=== PATIENT | female | born 1930 | race Caucasian/White ===

== ENCOUNTER → 2016-08-27 | Outpatient (REF) | payer MEDICARE ==
[~2016-08-27] MED LIST: /WARF25TA OR; AMLO10TAB OR; ATEN25TA OR; BENA20TA2 OR; BISA10SU2 AD; BISA5TA OR; COLA100C2 OR; FIBERCON PO; LEVO75TA2 OR; MELOPOW XX; MILKSUS OR; MULTIVIT PO; PAIN325T OR; TRAM50TA2 OR; VITAMIN D50000 UNT OR
[2016-08-27 18:37] LABS: ANION GAP 6 MEQ/L (8-16); BLOOD UREA NITROGEN 19 MG/DL (7-18); CALCIUM LEVEL 9.4 MG/DL (8.8-10.2); CARBON DIOXIDE LEVEL 30 MEQ/L (21-32); CHLORIDE LEVEL 104 MEQ/L (98-107); CREATININE FOR GFR 0.62 MG/DL (0.55-1.02); GLOMERULAR FILTRATION RATE > 60.0 (>32); GLUCOSE, FASTING 68 MG/DL (83-110); POTASSIUM SERUM 4.1 MEQ/L (3.5-5.1); SODIUM LEVEL 140 MEQ/L (136-145)
== END ==
LOC: M SFHCPLAZ 16:01
PROVIDERS: ATTEND Family Medicine
DX: I10 Essential (primary) hypertension (principal); E55.9 Vitamin D deficiency, unspecified
CPT/HCPCS: 36415; 80048; 82306; G0463

== ENCOUNTER → 2017-03-24 | Outpatient (REF) | payer MEDICARE ==
[2017-03-24 13:55] LABS: FREE T4 1.16 NG/DL (0.76-1.46)
== END ==
LOC: M SFHCPLAZ 11:17
PROVIDERS: ATTEND Family Medicine
DX: E03.9 Hypothyroidism, unspecified (principal)

== ENCOUNTER → 2018-01-17 | Outpatient (REF) | payer MEDICARE ==
[2018-01-17 12:50] LABS: BASO # 0.1 10^3/uL (0.0-0.2); BASO % 0.8 % (0.0-1.0); EOS # 0.2 10^3/uL (0.0-0.50); EOS % 2.1 % (0.0-3.0); HEMOGLOBIN 15.1 g/dl (12.0-15.5); IMMATURE GRANULOCYTE % 0.1 % (0-3.0); LYMPH # 1.4 10^3/uL (1.5-4.5); LYMPH % 18.7 % (24.0-44.0); MEAN CORPUSCULAR HGB CONC 32.1 g/dl (32.0-36.5); MEAN CORPUSCULAR VOLUME 93.3 fl (80.0-96.0); MONO # 0.4 10^3/uL (0.0-0.8); NEUTROPHILS # 5.2 10^3/uL (1.8-7.7); NEUTROPHILS % 72.3 % (36.0-66.0); PLATELET COUNT, AUTOMATED 246 10^3/uL (150-450); RED BLOOD COUNT 5.04 10^6/uL (4.00-5.40); RED CELL DISTRIBUTION WIDTH 13.3 % (11.5-14.5); WHITE BLOOD COUNT 7.2 10^3/uL (4.0-10.0)
[2018-01-17 13:24] LABS: ALBUMIN 3.4 GM/DL (3.2-5.2); ALBUMIN/GLOBULIN RATIO 0.89 (1.00-1.93); ALKALINE PHOSPHATASE 71 U/L (45-117); ALT/SGPT 22 U/L (12-78); ANION GAP 6 MEQ/L (8-16); AST/SGOT 20 U/L (7-37); BILIRUBIN,TOTAL 0.7 MG/DL (0.2-1.0); BLOOD UREA NITROGEN 22 MG/DL (7-18); CALCIUM LEVEL 8.7 MG/DL (8.8-10.2); CARBON DIOXIDE LEVEL 29 MEQ/L (21-32); CHLORIDE LEVEL 107 MEQ/L (98-107); CHOLESTEROL LEVEL 198 MG/DL (<200); CHOLESTEROL RISK RATIO 3.413 (<5); CREATININE FOR GFR 0.61 MG/DL (0.55-1.30); FREE T4 0.98 NG/DL (0.76-1.46); GLOMERULAR FILTRATION RATE > 60.0 (>32); GLUCOSE, FASTING 82 MG/DL (70-100); HDL CHOLESTEROL 58 MG/DL (>40); LDL CHOLESTEROL 122 MG/DL (<100); MAGNESIUM LEVEL 2.1 MG/DL (1.8-2.4); NON-HDL-C 140 MG/DL; POTASSIUM SERUM 4.1 MEQ/L (3.5-5.1); SODIUM LEVEL 142 MEQ/L (136-145); TOTAL PROTEIN 7.2 GM/DL (6.4-8.2); TRIGLYCERIDES LEVEL 91 MG/DL (<150)
[2018-01-17 13:56] LABS: PTH INTACT 61.9 PG/ML (18.5-88.0); TOTAL 25(OH) VITAMIN D 25.4 NG/ML (30.0-100.0)
== END ==
LOC: M SFHCPLAZ 11:01
DX: I10 Essential (primary) hypertension (principal); E03.9 Hypothyroidism, unspecified; Z13.228 Encounter for screening for other metabolic disorders; E55.9 Vitamin D deficiency, unspecified
CPT/HCPCS: 83735

== ENCOUNTER → 2018-01-31 | Outpatient (REF) | payer MEDICARE | LOC: M SFHCPLAZ 17:29 | DX: R35.0 Frequency of micturition (principal) | CPT/HCPCS: 87088; 87186 ==

== ENCOUNTER → 2018-05-01 | Outpatient (REF) | payer MEDICARE | LOC: M SFHCPLAZ 15:08 | PROVIDERS: ATTEND Family Medicine | DX: R30.0 Dysuria (principal) | CPT/HCPCS: 81002; 87086; G0463 ==

== ENCOUNTER → 2018-07-24 | Outpatient (REF) | payer MEDICARE ==
[~2018-07-24] MED LIST changes: -/WARF25TA OR; +COUM1TAB18 OR
[2018-07-24 17:17] LABS: BLOOD UREA NITROGEN 22 MG/DL (7-18); CALCIUM LEVEL 9.3 MG/DL (8.8-10.2); CARBON DIOXIDE LEVEL 30 MEQ/L (21-32); CHLORIDE LEVEL 105 MEQ/L (98-107); CREATININE FOR GFR 0.54 MG/DL (0.55-1.30); GLOMERULAR FILTRATION RATE > 60.0 (>32); GLUCOSE, FASTING 73 MG/DL (70-100); POTASSIUM SERUM 3.9 MEQ/L (3.5-5.1); SODIUM LEVEL 140 MEQ/L (136-145)
[2018-07-25 10:41] LABS: MALB URINE SIEMENS 24.5 MG/L
== END ==
LOC: M SFHCPLAZ 14:46
PROVIDERS: ATTEND Family Medicine
DX: I10 Essential (primary) hypertension (principal)

== ENCOUNTER 2018-12-09 08:05 | Inpatient (IN) | payer MEDICARE ==
[2018-12-09] VITALS (8 sets, daily range): BP systolic 129–146; BP diastolic 60–67
[~2018-12-09] VITALS: Ht 160 cm; Wt 51.2 kg
[2018-12-09] MEDS ORDERED: MORPHINE 4 MG/ML 1ML VIAL/SYRINGE (J2270) IV ONE ×3 (08:45→11:30)
[2018-12-09 09:14] LABS: BASO # 0.1 10^3/uL (0.0-0.2); BASO % 0.5 % (0.0-1.0); EOS # 0.1 10^3/uL (0.0-0.50); EOS % 1.1 % (0.0-3.0); LYMPH # 1.8 10^3/uL (1.5-4.5); MEAN CORPUSCULAR HEMOGLOBIN 31.3 pg (27.0-33.0); MEAN CORPUSCULAR HGB CONC 32.6 g/dl (32.0-36.5); MONO # 0.4 10^3/uL (0.0-0.8); MONO % 4.3 % (0.0-5.0); NEUTROPHILS # 7.9 10^3/uL (1.8-7.7); NEUTROPHILS % 76.7 % (36.0-66.0); PLATELET COUNT, AUTOMATED 241 10^3/uL (150-450); RED BLOOD COUNT 4.79 10^6/uL (4.00-5.40); WHITE BLOOD COUNT 10.3 10^3/uL (4.0-10.0)
[2018-12-09] MEDS ORDERED: GI COCKTAIL 50ML BTL(HYOSCYAMINE/MAALOX/LIDOCAINE VISCOUS)(1:3:1) As Ordered ONE (09:35)
[2018-12-09 09:45] LABS: ALBUMIN 3.2 GM/DL (3.2-5.2); ALT/SGPT 19 U/L (12-78); BILIRUBIN,DIRECT 0.1 MG/DL (0.0-0.2); BILIRUBIN,TOTAL 0.5 MG/DL (0.2-1.0); BLOOD UREA NITROGEN 21 MG/DL (7-18); CALCIUM LEVEL 9.2 MG/DL (8.8-10.2); CARBON DIOXIDE LEVEL 27 MEQ/L (21-32); CHLORIDE LEVEL 107 MEQ/L (98-107); CK-MB VALUE MASS < 1.0 NG/ML (<3.6); CPK CREATINE PHOSPHOKINASE 51 U/L (26-192); CREATININE FOR GFR 0.55 MG/DL (0.55-1.30); GLOMERULAR FILTRATION RATE > 60.0 (>32); GLUCOSE, FASTING 146 MG/DL (70-100); LIPASE 514 U/L (73-393); MB/CK RELATIVE INDEX 1.96 (< OR =4); POTASSIUM SERUM 3.5 MEQ/L (3.5-5.1); SODIUM LEVEL 145 MEQ/L (136-145); TOTAL PROTEIN 6.8 GM/DL (6.4-8.2); TROPONIN I < 0.02 NG/ML (< 0.10)
[2018-12-09] MEDS ORDERED: ONDANSETRON 4MG/2ML VIAL (J2405) As Ordered ONE ×2 (09:45→15:30)
[2018-12-09] MEDS ORDERED: GI COCKTAIL 50ML BTL(HYOSCYAMINE/MAALOX/LIDOCAINE VISCOUS)(1:3:1) PO ONE (09:45)
[2018-12-09] MEDS ORDERED: ONDANSETRON 4MG/2ML VIAL (J2405) IV ONE (09:45)
[2018-12-09 09:52] LABS: INR 1.04; PROTHROMBIN TIME 13.3 SECONDS (11.8-14.0)
[2018-12-09 09:53] LABS: PARTIAL THROMBOPLASTIN TIME 27.3 SECONDS (25.0-38.4)
[2018-12-09] MEDS: GASTROGRAFIN SOLUTION 30ML PO SCH ×2 (10:20→11:00)
[2018-12-09] MEDS ORDERED: OMEP10CASR PO (10:34)
[2018-12-09] MEDS ORDERED: ASPI81TA85 PO (10:34)
[2018-12-09] MEDS ORDERED: D 101000 PO (10:34)
[2018-12-09] MEDS ORDERED: GNPCAP19 PO (10:34)
[2018-12-09] MEDS ORDERED: ISOVUE-370 76% 100ML VIAL (Q9967) As Ordered ONE (10:38)
--- NOTE | 2018-12-09 11:12 | REP ---
Clinical: Generalized abdominal pain. Technique: Axial contrast enhanced images from the lung bases to the pubic symphysis with coronal and sagittal re-formations using 100 ml Isovue 370 intravenous contrast material. Findings: Small to moderate amount of free air is identified within the abdomen along with free fluid primarily noted in the right upper quadrant and surrounding the gallbladder and inferior portion of the liver into the right paracolic gutter. The small and large bowel is without obstruction although scattered colonic and sigmoid diverticulosis is appreciated without obvious focal diverticulitis or inflammatory process identified. Liver, spleen, pancreas, bilateral adrenal glands and kidneys appear relatively normal. Evaluation of the pelvis demonstrates Atkins catheter in collapsed bladder and age-appropriate uterus/adnexa. Musculoskeletal structures demonstrate osteopenia and degenerative changes. Impression: 1. Pneumoperitoneum and ascites as described above. Findings suggest element of bowel perforation which may be secondary to perforated gastric/duodenal ulcer based on the distribution of fluid and gas. 2. Acute cholecystitis cannot be excluded and may warrant followup. 3. Colonic diverticulosis without focal inflammatory findings to suggest acute diverticulitis. Electronically Signed by Cayden Palomo MD 12/09/2018 11:04 A
[2018-12-09] MEDS ORDERED: NS 1,000 ML IV SCH (11:27)
[2018-12-09] MEDS ORDERED: ACET1TAB55 PO (11:39)
[2018-12-09] MEDS ORDERED: AMLO5TAB6 PO (11:39)
[2018-12-09] MEDS ORDERED: ATEN25TA PO (11:39)
[2018-12-09] MEDS ORDERED: MELO15TA28 PO (11:39)
[2018-12-09] MEDS ORDERED: SYNT75TA PO (11:39)
[2018-12-09] MEDS ORDERED: ERTAPENEM SODIUM 1 GM in NS MINI-BAG PLUS 50 ML IV ONE (11:45)
[2018-12-09] MEDS ORDERED: OMEP-218 PO (12:09)
[2018-12-09] MEDS ORDERED: ACET-683 PO (12:12)
[2018-12-09] MEDS ORDERED: LR 1,000 ML IV SCH ×2 (12:30→17:45)
[2018-12-09] MEDS ORDERED: LIDOCAINE 1% SDV INJ 30 ML VIAL As Ordered ONE (14:30)
[2018-12-09] MEDS ORDERED: BUPIVACAINE HCL 0.25% 30 ML VIAL As Ordered ONE (14:30)
[2018-12-09] MEDS ORDERED: MIDAZOLAM INJ 2 MG/2 ML VIAL (J2250) As Ordered ONE (15:23)
[2018-12-09] MEDS ORDERED: ROCURONIUM BROMIDE 50 MG/5 ML VIAL As Ordered ONE (15:23)
[2018-12-09] MEDS ORDERED: PROPOFOL 200 MG/20 ML VIAL As Ordered ONE (15:23)
[2018-12-09] MEDS ORDERED: LIDOCAINE 2% INJ 100 MG/5 ML SDV (FOR ANES.) As Ordered ONE (15:23)
[2018-12-09] MEDS ORDERED: fentaNYL 100 MCG/2 ML INJECTION (J3010) As Ordered ONE (15:23)
[2018-12-09] MEDS ORDERED: dexameTHASONE 4 MG/ML 1ML VIAL (J1100) As Ordered ONE (15:23)
[2018-12-09] MEDS ORDERED: SUCCINYLCHOLINE 100 MG/5 ML SYRINGE (J0330) As Ordered ONE (15:24)
[2018-12-09] MEDS ORDERED: PHENYLephrine HCL 500 MCG/5 ML (100MCG/ML) SYRINGE (J2370) As Ordered ONE (15:27)
[2018-12-09] MEDS ORDERED: ePHEDrine SULFATE 25 MG/5 ML(5MG/ML) SYRINGE As Ordered ONE (15:27)
[2018-12-09] MEDS ORDERED: SUGAMMADEX SODIUM 500 MG/5 ML VIAL (BRIDION) As Ordered ONE (15:33)
[2018-12-09] MEDS ORDERED: METOCLOPRAMIDE INJ 10MG/2ML VIAL (J2765) IV PRN (17:45)
[2018-12-09] MEDS ORDERED: fentaNYL 100 MCG/2 ML INJECTION (J3010) IV PRN (17:45)
[2018-12-09] MEDS ORDERED: ONDANSETRON 4MG/2ML VIAL (J2405) IV PRN (17:45)
[2018-12-09] MEDS: LR 1,000 ML IV SCH (18:09)
[2018-12-09] MEDS: ACETAMINOPHEN TAB 650MG DOSE (2X325MG) PO PRN (18:39)
[2018-12-09] MEDS: ATENOLOL 25 MG TAB PO SCH (18:40)
[2018-12-09] MEDS: PANTOPRAZOLE 40MG INJ (PROTONIX) (C9113) IV SCH (20:38)
[2018-12-09] MEDS: MORPHINE 4 MG/ML 1ML VIAL/SYRINGE (J2270) IV PRN ×2 (20:54→23:36)
[2018-12-09] MEDS: ONDANSETRON 4MG/2ML VIAL (J2405) IV PRN (20:55)
[2018-12-09] MEDS: SUCRALFATE SUSP 1GM/10ML UD PO SCH (20:55)
[2018-12-09] MEDS: SENOKOT S TAB PO SCH (20:55)
[2018-12-10 04:00] VITALS: BP 141/67
[2018-12-10] MEDS: ACETAMINOPHEN TAB 650MG DOSE (2X325MG) PO PRN ×3 (04:00→18:24)
[2018-12-10] MEDS: LEVOTHYROXINE 75MCG TABLET (0.075MG) PO SCH (05:34)
[2018-12-10] MEDS: SUCRALFATE SUSP 1GM/10ML UD PO SCH ×3 (05:34→20:19)
[2018-12-10] MEDS: LR 1,000 ML IV SCH ×2 (05:45→18:02)
[2018-12-10 05:49] LABS: BASO % 0.1 % (0.0-1.0); HEMOGLOBIN 14.6 g/dl (12.0-15.5); LYMPH # 0.4 10^3/uL (1.5-4.5); LYMPH % 4.2 % (24.0-44.0); MEAN CORPUSCULAR HEMOGLOBIN 31.4 pg (27.0-33.0); MEAN CORPUSCULAR HGB CONC 32.4 g/dl (32.0-36.5); MEAN CORPUSCULAR VOLUME 96.8 fl (80.0-96.0); MONO # 0.4 10^3/uL (0.0-0.8); MONO % 3.8 % (0.0-5.0); NEUTROPHILS # 9.5 10^3/uL (1.8-7.7); NEUTROPHILS % 91.4 % (36.0-66.0); PLATELET COUNT, AUTOMATED 216 10^3/uL (150-450); RED BLOOD COUNT 4.65 10^6/uL (4.00-5.40); WHITE BLOOD COUNT 10.4 10^3/uL (4.0-10.0)
[2018-12-10 06:26] LABS: ALBUMIN 2.5 GM/DL (3.2-5.2); ALT/SGPT 17 U/L (12-78); BILIRUBIN,TOTAL 0.5 MG/DL (0.2-1.0); BLOOD UREA NITROGEN 26 MG/DL (7-18); CALCIUM LEVEL 8.2 MG/DL (8.8-10.2); CARBON DIOXIDE LEVEL 26 MEQ/L (21-32); CHLORIDE LEVEL 109 MEQ/L (98-107); GLOMERULAR FILTRATION RATE > 60.0 (>32); GLUCOSE, FASTING 138 MG/DL (70-100); POTASSIUM SERUM 4.1 MEQ/L (3.5-5.1); SODIUM LEVEL 141 MEQ/L (136-145); TOTAL PROTEIN 6.3 GM/DL (6.4-8.2)
--- NOTE | 2018-12-10 07:11 | ECGEPIP ---
[facility] - ED Test Date: 2018-12-09 Pat Name: YONI YANES Department: Room: - Gender: Female [employer] Tender: : 1930 Requested By: LARON Moore Order Number: [id number] Reading MD: Irma Kiser Measurements Intervals [place] Rate: 57 P: 56 MT: 175 QRS: -22 QRSD: 138 T: 16 QT: 495 QTc: 484 Interpretive Statements SINUS BRADYCARDIA WITH OCCASIONAL VENTRICULAR PREMATURE COMPLEXES POSSIBLE LEFT ATRIAL ENLARGEMENT INTRAVENTRICULAR CONDUCTION DELAY POSSIBLE LEFT VENTRICULAR HYPERTROPHY NO PRIOR Electronically Signed on 12-10-2018 7:11:16 EDT by Irma Kiser
[2018-12-10 08:00] VITALS: BP 147/66
[2018-12-10] MEDS: PANTOPRAZOLE 40MG INJ (PROTONIX) (C9113) IV SCH ×2 (08:37→20:19)
[2018-12-10] MEDS: SENOKOT S TAB PO SCH ×2 (08:37→20:19)
[2018-12-10] MEDS: amLODIPine 5 MG TAB PO SCH (08:37)
[2018-12-10] MEDS: ENOXAPARIN 30 MG/0.3 ML SYR (J1650) SC SCH (08:38)
[2018-12-10] MEDS: MORPHINE 4 MG/ML 1ML VIAL/SYRINGE (J2270) IV PRN ×2 (08:40→20:19)
[2018-12-10 11:50] VITALS: BP 149/65
[2018-12-10] MEDS: ERTAPENEM SODIUM 1 GM in NS MINI-BAG PLUS 50 ML IV SCH (13:06)
[2018-12-10] MEDS ORDERED: CHLORASEPTIC SPRAY MT PRN (14:15)
[2018-12-10 16:00] VITALS: BP 136/64
[2018-12-10] MEDS: ATENOLOL 25 MG TAB PO SCH (17:08)
[2018-12-10 20:00] VITALS: BP 131/77
[2018-12-10 20:10] LABS: BASO % 0.2 % (0.0-1.0); HEMATOCRIT 41.9 % (36.0-47.0); HEMOGLOBIN 13.6 g/dl (12.0-15.5); LYMPH # 0.8 10^3/uL (1.5-5.0); LYMPH % 8.5 % (24.0-44.0); MEAN CORPUSCULAR HEMOGLOBIN 31.3 pg (27.0-33.0); MEAN CORPUSCULAR HGB CONC 32.5 g/dl (32.0-36.5); MEAN CORPUSCULAR VOLUME 96.3 fl (80.0-96.0); MONO # 0.4 10^3/uL (0.0-0.8); MONO % 3.8 % (0.0-5.0); NEUTROPHILS # 8.3 10^3/uL (1.5-8.5); NEUTROPHILS % 87.2 % (36.0-66.0); PLATELET COUNT, AUTOMATED 196 10^3/uL (150-450); RED BLOOD COUNT 4.35 10^6/uL (4.00-5.40); WHITE BLOOD COUNT 9.5 10^3/uL (4.0-10.0)
[2018-12-10 20:53] LABS: BLOOD UREA NITROGEN 23 MG/DL (7-18); CALCIUM LEVEL 8.8 MG/DL (8.8-10.2); CARBON DIOXIDE LEVEL 27 MEQ/L (21-32); CHLORIDE LEVEL 107 MEQ/L (98-107); CREATININE FOR GFR 0.45 MG/DL (0.55-1.30); GLOMERULAR FILTRATION RATE > 60.0 (>32); GLUCOSE, FASTING 93 MG/DL (70-100); MAGNESIUM LEVEL 2.1 MG/DL (1.8-2.4); POTASSIUM SERUM 3.9 MEQ/L (3.5-5.1); SODIUM LEVEL 140 MEQ/L (136-145); TROPONIN I < 0.02 NG/ML (< 0.10)
[2018-12-10 23:59] VITALS: BP 126/68
[2018-12-11 01:31] LABS: ALBUMIN 2.3 GM/DL (3.2-5.2); CK-MB VALUE MASS 1.4 NG/ML (<3.6); CPK CREATINE PHOSPHOKINASE 101 U/L (26-192); MB/CK RELATIVE INDEX 1.39 (< OR =4); TOTAL PROTEIN 5.4 GM/DL (6.4-8.2); TROPONIN I < 0.02 NG/ML (< 0.10)
[2018-12-11] MEDS: ACETAMINOPHEN TAB 650MG DOSE (2X325MG) PO PRN ×3 (02:52→20:22)
[2018-12-11] MEDS: ONDANSETRON 4MG/2ML VIAL (J2405) IV PRN (03:30)
[2018-12-11 04:00] VITALS: BP 141/67
[2018-12-11] MEDS: LEVOTHYROXINE 75MCG TABLET (0.075MG) PO SCH (05:34)
[2018-12-11] MEDS: SUCRALFATE SUSP 1GM/10ML UD PO SCH ×3 (05:34→20:20)
[2018-12-11] MEDS: LR 1,000 ML IV SCH (05:35)
[2018-12-11 06:13] LABS: BASO % 0.1 % (0.0-1.0); EOS % 0.1 % (0.0-3.0); HEMATOCRIT 43.8 % (36.0-47.0); HEMOGLOBIN 14.1 g/dl (12.0-15.5); LYMPH # 0.7 10^3/uL (1.5-5.0); LYMPH % 6.9 % (24.0-44.0); MEAN CORPUSCULAR HGB CONC 32.2 g/dl (32.0-36.5); MEAN CORPUSCULAR VOLUME 96.3 fl (80.0-96.0); MONO # 0.4 10^3/uL (0.0-0.8); MONO % 3.7 % (0.0-5.0); NEUTROPHILS # 8.4 10^3/uL (1.5-8.5); NEUTROPHILS % 88.9 % (36.0-66.0); PLATELET COUNT, AUTOMATED 192 10^3/uL (150-450); RED BLOOD COUNT 4.55 10^6/uL (4.00-5.40); WHITE BLOOD COUNT 9.5 10^3/uL (4.0-10.0)
[2018-12-11] MEDS ORDERED: SODIUM PHOSPHATE INJ 20 MMOL in D5W 250 ML IV ONE (06:30)
[2018-12-11 06:49] LABS: BLOOD UREA NITROGEN 21 MG/DL (7-18); CALCIUM LEVEL 8.3 MG/DL (8.8-10.2); CARBON DIOXIDE LEVEL 26 MEQ/L (21-32); CHLORIDE LEVEL 107 MEQ/L (98-107); CREATININE FOR GFR 0.48 MG/DL (0.55-1.30); GLOMERULAR FILTRATION RATE > 60.0 (>32); GLUCOSE, FASTING 89 MG/DL (70-100); POTASSIUM SERUM 3.8 MEQ/L (3.5-5.1); SODIUM LEVEL 138 MEQ/L (136-145); TROPONIN I < 0.02 NG/ML (< 0.10)
--- NOTE | 2018-12-11 06:50 | MHCRPDOC ---
[facility] Consultation Consultation DATE OF CONSULTATION: 12/10/18 CONSULTATION REQUESTED BY: REASON FOR CONSULTATION: [Atrial fibrillation]. RELEVANT HISTORY: . PAST PSYCHIATRIC HISTORY: PAST MEDICAL HISTORY: FAMILY HISTORY: Mother: Father: Siblings: Children: PERSONAL AND SOCIAL HISTORY: The patient was born and raised in [place]. 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 MENTAL STATUS EXAMINATION: Patient is a 88-year old elderly female, who recently had a bowel resection surgery for duodenal ulcer rupture. Speech is soft and clear. Language skills are age-appropriate . Thought processes including: . Thought content: Concise. Abstract reasoning, and computation: . Description of associations: . Description of abnormal or psychotic thoughts: . Judgment: . Insight: . Orientation to person, place, time. Recent and remote memory: Intact. Attention span and concentration: Appropriate Language: Mozambican. Fund of knowledge: Mood: Affect: blunted DIAGNOSIS: 1. Atrial fibrillation. PLAN: 1. Continue monitoring patient on telemetry remotely 2. Continue atenolol 25 mg by mouth daily if does not control rate slowly increase into rate is controlled and below the 100. Will consider adding calcium channel serafin such as verapamil or Diltazem in the future. if rate is not controlled or patient becomes symptomatic 3. Labs: Magnesium, trending troponin less than 0.023, phosphorus, repeat CMP, CK, MB, lactic acid, UA reflex to culture Vital Signs Vital Signs Date Time Temp Pulse Resp B/P (MAP) Pulse Ox O2 Delivery O2 Flow Rate FiO2 12/10/18 17:08 130 120/70 12/10/18 16:00 2.0 12/10/18 16:00 98.1 18 93 12/09/18 11:05 Room Air Laboratory Data 24H Labs Laboratory Tests 2 12/10/18 13:48: Bedside Glucose (Misc Panel) 113H 12/10/18 19:26: Immature Granulocyte % (Auto) 0.3, White Blood Count 9.5, Red Blood Count 4.35, Hemoglobin 13.6, Hematocrit 41.9, Mean Corpuscular Volume 96.3H, Mean Corpuscular Hemoglobin 31.3, Mean Corpuscular Hemoglobin Concent 32.5, Red Cell Distribution Width 12.9, Platelet Count 196, Neutrophils (%) (Auto) 87.2H, Lymph ocytes (%) (Auto) 8.5L, Monocytes (%) (Auto) 3.8, Eosinophils (%) (Auto) 0.0, Basophils (%) (Auto) 0.2, Neutrophils # (Auto) 8.3, Lymphocytes # (Auto) 0.8L, Monocytes # (Auto) 0.4, Eosinophils # (Auto) 0.0, Basophils # (Auto) 0.0, Nucleated Red Blood Cells % (auto) 0.0, Anion Gap 6L, Glomerular Filtration Rate > 60.0, Lactic Acid Level 1.1, Blood Urea Nitrogen 23H, Creatinine 0.45L, Sodium Level 140, Potassium Level 3.9, Chloride Level 107, Carbon Dioxide Level 27, Calcium Level 8.8, Magnesium Level 2.1, Troponin I < 0.02 12/11/18 00:44: Troponin I < 0.02, Phosphorus Level 2.0L, Total Creatine Kinase 101#, Creatine Kinase MB 1.4, Creatine Kinase MB Relative Index 1.39, Total Protein 5.4L, Albumin 2.3L 12/11/18 05:57: Immature Granulocyte % (Auto) 0.3, White Blood Count 9.5, Red Blood Count 4.55, Hemoglobin 14.1, Hematocrit 43.8, Mean Corpuscular Volume 96.3H, Mean Corpuscular Hemoglobin 31.0, Mean Corpuscular Hemoglobin Concent 32.2, Red Cell Distribution Width 13.0, Platelet Count 192, Neutrophils (%) (Auto) 88.9H, Lymphocytes (%) (Auto) 6.9L, Monocytes (%) (Auto) 3.7, Eosinophils (%) (Auto) 0. 1, Basophils (%) (Auto) 0.1, Neutrophils # (Auto) 8.4, Lymphocytes # (Auto) 0.7L, Monocytes # (Auto) 0.4, Eosinophils # (Auto) 0.0, Basophils # (Auto) 0.0, Nucleated Red Blood Cells % (auto) 0.0 Vital Signs Date Time Temp Pulse Resp B/P (MAP) Pulse Ox O2 Delivery O2 Flow Rate FiO2 12/11/18 04:00 96.6 98 16 141/67 (91) 93 2.0 12/09/18 11:05 Room Air Laboratory Tests 2 12/10/18 05:29: Immature Granulocyte % (Auto) 0.5, White Blood Count 10.4H, Red Blood Count 4.65, Hemoglobin 14.6, Hematocrit 45.0, Mean Corpuscular Volume 96.8H, Mean Corpuscular Hemoglobin 31.4, Mean Corpuscular Hemoglobin Concent 32.4, Red Cell Distribution Width 12.9, Platelet Count 216, Neutrophils (%) (Auto) 91.4H, Lymphocytes (%) (Auto) 4.2L, Monocytes (%) (Auto) 3.8, Eosinophils (%) (Auto) 0.0, Basophils (%) (Auto) 0.1, Neutrophils # (Auto) 9.5H, Lymphocytes # (Auto) 0.4L, Monocytes # (Auto) 0.4, Eosinophils # (Auto) 0.0, Basophils # (Auto) 0.0, Nucleated Red Blood Cells % (auto) 0.0, Anion Gap 6L, Glomerular Filtration Rate > 60.0, Blood Urea Nitrogen 26H, Creatinine 0.70, Sodium Level 141, Potassium Level 4.1, Chloride Level 109H, Carbon Dioxide Level 26, Calcium Level 8.2L, Aspartate Amino Transf (AST/SGOT) 23, Alanine Aminotransferase (ALT/SGPT) 17, Alkaline Phosphatase 53, Total Bilirubin 0.5, Total Protein 6.3L, Albumin 2.5#L, Albumin/Globulin Ratio 0.66L 12/10/18 13:48: Bedside Glucose (Misc Panel) 113H Home Medications Current Medications Item Value Date Time Magnesium Level 2.1 MG/DL 12/10/18 192 Current Medications Medications (Trade) Dose Ordered Sig/Ronaldo Route PRN Reason Start Time Stop Time Status Last Admin Dose Admin Acetaminophen (Tylenol Tab) 650 mg Q4HP PRN PO MILD PAIN or TEMP > 101 12/09/18 17:15 12/10/18 18:24 Amlodipine Besylate (Norvasc) 5 mg DAILY PO 12/10/18 09:00 12/10/18 08:37 Atenolol (Tenormin) 25 mg QPM@1800 PO 12/09/18 18:00 12/10/18 17:08 Diatrizoate Meglum/ Diatrizoate Sod (Gastrografin) 10 ml Q30M PO 12/09/18 10:30 8/31/19 11:01 DC 12/09/18 10:20 Enoxaparin Sodium (Lovenox) 30 mg DAILY SC 12/10/18 09:00 12/10/18 08:38 Ertapenem 1 gm/ Sodium Chloride 50 ml @ 100 mls/hr Q24H IV 12/10/18 12:00 12/10/18 13:06 Fentanyl Citrate (Sublimaze) 25 mcg Q5MP PRN IV MODERATE PAIN (PS 4-7) 12/09/18 17:45 12/09/18 18:45 DC Home Med (Med Rec Complete!) ASDIRECTED XX 12/09/18 12:30 12/09/18 12:30 DC Lactated Ringer's 1,000 ml @ 75 mls/hr [id number] IV 12/09/18 17:45 12/09/18 18:45 DC Lactated Ringer's 1,000 ml @ 80 mls/hr [id number] IV 12/09/18 18:00 12/10/18 18:02 Lactated Ringer's 1,000 ml @ 100 mls/hr Q10H IV 12/09/18 12:30 12/09/18 17:26 DC Levothyroxine Sodium (Synthroid) 75 mcg DAILY@0600 PO 12/10/18 06:00 12/10/18 05:34 Metoclopramide HCl (REGLAN INJection) 10 mg Q6HP PRN IV NAUSEA OR VOMITING 12/09/18 17:45 12/09/18 18:45 DC Morphine Sulfate (Morphine Sulfate Inj) 2 mg Q2HP PRN IV SEVERE PAIN (PS 8-10) 12/09/18 17:15 12/10/18 08:40 Ondansetron HCl (ZOFRAN INJection) 4 mg Q4HP PRN IV NAUSEA OR VOMITING 12/09/18 17:45 12/09/18 18:45 DC Ondansetron HCl (ZOFRAN INJection) 4 mg Q6HP PRN IV NAUSEA OR VOMITING 12/09/18 17:15 12/09/18 20:55 Pantoprazole Sodium (Protonix) 40 mg Q12H IV 12/09/18 21:00 12/10/18 08:37 Phenol (Chloraseptic [place]) 2 spray Q4HP PRN MT SORE THROAT 12/10/18 14:15 12/10/18 16:38 Senna/Docusate Sodium (Senokot S) 1 tab BID PO 12/09/18 21:00 12/10/18 08:37 Sodium Chloride 1,000 ml @ 150 mls/hr Q6H40M IV 12/09/18 11:27 12/09/18 17:26 DC 12/09/18 11:32 Sucralfate (Carafate Suspension) 1 gm Q8H PO 12/09/18 22:00 12/10/18 13:03 Scheduled Amlodipine Besylate (Amlodipine Besylate) 5 Mg Tablet, 5 MG PO DAILY, (Reported) Aspirin (Aspir 81) 81 Mg Tablet.dr, 81 MG PO DAILY, (Reported) Atenolol (Atenolol) 25 Mg Tablet, 25 MG PO QPM, (Reported) Cholecalciferol (Vitamin D3) (Vitamin D3) 1,000 Unit Capsule, 3,000 UNITS PO DAILY, (Reported) Levothyroxine Sodium (Synthroid) 75 Mcg Tablet, 75 MCG PO DAILY, (Reported) Meloxicam (Meloxicam) 15 Mg Tablet, 15 MG PO DAILY, (Reported) Omeprazole (Omeprazole) 20 Mg Capsule.dr, 20 MG PO DAILY, (Reported) Vit A/Vit C/Vit E/Zinc/Copper (Healthy Eyes Supervision Sftgl) 1 Each Capsule, 1 CAP PO DAILY, (Reported) Scheduled PRN Acetaminophen (Acetaminophen) 500 Mg Tablet, 500 MG PO Q4H PRN for PAIN, (Reported) Allergies Coded Allergies: Tetracyclines (Verified Allergy, Unknown, rash, 12/09/18) codeine (Verified Allergy, Unknown, rash, 12/09/18) KUNAL OLSON [facility] Dec 10, 2018 18:49
--- NOTE | 2018-12-11 07:47 | HPEPDOC ---
General Date of Admission Dec 09, 2018 at 12:02 Date of Service: Dec 10, 2018 Primary Care Physician: FREDDY OSMAN MD Attending Physician: TE DYKES MD Chief Complaint The patient is a 88-year-old female consultation for new onset atrial fibrillation. Source: Patient, Old records Exam Limitations: Hard of hearing Timing/Duration: Unsure Severity: Mild Associated Symptoms: Denies Symptoms History of Present Illness Consultation Received consultation referral from Dr. Osman to see patient due to new onset of atrial fibrillation. Patient seen on 12/10/2018 in her room . Ms. Summers is an 88-year-old elderly female who presents with non- symptomatic atrial fibrillation. She reports that she has felt her heart quiver for many years now, but she never thought anything of it and has not reported it to her physician. She denies feeling symptoms of dizziness, chest pain, heart palpitations, when heart heart symptoms were felt at home and in the hospital. However, she does reports tingling in her lower extremities but denies tingling in her hands at this time as well as nausea and vomiting. She has a nasogastric tube draining moderate green fluid to low wall suction. She has significant medical history of essential hypertension, hypothyroidism, vitamin D deficiency, deep vein thrombosis. She is currently status- post gastrointestinal surgery for perforated abdominal access with duodenal ulcer rupture having bowel resection performed by Dr. Osman on 12/09/[address] [facility] Home Medications Scheduled Amlodipine Besylate (Amlodipine Besylate) 5 Mg Tablet, 5 MG PO DAILY, (Reported) Aspirin (Aspir 81) 81 Mg Tablet.dr, 81 MG PO DAILY, (Reported) Atenolol (Atenolol) 25 Mg Tablet, 25 MG PO QPM, (Reported) Cholecalciferol (Vitamin D3) (Vitamin D3) 1,000 Unit Capsule, 3,000 UNITS PO DAILY, (Reported) Levothyroxine Sodium (Synthroid) 75 Mcg Tablet, 75 MCG PO DAILY, (Reported) Meloxicam (Meloxicam) 15 Mg Tablet, 15 MG PO DAILY, (Reported) Omeprazole (Omeprazole) 20 Mg Capsule.dr, 20 MG PO DAILY, (Reported) Vit A/Vit C/Vit E/Zinc/Copper (Healthy Eyes Supervision Sftgl) 1 Each Capsule, 1 CAP PO DAILY, (Reported) Scheduled PRN Acetaminophen (Acetaminophen) 500 Mg Tablet, 500 MG PO Q4H PRN for PAIN, (Reported) Allergies Coded Allergies: Tetracyclines (Verified Allergy, Unknown, rash, 12/09/18) codeine (Verified Allergy, Unknown, rash, 12/09/18) Past Medical History Medical History essential hypertension, hypothyroidism, vitamin D deficiency, deep vein thrombosis Family History Significant Family History: Noncontributory Social History * Smoker: Denies Alcohol: Denies Drugs: denies Psychosocial History: No pertinent psych hx A-FIB/CHADSVASC A-FIB History Current/History of A-Fib/PAF?: Yes Current PO Anticoag Therapy: No Age/Risk Factor Scoring CHADSVASC: CHADSVASC Response (Comments) Value Age Risk Factor Age >/= 75 years old 2 Hx of CHF No 0 Hx of HTN Yes 1 Hx of Stroke/TIA/or VTE Yes 2 Hx of Diabetes No 0 Hx of Vascular Disease No 0 Total 5 Treatment Treatment ordered: Other (Receiving Lovenox 30 mg SC daily) Other anticoagulant ordered: Lovenox 30 mg SC Reason Anticoagulant not given: Recent/upcomin procedure Review of Systems Constitutional: Reports: Malaise Eyes: Denies: Pain, Vision change ENT: Reports: Head Aches, Sore Throat Skin: Denies: Rash, Lesions, Breakdown Pulmonary: Denies: Dyspnea, Cough Cardiovascular: Denies: Chest Pain, Palpitations, Orthopnea, Paroxysmal Noc. Dyspnea, Lt Headedness Gastrointestinal: Reports: Nausea Genitourinary: Reports: Incontinence Hematologic: Denies: Bruising, Bleeding Excessively Endocrine: Denies: Polydipsia, Polyphagia, Polyuria, Heat Intolerance, Cold Intolerance, Other Endocrine Sx Musculoskeletal: Denies: Neck Pain, Back Pain, Joint Pain, Muscle Pain, Spasms Neurological: Reports: Weakness (Bluted and Flat Affect) Physical Examination General Exam: Positive: Alert, Cooperative, No Acute Distress Eye Exam: Positive: PERRLA, Conjunctiva & lids normal ENT Exam: Positive: Atraumatic, Mucous membr. moist/pink, Pharynx Normal Neck Exam: Positive: Supple, +2 carotid pulse wo bruit Chest Exam: Positive: Clear to auscultation, Normal air movement Heart Exam: Positive: Irregular Rhythm Telemetry: Positive: Atrial fibrillation (with Moderated Intraventricular conduction delays), Other Telemetry: (Vent rate 94, NV interval *, QRS duration 123, QT/QTc 358/410, PRT axis * -18, -30) Abdomen Exam: Positive: Normal bowel sounds, Soft, Tenderness, Other (SERGEY drain RUQ drain dark sanguinous fluid approximately 300 cc this shift. Laproscopic abdominal dressings clean, dry and intact) Extremity Exam: Positive: Normal pulses Skin Exam: Positive: Nl turgor and temperature, Other skin issue (varicose veins bilateral lower legs and ankles) Neuro Exam: Positive: Normal Speech Psych Exam: Positive: Mental status NL, Oriented x 3 Vital Signs Vital Signs Date Time Temp Pulse Resp B/P (MAP) Pulse Ox O2 Delivery O2 Flow Rate FiO2 12/11/18 04:00 96.6 98 16 141/67 (91) 93 2.0 12/09/18 11:05 Room Air Laboratory Data Labs 24H Laboratory Tests 2 12/10/18 13:48: Bedside Glucose (Misc Panel) 113H 12/10/18 19:26: Immature Granulocyte % (Auto) 0.3, White Blood Count 9.5, Red Blood Count 4.35, Hemoglobin 13.6, Hematocrit 41.9, Mean Corpuscular Volume 96.3H, Mean Corpuscular Hemoglobin 31.3, Mean Corpuscular Hemoglobin Concent 32.5, Red Cell Distribution Width 12.9, Platelet Count 196, Neutrophils (%) (Auto) 87.2H, Lymphocytes (%) (Auto) 8.5L, Monocytes (%) (Auto) 3.8, Eosinophils (%) (Auto) 0.0, Basophils (%) (Auto) 0.2, Neutrophils # (Auto) 8.3, Lymphocytes # (Auto) 0.8L, Monocytes # (Auto) 0.4, Eosinophils # (Auto) 0.0, Basophils # (Auto) 0.0, Nucleated Red Blood Cells % (auto) 0.0, Anion Gap 6L, Glomerular Filtration Rate > 60.0, Lactic Acid Level 1.1, Blood Urea Nitrogen 23H, Creatinine 0.45L, Sodium Level 140, Potassium Level 3.9, Chloride Level 107, Carbon Dioxide Level 27, Calcium Level 8.8, Magnesium Level 2.1, Troponin I < 0.02 12/11/18 00:44: Troponin I < 0.02, Phosphorus Level 2.0L, Total Creatine Kinase 101#, Creatine Kinase MB 1.4, Creatine Kinase MB Relative Index 1.39, Total Protein 5.4L, Albumin 2.3L 12/11/18 05:57: Immature Granulocyte % (Auto) 0.3, White Blood Count 9.5, Red Blood Count 4.55, Hemoglobin 14.1, Hematocrit 43.8, Mean Corpuscular Volume 96.3H, Mean Corpuscular Hemoglobin 31.0, Mean Corpuscular Hemoglobin Concent 32.2, Red Cell Distribution Width 13.0, Platelet Count 192, Neutrophils (%) (Auto) 88.9H, Lymphocytes (%) (Auto) 6.9L, Monocytes (%) (Auto) 3.7, Eosinophils (%) (Auto) 0.1, Basophils (%) (Auto) 0.1, Neutrophils # (Auto) 8.4, Lymphocytes # (Auto) 0.7L, Monocytes # (Auto) 0.4, Eosinophils # (Auto) 0.0, Basophils # (Auto) 0.0, Nucleated Red Blood Cells % (auto) 0.0, Anion Gap 5L, Glomerular Filtration Rate > 60.0, Blood Urea Nitrogen 21H, Creatinine 0.48L, Sodium Level 138, Potassium Level 3.8, Chloride Level 107, Carbon Dioxide Level 26, Calcium Level 8.3L, Troponin I < 0.02 CBC/BMP Laboratory Tests 12/10/18 19:26 Red Blood Count 4.35, Mean Corpuscular Volume 96.3 H, Mean Corpuscular Hemoglobin 31.3, Mean Corpuscular Hemoglobin Concent 32.5, Red Cell Distribution Width 12.9, Neutrophils (%) (Auto) 87.2 H, Lymphocytes (%) (Auto) 8.5 L, Monocytes (%) (Auto) 3.8, Eosinophils (%) (Auto) 0.0, Basophils (%) (Auto) 0.2, Neutrophils # (Auto) 8.3, Lymphocytes # (Auto) 0.8 L, Monocytes # (Auto) 0.4, Eosinophils # (Auto) 0.0, Basophils # (Auto) 0.0, Calcium Level 8.8 12/11/18 05:57 Red Blood Count 4.55, Mean Corpuscular Volume 96.3 H, Mean Corpuscular Hemoglobin 31.0, Mean Corpuscular Hemoglobin Concent 32.2, Red Cell Distribution Width 13.0, Neutrophils (%) (Auto) 88.9 H, Lymphocytes (%) (Auto) 6.9 L, Monocytes (%) (Auto) 3.7, Eosinophils (%) (Auto) 0.1, Basophils (%) (Auto) 0.1, Neutrophils # (Auto) 8.4, Lymphocytes # (Auto) 0.7 L, Monocytes # (Auto) 0.4, Eosinophils # (Auto) 0.0, Basophils # (Auto) 0.0, Calcium Level 8.3 L Microbiology Microbiology 12/09/18 Urine Culture - Final, Complete Escherichia Coli Assessment/Plan Ms. Summers is an 88-year-old elderly female who presents with non- symptomatic atrial fibrillation. She reports that she has felt her heart quiver for many years now, but she never thought anything of it and has not reported it to her physician. She denies feeling symptoms of dizziness, chest pain, heart palpitations, when heart heart symptoms were felt at home and in the hospital. However, she does reports tingling in her lower extremities but denies tingling in her hands at this time as well as nausea and vomiting. She has a nasogastric tube draining moderate green fluid to low wall suction. She has significant medical history of essential hypertension, hypothyroidism, vitamin D deficiency, deep vein thrombosis. She is currently status- post gastrointestinal surgery for perforated abdominal access with duodenal ulcer rupture having bowel resection performed by Dr. Osman on 12/09/[address] [facility]. Labs show low albumin level 2.3, phosphate 2.0, troponin <0.02, Mag 2.1, CK-MB- Atrial Fibrillation-Acute -Continue monitoring patient on telemetry remotely, repeat EKGs as needed -Continue atenolol 25 mg by mouth daily if does not control rate slowly increa se into rate is controlled and below the 100. Will consider adding calcium channel serafin such as verapamil or Diltazem in the future. if rate is not controlled or patient becomes symptomatic -Labs: Magnesium, trending troponin less than 0.023, phosphorus, repeat CMP, CK, MB, lactic acid, UA reflex to culture -Follow up with PCP upon Discharge Outpatient Hypophosphatemia-Acute -Sodium Phosphate 20 mmol IV x 1 dose now. Re-check Phosphate lab Acute UTI (E-coli)-Acute -Cultures & Sensitivity shows S to Nitrofurantoin. Will start patient on Nitrofurantoin 100 mg po bid Bowel Resection secondary to Duodenal Ulcer Rupture and Perforated Abdominal Abscess-Acute -Follow up with General Surgeon Dr. Osman -Continue with ice chips, small sips of water (current treatment plan) -Continue NG tube to low wall suction (decompressing stomach) (monitor I&O's) -SERGEY drain (intact draining) -CBC Prognosis: Fair DVT Prophylayxisis: Lovenox 30 mg SC (hold): REGINALD/SCD's Discharge Pending Plan / VTE VTE Prophylaxis Ordered?: Yes VTE Exclusion Mechanical Proph: N/A:VTE Prophy Ordered (Lovenox 30 mg SC) VTE Exclusion Pharmacological: Active Bleeding (Bowel resection surgery 12/09/18) Plan Diet: Continue Current Activity: Continue Current Advanced Directives: Health Care Proxy (HCP) KUNAL OLSON Dec 11, 2018 07:47
[2018-12-11 08:00] VITALS: BP 134/74
[2018-12-11] MEDS: PANTOPRAZOLE 40MG INJ (PROTONIX) (C9113) IV SCH ×2 (08:43→20:21)
[2018-12-11] MEDS: SENOKOT S TAB PO SCH ×2 (08:43→20:21)
[2018-12-11] MEDS: amLODIPine 5 MG TAB PO SCH (08:44)
[2018-12-11] MEDS: ENOXAPARIN 30 MG/0.3 ML SYR (J1650) SC SCH (08:44)
[2018-12-11] MEDS ORDERED: NITROFURANTOIN (MACROBID) 100 MG CAP PO SCH (09:00)
[2018-12-11] MEDS ORDERED: METOPROLOL 5 MG/5 ML VIAL IV PRN (10:15)
[2018-12-11 12:00] VITALS: BP 139/76
[2018-12-11] MEDS: ERTAPENEM SODIUM 1 GM in NS MINI-BAG PLUS 50 ML IV SCH (12:03)
[2018-12-11] MEDS: METOPROLOL TART 25 MG TABLET PO SCH ×2 (12:15→20:21)
[2018-12-11 16:00] VITALS: BP 125/68
--- NOTE | 2018-12-11 17:02 | IPNPDOC ---
Subjective General Date/Time Seen The patient was seen on 12/11/18 at 16:56. Subject Chief Complaint/History The patient is a 88-year-old female admitted with a reason for visit of Perforated Abdominal Viscus. Patient overall seems to be doing well. She is seen sitting up on the chair. She reports some mild chest pain when she coughs. Though she is not in pain when she is just sitting. She's been hemodynamically stable. She turned to atrial fibrillation last night and the hospitalist service was consulted. Current Medications Current Medications Current Medications Medications (Trade) Dose Ordered Sig/Ronaldo Route PRN Reason Start Time Stop Time Status Last Admin Dose Admin Acetaminophen (Tylenol Tab) 650 mg Q4HP PRN PO MILD PAIN or TEMP > 101 12/09/18 17:15 12/11/18 12:03 Amlodipine Besylate (Norvasc) 5 mg DAILY PO 12/10/18 09:00 12/11/18 08:44 Atenolol (Tenormin) 25 mg QPM@1800 PO 12/09/18 18:00 12/11/18 10:13 DC 12/10/18 17:08 Diatrizoate Meglum/ Diatrizoate Sod (Gastrografin) 10 ml Q30M PO 12/09/18 10:30 12/09/18 11:01 DC 12/09/18 10:20 Enoxaparin Sodium (Lovenox) 30 mg DAILY SC 12/10/18 09:00 12/11/18 08:44 Ertapenem 1 gm/ Sodium Chloride 50 ml @ 100 mls/hr Q24H IV 12/10/18 12:00 12/11/18 12:03 Fentanyl Citrate (Sublimaze) 25 mcg Q5MP PRN IV MODERATE PAIN (PS 4-7) 12/09/18 17:45 12/09/18 18:45 DC Home Med (Med Rec Complete!) ASDIRECTED XX 12/09/18 12:30 12/09/18 12:30 DC Lactated Ringer's 1,000 ml @ 75 mls/hr [id number] IV 12/09/18 17:45 12/09/18 18:45 DC Lactated Ringer's 1,000 ml @ 80 mls/hr [id number] IV 12/09/18 18:00 12/11/18 05:35 Lactated Ringer's 1,000 ml @ 100 mls/hr Q10H IV 12/09/18 12:30 12/09/18 17:26 DC Levothyroxine Sodium (Synthroid) 75 mcg DAILY@0600 PO 12/10/18 06:00 12/11/18 05:34 Metoclopramide HCl (REGLAN INJection) 10 mg Q6HP PRN IV NAUSEA OR VOMITING 12/09/18 17:45 12/09/18 18:45 DC Metoprolol Tartrate (Lopressor) 5 mg Q6HP PRN IV TACHICARDIA 12/11/18 10:15 Metoprolol Tartrate (Lopressor) 25 mg BID PO 12/11/18 09:00 12/11/18 12:15 Morphine Sulfate (Morphine Sulfate Inj) 2 mg Q2HP PRN IV SEVERE PAIN (PS 8-10) 12/09/18 17:15 12/10/18 20:19 Nitrofurantoin Monoh/Nitrofur Macro (Macrobid) 100 mg BID PO 12/11/18 09:00 12/11/18 09:00 DC Ondansetron HCl (ZOFRAN INJection) 4 mg Q4HP PRN IV NAUSEA OR VOMITING 12/09/18 17:45 12/09/18 18:45 DC Ondansetron HCl (ZOFRAN INJection) 4 mg Q6HP PRN IV NAUSEA OR VOMITING 12/09/18 17:15 12/11/18 03:30 Pantoprazole Sodium (Protonix) 40 mg Q12H IV 12/09/18 21:00 12/11/18 08:43 Phenol (Chloraseptic [facility]) 2 spray Q4HP PRN MT SORE THROAT 12/10/18 14:15 12/10/18 16:38 Senna/Docusate Sodium (Senokot S) 1 tab BID PO 12/09/18 21:00 12/11/18 08:43 Sodium Chloride 1,000 ml @ 150 mls/hr Q6H40M IV 12/09/18 11:27 12/09/18 17:26 DC 12/09/18 11:32 Sucralfate (Carafate Suspension) 1 gm Q8H PO 12/09/18 22:00 12/11/18 14:39 Allergies Coded Allergies: Tetracyclines (Verified Allergy, Unknown, rash, 12/09/18) codeine (Verified Allergy, Unknown, rash, 12/09/18) Objective Physical Examination Examination GENERAL APPEARANCE: Patient sitting up on the chair looks more comfortable today than yesterday. SKIN: Warm and dry. HEENT: Nasogastric tube in place, working. 525 ML's drain yesterday NECK: No obvious jugular venous distention. LUNGS: Clear to auscultation bilaterally. No wheezing appreciated. HEART: Heart rates in the 90s, irregular rhythm, no murmurs. ABDOMEN: Abdomen is still mildly distended, soft, port site dressings are clean dry and intact. SERGEY drain is only putting out thin serosanguineous fluid. Minimally tender on palpation over epigastric area and no rebound or guarding. EXTREMITIES: No noticeable extremity edema. Vital Signs Vital Signs Date Time Temp Pulse Resp B/P (MAP) Pulse Ox O2 Delivery O2 Flow Rate FiO2 12/11/18 12:15 108 139/66 12/11/18 12:00 97.6 18 95 12/11/18 08:00 2.0 12/09/18 11:05 Room Air I&Os I&O- Last 24 Hours up to 6 AM 12/11/18 06:00 Intake Total 2130 ml Output Total 1220 ml Balance 910 ml Laboratory Data Labs 24H Laboratory Tests 2 12/10/18 19:26: Immature Granulocyte % (Auto) 0.3, White Blood Count 9.5, Red Blood Count 4.35, Hemoglobin 13.6, Hematocrit 41.9, Mean Corpuscular Volume 96.3H, Mean Corpuscular Hemoglobin 31.3, Mean Corpuscular Hemoglobin Concent 32.5, Red Cell Distribution Width 12.9, Platelet Count 196, Neutrophils (%) (Auto) 87.2H, Lymphocytes (%) (Auto) 8.5L, Monocytes (%) (Auto) 3.8, Eosinophils (%) (Auto) 0.0, Basophils (%) (Auto) 0.2, Neutrophils # (Auto) 8.3, Lymphocytes # (Auto) 0.8L, Monocytes # (Auto) 0.4, Eosinophils # (Auto) 0.0, Basophils # (Auto) 0.0, Nucleated Red Blood Cells % (auto) 0.0, Anion Gap 6L, Glomerular Filtration Rate > 60.0, Lactic Acid Level 1.1, Blood Urea Nitrogen 23H, Creatinine 0.45L, Sodium Level 140, Potassium Level 3.9, Chloride Level 107, Carbon Dioxide Level 27, Calcium Level 8.8, Magnesium Level 2.1, Troponin I < 0.02 12/11/18 00:44: Troponin I < 0.02, Phosphorus Level 2.0L, Total Creatine Kinase 101#, Creatine Kinase MB 1.4, Creatine Kinase MB Relative Index 1.39, Total Protein 5.4L, Albumin 2.3L 12/11/18 05:57: Immature Granulocyte % (Auto) 0.3, White Blood Count 9.5, Red Blood Count 4.55, Hemoglobin 14.1, Hematocrit 43.8, Mean Corpuscular Volume 96.3H, Mean Corpuscular Hemoglobin 31.0, Mean Corpuscular Hemoglobin Concent 32.2, Red Cell Distribution Width 13.0, Platelet Count 192, Neutrophils (%) (Auto) 88.9H, Lymphocytes (%) (Auto) 6.9L, Monocytes (%) (Auto) 3.7, Eosinophils (%) (Auto) 0.1, Basophils (%) (Auto) 0.1, Neutrophils # (Auto) 8.4, Lymphocytes # (Auto) 0.7L, Monocytes # (Auto) 0.4, Eosinophils # (Auto) 0.0, Basophils # (Auto) 0.0, Nucleated Red Blood Cells % (auto) 0.0, Anion Gap 5L, Glomerular Filtration Rate > 60.0, Blood Urea Nitrogen 21H, Creatinine 0.48L, Sodium Level 138, Potassium Level 3.8, Chloride Level 107, Carbon Dioxide Level 26, Calcium Level 8.3L, Troponin I < 0.02 12/11/18 12:49: Troponin I < 0.02 CBC/BMP Laboratory Tests 12/10/18 19:26 Red Blood Count 4.35, Mean Corpuscular Volume 96.3 H, Mean Corpuscular Hemoglobin 31.3, Mean Corpuscular Hemoglobin Concent 32.5, Red Cell Distribution Width 12.9, Neutrophils (%) (Auto) 87.2 H, Lymphocytes (%) (Auto) 8.5 L, Monocytes (%) (Auto) 3.8, Eosinophils (%) (Auto) 0.0, Basophils (%) (Auto) 0.2, Neutrophils # (Auto) 8.3, Lymphocytes # (Auto) 0.8 L, Monocytes # (Auto) 0.4, Eosinophils # (Auto) 0.0, Basophils # (Auto) 0.0, Calcium Level 8.8 12/11/18 05:57 Red Blood Count 4.55, Mean Corpuscular Volume 96.3 H, Mean Corpuscular Hemoglobin 31.0, Mean Corpuscular Hemoglobin Concent 32.2, Red Cell Distribution Width 13.0, Neutrophils (%) (Auto) 88.9 H, Lymphocytes (%) (Auto) 6.9 L, Monocytes (%) (Auto) 3.7, Eosinophils (%) (Auto) 0.1, Basophils (%) (Auto) 0.1, Neutrophils # (Auto) 8.4, Lymphocytes # (Auto) 0.7 L, Monocytes # (Auto) 0.4, Eosinophils # (Auto) 0.0, Basophils # (Auto) 0.0, Calcium Level 8.3 L Microbiology Microbiology 12/09/18 Urine Culture - Final, Complete Escherichia Coli Impression She is now postop day 2 after diagnostic laparoscopy laparoscopic omental patch repair of duodenal perforation from an ulcer Atrial fibrillation, new She is doing well overall. I will remove the nasogastric tube today. I'll test the repair with an upper GI series tomorrow. If that is not leaking we will start her on some oral diet. For now continue on Protonix and antibiotics. Physical therapy has been consulted to help with mobilizing the patient. Baseline she has been fairly independent according to the children. The hospitalist service looking at adjusting her beta serafin for the atrial fibrillation for rate control. Plan / VTE VTE Prophylaxis Ordered?: Yes VTE Exclusion Mechanical Proph: N/A:VTE Prophy Ordered (Lovenox 30 mg SC) VTE Exclusion Pharmacological: Active Bleeding (Bowel resection surgery 12/09/18) Plan / Urinary Catheter Urinary Catheter: D/C FREDDY Baig MD Dec 11, 2018 17:02
--- NOTE | 2018-12-11 17:09 | ROOPDOC ---
[facility] Report Of Operation Report of Operation DATE OF PROCEDURE: 12/09/18 PREPROCEDURE DIAGNOSES: Perforated viscus. POSTPROCEDURE DIAGNOSES: Perforated duodenal ulcer. PROCEDURE: Diagnostic laparoscopy, laparoscopic omental patch repair of duodenal perforation 2; upper GI endoscopy SURGEON: Sohan Osman MD ANESTHESIA: General anesthesia. ESTIMATED BLOOD LOSS: Approximately 20 mL. COMPLICATIONS: None. Patient is extubated, remains hemodynamically stable. REMARKS: 80-year-old female presented with severe abdominal pain and found to have generalized peritonitis and evidence for perforated viscus on CT is now being brought to the operating room for abdominal exploration. I plan to start with diagnostic laparoscopy to determine the involved bowel. PROCEDURE NOTE: Perforation noted at the first portion of the duodenum roughly about a 7 or 8 mm perforation noted hardened surrounding tissue. There is a second perforation noted slightly more superior on the wall in the same level of the duodenum. Unclear if this is the same ulcer with 2 perforations are 2 different ulcers and there is moderate amount of bilious ascites with resulting peritoneal irritation. DESCRIPTION OF PROCEDURE: Patient was given a dose of Invanz 1 g IV during her stay in the emergency room. She is brought to the operating room, placed supine on the table left arm tucked . Compression boots placed in both lower extremities for DVT prophylaxis. Gen. endotracheal anesthesia started. Her abdomen was then widely prepped and draped in usual sterile fashion.We paused for a surgical timeout using both pre- incision safety checklist to verify correct patient, procedure site and additional clinical information prior to beginning the procedure. And began the procedure by making an incision above the umbilicus. A Veress needle was inserted controlled fashion. Proper abdominal placement was confirmed with saline drop technique. CO2 insufflation started to pressure 15 mmHg. Using the same incision a 5 mm optical port was placed under direct vision of laparoscope. Insertion site was inspected for injury and none was found. Presence of bile was noted on entry over the right upper quadrant, perihepatic area also at the left upper quadrant area. The right and left lower quadrant area was visualized and mostly covered with omentum and no signs of any ongoing inflammation. Pelvis is mostly covered with omentum and visible bowels with no signs of any inflammation. Training the laparoscope were at the right upper quadrant area, roughly an 7-8 millimeter hole was visualized over the patient's first portion of the duodenum leaking bile. There is another triangular rent above this which may be another hole or peritoneal fold which was not visually significant and mild. At this point I placed a 5 mm port over the patient's left upper quadrant area and suctioned out all visible bile. A second 8 mm port was placed over the right upper quadrant area at about the midclavicular line for passage of suture and a second working port. A lateral right lower quadrant 5 mm port was also placed for my treasury assistant. Using a Harmonic Scalpel a suitable healthy omentum was harvested from the patient's transverse colon and laid flat to cover the duodenal perforation. Using a 30 the LOC I attempt closure of the duodenal perforation along the Douglass of the line of the duodenum though was able to close it the thickened duodenum is not allowing full closure and there is still some evidence of leakage. Using the leftover 30V LOC I then sutured the h arvested tongue of omentum on top of the duodenal perforation closure. Tab served for a while to determine if there is adequate sealing of the duodenal perforation and I wasn't so sure that it has fully sealed the hole the same still seeing a small amount of bile in the irrigation. Thus he decided to perform an upper endoscopy. Using a upper video endoscope, I came through to the stomach at the level of the duodenal bulb and insufflated and I could see bubbling underneath the omental patch. I also could see some bile leakage at the previously noted triangular rent above the first hole suggesting a second perforation. This may be from the same ulcer or a second ulcer with a smaller perforation. I withdrew the endoscope and scrubbed back in. Using another V LOC the triangular rent was also closed after freeing enough peritoneal and regrowth serosal tissue around this. I then used the remainder of the V LOC 21 on top of the superior portion of the previously placed omentum to further secured this to the duodenum. This seems so well controlled the larger duodenal perforation. I asked anesthesia to insufflate the abdomen and could see no further bubbling with placing the duodenum under water. At this point I irrigated the abdomen further. I then left a 19 Tony drain course through the right lateral port close to the area of perforation for postoperative monitoring. The abdomen was then surveyed. Once satisfied with adequate hemostasis and no further palpable pathology or perforation is noted the abdomen was deflated. All ports were removed. The drain was secured to the skin with 2-0 silk. 4-0 Monocryl was placed superiorly was placed to close the incisions. Steri-Strips and gauze dressing and Tegaderm was then used to cover the incision. Patient tolerated procedure well she was hemodynamically stable throughout the procedure. She was awakened, extubated and brought to recovery room in stable condition. SOHAN OSMAN MD Dec 11, 2018 17:09
--- NOTE | 2018-12-11 19:33 | IPNPDOC ---
Text Note Date of Service The patient was seen on 12/11/18. NOTE Subjective: Patient complains of weakness and palpitations. In the morning she developed heart rate around 120s Patient denies fever, chills, nausea, vomiting, diarrhea or dysuria Objective General: Frail female HEENT: PERRLA, EOMI Lungs: ST CV: S1 and S2, irregularly, irregular tachycardic with heart rate 120s Abdomen: Moderately tender, moderately distended, no rigidity Neuro: Nonfocal Assessment and plan Patient is 88 years old female who was admitted with perforated viscus. Today postoperative day 2 after diagnostic laparoscopy laparoscopic omental patch repair of duodenal perforation from an ulcer. After surgery patient developed new atrial fibrillation with rapid ventricular rate. Patient has been treated with atenolol. Atrial fibrillation Holding oral anticoagulation due to recent surgery In the morning patient developed rapid ventricular rate with heart rate around 120s Discontinue atenolol, metoprolol tartrate 25 twice a day UTI Urine culture was positive for Escherichia coli pansensitive Continue antibiotics Status post duodenal perforation repair Follow-up with surgical team, upper GI series tomorrow PT/OT DVT prophylaxis VS,Fishbone, I+O VS, Fishbone, I+O Laboratory Tests 12/10/18 19:26 Red Blood Count 4.35, Mean Corpuscular Volume 96.3 H, Mean Corpuscular Hemoglobin 31.3, Mean Corpuscular Hemoglobin Concent 32.5, Red Cell Distribution Width 12.9, Neutrophils (%) (Auto) 87.2 H, Lymphocytes (%) (Auto) 8.5 L, Monocytes (%) (Auto) 3.8, Eosinophils (%) (Auto) 0.0, Basophils (%) (Auto) 0.2, Neutrophils # (Auto) 8.3, Lymphocytes # (Auto) 0.8 L, Monocytes # (Auto) 0.4, Eosinophils # (Auto) 0.0, Basophils # (Auto) 0.0, Calcium Level 8.8 12/11/18 05:57 Red Blood Count 4.55, Mean Corpuscular Volume 96.3 H, Mean Corpuscular Hemoglobin 31.0, Mean Corpuscular Hemoglobin Concent 32.2, Red Cell Distribution Width 13.0, Neutrophils (%) (Auto) 88.9 H, Lymphocytes (%) (Auto) 6.9 L, Monocytes (%) (Auto) 3.7, Eosinophils (%) (Auto) 0.1, Basophils (%) (Auto) 0.1, Neutrophils # (Auto) 8.4, Lymphocytes # (Auto) 0.7 L, Monocytes # (Auto) 0.4, Eosinophils # (Auto) 0.0, Basophils # (Auto) 0.0, Calcium Level 8.3 L Vital Signs Date Time Temp Pulse Resp B/P (MAP) Pulse Ox O2 Delivery O2 Flow Rate FiO2 12/11/18 16:00 96.6 100 18 125/68 (87) 96 12/11/18 08:00 2.0 12/09/18 11:05 Room Air I&O- Last 24 Hours up to 6 AM0 12/11/18 06:00 Intake Total 2130 ml Output Total 1220 ml Balance 910 ml TREY RUTLEDGE DO Dec 11, 2018 19:33
[2018-12-11 20:00] VITALS: BP 139/80
--- NOTE | 2018-12-11 21:46 | ECGEPIP ---
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 Electronically Signed on 12-11-2018 21:46:02 EDT by Gee Antonio
[2018-12-11 23:59] VITALS: BP 134/76
[2018-12-12 04:00] VITALS: BP 140/77
[2018-12-12 05:04] LABS: BASO % 0.2 % (0.0-1.0); EOS # 0.1 10^3/uL (0.0-0.5); EOS % 0.7 % (0.0-3.0); HEMATOCRIT 40.7 % (36.0-47.0); HEMOGLOBIN 13.1 g/dl (12.0-15.5); LYMPH # 0.8 10^3/uL (1.5-5.0); LYMPH % 8.2 % (24.0-44.0); MEAN CORPUSCULAR HGB CONC 32.2 g/dl (32.0-36.5); MEAN CORPUSCULAR VOLUME 93.1 fl (80.0-96.0); MONO # 0.4 10^3/uL (0.0-0.8); MONO % 4.6 % (0.0-5.0); NEUTROPHILS # 8.2 10^3/uL (1.5-8.5); NEUTROPHILS % 86.1 % (36.0-66.0); PLATELET COUNT, AUTOMATED 212 10^3/uL (150-450); RED BLOOD COUNT 4.37 10^6/uL (4.00-5.40); WHITE BLOOD COUNT 9.6 10^3/uL (4.0-10.0)
[2018-12-12] MEDS: SUCRALFATE SUSP 1GM/10ML UD PO SCH ×3 (05:21→20:55)
[2018-12-12] MEDS: LEVOTHYROXINE 75MCG TABLET (0.075MG) PO SCH (05:21)
[2018-12-12 05:23] LABS: BLOOD UREA NITROGEN 15 MG/DL (7-18); CALCIUM LEVEL 8.2 MG/DL (8.8-10.2); CARBON DIOXIDE LEVEL 26 MEQ/L (21-32); CHLORIDE LEVEL 104 MEQ/L (98-107); GLOMERULAR FILTRATION RATE > 60.0 (>32); GLUCOSE, FASTING 72 MG/DL (70-100); MAGNESIUM LEVEL 1.9 MG/DL (1.8-2.4); POTASSIUM SERUM 3.1 MEQ/L (3.5-5.1); SODIUM LEVEL 138 MEQ/L (136-145)
[2018-12-12] MEDS: ACETAMINOPHEN TAB 650MG DOSE (2X325MG) PO PRN ×3 (05:30→20:56)
[2018-12-12 07:45] VITALS: BP 130/68
[2018-12-12] MEDS ORDERED: E-Z-GAS II EFFERVESCENT PACKET (SODIUM BICARB./CITRIC ACID/SIMETHICONE) As Ordered ONE (08:34)
[2018-12-12] MEDS ORDERED: E-Z-PAQUE 96% w/w SUSP 176GM BTL As Ordered ONE (08:34)
[2018-12-12] MEDS ORDERED: E-Z-HD 98% w/w 340GM SUSP BTL As Ordered ONE (08:34)
[2018-12-12] MEDS ORDERED: POTASSIUM CHLORIDE 10 MEQ SR TABLET PO ONE (09:00)
[2018-12-12] MEDS ORDERED: GASTROGRAFIN SOLUTION 30ML (Q9963) As Ordered ONE (09:05)
[2018-12-12] MEDS: PANTOPRAZOLE 40MG INJ (PROTONIX) (C9113) IV SCH ×2 (09:52→20:55)
[2018-12-12] MEDS: ENOXAPARIN 30 MG/0.3 ML SYR (J1650) SC SCH (09:52)
[2018-12-12] MEDS: METOPROLOL TART 25 MG TABLET PO SCH ×2 (09:53→20:56)
[2018-12-12] MEDS: amLODIPine 5 MG TAB PO SCH (09:53)
[2018-12-12] MEDS: SENOKOT S TAB PO SCH ×2 (09:53→20:56)
[2018-12-12] MEDS ORDERED: POTASSIUM CHLORIDE 10% LIQ 20 MEQ/15 ML UDC PO ONE (11:00)
[2018-12-12] MEDS: MAGNESIUM CHLORIDE 64 MG TABCR (SLO MAG) PO SCH (11:12)
[2018-12-12] MEDS: ERTAPENEM SODIUM 1 GM in NS MINI-BAG PLUS 50 ML IV SCH (11:13)
[2018-12-12 12:00] VITALS: BP 132/69
[2018-12-12] MEDS: ONDANSETRON 4MG/2ML VIAL (J2405) IV PRN (12:02)
[2018-12-12 16:00] VITALS: BP 128/71
--- NOTE | 2018-12-12 16:09 | IPNPDOC ---
Text Note Date of Service The patient was seen on 12/12/18. NOTE Subjective: Patient states that she feels much better today. Patient denies fever, chills, nausea, vomiting, diarrhea or dysuria Objective General: Frail female HEENT: PERRLA, EOMI Lungs: ST CV: S1 and S2, irregularly, irregular rhythm Abdomen: Moderately tender, moderately distended, no rigidity Neuro: Nonfocal Assessment and plan Patient is 88 years old female who was admitted with perforated viscus. Today postoperative day 3 after diagnostic laparoscopy laparoscopic omental patch repair of duodenal perforation from an ulcer. After surgery patient developed new atrial fibrillation with rapid ventricular rate. Patient has been treated with atenolol. I changed atenolol to metoprolol tartrate 25 twice a day. Lopressor 5 mg IV when necessary. Dr. Osman follows her. Also patient was found to have UTI with positive urine culture for Escherichia coli. Continue antibiotics. Atrial fibrillation Holding oral anticoagulation due to recent surgery Heart rate under control most of the day Discontinue atenolol, metoprolol tartrate 25 twice a day UTI Urine culture was positive for Escherichia coli pansensitive Continue antibiotics Status post duodenal perforation repair Follow-up with surgical team PT/OT DVT prophylaxis VS,Fishbone, I+O VS, Fishbone, I+O Laboratory Tests 12/12/18 04:25 Red Blood Count 4.37, Mean Corpuscular Volume 93.1, Mean Corpuscular Hemoglobin 30.0, Mean Corpuscular Hemoglobin Concent 32.2, Red Cell Distribution Width 12.7, Neutrophils (%) (Auto) 86.1 H, Lymphocytes (%) (Auto) 8.2 L, Monocytes (%) (Auto) 4.6, Eosinophils (%) (Auto) 0.7, Basophils (%) (Auto) 0.2, Neutrophils # (Auto) 8.2, Lymphocytes # (Auto) 0.8 L, Monocytes # (Auto) 0.4, Eosinophils # (Auto) 0.1, Basophils # (Auto) 0.0, Calcium Level 8.2 L Vital Signs Date Time Temp Pulse Resp B/P (MAP) Pulse Ox O2 Delivery O2 Flow Rate FiO2 12/12/18 12:00 97.5 118 18 132/69 (90) 96 12/11/18 08:00 2.0 12/09/18 11:05 Room Air I&O- Last 24 Hours up to 6 AM 12/12/18 05:59 Intake Total 1050 ml Output Total 390 ml Balance 660 ml TREY RUTLEDGE DO Dec 12, 2018 16:09
[2018-12-12] MEDS: LR 1,000 ML IV SCH ×2 (16:33)
--- NOTE | 2018-12-12 16:58 | REP ---
Upper GI single contrast The procedure was performed under the direct supervision of Dr. Medina. The images were reviewed with Dr. Medina. The multimedia authoring specialist film shows no organomegaly or pathological masses. The intestinal gas pattern is nonspecific. There is a surgical drain noted in the epigastric region. There are multiple EKG leads overlying the abdomen. The patient is status post left hip arthroplasty. A 50 50 solution of Gastrografin and water was administered in the right lateral recumbent position. The oral and pharyngeal stages of deglutition are unremarkable. Esophageal transport is prompt and efficient and there is no evidence of esophagitis stricture mucosal ring or hiatal hernia. There was no gastroesophageal reflux visualized under fluoroscopy, however, the patient did vomit up a small amount of the contrast. The stomach is grossly normal. The rugal folds are smooth and regular. There is no evidence of gastritis neoplasm or ulcer disease. In the duodenum there are thickened folds which likely represents postsurgical changes. There is free flow of contrast through the duodenal sweep. There is no evidence of stricture, obstruction or extravasation. The visualized portion of the proximal small bowel appears normal in course and caliber. Impression: There is mucosal thickening in the duodenum which likely represents postsurgical changes. There is no evidence of stricture, obstruction, or extravasation. 2.9 minutes of fluoro time was utilized for this procedure. Reviewed by CESAR Kong 12/12/2018 04:05 P Electronically Signed by Destin Medina MD 12/12/2018 04:48 P
[2018-12-12 20:00] VITALS: BP 130/70
[2018-12-12 23:59] VITALS: BP 129/76
[2018-12-13 04:00] VITALS: BP 146/96
[2018-12-13] MEDS: LR 1,000 ML IV SCH (04:00)
--- NOTE | 2018-12-13 04:57 | IPNPDOC ---
Subjective General Date/Time Seen The patient was seen on 12/13/18 at 16:30. Subject Chief Complaint/History The patient is a 88-year-old female admitted with a reason for visit of Perforated Abdominal Viscus. Patient looks more comfortable today. She reports minimal abdominal discomfort which he denies a nausea or vomiting. Nasogastric tube was removed yesterday. She just had an upper GI series performed them awaiting results of the study. She denies any ongoing chest pain at this time. There is reports heart rates are anywhere in between 90s to 100 Current Medications Current Medications Current Medications Medications (Trade) Dose Ordered Sig/Ronaldo Route PRN Reason Start Time Stop Time Status Last Admin Dose Admin Acetaminophen (Tylenol Tab) 650 mg Q4HP PRN PO MILD PAIN or TEMP > 101 12/09/18 17:15 12/12/18 20:56 Amlodipine Besylate (Norvasc) 5 mg DAILY PO 12/10/18 09:00 12/12/18 09:53 Atenolol (Tenormin) 25 mg QPM@1800 PO 12/09/18 18:00 12/11/18 10:13 DC 12/10/18 17:08 Diatrizoate Meglum/ Diatrizoate Sod (Gastrografin) 10 ml Q30M PO 12/09/18 10:30 12/09/18 11:01 DC 12/09/18 10:20 Enoxaparin Sodium (Lovenox) 30 mg DAILY SC 12/10/18 09:00 12/12/18 09:52 Ertapenem 1 gm/ Sodium Chloride 50 ml @ 100 mls/hr Q24H IV 12/10/18 12:00 12/12/18 11:13 Fentanyl Citrate (Sublimaze) 25 mcg Q5MP PRN IV MODERATE PAIN (PS 4-7) 12/09/18 17:45 12/09/18 18:45 DC Home Med (Med Rec Complete!) ASDIRECTED XX 12/09/18 12:30 12/09/18 12:30 DC Lactated Ringer's 1,000 ml @ 75 mls/hr [id number] IV 12/09/18 17:45 12/09/18 18:45 DC Lactated Ringer's 1,000 ml @ 80 mls/hr [id number] IV 12/09/18 18:00 12/12/18 16:33 Lactated Ringer's 1,000 ml @ 100 mls/hr Q10H IV 12/09/18 12:30 12/09/18 17:26 DC Levothyroxine Sodium (Synthroid) 75 mcg DAILY@0600 PO 12/10/18 06:00 12/12/18 05:21 Magnesium Chloride (Slow-Mag) 64 mg DAILY PO 12/12/18 09:00 12/12/18 11:12 Metoclopramide HCl (REGLAN INJection) 10 mg Q6HP PRN IV NAUSEA OR VOMITING 12/09/18 17:45 12/09/18 18:45 DC Metoprolol Tartrate (Lopressor) 5 mg Q6HP PRN IV TACHICARDIA 12/11/18 10:15 Metoprolol Tartrate (Lopressor) 25 mg BID PO 12/11/18 09:00 12/12/18 20:56 Morphine Sulfate (Morphine Sulfate Inj) 2 mg Q2HP PRN IV SEVERE PAIN (PS 8-10) 12/09/18 17:15 12/10/18 20:19 Nitrofurantoin Monoh/Nitrofur Macro (Macrobid) 100 mg BID PO 12/11/18 09:00 12/11/18 09:00 DC Ondansetron HCl (ZOFRAN INJection) 4 mg Q4HP PRN IV NAUSEA OR VOMITING 12/09/18 17:45 12/09/18 18:45 DC Ondansetron HCl (ZOFRAN INJection) 4 mg Q6HP PRN IV NAUSEA OR VOMITING 12/09/18 17:15 12/12/18 12:02 Pantoprazole Sodium (Protonix) 40 mg Q12H IV 12/09/18 21:00 12/12/18 20:55 Phenol (Chloraseptic [place]) 2 spray Q4HP PRN MT SORE THROAT 12/10/18 14:15 12/10/18 16:38 Senna/Docusate Sodium (Senokot S) 1 tab BID PO 12/09/18 21:00 12/12/18 20:56 Sodium Chloride 1,000 ml @ 150 mls/hr Q6H40M IV 12/09/18 11:27 12/09/18 17:26 DC 12/09/18 11:32 Sucralfate (Carafate Suspension) 1 gm Q8H PO 12/09/18 22:00 12/12/18 20:55 Allergies Coded Allergies: Tetracyclines (Verified Allergy, Unknown, rash, 12/09/18) codeine (Verified Allergy, Unknown, rash, 12/09/18) Objective Physical Examination Examination GENERAL APPEARANCE: Laying flat on bed. Patient looks more comfortable, much more awake today. SKIN: Warm and dry. HEENT: Normocephalic, no lips appear moist. NECK: Supple, no thyromegaly. No obvious jugular venous distention. LUNGS: Clear to auscultation bilaterally. No wheezing appreciated. HEART: Slightly irregular rhythm, no murmurs, heart rate is 90s to 100. ABDOMEN: Abdomen is relatively flat, minimally distended, soft, hypoactive bowel sounds. Laparoscopic port sites are clean, dry and intact. SERGEY drains mostly serous. EXTREMITIES: Extremities have no deformities. No edema identified. Vital Signs Vital Signs Date Time Temp Pulse Resp B/P (MAP) Pulse Ox O2 Delivery O2 Flow Rate FiO2 12/13/18 04:00 97.2 102 18 146/96 (113) 92 12/11/18 08:00 2.0 12/09/18 11:05 Room Air I&Os I&O- Last 24 Hours up to 6 AM 12/13/18 06:00 Intake Total 650 ml Output Total 105 ml Balance 545 ml Laboratory Data Microbiology Microbiology 12/09/18 Urine Culture - Final, Complete Escherichia Coli Impression Duodenal ulcer perforation status post laparoscopic repair Atrial fibrillation I'm awaiting the results of the upper GI series. If no evidence of leakage think we can start her on oral diet. Continue on antibiotics as well as twice a day IV Protonix for now. Patient reports some difficulty in swallowing though no evidence of aspiration if it is most prominent when she is taking her pills. I'm allowing her to take her pills with an applesauce to help with taking her medication. Hospitalist service has been involved with her care especially with control of her heart with her atrial fibrillation. Her beta blockers been adjusted. Plan / VTE VTE Prophylaxis Ordered?: Yes VTE Exclusion Mechanical Proph: N/A:VTE Prophy Ordered (Lovenox 30 mg SC) VTE Exclusion Pharmacological: Active Bleeding (Bowel resection surgery 12/09/18) Plan / Urinary Catheter Urinary Catheter: D/C FREDDY Baig MD Dec 13, 2018 04:57
--- NOTE | 2018-12-13 05:18 | HPEPDOC ---
General Surgery H&P Date of Admission Dec 09, 2018 Attending Physician: FREDDY CA MD History and Physical CHIEF COMPLAINT: HISTORY OF PRESENT ILLNESS: ALLERGIES: Please see below. HOME MEDICATIONS: Please see below. PAST MEDICAL HISTORY: 1. . 2. . PAST SURGICAL HISTORY: 1. . 2. . PERSONAL/SOCIAL HISTORY: [Denies smoking, alcohol use, or recreational drug use]. REVIEW OF SYSTEMS: GENERAL: [Denies chills, fatigue, fever, weight gain and weight loss]. HEENT: [Denies blurred vision and double vision. Denies ear symptoms. Denies hoarseness]. NECK: [Denies any neck pain]. CARDIOVASCULAR: [Denies chest pain and palpitations]. MUSCULOSKELETAL: [Denies arthralgias, back pain and thrombophlebitis]. SKIN: [Denies rash]. NEUROLOGIC: [Denies headache, stroke and transient ischemic attack]. PSYCHIATRIC: [Denies anxiety and depression]. ENDOCRINE: [Denies thyroid disease]. HEMATOLOGY/ONCOLOGY: [Denies any bleeding or clotting disorder]. HEART: [Denies any chest pains, palpitations, paroxysmal dyspnea, orthopnea]. PULMONARY: [Denies chronic cough, dyspnea and wheezing]. GASTROINTESTINAL: [Denies rectal bleeding, family history of colon cancer, constipation, diarrhea, dysphagia, heartburn and jaundice]. GENITOURINARY: [Denies dysuria, frequency, hematuria and nocturia]. ENDOCRINE: [Denies polydipsia, polyphagia, polyuria, heat or cold intolerance]. INFECTIOUS: [Denies any recent upper respiratory tract infection, UTI, need for use of antibiotics]. NUTRITION: [Reports good appetite]. PHYSICAL EXAMINATION: VITAL SIGNS: Please see below. GENERAL APPEARANCE: [Patient seen at bedside, appears comfortable]. [Awake, alert, oriented]. HEENT: [Normocephalic, atraumatic. [employer] palpebral conjunctivae. Anicteric sclerae. Lips moist]. CHEST: [No chest wall abnormalities. Normal respiratory motion/effort]. NECK: [Supple. No thyromegaly. No lymphadenopathies]. LUNGS: [Lung sounds are clear to auscultation bilaterally. No wheezing appreci ated]. HEART: [No chest wall abnormalities. Heart rate and rhythm are regular with no murmurs]. ABDOMEN: [Abdomen is obese, soft, slightly rounded. No hepatosplenomegaly. No umbilical or groin herniations, nondistended. No noticeable rebound or guarding. No grimacing with palpation. No rebound tenderness. No masses appreciated]. SKIN: [Warm, moist]. EXTREMITIES: [Extremities have no deformities. No edema identified]. NEUROLOGICAL: . ANCILLARIES: . LABORATORY DATA: Please see below. MICROBIOLOGY: Please see below. IMAGING: . IMPRESSION AND PLAN: . Vital Signs Vital Signs Date Time Temp Pulse Resp B/P (MAP) Pulse Ox O2 Delivery O2 Flow Rate FiO2 12/13/18 04:00 97.2 102 18 146/96 (113) 92 12/11/18 08:00 2.0 12/09/18 11:05 Room Air I&Os I&O- Last 24 Hours up to 6 AM 12/13/18 06:00 Intake Total 650 ml Output Total 105 ml Balance 545 ml Laboratory Data Microbiology Microbiology 12/09/18 Urine Culture - Final, Complete Escherichia Coli Home Medications Scheduled Amlodipine Besylate (Amlodipine Besylate) 5 Mg Tablet, 5 MG PO DAILY, (Reported) Aspirin (Aspir 81) 81 Mg Tablet.dr, 81 MG PO DAILY, (Reported) Atenolol (Atenolol) 25 Mg Tablet, 25 MG PO QPM, (Reported) Cholecalciferol (Vitamin D3) (Vitamin D3) 1,000 Unit Capsule, 3,000 UNITS PO DAILY, (Reported) Levothyroxine Sodium (Synthroid) 75 Mcg Tablet, 75 MCG PO DAILY, (Reported) Meloxicam (Meloxicam) 15 Mg Tablet, 15 MG PO DAILY, (Reported) Omeprazole (Omeprazole) 20 Mg Capsule.dr, 20 MG PO DAILY, (Reported) Vit A/Vit C/Vit E/Zinc/Copper (Healthy Eyes Supervision Sftgl) 1 Each Capsule, 1 CAP PO DAILY, (Reported) Scheduled PRN Acetaminophen (Acetaminophen) 500 Mg Tablet, 500 MG PO Q4H PRN for PAIN, (Reported) Allergies Coded Allergies: Tetracyclines (Verified Allergy, Unknown, rash, 12/09/18) codeine (Verified Allergy, Unknown, rash, 12/09/18) A-FIB/CHADSVASC Age/Risk Factor Scoring CHADSVASC: CHADSVASC Response (Comments) Value Age Risk Factor Age >/= 75 years old 2 Hx of CHF No 0 Hx of HTN Yes 1 Hx of Stroke/TIA/or VTE Yes 2 Hx of Diabetes No 0 Hx of Vascular Disease No 0 Total FREDDY CA MD Dec 13, 2018 05:17
[2018-12-13] MEDS: LEVOTHYROXINE 75MCG TABLET (0.075MG) PO SCH (05:25)
[2018-12-13] MEDS: SUCRALFATE SUSP 1GM/10ML UD PO SCH ×3 (05:25→21:36)
[2018-12-13 05:32] LABS: BASO % 0.2 % (0.0-1.0); EOS # 0.1 10^3/uL (0.0-0.5); EOS % 0.9 % (0.0-3.0); HEMATOCRIT 42.7 % (36.0-47.0); HEMOGLOBIN 14.2 g/dl (12.0-15.5); LYMPH # 0.8 10^3/uL (1.5-5.0); MEAN CORPUSCULAR HEMOGLOBIN 30.4 pg (27.0-33.0); MEAN CORPUSCULAR HGB CONC 33.3 g/dl (32.0-36.5); MEAN CORPUSCULAR VOLUME 91.4 fl (80.0-96.0); MONO # 0.5 10^3/uL (0.0-0.8); MONO % 5.4 % (0.0-5.0); NEUTROPHILS # 8.4 10^3/uL (1.5-8.5); NEUTROPHILS % 85.3 % (36.0-66.0); PLATELET COUNT, AUTOMATED 243 10^3/uL (150-450); RED BLOOD COUNT 4.67 10^6/uL (4.00-5.40); WHITE BLOOD COUNT 9.8 10^3/uL (4.0-10.0)
[2018-12-13 05:59] LABS: BLOOD UREA NITROGEN 17 MG/DL (7-18); CALCIUM LEVEL 8.4 MG/DL (8.8-10.2); CARBON DIOXIDE LEVEL 25 MEQ/L (21-32); CHLORIDE LEVEL 107 MEQ/L (98-107); CREATININE FOR GFR 0.38 MG/DL (0.55-1.30); GLOMERULAR FILTRATION RATE > 60.0 (>32); GLUCOSE, FASTING 78 MG/DL (70-100); MAGNESIUM LEVEL 2.1 MG/DL (1.8-2.4); POTASSIUM SERUM 2.8 MEQ/L (3.5-5.1); SODIUM LEVEL 142 MEQ/L (136-145)
[2018-12-13] MEDS: ONDANSETRON 4MG/2ML VIAL (J2405) IV PRN (06:43)
[2018-12-13] MEDS: POTASSIUM CHLORIDE 10% LIQ 20 MEQ/15 ML UDC PO SCH ×4 (06:57→16:54)
[2018-12-13 07:46] VITALS: BP 138/82
--- NOTE | 2018-12-13 08:27 | IPNPDOC ---
Subjective General Date/Time Seen The patient was seen on 12/13/18 at 08:25. Subject Chief Complaint/History The patient is a 88-year-old female admitted with a reason for visit of Perforated Abdominal Viscus. She reports she is having some mild nausea and doesn't like the taste of the prostate and the jello in the clear liquids today. She is reporting some left upper quadrant discomfort. She is denying any chest pain or shortness of breath. Reports she is feeling mildly better than the day before. Current Medications Current Medications Current Medications Medications (Trade) Dose Ordered Sig/Ronaldo Route PRN Reason Start Time Stop Time Status Last Admin Dose Admin Acetaminophen (Tylenol Tab) 650 mg Q4HP PRN PO MILD PAIN or TEMP > 101 12/09/18 17:15 12/12/18 20:56 Amlodipine Besylate (Norvasc) 5 mg DAILY PO 12/10/18 09:00 12/12/18 09:53 Atenolol (Tenormin) 25 mg QPM@1800 PO 12/09/18 18:00 12/11/18 10:13 DC 12/10/18 17:08 Diatrizoate Meglum/ Diatrizoate Sod (Gastrografin) 10 ml Q30M PO 12/09/18 10:30 12/09/18 11:01 DC 12/09/18 10:20 Enoxaparin Sodium (Lovenox) 30 mg DAILY SC 12/10/18 09:00 12/12/18 09:52 Ertapenem 1 gm/ Sodium Chloride 50 ml @ 100 mls/hr Q24H IV 12/10/18 12:00 12/12/18 11:13 Fentanyl Citrate (Sublimaze) 25 mcg Q5MP PRN IV MODERATE PAIN (PS 4-7) 12/09/18 17:45 12/09/18 18:45 DC Home Med (Med Rec Complete!) ASDIRECTED XX 12/09/18 12:30 12/09/18 12:30 DC Lactated Ringer's 1,000 ml @ 75 mls/hr [id number] IV 12/09/18 17:45 12/09/18 18:45 DC Lactated Ringer's 1,000 ml @ 80 mls/hr [id number] IV 12/09/18 18:00 12/13/18 04:00 Lactated Ringer's 1,000 ml @ 100 mls/hr Q10H IV 12/09/18 12:30 12/09/18 17:26 DC Levothyroxine Sodium (Synthroid) 75 mcg DAILY@0600 PO 12/10/18 06:00 12/13/18 05:25 Magnesium Chloride (Slow-Mag) 64 mg DAILY PO 12/12/18 09:00 12/12/18 11:12 Metoclopramide HCl (REGLAN INJection) 10 mg Q6HP PRN IV NAUSEA OR VOMITING 12/09/18 17:45 12/09/18 18:45 DC Metoprolol Tartrate (Lopressor) 5 mg Q6HP PRN IV TACHICARDIA 12/11/18 10:15 Metoprolol Tartrate (Lopressor) 25 mg BID PO 12/11/18 09:00 12/12/18 20:56 Morphine Sulfate (Morphine Sulfate Inj) 2 mg Q2HP PRN IV SEVERE PAIN (PS 8-10) 12/09/18 17:15 12/10/18 20:19 Nitrofurantoin Monoh/Nitrofur Macro (Macrobid) 100 mg BID PO 12/11/18 09:00 12/11/18 09:00 DC Ondansetron HCl (ZOFRAN INJection) 4 mg Q4HP PRN IV NAUSEA OR VOMITING 12/09/18 17:45 12/09/18 18:45 DC Ondansetron HCl (ZOFRAN INJection) 4 mg Q6HP PRN IV NAUSEA OR VOMITING 12/09/18 17:15 12/13/18 06:43 Pantoprazole Sodium (Protonix) 40 mg Q12H IV 12/09/18 21:00 12/12/18 20:55 Phenol (Chloraseptic [place]) 2 spray Q4HP PRN MT SORE THROAT 12/10/18 14:15 12/10/18 16:38 Potassium Chloride (Potassium Chloride Liquid) 20 meq Q4H PO 12/13/18 06:00 12/13/18 21:00 12/13/18 06:57 Senna/Docusate Sodium (Senokot S) 1 tab BID PO 12/09/18 21:00 12/12/18 20:56 Sodium Chloride 1,000 ml @ 150 mls/hr Q6H40M IV 12/09/18 11:27 12/09/18 17:26 DC 12/09/18 11:32 Sucralfate (Carafate Suspension) 1 gm Q8H PO 12/09/18 22:00 12/13/18 05:25 Allergies Coded Allergies: Tetracyclines (Verified Allergy, Unknown, rash, 12/09/18) codeine (Verified Allergy, Unknown, rash, 12/09/18) Objective Physical Examination Examination GENERAL APPEARANCE: Patient was sleeping is entered room, wakes up easily, looks comfortable. SKIN: Warm and dry. HEENT: Normocephalic, atraumatic. [place] palpebral conjunctiva, anicteric sclerae. Lips and mucosa appear moist. NECK: Supple, no thyromegaly. No obvious jugular venous distention. LUNGS: Clear to auscultation bilaterally. No wheezing appreciated. HEART: Slight irregularity with a heart rhythm. Rates in the 90s. No murmurs. ABDOMEN: Abdomen is round, soft, and minimally distended. Mild tenderness over the left upper quadrant and epigastric area and no guarding. Laparoscopic drain site dressings are clean dry and intact. Right side drain has some thin serous drainage.. EXTREMITIES: Extremities have no deformities. No edema identified. Vital Signs Vital Signs Date Time Temp Pulse Resp B/P (MAP) Pulse Ox O2 Delivery O2 Flow Rate FiO2 12/13/18 07:46 97.7 113 18 138/82 (100) 94 12/11/18 08:00 2.0 12/09/18 11:05 Room Air I&Os I&O- Last 24 Hours up to 6 AM 12/13/18 06:00 Intake Total 1610 ml Output Total 125 ml Balance 1485 ml Laboratory Data Labs 24H Laboratory Tests 2 12/13/18 04:58: Immature Granulocyte % (Auto) 0.2, White Blood Count 9.8, Red Blood Count 4.67, Hemoglobin 14.2, Hematocrit 42.7, Mean Corpuscular Volume 91.4, Mean Corpuscular Hemoglobin 30.4, Mean Corpuscular Hemoglobin Concent 33.3, Red Cell Distribution Width 12.6, Platelet Count 243, Neutrophils (%) (Auto) 85.3H, Lymphocytes (%) (Auto) 8.0L, Monocytes (%) (Auto) 5.4H, Eosinophils (%) (Auto) 0.9, Basophils (%) (Auto) 0.2, Neutrophils # (Auto) 8.4, Lymphocytes # (Auto) 0.8L, Monocytes # (Auto) 0.5, Eosinophils # (Auto) 0.1, Basophils # (Auto) 0.0, Nucleated Red Blood Cells % (auto) 0.0, Anion Gap 10, Glomerular Filtration Rate > 60.0, Blood Urea Nitrogen 17, Creatinine 0.38L, Sodium Level 142, Potassium Level 2.8*L, Chloride Level 107, Carbon Dioxide Level 25, Calcium Level 8.4L, Magnesium Level 2.1 CBC/BMP Laboratory Tests 12/13/18 04:58 Red Blood Count 4.67, Mean Corpuscular Volume 91.4, Mean Corpuscular Hemoglobin 30.4, Mean Corpuscular Hemoglobin Concent 33.3, Red Cell Distribution Width 12.6, Neutrophils (%) (Auto) 85.3 H, Lymphocytes (%) (Auto) 8.0 L, Monocytes (%) (Auto) 5.4 H, Eosinophils (%) (Auto) 0.9, Basophils (%) (Auto) 0.2, Neutrophils # (Auto) 8.4, Lymphocytes # (Auto) 0.8 L, Monocytes # (Auto) 0.5, Eosinophils # (Auto) 0.1, Basophils # (Auto) 0.0, Calcium Level 8.4 L Microbiology Microbiology 12/09/18 Urine Culture - Final, Complete Escherichia Coli Impression Duodenal ulcer perforation status post laparoscopic repair postop day 4 Atrial fibrillation hypokalemia prob secondary to ivf and patient's multiple loose stools yesterday, replacement underway. I'' recheck at noon Will try full liquids and see if she tolerates it. convert to po protonix PT and OT for deconditioning due to her acute illness Plan / VTE VTE Prophylaxis Ordered?: Yes VTE Exclusion Mechanical Proph: N/A:VTE Prophy Ordered (Lovenox 30 mg SC) VTE Exclusion Pharmacological: Active Bleeding (Bowel resection surgery 12/09/18) Plan / Urinary Catheter Urinary Catheter: D/C FREDDY Baig MD Dec 13, 2018 08:27
[2018-12-13] MEDS ORDERED: SLF 3 ML SYR IV PRN (09:00)
[2018-12-13] MEDS: ENOXAPARIN 30 MG/0.3 ML SYR (J1650) SC SCH (09:45)
[2018-12-13] MEDS: KCL 10MEQ/100ML SWI (KRUN) 10 MEQ in APPROPRIATE DILUENT 1 EA IV SCH ×2 (09:45→11:40)
[2018-12-13] MEDS: MAGNESIUM CHLORIDE 64 MG TABCR (SLO MAG) PO SCH (09:46)
[2018-12-13] MEDS: amLODIPine 5 MG TAB PO SCH (09:46)
[2018-12-13] MEDS: METOPROLOL TART 25 MG TABLET PO SCH ×2 (09:46→21:36)
[2018-12-13] MEDS: PANTOPRAZOLE 40MG TAB (PROTONIX) PO SCH ×2 (09:47→21:36)
[2018-12-13 12:00] VITALS: BP 142/82
--- NOTE | 2018-12-13 12:07 | IPNPDOC ---
Subjective Date Seen The patient was seen on 12/13/18. Subjective Chief Complaint/HPI Complaining of some nausea and left upper quadrant pain, no chest pain or shortness of breath General: Denies: ROS Unobtainable, Chills, Night Sweats, Fatigue, Malaise, Normal Appetite, Other Symptoms Constitutional: Denies: Chills, Fever, Malaise, Night Sweats, Weakness, Fatigue, Weight Loss, Lethargy, Other Eyes: Denies: Pain, Vision change, Conjunctivae inflammation, Eyelid inflammation, Redness, Other ENT: Denies: Head Aches, Ear Pain, Dysphagia, Sinus Congestion, Post Nasal Drip, Sore Throat, Epistaxis, Other Symptoms Skin: Denies: Rash, Lesions, Jaundice, Bruising, Itching, Dry, Breakdown, Nail Changes, Other Pulmonary: Denies: Dyspnea, Cough, Pleuritic Chest Pain, Other Symptoms Gastrointestinal: Reports: Nausea, Abdominal Pain Genitourinary: Denies: Dysuria, Frequency, Incontinence, Hematuria, Retention, Other Symptoms Musculoskeletal: Denies: Neck Pain, Back Pain, Shoulder Pain, Arm Pain, Hand Pain, Leg Pain, Foot Pain, Joint Pain, Muscle Pain, Spasms, Other Symptoms Neurological: Denies: Weakness, Numbness, Incoordination, Change in speech, Confusion, Seizures, Other Symptoms Objective Physical Examination General Exam: Positive: Alert, Cooperative, No Acute Distress Eye Exam: Positive: PERRLA, Conjunctiva & lids normal ENT Exam: Positive: Atraumatic, Mucous membr. moist/pink, Pharynx Normal Neck Exam: Positive: Supple, +2 carotid pulse wo bruit Chest Exam: Positive: Clear to auscultation, Normal air movement Heart Exam: Positive: Irregular Rhythm Telemetry: Positive: Atrial fibrillation (with Moderated Intraventricular conduction delays), Other Telemetry: (Vent rate 94, NM interval *, QRS duration 123, QT/QTc 358/410, PRT axis * -18, -30) Abdomen Exam: Positive: Normal bowel sounds, Soft, Tenderness, Other (SERGEY drain RUQ drain dark sanguinous fluid approximately 300 cc this shift. Laproscopic abdominal dressings clean, dry and intact) Extremity Exam: Positive: Normal pulses Skin Exam: Positive: Nl turgor and temperature, Other skin issue (varicose veins bilateral lower legs and ankles) Neuro Exam: Positive: Normal Speech Psych Exam: Positive: Mental status NL, Oriented x 3 Assessment /Plan Problems (1) Atrial fibrillation Status: Chronic Response to Treatment: Improving Discussed With: Patient Problem Specific Plan: Monitor Clinically, Repeat Labs, Repeat Tests (2) Enterococcus UTI Status: Acute Response to Treatment: Worse Discussed With: Patient Problem Specific Plan: Monitor Clinically (3) Hypokalemia Status: Acute (4) Perforated duodenal ulcer Status: Acute Plan/VTE VTE Prophylaxis Ordered?: Yes VTE Exclusion Mechanical Proph: N/A:VTE Prophy Ordered (Lovenox 30 mg SC) VTE Exclusion Pharmacological: Active Bleeding (Bowel resection surgery 12/09/18) Plan/Urinary Catheter Urinary Catheter: D/C Atkins Plan Diet: Continue Current Activity: Continue Current Patient is 88 years old female who was admitted with perforated viscus. Today postoperative day 4 after diagnostic laparoscopy laparoscopic omental patch repair of duodenal perforation from an ulcer. After surgery patient developed new atrial fibrillation with rapid ventricular rate. Patient has been treated with atenolol. I changed atenolol to metoprolol tartrate 25 twice a day. Lopressor 5 mg IV when necessary. Dr. Osman follows her. Also patient was found to have UTI with positive urine culture for Escherichia coli. Continue Invanz Atrial fibrillation Holding oral anticoagulation due to recent surgery Heart rate under control most of the day and converted to normal sinus rhythm this morning Discontinue atenolol, metoprolol tartrate 25 twice a day UTI Urine culture was positive for Escherichia coli pansensitive Continue Invanz Status post duodenal perforation repair Follow-up with surgical team Advance diet as tolerated Change Protonix to by mouth Further, as per surgery PT/OT in progress VS, I&O, [facility] Vital Signs/I&O Vital Signs Date Time Temp Pulse Resp B/P (MAP) Pulse Ox O2 Delivery O2 Flow Rate FiO2 12/13/18 09:46 113 138/82 12/13/18 07:46 97.7 18 94 12/11/18 08:00 2.0 12/09/18 11:05 Room Air I&O- Last 24 Hours up to 6 AM 12/13/18 06:00 Intake Total 1610 ml Output Total 125 ml Balance 1485 ml Laboratory Data 24H LABS Laboratory Tests 2 12/13/18 04:58: Immature Granulocyte % (Auto) 0.2, White Blood Count 9.8, Red Blood Count 4.67, Hemoglobin 14.2, Hematocrit 42.7, Mean Corpuscular Volume 91.4, Mean Corpuscular Hemoglobin 30.4, Mean Corpuscular Hemoglobin Concent 33.3, Red Cell Distribution Width 12.6, Platelet Count 243, Neutrophils (%) (Auto) 85.3H, Lymphocytes (%) (Auto) 8.0L, Monocytes (%) (Auto) 5.4H, Eosinophils (%) (Auto) 0.9, Basophils (%) (Auto) 0.2, Neutrophils # (Auto) 8.4, Lymphocytes # (Auto) 0.8L, Monocytes # (Auto) 0.5, Eosinophils # (Auto) 0.1, Basophils # (Auto) 0.0, Nucleated Red Blood Cells % (auto) 0.0, Anion Gap 10, Glomerular Filtration Rate > 60.0, Blood Urea Nitrogen 17, Creatinine 0.38L, Sodium Level 142, Potassium Level 2.8*L, Chloride Level 107, Carbon Dioxide Level 25, Calcium Level 8.4L, Magnesium Level 2.1 CBC/BMP Laboratory Tests 12/13/18 04:58 Red Blood Count 4.67, Mean Corpuscular Volume 91.4, Mean Corpuscular Hemoglobin 30.4, Mean Corpuscular Hemoglobin Concent 33.3, Red Cell Distribution Width 12.6, Neutrophils (%) (Auto) 85.3 H, Lymphocytes (%) (Auto) 8.0 L, Monocytes (%) (Auto) 5.4 H, Eosinophils (%) (Auto) 0.9, Basophils (%) (Auto) 0.2, Neutrophils # (Auto) 8.4, Lymphocytes # (Auto) 0.8 L, Monocytes # (Auto) 0.5, Eosinophils # (Auto) 0.1, Basophils # (Auto) 0.0, Calcium Level 8.4 L Microbiology Microbiology 12/09/18 Urine Culture - Final, Complete Escherichia Coli LACEY MARES MD Dec 13, 2018 12:07
[2018-12-13] MEDS: MORPHINE 4 MG/ML 1ML VIAL/SYRINGE (J2270) IV PRN (12:32)
[2018-12-13] MEDS: ERTAPENEM SODIUM 1 GM in NS MINI-BAG PLUS 50 ML IV SCH (13:05)
[2018-12-13 14:00] VITALS: BP 125/67
[2018-12-13] MEDS: SLF 3 ML SYR IV SCH ×2 (14:11→21:36)
[2018-12-13 20:00] VITALS: BP 149/79
[2018-12-14] VITALS: BP 154/75
[2018-12-14 04:00] VITALS: BP 149/70
[2018-12-14 05:44] LABS: BASO % 0.3 % (0.0-1.0); EOS # 0.3 10^3/uL (0.0-0.5); EOS % 2.6 % (0.0-3.0); HEMATOCRIT 40.8 % (36.0-47.0); HEMOGLOBIN 13.6 g/dl (12.0-15.5); LYMPH # 0.8 10^3/uL (1.5-5.0); MEAN CORPUSCULAR HEMOGLOBIN 31.1 pg (27.0-33.0); MEAN CORPUSCULAR HGB CONC 33.3 g/dl (32.0-36.5); MEAN CORPUSCULAR VOLUME 93.4 fl (80.0-96.0); MONO # 0.7 10^3/uL (0.0-0.8); NEUTROPHILS # 8.6 10^3/uL (1.5-8.5); NEUTROPHILS % 81.6 % (36.0-66.0); PLATELET COUNT, AUTOMATED 255 10^3/uL (150-450); RED BLOOD COUNT 4.37 10^6/uL (4.00-5.40); WHITE BLOOD COUNT 10.5 10^3/uL (4.0-10.0)
[2018-12-14] MEDS: SUCRALFATE SUSP 1GM/10ML UD PO SCH ×3 (06:00→21:20)
[2018-12-14] MEDS: SLF 3 ML SYR IV SCH ×3 (06:00→21:20)
[2018-12-14] MEDS: LEVOTHYROXINE 75MCG TABLET (0.075MG) PO SCH (06:00)
[2018-12-14] MEDS ORDERED: POTASSIUM CHLORIDE 10 MEQ SR TABLET PO ONE (08:00)
[2018-12-14 08:08] VITALS: BP 140/61
[2018-12-14] MEDS: LevoFLOXacin 250 MG TABLET PO SCH (09:23)
[2018-12-14] MEDS: amLODIPine 5 MG TAB PO SCH (09:23)
[2018-12-14] MEDS: ENOXAPARIN 30 MG/0.3 ML SYR (J1650) SC SCH (09:24)
[2018-12-14] MEDS: METOPROLOL TART 25 MG TABLET PO SCH ×2 (09:24→21:20)
[2018-12-14] MEDS: MAGNESIUM CHLORIDE 64 MG TABCR (SLO MAG) PO SCH (09:24)
[2018-12-14] MEDS: PANTOPRAZOLE 40MG TAB (PROTONIX) PO SCH ×2 (09:24→21:20)
--- NOTE | 2018-12-14 11:19 | IPNPDOC ---
Subjective Date Seen The patient was seen on 12/14/18. Subjective Chief Complaint/HPI Doesn't like to left foot. He is been offered scheduled for a cookie swallow test General: Denies: ROS Unobtainable, Chills, Night Sweats, Fatigue, Malaise, Normal Appetite, Other Symptoms Constitutional: Denies: Chills, Fever, Malaise, Night Sweats, Weakness, Fatigue, Weight Loss, Lethargy, Other Eyes: Denies: Pain, Vision change, Conjunctivae inflammation, Eyelid inflammation, Redness, Other ENT: Denies: Head Aches, Ear Pain, Dysphagia, Sinus Congestion, Post Nasal Drip, Sore Throat, Epistaxis, Other Symptoms Skin: Denies: Rash, Lesions, Jaundice, Bruising, Itching, Dry, Breakdown, Nail Changes, Other Pulmonary: Denies: Dyspnea, Cough, Pleuritic Chest Pain, Other Symptoms Cardiovascular: Denies: Chest Pain, Palpitations, Orthopnea, Paroxysmal Noc. Dyspnea, Edema, Lt Headedness, Other Symptoms Gastrointestinal: Denies: Nausea, Vomiting, Abdominal Pain, Diarrhea, Constipation, Melena, Hematochezia, Other Symptoms Musculoskeletal: Denies: Neck Pain, Back Pain, Shoulder Pain, Arm Pain, Hand Pain, Leg Pain, Foot Pain, Joint Pain, Muscle Pain, Spasms, Other Symptoms Neurological: Denies: Weakness, Numbness, Incoordination, Change in speech, Confusion, Seizures, Other Symptoms Objective Physical Examination General Exam: Positive: Alert, Cooperative, No Acute Distress Eye Exam: Positive: PERRLA, Conjunctiva & lids normal ENT Exam: Positive: Atraumatic, Mucous membr. moist/pink, Pharynx Normal Neck Exam: Positive: Supple, +2 carotid pulse wo bruit Chest Exam: Positive: Clear to auscultation, Normal air movement Heart Exam: Positive: Irregular Rhythm Telemetry: Positive: Atrial fibrillation (with Moderated Intraventricular cond uction delays), Other Telemetry: (Vent rate 94, TX interval *, QRS duration 123, QT/QTc 358/410, PRT axis * -18, -30) Abdomen Exam: Positive: Normal bowel sounds, Soft, Tenderness, Other (SERGEY drain RUQ drain dark sanguinous fluid approximately 300 cc this shift. Laproscopic abdominal dressings clean, dry and intact) Extremity Exam: Positive: Normal pulses Skin Exam: Positive: Nl turgor and temperature, Other skin issue (varicose ve ins bilateral lower legs and ankles) Neuro Exam: Positive: Normal Speech Psych Exam: Positive: Mental status NL, Oriented x 3 Assessment /Plan Problems (1) Atrial fibrillation Status: Chronic Response to Treatment: Improving Discussed With: Patient Problem Specific Plan: Monitor Clinically, Repeat Labs, Repeat Tests (2) Enterococcus UTI Status: Acute Response to Treatment: Worse Discussed With: Patient Problem Specific Plan: Monitor Clinically (3) Hypokalemia Status: Acute (4) Perforated duodenal ulcer Status: Acute Plan/VTE VTE Prophylaxis Ordered?: Yes VTE Exclusion Mechanical Proph: N/A:VTE Prophy Ordered (Lovenox 30 mg SC) VTE Exclusion Pharmacological: Active Bleeding (Bowel resection surgery 12/09/18) Plan/Urinary Catheter Urinary Catheter: D/C Atkins Plan Diet: Continue Current Activity: Continue Current Patient is 88 years old female who was admitted with perforated viscus. Today postoperative day 4 after diagnostic laparoscopy laparoscopic omental patch repair of duodenal perforation from an ulcer. After surgery patient developed new atrial fibrillation with rapid ventricular rate. Patient has been treated with atenolol. I changed atenolol to metoprolol tartrate 25 twice a day. Lopressor 5 mg IV when necessary. Dr. Osman follows her. Also patient was found to have UTI with positive urine culture for Escherichia coli. DC Invanz, start Levaquin 250 mg by mouth daily Atrial fibrillation Holding oral anticoagulation due to recent surgery Heart rate under control most of the day and converted to normal sinus rhythm this morning Discontinue atenolol, metoprolol tartrate 25 twice a day UTI Urine culture was positive for Escherichia coli pansensitive Continue Invanz Status post duodenal perforation repair Follow-up with surgical team NG tube was DC'd diet as per surgery Change Protonix to by mouth Further, as per surgery Hypokalemia Potassium supplement given Repeat potassium level in a.m. PT/OT in progress VS, I&O, 24H, Fishbone Vital Signs/I&O Vital Signs Date Time Temp Pulse Resp B/P (MAP) Pulse Ox O2 Delivery O2 Flow Rate FiO2 12/14/18 09:24 88 140/61 12/14/18 08:08 97.3 18 96 12/11/18 08:00 2.0 12/09/18 11:05 Room Air I&O- Last 24 Hours up to 6 AM 12/14/18 06:00 Intake Total 310 ml Output Total 90 ml Balance 220 ml Laboratory Data 24H LABS Laboratory Tests 2 12/14/18 04:58: Immature Granulocyte % (Auto) 0.5, White Blood Count 10.5H, Red Blood Count 4.37, Hemoglobin 13.6, Hematocrit 40.8, Mean Corpuscular Volume 93.4, Mean Corpuscular Hemoglobin 31.1, Mean Corpuscular Hemoglobin Concent 33.3, Red Cell Distribution Width 12.6, Platelet Count 255, Neutrophils (%) (Auto) 81.6H, Lymphocytes (%) (Auto) 8.0L, Monocytes (%) (Auto) 7.0H, Eosinophils (%) (Auto) 2.6, Basophils (%) (Auto) 0.3, Neutrophils # (Auto) 8.6H, Lymphocytes # (Auto) 0.8L, Monocytes # (Auto) 0.7, Eosinophils # (Auto) 0.3, Basophils # (Auto) 0.0, Nucleated Red Blood Cells % (auto) 0.0, Magnesium Level 2.0 CBC/BMP Laboratory Tests 12/13/18 14:27 12/14/18 04:58 Red Blood Count 4.37, Mean Corpuscular Volume 93.4, Mean Corpuscular Hemoglobin 31.1, Mean Corpuscular Hemoglobin Concent 33.3, Red Cell Distribution Width 12.6, Neutrophils (%) (Auto) 81.6 H, Lymphocytes (%) (Auto) 8.0 L, Monocytes (%) (Auto) 7.0 H, Eosinophils (%) (Auto) 2.6, Basophils (%) (Auto) 0.3, Neutrophils # (Auto) 8.6 H, Lymphocytes # (Auto) 0.8 L, Monocytes # (Auto) 0.7, Eosinophils # (Auto) 0.3, Basophils # (Auto) 0.0 Microbiology Microbiology 12/09/18 Urine Culture - Final, Complete Escherichia Coli LACEY MARES MD Dec 14, 2018 11:19
[2018-12-14 12:00] VITALS: BP 158/74
[2018-12-14] MEDS ORDERED: VARIBAR PUDDING 40% w/v 230ML TUBE As Ordered ONE (12:06)
--- NOTE | 2018-12-14 12:06 | IPNPDOC ---
Subjective General Date/Time Seen The patient was seen on 12/14/18 at 12:05. Subject Chief Complaint/History The patient is a 88-year-old female admitted with a reason for visit of Perforated Abdominal Viscus. Current Medications Current Medications Current Medications Medications (Trade) Dose Ordered Sig/Ronaldo Route PRN Reason Start Time Stop Time Status Last Admin Dose Admin Acetaminophen (Tylenol Tab) 650 mg Q4HP PRN PO MILD PAIN or TEMP > 101 12/09/18 17:15 12/12/18 20:56 Amlodipine Besylate (Norvasc) 5 mg DAILY PO 12/10/18 09:00 12/14/18 09:23 Atenolol (Tenormin) 25 mg QPM@1800 PO 12/09/18 18:00 12/11/18 10:13 DC 12/10/18 17:08 Diatrizoate Meglum/ Diatrizoate Sod (Gastrografin) 10 ml Q30M PO 12/09/18 10:30 12/09/18 11:01 DC 12/09/18 10:20 Enoxaparin Sodium (Lovenox) 30 mg DAILY SC 12/10/18 09:00 12/14/18 09:24 Ertapenem 1 gm/ Sodium Chloride 50 ml @ 100 mls/hr Q24H IV 12/10/18 12:00 12/14/18 07:49 DC 12/13/18 13:05 Fentanyl Citrate (Sublimaze) 25 mcg Q5MP PRN IV MODERATE PAIN (PS 4-7) 12/09/18 17:45 12/09/18 18:45 DC Home Med (Med Rec Complete!) ASDIRECTED XX 12/09/18 12:30 12/09/18 12:30 DC Lactated Ringer's 1,000 ml @ 75 mls/hr [id number] IV 12/09/18 17:45 12/09/18 18:45 DC Lactated Ringer's 1,000 ml @ 80 mls/hr [id number] IV 12/09/18 18:00 12/13/18 08:25 DC 12/13/18 04:00 Lactated Ringer's 1,000 ml @ 100 mls/hr Q10H IV 12/09/18 12:30 12/09/18 17:26 DC Levofloxacin (Levaquin) 250 mg DAILY@06 PO 12/14/18 06:00 12/14/18 09:23 Levothyroxine Sodium (Synthroid) 75 mcg DAILY@0600 PO 12/10/18 06:00 12/14/18 06:00 Magnesium Chloride (Slow-Mag) 64 mg DAILY PO 12/12/18 09:00 12/14/18 09:24 Metoclopramide HCl (REGLAN INJection) 10 mg Q6HP PRN IV NAUSEA OR VOMITING 12/09/18 17:45 12/09/18 18:45 DC Metoprolol Tartrate (Lopressor) 5 mg Q6HP PRN IV [place] 12/11/18 10:15 Metoprolol Tartrate (Lopressor) 25 mg BID PO 12/11/18 09:00 12/14/18 09:24 Morphine Sulfate (Morphine Sulfate Inj) 2 mg Q2HP PRN IV SEVERE PAIN (PS 8-10) 12/09/18 17:15 12/13/18 08:25 DC 12/10/18 20:19 Morphine Sulfate (Morphine Sulfate Inj) 2 mg Q4HP PRN IV PAIN 12/13/18 11:45 12/13/18 12:32 Nitrofurantoin Monoh/Nitrofur Macro (Macrobid) 100 mg BID PO 12/11/18 09:00 12/11/18 09:00 DC Ondansetron HCl (ZOFRAN INJection) 4 mg Q4HP PRN IV NAUSEA OR VOMITING 12/09/18 17:45 12/09/18 18:45 DC Ondansetron HCl (ZOFRAN INJection) 4 mg Q6HP PRN IV NAUSEA OR VOMITING 12/09/18 17:15 12/13/18 06:43 Pantoprazole Sodium (Protonix) 40 mg BID PO 12/13/18 09:00 12/14/18 09:24 Pantoprazole Sodium (Protonix) 40 mg Q12H IV 12/09/18 21:00 12/13/18 08:28 DC 12/12/18 20:55 Phenol (Chloraseptic [place]) 2 spray Q4HP PRN MT SORE THROAT 12/10/18 14:15 12/10/18 16:38 Potassium Chloride 10 meq/ IV Miscellaneous Supplies 100 ml @ 100 mls/hr Q1H IV 12/13/18 09:00 12/13/18 10:59 DC 12/13/18 11:40 Potassium Chloride (Potassium Chloride Liquid) 20 meq Q4H PO 12/13/18 06:00 12/13/18 21:00 DC 12/13/18 06:57 Senna/Docusate Sodium (Senokot S) 1 tab BID PO 12/09/18 21:00 12/13/18 08:25 DC 12/12/18 20:56 Sodium Chloride 1,000 ml @ 150 mls/hr Q6H40M IV 12/09/18 11:27 12/09/18 17:26 DC 12/09/18 11:32 Sodium Chloride (Saline Lock Flush) 2 ml ASDIRECTED PRN IV SEE LABEL COMMENTS 12/13/18 09:00 Sodium Chloride (Saline Lock Flush) 2 ml SLF IV 12/13/18 14:00 12/14/18 06:00 Sucralfate (Carafate Suspension) 1 gm Q8H PO 12/09/18 22:00 12/14/18 06:00 Allergies Coded Allergies: Tetracyclines (Verified Allergy, Unknown, rash, 12/09/18) codeine (Verified Allergy, Unknown, rash, 12/09/18) Objective Physical Examination Examination GENERAL APPEARANCE:[Patient seen, laying in bed, awake, alert, and oriented. C omfortable, in no acute distress]. SKIN: [Warm and moist]. HEENT: [Normocephalic, atraumatic. [place] palpebral conjunctiva, anicteric sclerae. Lips and mucosa appear moist]. NECK: [Supple, no thyromegaly. No obvious jugular venous distention]. LUNGS: [Clear to auscultation bilaterally. No wheezing appreciated]. HEART: [No chest wall abnormalities. Regular rate and rhythm with no murmurs appreciated]. ABDOMEN: Abdomen is , soft, . [No hepatosplenomegaly. No umbilical or groin herniations, nondistended. No noticeable rebound or guarding. No grimacing with palpation. No rebound tenderness. No masses appreciated]. EXTREMITIES: [Extremities have no deformities. No edema identified]. Vital Signs Vital Signs Date Time Temp Pulse Resp B/P (MAP) Pulse Ox O2 Delivery O2 Flow Rate FiO2 12/14/18 09:24 88 140/61 12/14/18 08:08 97.3 18 96 12/11/18 08:00 2.0 12/09/18 11:05 Room Air I&Os I&O- Last 24 Hours up to 6 AM 12/14/18 06:00 Intake Total 310 ml Output Total 90 ml Balance 220 ml Laboratory Data Labs 24H Laboratory Tests 2 12/14/18 04:58: Immature Granulocyte % (Auto) 0.5, White Blood Count 10.5H, Red Blood Count 4.37, Hemoglobin 13.6, Hematocrit 40.8, Mean Corpuscular Volume 93.4, Mean Corpuscular Hemoglobin 31.1, Mean Corpuscular Hemoglobin Concent 33.3, Red Cell Distribution Width 12.6, Platelet Count 255, Neutrophils (%) (Auto) 81.6H, Lymphocytes (%) (Auto) 8.0L, Monocytes (%) (Auto) 7.0H, Eosinophils (%) (Auto) 2.6, Basophils (%) (Auto) 0.3, Neutrophils # (Auto) 8.6H, Lymphocytes # (Auto) 0.8L, Monocytes # (Auto) 0.7, Eosinophils # (Auto) 0.3, Basophils # (Auto) 0.0, Nucleated Red Blood Cells % (auto) 0.0, Magnesium Level 2.0 CBC/BMP Laboratory Tests 12/13/18 14:27 12/14/18 04:58 Red Blood Count 4.37, Mean Corpuscular Volume 93.4, Mean Corpuscular Hemoglobin 31.1, Mean Corpuscular Hemoglobin Concent 33.3, Red Cell Distribution Width 12.6, Neutrophils (%) (Auto) 81.6 H, Lymphocytes (%) (Auto) 8.0 L, Monocytes (%) (Auto) 7.0 H, Eosinophils (%) (Auto) 2.6, Basophils (%) (Auto) 0.3, Neutrophils # (Auto) 8.6 H, Lymphocytes # (Auto) 0.8 L, Monocytes # (Auto) 0.7, Eosinophils # (Auto) 0.3, Basophils # (Auto) 0.0 Microbiology Microbiology 12/09/18 Urine Culture - Final, Complete Escherichia Coli Impression Duodenal ulcer perforation status post laparoscopic repair postop day 5 Atrial fibrillation, rate controlled hypokalemia improved diarrhea Will try full liquids and see if she tolerates it. convert to po protonix PT and OT for deconditioning due to her acute illness Plan / VTE VTE Prophylaxis Ordered?: Yes VTE Exclusion Mechanical Proph: N/A:VTE Prophy Ordered (Lovenox 30 mg SC) VTE Exclusion Pharmacological: Active Bleeding (Bowel resection surgery 12/09/18) Plan / Urinary Catheter Urinary Catheter: D/C FREDDY Baig MD Dec 14, 2018 12:06
[2018-12-14] MEDS ORDERED: VARIBAR NECTAR 40% w/v 240ML SUSP BTL As Ordered ONE (12:07)
[2018-12-14] MEDS ORDERED: BARIUM SULFATE 700 MG TABLET (E-Z-DISK) As Ordered ONE (12:07)
[2018-12-14] MEDS ORDERED: E-Z-PAQUE 96% w/w SUSP 176GM BTL As Ordered ONE (12:07)
[2018-12-14] MEDS: ACETAMINOPHEN TAB 650MG DOSE (2X325MG) PO PRN ×2 (13:21→21:20)
[2018-12-14 16:00] VITALS: BP 140/72
[2018-12-14 20:00] VITALS: BP 150/69
[2018-12-15] VITALS: BP 119/59
[2018-12-15 04:00] VITALS: BP 135/70
[2018-12-15 05:23] LABS: HEMATOCRIT 39.7 % (36.0-47.0); HEMOGLOBIN 13.1 g/dl (12.0-15.5); MEAN CORPUSCULAR HEMOGLOBIN 30.2 pg (27.0-33.0); MEAN CORPUSCULAR VOLUME 91.5 fl (80.0-96.0); PLATELET COUNT, AUTOMATED 252 10^3/uL (150-450); RED BLOOD COUNT 4.34 10^6/uL (4.00-5.40); WHITE BLOOD COUNT 11.6 10^3/uL (4.0-10.0)
[2018-12-15 05:54] LABS: ALBUMIN 1.9 GM/DL (3.2-5.2); ALT/SGPT 12 U/L (12-78); BILIRUBIN,TOTAL 0.5 MG/DL (0.2-1.0); BLOOD UREA NITROGEN 14 MG/DL (7-18); CALCIUM LEVEL 8.2 MG/DL (8.8-10.2); CARBON DIOXIDE LEVEL 31 MEQ/L (21-32); CHLORIDE LEVEL 104 MEQ/L (98-107); CREATININE FOR GFR 0.33 MG/DL (0.55-1.30); GLOMERULAR FILTRATION RATE > 60.0 (>32); GLUCOSE, FASTING 93 MG/DL (70-100); MAGNESIUM LEVEL 1.8 MG/DL (1.8-2.4); POTASSIUM SERUM 2.9 MEQ/L (3.5-5.1); SODIUM LEVEL 138 MEQ/L (136-145); TOTAL PROTEIN 5.9 GM/DL (6.4-8.2)
[2018-12-15] MEDS ORDERED: POTASSIUM CHLORIDE 10 MEQ SR TABLET PO ONE (06:30)
[2018-12-15] MEDS ORDERED: KCL 10MEQ/100ML SWI (KRUN) 10 MEQ in APPROPRIATE DILUENT 1 EA IV ONE (06:30)
[2018-12-15] MEDS: SLF 3 ML SYR IV SCH ×3 (06:45→22:34)
[2018-12-15] MEDS: SUCRALFATE SUSP 1GM/10ML UD PO SCH ×3 (06:46→22:34)
[2018-12-15] MEDS: LEVOTHYROXINE 75MCG TABLET (0.075MG) PO SCH (06:46)
[2018-12-15] MEDS: LevoFLOXacin 250 MG TABLET PO SCH (06:46)
[2018-12-15] MEDS: MORPHINE 4 MG/ML 1ML VIAL/SYRINGE (J2270) IV PRN (06:56)
[2018-12-15 08:00] VITALS: BP 128/61
[2018-12-15] MEDS: amLODIPine 5 MG TAB PO SCH (09:23)
[2018-12-15] MEDS: METOPROLOL TART 25 MG TABLET PO SCH ×2 (09:23→20:07)
[2018-12-15] MEDS: PANTOPRAZOLE 40MG TAB (PROTONIX) PO SCH ×2 (09:23→20:07)
[2018-12-15] MEDS: MAGNESIUM CHLORIDE 64 MG TABCR (SLO MAG) PO SCH (09:23)
[2018-12-15] MEDS: ENOXAPARIN 30 MG/0.3 ML SYR (J1650) SC SCH (09:24)
--- NOTE | 2018-12-15 11:17 | IPNPDOC ---
Subjective General Date/Time Seen The patient was seen on 12/15/18 at 11:12. Subject Chief Complaint/History The patient is a 88-year-old female admitted with a reason for visit of Perforated Abdominal Viscus. reports feeling tired, denies any abdominal discomfort today. Nurse reports still poor oral intake but tolerating soft diet. Current Medications Current Medications Current Medications Medications (Trade) Dose Ordered Sig/Ronaldo Route PRN Reason Start Time Stop Time Status Last Admin Dose Admin Acetaminophen (Tylenol Tab) 650 mg Q4HP PRN PO MILD PAIN or TEMP > 101 12/09/18 17:15 12/14/18 21:20 Amlodipine Besylate (Norvasc) 5 mg DAILY PO 12/10/18 09:00 12/15/18 09:23 Atenolol (Tenormin) 25 mg QPM@1800 PO 12/09/18 18:00 12/11/18 10:13 DC 12/10/18 17:08 Diatrizoate Meglum/ Diatrizoate Sod (Gastrografin) 10 ml Q30M PO 12/09/18 10:30 12/09/18 11:01 DC 12/09/18 10:20 Enoxaparin Sodium (Lovenox) 30 mg DAILY SC 12/10/18 09:00 12/15/18 09:24 Ertapenem 1 gm/ Sodium Chloride 50 ml @ 100 mls/hr Q24H IV 12/10/18 12:00 12/14/18 07:49 DC 12/13/18 13:05 Fentanyl Citrate (Sublimaze) 25 mcg Q5MP PRN IV MODERATE PAIN (PS 4-7) 12/09/18 17:45 12/09/18 18:45 DC Home Med (Med Rec Complete!) ASDIRECTED XX 12/09/18 12:30 12/09/18 12:30 DC Lactated Ringer's 1,000 ml @ 75 mls/hr [id number] IV 12/09/18 17:45 12/09/18 18:45 DC Lactated Ringer's 1,000 ml @ 80 mls/hr [id number] IV 12/09/18 18:00 12/13/18 08:25 DC 12/13/18 04:00 Lactated Ringer's 1,000 ml @ 100 mls/hr Q10H IV 12/09/18 12:30 12/09/18 17:26 DC Levofloxacin (Levaquin) 250 mg DAILY@06 PO 12/14/18 06:00 12/15/18 06:46 Levothyroxine Sodium (Synthroid) 75 mcg DAILY@0600 PO 12/10/18 06:00 12/15/18 06:46 Magnesium Chloride (Slow-Mag) 64 mg DAILY PO 12/12/18 09:00 12/15/18 09:23 Metoclopramide HCl (REGLAN INJection) 10 mg Q6HP PRN IV NAUSEA OR VOMITING 12/09/18 17:45 12/09/18 18:45 DC Metoprolol Tartrate (Lopressor) 5 mg Q6HP PRN IV TACHICARDIA 12/11/18 10:15 Metoprolol Tartrate (Lopressor) 25 mg BID PO 12/11/18 09:00 12/15/18 09:23 Morphine Sulfate (Morphine Sulfate Inj) 2 mg Q2HP PRN IV SEVERE PAIN (PS 8-10) 12/09/18 17:15 12/13/18 08:25 DC 12/10/18 20:19 Morphine Sulfate (Morphine Sulfate Inj) 2 mg Q4HP PRN IV PAIN 12/13/18 11:45 12/15/18 06:56 Nitrofurantoin Monoh/Nitrofur Macro (Macrobid) 100 mg BID PO 12/11/18 09:00 12/11/18 09:00 DC Ondansetron HCl (ZOFRAN INJection) 4 mg Q4HP PRN IV NAUSEA OR VOMITING 12/09/18 17:45 12/09/18 18:45 DC Ondansetron HCl (ZOFRAN INJection) 4 mg Q6HP PRN IV NAUSEA OR VOMITING 12/09/18 17:15 12/13/18 06:43 Pantoprazole Sodium (Protonix) 40 mg BID PO 12/13/18 09:00 12/15/18 09:23 Pantoprazole Sodium (Protonix) 40 mg Q12H IV 12/09/18 21:00 12/13/18 08:28 DC 12/12/18 20:55 Phenol (Chloraseptic [place]) 2 spray Q4HP PRN MT SORE THROAT 12/10/18 14:15 12/10/18 16:38 Potassium Chloride 10 meq/ IV Miscellaneous Supplies 100 ml @ 100 mls/hr Q1H IV 12/13/18 09:00 12/13/18 10:59 DC 12/13/18 11:40 Potassium Chloride (Potassium Chloride Liquid) 20 meq Q4H PO 12/13/18 06:00 12/13/18 21:00 DC 12/13/18 06:57 Senna/Docusate Sodium (Senokot S) 1 tab BID PO 12/09/18 21:00 12/13/18 08:25 DC 12/12/18 20:56 Sodium Chloride 1,000 ml @ 150 mls/hr Q6H40M IV 12/09/18 11:27 12/09/18 17:26 DC 12/09/18 11:32 Sodium Chloride (Saline Lock Flush) 2 ml ASDIRECTED PRN IV SEE LABEL COMMENTS 12/13/18 09:00 Sodium Chloride (Saline Lock Flush) 2 ml SLF IV 12/13/18 14:00 12/15/18 06:45 Sucralfate (Carafate Suspension) 1 gm Q8H PO 12/09/18 22:00 12/15/18 06:46 Allergies Coded Allergies: Tetracyclines (Verified Allergy, Unknown, rash, 12/09/18) codeine (Verified Allergy, Unknown, rash, 12/09/18) Objective Physical Examination Examination GENERAL APPEARANCE:was sleeping, looks comforable. SKIN: warm and dry. HEENT: Normocephalic, atraumatic. [place] palpebral conjunctiva, anicteric sclerae. NECK: Supple, no thyromegaly. No obvious jugular venous distention. LUNGS: Clear to auscultation bilaterally. No wheezing appreciated. HEART: HR 80s-90s. no murmur ABDOMEN: Abdomen is slighly round, soft, nondistended. port site dressings removed, clean,dry, intact. drain removed. drain site, clean. Vital Signs Vital Signs Date Time Temp Pulse Resp B/P (MAP) Pulse Ox O2 Delivery O2 Flow Rate FiO2 12/15/18 09:23 90 128/61 12/15/18 08:00 97.6 16 98 12/11/18 08:00 2.0 12/09/18 11:05 Room Air I&Os l I&O- Last 24 Hours up to 6 AM 12/15/18 06:00 Intake Total 550 ml Output Total 20 ml Balance 530 ml Laboratory Data Labs 24H Laboratory Tests 2 12/15/18 04:54: Nucleated Red Blood Cells % (auto) 0.0, Anion Gap 3L, Glomerular Filtration Rate > 60.0, Blood Urea Nitrogen 14, Creatinine 0.33L, Sodium Level 138, Potassium Level 2.9*L, Chloride Level 104, Carbon Dioxide Level 31, Calcium Level 8.2L, Aspartate Amino Transf (AST/SGOT) 13, Alanine Aminotransferase (ALT/SGPT) 12, Alkaline Phosphatase 58, Total Bilirubin 0.5, Total Protein 5.9L, Albumin 1.9L, Magnesium Level 1.8, Albumin/Globulin Ratio 0.48L CBC/BMP Laboratory Tests 12/15/18 04:54 Red Blood Count 4.34, Mean Corpuscular Volume 91.5, Mean Corpuscular Hemoglobin 30.2, Mean Corpuscular Hemoglobin Concent 33.0, Red Cell Distribution Width 12.4, Calcium Level 8.2 L, Aspartate Amino Transf (AST/SGOT) 13, Alanine Aminotransferase (ALT/SGPT) 12, Alkaline Phosphatase 58, Total Bilirubin 0.5, Total Protein 5.9 L, Albumin 1.9 L Microbiology Microbiology 12/09/18 Urine Culture - Final, Complete Escherichia Coli Impression Duodenal ulcer perforation status post laparoscopic repair postop day 6 Atrial fibrillation, rate controlled per her nurse has converted to sinus now. hypokalemia diarrhea resolved I discontinued her drain today, has not been putting out much and remains serous the past 2 days. I have allowed her soft diet starting yesterday and she seems to be tolerating it without any significant aspiration. She is supposed to have a swallow study today. If no problems with swallowing can advance to regular food. switch to PO protonix bid. will switch abx to po. continue pt/ot can go to regular floors from surgery point of view. Plan / VTE VTE Prophylaxis Ordered?: Yes VTE Exclusion Mechanical Proph: N/A:VTE Prophy Ordered (Lovenox 30 mg SC) VTE Exclusion Pharmacological: Active Bleeding (Bowel resection surgery 12/09/18) Plan / Urinary Catheter Urinary Catheter: D/C FREDDY Baig MD Dec 15, 2018 11:17
[2018-12-15 12:00] VITALS: BP 136/69
--- NOTE | 2018-12-15 12:06 | IPNPDOC ---
Subjective Date Seen The patient was seen on 12/15/18. Subjective Chief Complaint/HPI Patient is able to tolerate soft diet, but she doesn't like soft diet and offers no other complaints at the present General: Denies: ROS Unobtainable, Chills, Night Sweats, Fatigue, Malaise, Normal Appetite, Other Symptoms Constitutional: Denies: Chills, Fever, Malaise, Night Sweats, Weakness, Fatigue , Weight Loss, Lethargy, Other Eyes: Denies: Pain, Vision change, Conjunctivae inflammation, Eyelid inflammation, Redness, Other ENT: Denies: Head Aches, Ear Pain, Dysphagia, Sinus Congestion, Post Nasal Drip, Sore Throat, Epistaxis, Other Symptoms Skin: Denies: Rash, Lesions, Jaundice, Bruising, Itching, Dry, Breakdown, Nail Changes, Other Pulmonary: Denies: Dyspnea, Cough, Pleuritic Chest Pain, Other Symptoms Cardiovascular: Denies: Chest Pain, Palpitations, Orthopnea, Paroxysmal Noc. Dyspnea, Edema, Lt Headedness, Other Symptoms Gastrointestinal: Denies: Nausea, Vomiting, Abdominal Pain, Diarrhea, Constipation, Melena, Hematochezia, Other Symptoms Musculoskeletal: Denies: Neck Pain, Back Pain, Shoulder Pain, Arm Pain, Hand Pain, Leg Pain, Foot Pain, Joint Pain, Muscle Pain, Spasms, Other Symptoms Neurological: Denies: Weakness, Numbness, Incoordination, Change in speech, Confusion, Seizures, Other Symptoms Objective Physical Examination General Exam: Positive: Alert, Cooperative, No Acute Distress Eye Exam: Positive: PERRLA, Conjunctiva & lids normal ENT Exam: Positive: Atraumatic, Mucous membr. moist/pink, Pharynx Normal Neck Exam: Positive: Supple, +2 carotid pulse wo bruit Chest Exam: Positive: Clear to auscultation, Normal air movement Heart Exam: Positive: Irregular Rhythm Telemetry: Positive: Atrial fibrillation (with Moderated Intraventricular conduction delays), Other Telemetry: (Vent rate 94, VT interval *, QRS duration 123, QT/QTc 358/410, PRT axis * -18, -30) Abdomen Exam: Positive: Normal bowel sounds, Soft, Tenderness, Other (SERGEY drain RUQ drain dark sanguinous fluid approximately 300 cc this shift. Laproscopic abdominal dressings clean, dry and intact) Extremity Exam: Positive: Normal pulses Skin Exam: Positive: Nl turgor and temperature, Other skin issue (varicose veins bilateral lower legs and ankles) Neuro Exam: Positive: Normal Speech Psych Exam: Positive: Mental status NL, Oriented x 3 Assessment /Plan Problems (1) Perforated duodenal ulcer Status: Acute Problem Text: Duodenal ulcer perforation status post laparoscopic repair postop day 6 Patient has been started on soft diet, which she is tolerating very well No more diarrhea Change Protonix to by mouth twice a day Change Levaquin to by mouth daily PT, OT in progress Discharge planning Transferred to [facility] floor (2) Hypokalemia Status: Acute Problem Text: Potassium supplemented Repeat labs in a.m. Supplement potassium and magnesium as per labs (3) Atrial fibrillation Status: Chronic Response to Treatment: Improving Discussed With: Patient Problem Specific Plan: Monitor Clinically, Repeat Labs, Repeat Tests Problem Text: In normal sinus rhythm. Now Rate is under well control Continue home meds (4) Enterococcus UTI Status: Acute Response to Treatment: Worse Discussed With: Patient Problem Specific Plan: Monitor Clinically Problem Text: Continue antibiotics, which has been changed to by mouth Plan/VTE VTE Prophylaxis Ordered?: Yes VTE Exclusion Mechanical Proph: N/A:VTE Prophy Ordered (Lovenox 30 mg SC) VTE Exclusion Pharmacological: Active Bleeding (Bowel resection surgery 12/09/18) Plan/Urinary Catheter Urinary Catheter: D/C Atkins Plan Diet: Continue Current Activity: Continue Current VS, I&O, 24H, Fishbone Vital Signs/I&O Vital Signs Date Time Temp Pulse Resp B/P (MAP) Pulse Ox O2 Delivery O2 Flow Rate FiO2 12/15/18 09:23 90 128/61 12/15/18 08:00 97.6 16 98 12/11/18 08:00 2.0 12/09/18 11:05 Room Air I&O- Last 24 Hours up to 6 AM 12/15/18 05:59 Intake Total 550 ml Output Total 20 ml Balance 530 ml Laboratory Data 24H LABS Laboratory Tests 2 12/15/18 04:54: Nucleated Red Blood Cells % (auto) 0.0, Anion Gap 3L, Glomerular Filtration Rate > 60.0, Blood Urea Nitrogen 14, Creatinine 0.33L, Sodium Level 138, Potassium Level 2.9*L, Chloride Level 104, Carbon Dioxide Level 31, Calcium Level 8.2L, Aspartate Amino Transf (AST/SGOT) 13, Alanine Aminotransferase (ALT/SGPT) 12, Alkaline Phosphatase 58, Total Bilirubin 0.5, Total Protein 5.9L, Albumin 1.9L, Magnesium Level 1.8, Albumin/Globulin Ratio 0.48L CBC/BMP Laboratory Tests 12/15/18 04:54 Red Blood Count 4.34, Mean Corpuscular Volume 91.5, Mean Corpuscular Hemoglobin 30.2, Mean Corpuscular Hemoglobin Concent 33.0, Red Cell Distribution Width 12.4, Calcium Level 8.2 L, Aspartate Amino Transf (AST/SGOT) 13, Alanine Aminotransferase (ALT/SGPT) 12, Alkaline Phosphatase 58, Total Bilirubin 0.5, Total Protein 5.9 L, Albumin 1.9 L Microbiology Microbiology 12/09/18 Urine Culture - Final, Complete Escherichia Coli LACEY MARES MD Dec 15, 2018 12:06
[2018-12-15 15:30] VITALS: BP 140/72
[2018-12-15 22:00] VITALS: BP 127/62
[2018-12-16] MEDS: LEVOTHYROXINE 75MCG TABLET (0.075MG) PO SCH (05:36)
[2018-12-16] MEDS: LevoFLOXacin 250 MG TABLET PO SCH (05:36)
[2018-12-16] MEDS: SUCRALFATE SUSP 1GM/10ML UD PO SCH ×3 (05:37→21:32)
[2018-12-16] MEDS: SLF 3 ML SYR IV SCH ×3 (05:37→21:32)
[2018-12-16 05:55] LABS: HEMOGLOBIN 13.8 g/dl (12.0-15.5); MEAN CORPUSCULAR HEMOGLOBIN 30.1 pg (27.0-33.0); MEAN CORPUSCULAR HGB CONC 32.9 g/dl (32.0-36.5); MEAN CORPUSCULAR VOLUME 91.7 fl (80.0-96.0); PLATELET COUNT, AUTOMATED 290 10^3/uL (150-450); RED BLOOD COUNT 4.58 10^6/uL (4.00-5.40); WHITE BLOOD COUNT 15.3 10^3/uL (4.0-10.0)
[2018-12-16 06:00] VITALS: BP 148/78
[2018-12-16 06:18] LABS: MAGNESIUM LEVEL 1.9 MG/DL (1.8-2.4)
[2018-12-16 08:31] LABS: ALBUMIN 1.9 GM/DL (3.2-5.2); ALT/SGPT 13 U/L (12-78); BILIRUBIN,TOTAL 0.7 MG/DL (0.2-1.0); BLOOD UREA NITROGEN 13 MG/DL (7-18); CALCIUM LEVEL 8.4 MG/DL (8.8-10.2); CARBON DIOXIDE LEVEL 28 MEQ/L (21-32); CHLORIDE LEVEL 100 MEQ/L (98-107); CREATININE FOR GFR 0.32 MG/DL (0.55-1.30); GLOMERULAR FILTRATION RATE > 60.0 (>32); GLUCOSE, FASTING 76 MG/DL (70-100); POTASSIUM SERUM 3.5 MEQ/L (3.5-5.1); SODIUM LEVEL 135 MEQ/L (136-145); TOTAL PROTEIN 6.2 GM/DL (6.4-8.2)
[2018-12-16] MEDS: METOPROLOL TART 25 MG TABLET PO SCH ×2 (08:58→21:32)
[2018-12-16] MEDS: amLODIPine 5 MG TAB PO SCH (08:58)
[2018-12-16] MEDS: MAGNESIUM CHLORIDE 64 MG TABCR (SLO MAG) PO SCH (08:58)
[2018-12-16] MEDS: PANTOPRAZOLE 40MG TAB (PROTONIX) PO SCH ×2 (08:58→21:32)
[2018-12-16] MEDS: ENOXAPARIN 30 MG/0.3 ML SYR (J1650) SC SCH (08:58)
[2018-12-16] MEDS: ACETAMINOPHEN TAB 650MG DOSE (2X325MG) PO PRN (09:02)
--- NOTE | 2018-12-16 11:13 | IPNPDOC ---
Subjective Date Seen The patient was seen on 12/16/18. Subjective Chief Complaint/HPI Patient is comfortable in no apparent distress. Offers no new complaints General: Denies: ROS Unobtainable, Chills, Night Sweats, Fatigue, Malaise, Normal Appetite, Other Symptoms Constitutional: Denies: Chills, Fever, Malaise, Night Sweats, Weakness, Fatigue, Weight Loss, Lethargy, Other Eyes: Denies: Pain, Vision change, Conjunctivae inflammation, Eyelid inflammation, Redness, Other ENT: Denies: Head Aches, Ear Pain, Dysphagia, Sinus Congestion, Post Nasal Drip, Sore Throat, Epistaxis, Other Symptoms Skin: Denies: Rash, Lesions, Jaundice, Bruising, Itching, Dry, Breakdown, Nail Changes, Other Pulmonary: Denies: Dyspnea, Cough, Pleuritic Chest Pain, Other Symptoms Cardiovascular: Denies: Chest Pain, Palpitations, Orthopnea, Paroxysmal Noc. Dyspnea, Edema, Lt Headedness, Other Symptoms Gastrointestinal: Denies: Nausea, Vomiting, Abdominal Pain, Diarrhea, Con stipation, Melena, Hematochezia, Other Symptoms Musculoskeletal: Denies: Neck Pain, Back Pain, Shoulder Pain, Arm Pain, Hand Pain, Leg Pain, Foot Pain, Joint Pain, Muscle Pain, Spasms, Other Symptoms Neurological: Denies: Weakness, Numbness, Incoordination, Change in speech, Confusion, Seizures, Other Symptoms Objective Physical Examination General Exam: Positive: Alert, Cooperative, No Acute Distress Eye Exam: Positive: PERRLA, Conjunctiva & lids normal ENT Exam: Positive: Atraumatic, Mucous membr. moist/pink, Pharynx Normal Neck Exam: Positive: Supple, +2 carotid pulse wo bruit Chest Exam: Positive: Clear to auscultation, Normal air movement Heart Exam: Positive: Irregular Rhythm Telemetry: Positive: Atrial fibrillation (with Moderated Intraventricular conduction delays), Other Telemetry: (Vent rate 94, MN interval *, QRS duration 123, QT/QTc 358/410, PRT axis * -18, -30) Abdomen Exam: Positive: Normal bowel sounds, Soft, Tenderness, Other (SERGEY drain RUQ drain dark sanguinous fluid approximately 300 cc this shift. Laproscopic abdominal dressings clean, dry and intact) Extremity Exam: Positive: Normal pulses Skin Exam: Positive: Nl turgor and temperature, Other skin issue (varicose veins bilateral lower legs and ankles) Neuro Exam: Positive: Normal Speech Psych Exam: Positive: Mental status NL, Oriented x 3 Assessment /Plan Problems (1) Perforated duodenal ulcer Status: Acute Problem Text: Duodenal ulcer perforation status post laparoscopic repair postop day 6 Patient has been started on soft diet, which she is tolerating very well No more diarrhea Change Protonix to by mouth twice a day Change Levaquin to by mouth daily, will increase dose of Levaquin 500 milligrams by mouth daily and watch CBC PT, OT in progress Discharge planning Transferred to [facility] floor (2) Hypokalemia Status: Resolved Problem Text: Resolved , But is still will give KCl 20 mEq by mouth today Repeat levels in a.m. (3) Atrial fibrillation Status: Chronic Response to Treatment: Improving Discussed With: Patient Problem Specific Plan: Monitor Clinically, Repeat Labs, Repeat Tests Problem Text: In normal sinus rhythm. Now Rate is under well control Continue home meds (4) Enterococcus UTI Status: Acute Response to Treatment: Worse Discussed With: Patient Problem Specific Plan: Monitor Clinically Problem Text: Continue antibiotics, which has been changed to by mouth (5) Hypomagnesemia Status: Resolved Plan/VTE VTE Prophylaxis Ordered?: Yes VTE Exclusion Mechanical Proph: N/A:VTE Prophy Ordered (Lovenox 30 mg SC) VTE Exclusion Pharmacological: Active Bleeding (Bowel resection surgery 12/09/18) Plan/Urinary Catheter Urinary Catheter: D/C Atkins Plan Diet: Continue Current Activity: Continue Current VS, I&O, 24H, Fishbone Vital Signs/I&O Vital Signs Date Time Temp Pulse Resp B/P (MAP) Pulse Ox O2 Delivery O2 Flow Rate FiO2 12/16/18 08:58 85 148/78 12/16/18 06:00 97.1 18 95 12/11/18 08:00 2.0 I&O- Last 24 Hours up to 6 AM 12/16/18 06:00 Intake Total 320 ml Output Total 15 ml Balance 305 ml Laboratory Data 24H LABS Laboratory Tests 2 12/16/18 05:16: Nucleated Red Blood Cells % (auto) 0.0, Anion Gap 7L, Glomerular Filtration Rate > 60.0, Blood Urea Nitrogen 13, Creatinine 0.32L, Sodium Level 135L, Potassium Level 3.5#, Chloride Level 100, Carbon Dioxide Level 28, Calcium Level 8.4L, Aspartate Amino Transf (AST/SGOT) 13, Alanine Aminotransferase (ALT/SGPT) 13, Alkaline Phosphatase 69, Total Bilirubin 0.7, Total Protein 6.2L, Albumin 1.9L, Magnesium Level 1.9, Albumin/Globulin Ratio 0.44L CBC/BMP Laboratory Tests 12/16/18 05:16 Red Blood Count 4.58, Mean Corpuscular Volume 91.7, Mean Corpuscular Hemoglobin 30.1, Mean Corpuscular Hemoglobin Concent 32.9, Red Cell Distribution Width 12.7, Calcium Level 8.4 L, Aspartate Amino Transf (AST/SGOT) 13, Alanine Aminotransferase (ALT/SGPT) 13, Alkaline Phosphatase 69, Total Bilirubin 0.7, Total Protein 6.2 L, Albumin 1.9 L Microbiology Microbiology 12/09/18 Urine Culture - Final, Complete Escherichia Coli LACEY MARES MD Dec 16, 2018 11:13
[2018-12-16] MEDS ORDERED: POTASSIUM CHLORIDE 10 MEQ SR TABLET PO ONE (11:15)
[2018-12-16 14:00] VITALS: BP 114/62
--- NOTE | 2018-12-16 15:00 | REP ---
Clinical: Leukocytosis. Technique: PA and lateral. Comparison: 03/15/2010. Findings: Mild bibasilar atelectasis (right greater left) and small right pleural effusion identified. No pneumothorax. Mediastinum and cardiac silhouette normal. Skeletal structures intact. Impression: Mild bibasilar atelectasis and small right pleural effusion. Electronically Signed by Cayden Palomo MD 12/16/2018 02:51 P
--- NOTE | 2018-12-16 15:46 | IPN ---
DATE: 12/16/2018 The patient was seen at approximately 1420 on 12/16/2018. HISTORY: The patient is now postoperative day number seven from laparoscopic closure and patch repair of a perforated duodenal ulcer. The patient reports that she is feeling somewhat better today. She is taking a regular diet or actually a soft diet. She denies any nausea or vomiting. She reports she has had some flatus and is voiding okay. Vital signs show that she has been afebrile over the past 24 hours with a pulse generally in the 80s with a blood pressure that is good. Her room air oxygen saturations are normal. Intake and output yesterday show that what is recorded was 320 mL total in with 15 mL out from a drain. She has three incontinent voids recorded yesterday with no volume measurement. Today, she also has three incontinent voids recorded. PHYSICAL EXAMINATION: The patient is a thin, elderly woman lying quietly in the hospital bed. She was dozing when I entered but roused to voice. She is alert and oriented. Heart examination shows a regular rate and rhythm. The lungs are clear. The abdomen is perhaps mildly protuberant. She has active bowel sounds. Her incisions are all clean and dry. She does have bowel sounds present on auscultation and there is no undue tenderness on examination. LABORATORY STUDIES: Include a CBC that shows a white count of 15, hemoglobin of 14, hematocrit of 42 and a platelet count of 290,000. Her chemistry profile shows a sodium of 135, potassium 3.5, chloride 100, CO2 of 28, BUN of 13, creatinine of 0.3 and a glucose of 76. Liver function tests are normal with a total protein of 6.2 and an albumin of 1.9. Culture data shows that her only positive culture and her only culture of any kind was a urine culture positive for E-coli on the 12/09/2018. IMPRESSION: The patient is currently doing well postoperative day seven from her laparoscopic repair of perforated ulcer. It is unclear if her oral intake is adequate. Only small amounts of oral intake have been recorded and her urine output is not being measured. PLAN: I will order a calorie count to try and get a better handle on whether her oral intake is adequate. Her white blood cell count was up slightly again today to 15,000. I am going to order a chest x-ray posteroanterior (PA) and lateral to look for any evidence of infiltrate associated with her upper abdominal surgery. I am going to stop her levofloxacin. Apparently, this was started for her urine culture but she had four days for ertapenem and then several days of levofloxacin and so really should not require any additional antibiotics at this time. We will recheck her complete blood count (CBC) with differential in the morning to see if her white count is still rising.
[2018-12-16 22:00] VITALS: BP 139/71
[2018-12-16] MEDS ORDERED: tiZANidine 4 MG TAB PO ONE (22:00)
[2018-12-17] MEDS: SLF 3 ML SYR IV SCH ×3 (05:36→21:23)
[2018-12-17] MEDS: SUCRALFATE SUSP 1GM/10ML UD PO SCH ×3 (05:36→21:22)
[2018-12-17] MEDS: LEVOTHYROXINE 75MCG TABLET (0.075MG) PO SCH (05:36)
[2018-12-17 06:00] VITALS: BP 98/55
[2018-12-17] MEDS ORDERED: LevoFLOXacin 500 MG TABLET PO SCH (06:00)
[2018-12-17 06:18] LABS: BASO # 0.1 10^3/uL (0.0-0.2); BASO % 0.3 % (0.0-1.0); EOS # 0.3 10^3/uL (0.0-0.5); EOS % 1.6 % (0.0-3.0); HEMATOCRIT 36.6 % (36.0-47.0); HEMOGLOBIN 12.2 g/dl (12.0-15.5); LYMPH # 1.2 10^3/uL (1.5-5.0); LYMPH % 6.3 % (24.0-44.0); MEAN CORPUSCULAR HEMOGLOBIN 31.2 pg (27.0-33.0); MEAN CORPUSCULAR HGB CONC 33.3 g/dl (32.0-36.5); MEAN CORPUSCULAR VOLUME 93.6 fl (80.0-96.0); MONO # 0.8 10^3/uL (0.0-0.8); MONO % 4.2 % (0.0-5.0); NEUTROPHILS # 16.1 10^3/uL (1.5-8.5); NEUTROPHILS % 86.6 % (36.0-66.0); PLATELET COUNT, AUTOMATED 264 10^3/uL (150-450); RED BLOOD COUNT 3.91 10^6/uL (4.00-5.40); WHITE BLOOD COUNT 18.6 10^3/uL (4.0-10.0)
[2018-12-17 06:58] LABS: ALBUMIN 1.7 GM/DL (3.2-5.2); ALT/SGPT 9 U/L (12-78); BILIRUBIN,TOTAL 0.5 MG/DL (0.2-1.0); BLOOD UREA NITROGEN 21 MG/DL (7-18); CALCIUM LEVEL 8.4 MG/DL (8.8-10.2); CARBON DIOXIDE LEVEL 29 MEQ/L (21-32); CHLORIDE LEVEL 99 MEQ/L (98-107); CREATININE FOR GFR 0.67 MG/DL (0.55-1.30); GLOMERULAR FILTRATION RATE > 60.0 (>32); GLUCOSE, FASTING 97 MG/DL (70-100); POTASSIUM SERUM 3.8 MEQ/L (3.5-5.1); SODIUM LEVEL 135 MEQ/L (136-145); TOTAL PROTEIN 5.5 GM/DL (6.4-8.2)
[2018-12-17 09:05] VITALS: BP 107/53
[2018-12-17] MEDS: GASTROGRAFIN SOLUTION 30ML PO SCH ×2 (09:13→09:49)
[2018-12-17] MEDS: LR 1,000 ML IV SCH ×2 (09:13→21:23)
[2018-12-17] MEDS ORDERED: ISOVUE-370 76% 100ML VIAL (Q9967) As Ordered ONE (10:11)
--- NOTE | 2018-12-17 11:22 | REP ---
Clinical: Leukocytosis status post surgical intervention. Technique: Axial contrast enhanced images from the lung bases to the pubic symphysis with coronal and sagittal re-formations using oral (per protocol) and 100 ml Isovue 370 intravenous contrast material. Comparison: 12/09/2018. Findings: Lung bases demonstrate small pleural effusions and bibasilar atelectasis (right greater than left) which is slightly increased from prior examination. Somewhat irregular, ill-defined pockets of fluid and gas with surrounding inflammatory stranding identified extending from the gallbladder fossa inferiorly to the right mid abdomen likely related to recent perforated ulcer and subsequent surgical intervention. Findings require correlation and follow up as peritonitis and abscess formation cannot be excluded. Liver, spleen, pancreas, bilateral adrenal glands and kidneys are relatively normal / stable. Pericholecystic fluid is nonspecific and there is no evidence for biliary ductal dilatation. Mucosal thickening / enhancement and pericolonic stranding involving the ascending and transverse colon suggests secondary infectious/inflammatory colitis. There is no evidence for bowel obstruction. Evaluation of the pelvis is limited due to beam-hardening artifact from left hip prosthesis, but visualized portions of the bladder and uterus/adnexa appear relatively normal / stable. Sigmoid diverticulosis noted without obvious acute diverticulitis. Abdominal aorta without aneurysm or dissection. Musculoskeletal structures demonstrate age-related degenerative changes. Impression: 1. Suspected infectious/inflammatory changes in the right mid abdomen including somewhat irregular pockets of fluid with gas. Correlation and follow up is recommended. 2. Suspected secondary colitis involving the ascending through mid transverse colon. 3. Small bibasilar pleural effusions and bibasilar atelectasis (right greater than left). 4. Further chronic changes as above. Electronically Signed by Cayden Palomo MD 12/17/2018 11:15 A
--- NOTE | 2018-12-17 11:37 | IPNPDOC ---
Subjective Date Seen The patient was seen on 12/17/18. Subjective Chief Complaint/HPI Her oral intake is much better today than yesterday complaining of burning when she eats or drinks anything General: Denies: ROS Unobtainable, Chills, Night Sweats, Fatigue, Malaise, Normal Appetite, Other Symptoms Constitutional: Denies: Chills, Fever, Malaise, Night Sweats, Weakness, Fatigue, Weight Loss, Lethargy, Other Eyes: Denies: Pain, Vision change, Conjunctivae inflammation, Eyelid inflammation, Redness, Other ENT: Denies: Head Aches, Ear Pain, Dysphagia, Sinus Congestion, Post Nasal Drip, Sore Throat, Epistaxis, Other Symptoms Skin: Denies: Rash, Lesions, Jaundice, Bruising, Itching, Dry, Breakdown, Nail Changes, Other Pulmonary: Denies: Dyspnea, Cough, Pleuritic Chest Pain, Other Symptoms Cardiovascular: Denies: Chest Pain, Palpitations, Orthopnea, Paroxysmal Noc. Dyspnea, Edema, Lt Headedness, Other Symptoms Gastrointestinal: Denies: Nausea, Vomiting, Abdominal Pain, Diarrhea, Constipation, Melena, Hematochezia, Other Symptoms Musculoskeletal: Denies: Neck Pain, Back Pain, Shoulder Pain, Arm Pain, Hand Pain, Leg Pain, Foot Pain, Joint Pain, Muscle Pain, Spasms, Other Symptoms Neurological: Denies: Weakness, Numbness, Incoordination, Change in speech, Confusion, Seizures, Other Symptoms Objective Physical Examination Neck Exam: Positive: Supple Chest Exam: Positive: Clear to auscultation, Normal air movement Heart Exam: Positive: Rate Normal, Normal S1, Normal S2 Telemetry: Positive: Atrial fibrillation (with Moderated Intraventricular conduction delays) Abdomen Exam: Positive: Normal bowel sounds, Soft Extremity Exam: Positive: Normal pulses Skin Exam: Positive: Nl turgor and temperature Psych Exam: Positive: Mood NL Assessment /Plan Problems (1) Perforated duodenal ulcer Status: Acute Problem Text: Duodenal ulcer perforation status post laparoscopic repair postop day 6 Patient has a better by mouth intake today, tolerating oral diet very well No more diarrhea Change Protonix to by mouth twice a day Levaquin was DC'd by surgery CT abdomen and pelvis ordered a chest x-ray was essentially within normal limits As patient. WBC is still inclining will possibly need coverage with broad-spec trum antibiotics depending on the CAT scan report PT, OT in progress (2) Hypokalemia Status: Resolved Problem Text: Resolved , But is still will give KCl 20 mEq by mouth today Repeat levels in a.m. (3) Atrial fibrillation Status: Chronic Response to Treatment: Improving Discussed With: Patient Problem Specific Plan: Monitor Clinically, Repeat Labs, Repeat Tests Problem Text: Rate is under well control Continue home meds (4) Enterococcus UTI Status: Acute Response to Treatment: Worse Discussed With: Patient Problem Specific Plan: Monitor Clinically Problem Text: Treated antibiotics were DC'd (5) Hypomagnesemia Status: Resolved Plan/VTE VTE Prophylaxis Ordered?: Yes VTE Exclusion Mechanical Proph: N/A:VTE Prophy Ordered (Lovenox 30 mg SC) VTE Exclusion Pharmacological: Active Bleeding (Bowel resection surgery 12/09/18) Plan/Urinary Catheter Urinary Catheter: D/C Atkins Plan Diet: Continue Current Activity: Continue Current VS, I&O, 24H, Fishbone Vital Signs/I&O Vital Signs Date Time Temp Pulse Resp B/P (MAP) Pulse Ox O2 Delivery O2 Flow Rate FiO2 12/17/18 09:05 75 107/53 (71) 12/17/18 06:00 98.6 17 100 12/11/18 08:00 2.0 I&O- Last 24 Hours up to 6 AM 12/17/18 06:00 Intake Total 775 ml Balance 775 ml Laboratory Data 24H LABS Laboratory Tests 2 12/17/18 05:22: Immature Granulocyte % (Auto) 1.0, White Blood Count 18.6H, Red Blood Count 3.91L, Hemoglobin 12.2, Hematocrit 36.6, Mean Corpuscular Volume 93.6, Mean Corpuscular Hemoglobin 31.2, Mean Corpuscular Hemoglobin Concent 33.3, Red Cell Distribution Width 12.8, Platelet Count 264, Neutrophils (%) (Auto) 86.6H, Lymphocytes (%) (Auto) 6.3L, Monocytes (%) (Auto) 4.2, Eosinophils (%) (Auto) 1.6, Basophils (%) (Auto) 0.3, Neutrophils # (Auto) 16.1H, Lymphocytes # (Auto) 1.2L, Monocytes # (Auto) 0.8, Eosinophils # (Auto) 0.3, Basophils # (Auto) 0.1, Nucleated Red Blood Cells % (auto) 0.0, Anion Gap 7L, Glomerular Filtration Rate > 60.0, Blood Urea Nitrogen 21#H, Creatinine 0.67#, Sodium Level 135L, Potassium Level 3.8, Chloride Level 99, Carbon Dioxide Level 29, Calcium Level 8.4L, Aspartate Amino Transf (AST/SGOT) 11, Alanine Aminotransferase (ALT/SGPT) 9L, Alkaline Phosphatase 74, Total Bilirubin 0.5, Total Protein 5.5L, Albumin 1.7L, Albumin/Globulin Ratio 0.45L CBC/BMP Laboratory Tests 12/17/18 05:22 Red Blood Count 3.91 L, Mean Corpuscular Volume 93.6, Mean Corpuscular Hemoglobin 31.2, Mean Corpuscular Hemoglobin Concent 33.3, Red Cell Distribution Width 12.8, Neutrophils (%) (Auto) 86.6 H, Lymphocytes (%) (Auto) 6.3 L, Monocytes (%) (Auto) 4.2, Eosinophils (%) (Auto) 1.6, Basophils (%) (Auto) 0.3, Neutrophils # (Auto) 16.1 H, Lymphocytes # (Auto) 1.2 L, Monocytes # (Auto) 0.8, Eosinophils # (Auto) 0.3, Basophils # (Auto) 0.1, Calcium Level 8.4 L, Aspartate Amino Transf (AST/SGOT) 11, Alanine Aminotransferase (ALT/SGPT) 9 L, Alkaline Phosphatase 74, Total Bilirubin 0.5, Total Protein 5.5 L, Albumin 1.7 L Microbiology Microbiology 12/09/18 Urine Culture - Final, Complete Escherichia Coli LACEY MARES MD Dec 17, 2018 11:37
[2018-12-17] MEDS: ACETAMINOPHEN TAB 650MG DOSE (2X325MG) PO PRN (13:05)
[2018-12-17] MEDS: PIPERACILLIN/TAZOBACTAM SOD 3.375 GM in D5W MINI-BAG PLUS 50 ML IV SCH ×3 (13:05→23:27)
[2018-12-17] MEDS: PANTOPRAZOLE 40MG TAB (PROTONIX) PO SCH ×2 (13:06→21:23)
[2018-12-17] MEDS: METOPROLOL TART 25 MG TABLET PO SCH ×2 (13:06→21:23)
[2018-12-17] MEDS: MAGNESIUM CHLORIDE 64 MG TABCR (SLO MAG) PO SCH (13:08)
[2018-12-17] MEDS: ENOXAPARIN 30 MG/0.3 ML SYR (J1650) SC SCH (13:08)
[2018-12-17] MEDS: amLODIPine 5 MG TAB PO SCH (13:08)
[2018-12-17 14:00] VITALS: BP 123/57
[2018-12-17] MEDS ORDERED: MEROPENEM INJ 1 GM in APPROPRIATE DILUENT 1 EA IV SCH (15:00)
--- NOTE | 2018-12-17 16:30 | IPN ---
DATE: 12/17/2018 HISTORY: The patient is now postoperative day #8 from a laparoscopic closure and patch of a perforated duodenal ulcer. This morning she was noted to have a rising white blood cell count at 18.[address] scan was done which shows a small irregular (cut off) in the right upper quadrant. This is located inferior to the liver adjacent to the gallbladder and also abutting a portion of the colon. There are no other evident areas of possible infection seen. Vital signs show that the patient has been afebrile over the past 24 hours. Her pulse is in the 60s and 70s and her blood pressure is good. Intake and output shows that yesterday she had only 625 mL recorded in. She had four voids recorded but no volumes were noted and she had several incontinent voids also noted. PHYSICAL EXAMINATION: The patient is lying quietly in the bed. She has a son and [id number] visiting currently. She is not having any pain. She has had no nausea or vomiting but she reports that she feels quite full at the moment. Heart exam shows a regular rhythm and the lungs are clear. Her abdomen shows positive bowel sounds and the abdomen is soft without any significant tenderness. Her surgical sites appear clean. Laboratory studies today showed a white count of 19,000 with a hemoglobin of 12, hematocrit of 37 and platelet count of 264,000. Differential count showed 87% neutrophils, 6% lymphocytes and 4% monocytes. Her chemistry profile showed a sodium of 135, potassium 3.8, chloride 99, CO2 of 29, BUN of 21, creatinine 0.7 and a glucose of 97. Her liver function tests are normal with total protein of 5.5 and an albumin of 1.7. As noted her CT scan showed some fluid in the right mid and upper abdomen with some small pockets of fluid and gas. The radiologist suggested the possibility of some secondary colitis of the ascending and mid transverse colon, though I think this is less likely to be the cause for her elevated white count. She had some very small pleural effusions noted. A chest x-ray done yesterday had shown similar mild bibasilar atelectasis and a small right pleural effusion. IMPRESSION: Is probable small infected fluid collection within the abdomen. Her white count has been rising over the last 4 days. She had been on levofloxacin for about 2 days that was discontinued yesterday. She did have E. coli grow from her urine culture at the time of admission and this was sensitive to all antibiotics tested. PLAN: I have restarted her on antibiotics using Zosyn. She does not appear to require any urgent intervention for this fluid collection. I will allow her to continue her current diet. I spoke with the patient and family about the findings. I have recommended that we treat her with antibiotics initially and follow her response both by laboratory changes and clinically. If she does not seem to improve then repeat imaging and possibly image guided drainage would be the next step.
[2018-12-17 22:00] VITALS: BP 155/76
[2018-12-18] VITALS (9 sets, daily range): BP systolic 127–134; BP diastolic 67–70
[2018-12-18] MEDS: PIPERACILLIN/TAZOBACTAM SOD 3.375 GM in D5W MINI-BAG PLUS 50 ML IV SCH ×3 (05:26→17:58)
[2018-12-18] MEDS: SUCRALFATE SUSP 1GM/10ML UD PO SCH ×3 (05:26→20:34)
[2018-12-18] MEDS: LEVOTHYROXINE 75MCG TABLET (0.075MG) PO SCH (05:27)
[2018-12-18] MEDS: LR 1,000 ML IV SCH ×2 (05:27→10:58)
[2018-12-18] MEDS: SLF 3 ML SYR IV SCH ×3 (05:27→20:35)
[2018-12-18 06:02] LABS: BASO % 0.2 % (0.0-1.0); EOS # 0.3 10^3/uL (0.0-0.5); EOS % 1.4 % (0.0-3.0); HEMATOCRIT 38.8 % (36.0-47.0); HEMOGLOBIN 12.8 g/dl (12.0-15.5); LYMPH % 5.3 % (24.0-44.0); MEAN CORPUSCULAR HEMOGLOBIN 30.1 pg (27.0-33.0); MEAN CORPUSCULAR VOLUME 91.3 fl (80.0-96.0); MONO # 0.8 10^3/uL (0.0-0.8); MONO % 4.3 % (0.0-5.0); NEUTROPHILS # 15.9 10^3/uL (1.5-8.5); NEUTROPHILS % 87.8 % (36.0-66.0); PLATELET COUNT, AUTOMATED 324 10^3/uL (150-450); RED BLOOD COUNT 4.25 10^6/uL (4.00-5.40); WHITE BLOOD COUNT 18.1 10^3/uL (4.0-10.0)
[2018-12-18 06:29] LABS: ALBUMIN 1.9 GM/DL (3.2-5.2); ALT/SGPT 12 U/L (12-78); BILIRUBIN,TOTAL 0.6 MG/DL (0.2-1.0); BLOOD UREA NITROGEN 10 MG/DL (7-18); CALCIUM LEVEL 8.4 MG/DL (8.8-10.2); CARBON DIOXIDE LEVEL 26 MEQ/L (21-32); CHLORIDE LEVEL 103 MEQ/L (98-107); CREATININE FOR GFR 0.46 MG/DL (0.55-1.30); GLOMERULAR FILTRATION RATE > 60.0 (>32); GLUCOSE, FASTING 86 MG/DL (70-100); POTASSIUM SERUM 3.6 MEQ/L (3.5-5.1); SODIUM LEVEL 137 MEQ/L (136-145); TOTAL PROTEIN 5.9 GM/DL (6.4-8.2)
[2018-12-18] MEDS: PANTOPRAZOLE 40MG TAB (PROTONIX) PO SCH ×2 (08:46→20:34)
[2018-12-18] MEDS: METOPROLOL TART 25 MG TABLET PO SCH ×2 (08:47→20:34)
[2018-12-18] MEDS: amLODIPine 5 MG TAB PO SCH (08:48)
--- NOTE | 2018-12-18 10:42 | IPNPDOC ---
Subjective Date Seen The patient was seen on 12/18/18. Subjective Chief Complaint/HPI Patient is sitting in chair eating her breakfast. Her appetite is improved since last few days, no abdominal pain. No other complaints General: Denies: ROS Unobtainable, Chills, Night Sweats, Fatigue, Malaise, Normal Appetite, Other Symptoms Constitutional: Denies: Chills, Fever, Malaise, Night Sweats, Weakness, Fatigue, Weight Loss, Lethargy, Other Eyes: Denies: Pain, Vision change, Conjunctivae inflammation, Eyelid inflammation, Redness, Other ENT: Denies: Head Aches, Ear Pain, Dysphagia, Sinus Congestion, Post Nasal Drip, Sore Throat, Epistaxis, Other Symptoms Skin: Denies: Rash, Lesions, Jaundice, Bruising, Itching, Dry, Breakdown, Nail Changes, Other Pulmonary: Denies: Dyspnea, Cough, Pleuritic Chest Pain, Other Symptoms Cardiovascular: Denies: Chest Pain, Palpitations, Orthopnea, Paroxysmal Noc. Dyspnea, Edema, Lt Headedness, Other Symptoms Gastrointestinal: Denies: Nausea, Vomiting, Abdominal Pain, Diarrhea, Constipation, Melena, Hematochezia, Other Symptoms Musculoskeletal: Denies: Neck Pain, Back Pain, Shoulder Pain, Arm Pain, Hand Pain, Leg Pain, Foot Pain, Joint Pain, Muscle Pain, Spasms, Other Symptoms Neurological: Denies: Weakness, Numbness, Incoordination, Change in speech, Confusion, Seizures, Other Symptoms Objective Physical Examination Neck Exam: Positive: Supple Chest Exam: Positive: Clear to auscultation, Normal air movement Heart Exam: Positive: Rate Normal, Normal S1, Normal S2 Telemetry: Positive: Atrial fibrillation (with Moderated Intraventricular conduction delays) Abdomen Exam: Positive: Normal bowel sounds, Soft Extremity Exam: Positive: Normal pulses Skin Exam: Positive: Nl turgor and temperature Psych Exam: Positive: Mood NL Assessment /Plan Problems (1) Perforated duodenal ulcer Status: Acute Problem Text: Duodenal ulcer perforation status post laparoscopic repair postop day 7 Patient has a better by mouth intake today and comparatively to yesterday No more diarrhea or abdominal pain at the present time Protonix to by mouth twice a day Repeat CT abdomen, and pelvis was done, as per report: Impression: 1. Suspected infectious/inflammatory changes in the right mid abdomen including somewhat irregular pockets of fluid with gas. Correlation and follow up is recommended. 2. Suspected secondary colitis involving the ascending through mid transverse colon. 3. Small bibasilar pleural effusions and bibasilar atelectasis (right greater than left). 4. Further chronic changes as above. Possible suspected secondary colitis and has been started on Zosyn by surgery, WBC count is slightly reduced to 18.1 today, she is afebrile and asymptomatic wi th no abdominal pains. No nausea, vomiting. We'll continue Zosyn and follow her WBC count. Patient probably will need placement in subacute area facility when she is clinically stable surgery (2) Hypokalemia Status: Resolved Problem Text: Resolved , But is still will give KCl 20 mEq by mouth today Repeat levels in a.m. (3) Atrial fibrillation Status: Chronic Response to Treatment: Improving Discussed With: Patient Problem Specific Plan: Monitor Clinically, Repeat Labs, Repeat Tests Problem Text: Rate is under well control Continue home meds (4) Enterococcus UTI Status: Acute Response to Treatment: Worse Discussed With: Patient Problem Specific Plan: Monitor Clinically Problem Text: Treated antibiotics were DC'd (5) Hypomagnesemia Status: Resolved Plan/VTE VTE Prophylaxis Ordered?: Yes VTE Exclusion Mechanical Proph: N/A:VTE Prophy Ordered (Lovenox 30 mg SC) VTE Exclusion Pharmacological: Active Bleeding (Bowel resection surgery 12/09/18) Plan/Urinary Catheter Urinary Catheter: D/C Atkins Plan Diet: Continue Current Activity: Continue Current VS, I&O, 24H, Fishbone Vital Signs/I&O Vital Signs Date Time Temp Pulse Resp B/P (MAP) Pulse Ox O2 Delivery O2 Flow Rate FiO2 12/18/18 08:48 84 127/69 12/18/18 06:00 97.5 16 94 I&O- Last 24 Hours up to 6 AM 12/18/18 06:00 Intake Total 1800 ml Balance 1800 ml Laboratory Data 24H LABS Laboratory Tests 2 12/18/18 05:08: Immature Granulocyte % (Auto) 1.0, White Blood Count 18.1H, Red Blood Count 4.25, Hemoglobin 12.8, Hematocrit 38.8, Mean Corpuscular Volume 91.3, Mean Corpuscular Hemoglobin 30.1, Mean Corpuscular Hemoglobin Concent 33.0, Red Cell Distribution Width 12.9, Platelet Count 324, Neutrophils (%) (Auto) 87.8H, L ymphocytes (%) (Auto) 5.3L, Monocytes (%) (Auto) 4.3, Eosinophils (%) (Auto) 1.4, Basophils (%) (Auto) 0.2, Neutrophils # (Auto) 15.9H, Lymphocytes # (Auto) 1.0L, Monocytes # (Auto) 0.8, Eosinophils # (Auto) 0.3, Basophils # (Auto) 0.0, Nucleated Red Blood Cells % (auto) 0.0, Anion Gap 8, Glomerular Filtration Rate > 60.0, Blood Urea Nitrogen 10#, Creatinine 0.46L, Sodium Level 137, Potassium Level 3.6, Chloride Level 103, Carbon Dioxide Level 26, Calcium Level 8.4L, Aspartate Amino Transf (AST/SGOT) 17, Alanine Aminotransferase (ALT/SGPT) 12, Alkaline Phosphatase 78, Total Bilirubin 0.6, Total Protein 5.9L, Albumin 1.9L, Albumin/Globulin Ratio 0.48L CBC/BMP Laboratory Tests 12/18/18 05:08 Red Blood Count 4.25, Mean Corpuscular Volume 91.3, Mean Corpuscular Hemoglobin 30.1, Mean Corpuscular Hemoglobin Concent 33.0, Red Cell Distribution Width 12.9, Neutrophils (%) (Auto) 87.8 H, Lymphocytes (%) (Auto) 5.3 L, Monocytes (%) (Auto) 4.3, Eosinophils (%) (Auto) 1.4, Basophils (%) (Auto) 0.2, Neutrophils # (Auto) 15.9 H, Lymphocytes # (Auto) 1.0 L, Monocytes # (Auto) 0.8, Eosinophils # (Auto) 0.3, Basophils # (Auto) 0.0, Calcium Level 8.4 L, Aspartate Amino Transf (AST/SGOT) 17, Alanine Aminotransferase (ALT/SGPT) 12, Alkaline Phosphatase 78, Total Bilirubin 0.6, Total Protein 5.9 L, Albumin 1.9 L Microbiology Microbiology 12/09/18 Urine Culture - Final, Complete Escherichia Coli LACEY MARES MD Dec 18, 2018 10:41
[2018-12-18] MEDS: MAGNESIUM CHLORIDE 64 MG TABCR (SLO MAG) PO SCH (10:58)
[2018-12-18] MEDS ORDERED: LIDOCAINE 1% MDV 20ML VIAL As Ordered ONE (12:07)
[2018-12-18] MEDS ORDERED: ISOVUE-370 76% 100ML VIAL (Q9967) As Ordered ONE (12:07)
[2018-12-18] MEDS: ENOXAPARIN 30 MG/0.3 ML SYR (J1650) SC SCH (14:06)
[2018-12-18] MEDS: ACETAMINOPHEN TAB 650MG DOSE (2X325MG) PO PRN (20:55)
[2018-12-19] MEDS: PIPERACILLIN/TAZOBACTAM SOD 3.375 GM in D5W MINI-BAG PLUS 50 ML IV SCH ×4 (00:15→17:57)
[2018-12-19] MEDS: LR 1,000 ML IV SCH ×2 (01:24→15:02)
[2018-12-19] MEDS: LEVOTHYROXINE 75MCG TABLET (0.075MG) PO SCH (05:28)
[2018-12-19] MEDS: SUCRALFATE SUSP 1GM/10ML UD PO SCH ×3 (05:28→20:46)
[2018-12-19] MEDS: SLF 3 ML SYR IV SCH ×3 (05:29→20:46)
[2018-12-19 06:00] VITALS: BP 127/74
[2018-12-19 06:11] LABS: BASO % 0.2 % (0.0-1.0); EOS # 0.3 10^3/uL (0.0-0.5); EOS % 2.4 % (0.0-3.0); HEMATOCRIT 39.7 % (36.0-47.0); HEMOGLOBIN 12.9 g/dl (12.0-15.5); LYMPH # 0.9 10^3/uL (1.5-5.0); LYMPH % 6.8 % (24.0-44.0); MEAN CORPUSCULAR HEMOGLOBIN 30.4 pg (27.0-33.0); MEAN CORPUSCULAR HGB CONC 32.5 g/dl (32.0-36.5); MEAN CORPUSCULAR VOLUME 93.4 fl (80.0-96.0); MONO # 0.8 10^3/uL (0.0-0.8); MONO % 5.8 % (0.0-5.0); NEUTROPHILS # 11.1 10^3/uL (1.5-8.5); PLATELET COUNT, AUTOMATED 316 10^3/uL (150-450); RED BLOOD COUNT 4.25 10^6/uL (4.00-5.40); WHITE BLOOD COUNT 13.2 10^3/uL (4.0-10.0)
[2018-12-19 06:35] LABS: ALBUMIN 1.9 GM/DL (3.2-5.2); ALT/SGPT 11 U/L (12-78); BILIRUBIN,TOTAL 0.6 MG/DL (0.2-1.0); BLOOD UREA NITROGEN 6 MG/DL (7-18); CALCIUM LEVEL 8.6 MG/DL (8.8-10.2); CARBON DIOXIDE LEVEL 28 MEQ/L (21-32); CHLORIDE LEVEL 104 MEQ/L (98-107); CREATININE FOR GFR 0.46 MG/DL (0.55-1.30); GLOMERULAR FILTRATION RATE > 60.0 (>32); GLUCOSE, FASTING 86 MG/DL (70-100); POTASSIUM SERUM 3.4 MEQ/L (3.5-5.1); SODIUM LEVEL 140 MEQ/L (136-145)
[2018-12-19] MEDS: MAGNESIUM CHLORIDE 64 MG TABCR (SLO MAG) PO SCH (07:57)
[2018-12-19] MEDS: ENOXAPARIN 30 MG/0.3 ML SYR (J1650) SC SCH (07:57)
[2018-12-19] MEDS: PANTOPRAZOLE 40MG TAB (PROTONIX) PO SCH ×2 (07:58→20:46)
[2018-12-19] MEDS: amLODIPine 5 MG TAB PO SCH (07:58)
[2018-12-19] MEDS: METOPROLOL TART 25 MG TABLET PO SCH ×2 (07:59→20:46)
[2018-12-19 08:00] VITALS: BP 134/82
--- NOTE | 2018-12-19 11:14 | IPNPDOC ---
Subjective Date Seen The patient was seen on 12/19/18. Subjective Chief Complaint/HPI Patient is sitting in chair eating her breakfast offers no new complaints General: Denies: ROS Unobtainable, Chills, Night Sweats, Fatigue, Malaise, Normal Appetite, Other Symptoms Constitutional: Denies: Chills, Fever, Malaise, Night Sweats, Weakness, Fatigue, Weight Loss, Lethargy, Other Eyes: Denies: Pain, Vision change, Conjunctivae inflammation, Eyelid inflammation, Redness, Other ENT: Denies: Head Aches, Ear Pain, Dysphagia, Sinus Congestion, Post Nasal Drip, Sore Throat, Epistaxis, Other Symptoms Skin: Denies: Rash, Lesions, Jaundice, Bruising, Itching, Dry, Breakdown, Nail Changes, Other Pulmonary: Denies: Dyspnea, Cough, Pleuritic Chest Pain, Other Symptoms Gastrointestinal: Denies: Nausea, Vomiting, Abdominal Pain, Diarrhea, Constipation, Melena, Hematochezia, Other Symptoms Endocrine: Denies: Polydipsia, Polyphagia, Polyuria, Heat Intolerance, Cold Intolerance, Other Endocrine Sx Musculoskeletal: Denies: Neck Pain, Back Pain, Shoulder Pain, Arm Pain, Hand Pain, Leg Pain, Foot Pain, Joint Pain, Muscle Pain, Spasms, Other Symptoms Neurological: Denies: Weakness, Numbness, Incoordination, Change in speech, Confusion, Seizures, Other Symptoms Objective Physical Examination General Exam: Positive: Alert, Cooperative Neck Exam: Positive: Supple Chest Exam: Positive: Clear to auscultation, Normal air movement Heart Exam: Positive: Rate Normal, Normal S1, Normal S2 Telemetry: Positive: Atrial fibrillation (with Moderated Intraventricular conduction delays) Abdomen Exam: Positive: Normal bowel sounds, Soft, Other (right sided abdominal drain in place) Extremity Exam: Positive: Normal pulses Skin Exam: Positive: Nl turgor and temperature Psych Exam: Positive: Mood NL Assessment /Plan Problems (1) Abscess between intestinal loops Status: Acute Problem Text: Abscess was drained by IR yesterday Drain is in place which is draining some amount of discharge Preliminary report of Gram stain shows chronic bacterium and yeastlike organisms Official full report is still pending Patient is responding very well to Zosyn Continue present antibiotics . Labs in a.m. further, as per surgery (2) Perforated duodenal ulcer Status: Acute Problem Text: Duodenal ulcer perforation status post laparoscopic repair postop day 8 Patient has a better by mouth intake today and comparatively to yesterday No more diarrhea or abdominal pain at the present time Protonix to by mouth twice a day Repeat CT abdomen, and pelvis was done, as per report: Impression: 1. Suspected infectious/inflammatory changes in the right mid abdomen including somewhat irregular pockets of fluid with gas. Correlation and follow up is recommended. 2. Suspected secondary colitis involving the ascending through mid transverse colon. 3. Small bibasilar pleural effusions and bibasilar atelectasis (right greater than left). 4. Further chronic changes as above. patient's WBC count is 13.2 today, continue IV Zosyn as per orders Repeat labs in a.m. The plan as per surgery Discussed with case management and at the interdisciplinary rounds patient will probably need subacute area facility when she is surgically clear for discharge (3) Hypokalemia Status: Resolved Problem Text: Corrected again today Repeat labs in a.m. (4) Atrial fibrillation Status: Chronic Response to Treatment: Improving Discussed With: Patient Problem Specific Plan: Monitor Clinically, Repeat Labs, Repeat Tests Problem Text: Rate is under well control Continue home meds (5) Enterococcus UTI Status: Acute Response to Treatment: Worse Discussed With: Patient Problem Specific Plan: Monitor Clinically Problem Text: Treated antibiotics were DC'd (6) Hypomagnesemia Status: Resolved Plan/VTE VTE Prophylaxis Ordered?: Yes VTE Exclusion Mechanical Proph: N/A:VTE Prophy Ordered (Lovenox 30 mg SC) VTE Exclusion Pharmacological: Active Bleeding (Bowel resection surgery 12/09/18) Plan/Urinary Catheter Urinary Catheter: D/C Atkins Plan Diet: Continue Current Activity: Continue Current VS, I&O, 24H, [facility] Vital Signs/I&O Vital Signs Date Time Temp Pulse Resp B/P (MAP) Pulse Ox O2 Delivery O2 Flow Rate FiO2 12/19/18 08:00 99.0 86 18 134/82 (99) 94 12/18/18 12:07 2.0 I&O- Last 24 Hours up to 6 AM 12/19/18 06:00 Intake Total 1620 ml Balance 1620 ml Laboratory Data 24H LABS Laboratory Tests 2 12/19/18 05:20: Immature Granulocyte % (Auto) 0.8, White Blood Count 13.2H, Red Blood Count 4.25, Hemoglobin 12.9, Hematocrit 39.7, Mean Corpuscular Volume 93.4, Mean Corpuscular Hemoglobin 30.4, Mean Corpuscular Hemoglobin Concent 32.5, Red Cell Distribution Width 12.8, Platelet Count 316, Neutrophils (%) (Auto) 84.0H, Lymphocytes (%) (Auto) 6.8L, Monocytes (%) (Auto) 5.8H, Eosinophils (%) (Auto) 2.4, Basophils (%) (Auto) 0.2, Neutrophils # (Auto) 11.1H, Lymphocytes # (Auto) 0.9L, Monocytes # (Auto) 0.8, Eosinophils # (Auto) 0.3, Basophils # (Auto) 0.0, Nucleated Red Blood Cells % (auto) 0.0, Anion Gap 8, Glomerular Filtration Rate > 60.0, Blood Urea Nitrogen 6L, Creatinine 0.46L, Sodium Level 140, Potassium Level 3.4L, Chloride Level 104, Carbon Dioxide Level 28, Calcium Level 8.6L, Aspartate Amino Transf (AST/SGOT) 12, Alanine Aminotransferase (ALT/SGPT) 11L, Alkaline Phosphatase 82, Total Bilirubin 0.6, Total Protein 6.0L, Albumin 1.9L, Albumin/Globulin Ratio 0.46L CBC/BMP Laboratory Tests 12/19/18 05:20 Red Blood Count 4.25, Mean Corpuscular Volume 93.4, Mean Corpuscular Hemoglobin 30.4, Mean Corpuscular Hemoglobin Concent 32.5, Red Cell Distribution Width 12.8, Neutrophils (%) (Auto) 84.0 H, Lymphocytes (%) (Auto) 6.8 L, Monocytes (%) (Auto) 5.8 H, Eosinophils (%) (Auto) 2.4, Basophils (%) (Auto) 0.2, Neutrophils # (Auto) 11.1 H, Lymphocytes # (Auto) 0.9 L, Monocytes # (Auto) 0.8, Eosinophils # (Auto) 0.3, Basophils # (Auto) 0.0, Calcium Level 8.6 L, Aspartate Amino Transf (AST/SGOT) 12, Alanine Aminotransferase (ALT/SGPT) 11 L, Alkaline Phosphatase 82, Total Bilirubin 0.6, Total Protein 6.0 L, Albumin 1.9 L Microbiology Microbiology 12/18/18 Anaerobic Culture, Received Pending 12/09/18 Urine Culture - Final, Complete Escherichia Coli 12/18/18 Gram Stain - Final, Resulted 12/18/18 Abscess Culture - Preliminary, Resulted Yeast Like Organism Corynebacterium Species LACEY MARES MD Dec 19, 2018 11:14
--- NOTE | 2018-12-19 13:58 | REP ---
CT-guided abscess drainage The procedure is performed by CESAR Estrada, under the direct supervision of Dr. Medina. The risks and benefits of the procedure were explained to the patient and informed consent was obtained both orally and written. Directly prior to the start of the procedure, a formal timeout was done in the exam room. The abscess was localized using CT guidance. Skin was prepped and draped in the usual sterile fashion. 10 ml of 1% lidocaine was used as a local anesthetic. Using CT guidance a and trocar technique and 8-Chinese multiphase side-hole pigtail catheter was inserted and advanced into the abscess. 5 ml of liters of bloody pus was obtained and sent to the lab. After the appropriate amount of monitored convalescence the patient was discharged from the department. Reviewed by CESAR Coe 12/18/2018 05:31 P Electronically Signed by Destin Medina MD 12/19/2018 01:50 P
[2018-12-19 14:00] VITALS: BP 117/61
--- NOTE | 2018-12-19 15:17 | IPNPDOC ---
Subjective General Date/Time Seen The patient was seen on 12/19/18 at 15:14. Subject Chief Complaint/History The patient is a 88-year-old female admitted with a reason for visit of Perforated Abdominal Viscus. Current Medications Current Medications Current Medications Medications (Trade) Dose Ordered Sig/Ronaldo Route PRN Reason Start Time Stop Time Status Last Admin Dose Admin Acetaminophen (Tylenol Tab) 650 mg Q4HP PRN PO MILD PAIN or TEMP > 101 12/09/18 17:15 12/18/18 20:55 Amlodipine Besylate (Norvasc) 5 mg DAILY PO 12/10/18 09:00 12/19/18 07:58 Atenolol (Tenormin) 25 mg QPM@1800 PO 12/09/18 18:00 12/11/18 10:13 DC 12/10/18 17:08 Diatrizoate Meglum/ Diatrizoate Sod (Gastrografin) 10 ml Q30M PO 12/09/18 10:30 12/09/18 11:01 DC 12/09/18 10:20 Diatrizoate Meglum/ Diatrizoate Sod (Gastrografin) 10 ml Q30M PO 12/17/18 08:45 12/17/18 09:16 DC 12/17/18 09:49 Enoxaparin Sodium (Lovenox) 30 mg DAILY SC 12/10/18 09:00 12/19/18 07:57 Ertapenem 1 gm/ Sodium Chloride 50 ml @ 100 mls/hr Q24H IV 12/10/18 12:00 12/14/18 07:49 DC 12/13/18 13:05 Fentanyl Citrate (Sublimaze) 25 mcg Q5MP PRN IV MODERATE PAIN (PS 4-7) 12/09/18 17:45 12/09/18 18:45 DC Home Med (Med Rec Complete!) ASDIRECTED XX 12/09/18 12:30 12/09/18 12:30 DC Lactated Ringer's 1,000 ml @ 75 mls/hr [id number] IV 12/09/18 17:45 12/09/18 18:45 DC Lactated Ringer's 1,000 ml @ 80 mls/hr [id number] IV 12/09/18 18:00 12/13/18 08:25 DC 12/13/18 04:00 Lactated Ringer's 1,000 ml @ 100 mls/hr Q10H IV 12/09/18 12:30 12/09/18 17:26 DC Lactated Ringer's 1,000 ml @ 100 mls/hr Q10H IV 12/17/18 09:00 12/19/18 15:02 Levofloxacin (Levaquin) 250 mg DAILY@06 PO 12/14/18 06:00 12/16/18 08:08 DC 12/16/18 05:36 Levofloxacin (Levaquin) 500 mg DAILY@06 PO 12/17/18 06:00 12/17/18 06:00 DC Levothyroxine Sodium (Synthroid) 75 mcg DAILY@0600 PO 12/10/18 06:00 12/19/18 05:28 Magnesium Chloride (Slow-Mag) 64 mg DAILY PO 12/12/18 09:00 12/19/18 07:57 Meropenem 1 gm/IV Miscellaneous Supplies 50 ml @ 100 mls/hr Q8H IV 12/17/18 15:00 12/17/18 15:00 DC Metoclopramide HCl (REGLAN INJection) 10 mg Q6HP PRN IV NAUSEA OR VOMITING 12/09/18 17:45 12/09/18 18:45 DC Metoprolol Tartrate (Lopressor) 5 mg Q6HP PRN IV [place] 12/11/18 10:15 12/16/18 14:11 DC Metoprolol Tartrate (Lopressor) 25 mg BID PO 12/11/18 09:00 12/19/18 07:59 Miscellaneous (Unresolved Clarification Entry) SEE LABEL COMMENTS DAILY XX 12/16/18 09:00 12/16/18 11:15 DC Morphine Sulfate (Morphine Sulfate Inj) 2 mg Q2HP PRN IV SEVERE PAIN (PS 8-10) 12/09/18 17:15 12/13/18 08:25 DC 12/10/18 20:19 Morphine Sulfate (Morphine Sulfate Inj) 2 mg Q4HP PRN IV PAIN 12/13/18 11:45 12/16/18 14:11 DC 12/15/18 06:56 Nitrofurantoin Monoh/Nitrofur Macro (Macrobid) 100 mg BID PO 12/11/18 09:00 12/11/18 09:00 DC Ondansetron HCl (ZOFRAN INJection) 4 mg Q4HP PRN IV NAUSEA OR VOMITING 12/09/18 17:45 12/09/18 18:45 DC Ondansetron HCl (ZOFRAN INJection) 4 mg Q6HP PRN IV NAUSEA OR VOMITING 12/09/18 17:15 12/13/18 06:43 Pantoprazole Sodium (Protonix) 40 mg BID PO 12/13/18 09:00 12/19/18 07:58 Pantoprazole Sodium (Protonix) 40 mg Q12H IV 12/09/18 21:00 12/13/18 08:28 DC 12/12/18 20:55 Phenol (Chloraseptic [place]) 2 spray Q4HP PRN MT SORE THROAT 12/10/18 14:15 12/16/18 14:11 DC 12/10/18 16:38 Piperacillin Sod/ Tazobactam Sod 3.375 gm/Dextrose 50 ml @ 50 mls/hr Q6H IV 12/17/18 12:00 12/19/18 12:43 Potassium Chloride 10 meq/ IV Miscellaneous Supplies 100 ml @ 100 mls/hr Q1H IV 12/13/18 09:00 12/13/18 10:59 DC 12/13/18 11:40 Potassium Chloride (Potassium Chloride Liquid) 20 meq Q4H PO 12/13/18 06:00 12/13/18 21:00 DC 12/13/18 06:57 Senna/Docusate Sodium (Senokot S) 1 tab BID PO 12/09/18 21:00 12/13/18 08:25 DC 12/12/18 20:56 Sodium Chloride 1,000 ml @ 150 mls/hr Q6H40M IV 12/09/18 11:27 12/09/18 17:26 DC 12/09/18 11:32 Sodium Chloride (Saline Lock Flush) 2 ml ASDIRECTED PRN IV SEE LABEL COMMENTS 12/13/18 09:00 Sodium Chloride (Saline Lock Flush) 2 ml SLF IV 12/13/18 14:00 12/19/18 05:29 Sucralfate (Carafate Suspension) 1 gm Q8H PO 12/09/18 22:00 12/19/18 15:09 Allergies Coded Allergies: Tetracyclines (Verified Allergy, Unknown, rash, 12/09/18) codeine (Verified Allergy, Unknown, rash, 12/09/18) Objective Physical Examination Examination GENERAL APPEARANCE:[Patient seen, laying in bed, awake, alert, and oriented. Comfortable, in no acute distress]. SKIN: [Warm and moist]. HEENT: [Normocephalic, atraumatic. [place] palpebral conjunctiva, anicteric sclerae. Lips and mucosa appear moist]. NECK: [Supple, no thyromegaly. No obvious jugular venous distention]. LUNGS: [Clear to auscultation bilaterally. No wheezing appreciated]. HEART: [No chest wall abnormalities. Regular rate and rhythm with no murmurs appreciated]. ABDOMEN: Abdomen is , soft, . [No hepatosplenomegaly. No umbilical or groin herniations, nondistended. No noticeable rebound or guarding. No grimacing with palpation. No rebound tenderness. No masses appreciated]. EXTREMITIES: [Extremities have no deformities. No edema identified]. Vital Signs Vital Signs Date Time Temp Pulse Resp B/P (MAP) Pulse Ox O2 Delivery O2 Flow Rate FiO2 12/19/18 14:00 74 20 117/61 (79) 95 12/19/18 08:00 99.0 12/18/18 12:07 2.0 I&Os I&O- Last 24 Hours up to 6 AM 12/19/18 06:00 Intake Total 1620 ml Balance 1620 ml Laboratory Data Labs 24H Laboratory Tests 2 12/19/18 05:20: Immature Granulocyte % (Auto) 0.8, White Blood Count 13.2H, Red Blood Count 4.25, Hemoglobin 12.9, Hematocrit 39.7, Mean Corpuscular Volume 93.4, Mean Corpuscular Hemoglobin 30.4, Mean Corpuscular Hemoglobin Concent 32.5, Red Cell Distribution Width 12.8, Platelet Count 316, Neutrophils (%) (Auto) 84.0H, Lymphocytes (%) (Auto) 6.8L, Monocytes (%) (Auto) 5.8H, Eosinophils (%) (Auto) 2.4, Basophils (%) (Auto) 0.2, Neutrophils # (Auto) 11.1H, Lymphocytes # (Auto) 0.9L, Monocytes # (Auto) 0.8, Eosinophils # (Auto) 0.3, Basophils # (Auto) 0.0, Nucleated Red Blood Cells % (auto) 0.0, Anion Gap 8, Glomerular Filtration Rate > 60.0, Blood Urea Nitrogen 6L, Creatinine 0.46L, Sodium Level 140, Potassium Level 3.4L, Chloride Level 104, Carbon Dioxide Level 28, Calcium Level 8.6L, Aspartate Amino Transf (AST/SGOT) 12, Alanine Aminotransferase (ALT/SGPT) 11L, Alkaline Phosphatase 82, Total Bilirubin 0.6, Total Protein 6.0L, Albumin 1.9L, Albumin/Globulin Ratio 0.46L CBC/BMP Laboratory Tests 12/19/18 05:20 Red Blood Count 4.25, Mean Corpuscular Volume 93.4, Mean Corpuscular Hemoglobin 30.4, Mean Corpuscular Hemoglobin Concent 32.5, Red Cell Distribution Width 12.8, Neutrophils (%) (Auto) 84.0 H, Lymphocytes (%) (Auto) 6.8 L, Monocytes (%) (Auto) 5.8 H, Eosinophils (%) (Auto) 2.4, Basophils (%) (Auto) 0.2, Neutrophils # (Auto) 11.1 H, Lymphocytes # (Auto) 0.9 L, Monocytes # (Auto) 0.8, Eosinophils # (Auto) 0.3, Basophils # (Auto) 0.0, Calcium Level 8.6 L, Aspartate Amino Transf (AST/SGOT) 12, Alanine Aminotransferase (ALT/SGPT) 11 L, Alkaline Phosphatase 82, Total Bilirubin 0.6, Total Protein 6.0 L, Albumin 1.9 L Microbiology Microbiology 12/18/18 Anaerobic Culture, Received Pending 12/09/18 Urine Culture - Final, Complete Escherichia Coli 12/18/18 Gram Stain - Final, Resulted 12/18/18 Abscess Culture - Preliminary, Resulted Yeast Like Organism Corynebacterium Species Impression She is now postop day 10 after laparoscopic omental patch repair of duodenal ulcer perforation. She subsequently developed an intra-abdominal abscess which was drained percutaneously by interventional radiology yesterday. Overall patient is doing better. Still appetite is fair to poor but tolerating what ever she is able to eat. She is denying any abdominal discomfort. Her leukocytosis is improving with the drainage of the abscess. Awaiting results of the microbiology to tailor the antibiotics. Continue to work with physical therapy, occupational therapy for strengthening signet to deconditioning. Plan / VTE VTE Prophylaxis Ordered?: Yes VTE Exclusion Mechanical Proph: N/A:VTE Prophy Ordered (Lovenox 30 mg SC) VTE Exclusion Pharmacological: Active Bleeding (Bowel resection surgery 12/09/18) Plan / Urinary Catheter Urinary Catheter: D/C FREDDY Baig MD Dec 19, 2018 15:17
[2018-12-19] MEDS: FLUCONAZOLE 100 MG TAB PO SCH (16:04)
[2018-12-19] MEDS: ACETAMINOPHEN TAB 650MG DOSE (2X325MG) PO PRN (20:47)
[2018-12-19 22:00] VITALS: BP 114/69
[2018-12-20] MEDS: PIPERACILLIN/TAZOBACTAM SOD 3.375 GM in D5W MINI-BAG PLUS 50 ML IV SCH ×2 (00:14→05:17)
[2018-12-20] MEDS: LR 1,000 ML IV SCH (01:30)
[2018-12-20] MEDS: SUCRALFATE SUSP 1GM/10ML UD PO SCH ×3 (05:16→21:14)
[2018-12-20] MEDS: LEVOTHYROXINE 75MCG TABLET (0.075MG) PO SCH (05:16)
[2018-12-20] MEDS: SLF 3 ML SYR IV SCH ×3 (05:17→21:15)
[2018-12-20 05:56] LABS: BASO % 0.2 % (0.0-1.0); EOS # 0.4 10^3/uL (0.0-0.5); HEMOGLOBIN 12.9 g/dl (12.0-15.5); LYMPH # 1.1 10^3/uL (1.5-5.0); LYMPH % 8.3 % (24.0-44.0); MEAN CORPUSCULAR HEMOGLOBIN 31.3 pg (27.0-33.0); MEAN CORPUSCULAR HGB CONC 33.9 g/dl (32.0-36.5); MEAN CORPUSCULAR VOLUME 92.2 fl (80.0-96.0); MONO # 0.8 10^3/uL (0.0-0.8); NEUTROPHILS # 10.7 10^3/uL (1.5-8.5); NEUTROPHILS % 81.9 % (36.0-66.0); PLATELET COUNT, AUTOMATED 325 10^3/uL (150-450); RED BLOOD COUNT 4.12 10^6/uL (4.00-5.40)
[2018-12-20 06:00] VITALS: BP 116/70
--- NOTE | 2018-12-20 07:51 | IPNPDOC ---
Subjective General Date/Time Seen The patient was seen on 12/20/18 at 07:46. Subject Chief Complaint/History The patient is a 88-year-old female admitted with a reason for visit of Perforated Abdominal Viscus. Current Medications Current Medications Current Medications Medications (Trade) Dose Ordered Sig/Ronaldo Route PRN Reason Start Time Stop Time Status Last Admin Dose Admin Acetaminophen (Tylenol Tab) 650 mg Q4HP PRN PO MILD PAIN or TEMP > 101 12/09/18 17:15 12/19/18 20:47 Amlodipine Besylate (Norvasc) 5 mg DAILY PO 12/10/18 09:00 12/19/18 07:58 Atenolol (Tenormin) 25 mg QPM@1800 PO 12/09/18 18:00 12/11/18 10:13 DC 12/10/18 17:08 Diatrizoate Meglum/ Diatrizoate Sod (Gastrografin) 10 ml Q30M PO 12/09/18 10:30 12/09/18 11:01 DC 12/09/18 10:20 Diatrizoate Meglum/ Diatrizoate Sod (Gastrografin) 10 ml Q30M PO 12/17/18 08:45 12/17/18 09:16 DC 12/17/18 09:49 Enoxaparin Sodium (Lovenox) 30 mg DAILY SC 12/10/18 09:00 12/19/18 07:57 Ertapenem 1 gm/ Sodium Chloride 50 ml @ 100 mls/hr Q24H IV 12/10/18 12:00 12/14/18 07:49 DC 12/13/18 13:05 Fentanyl Citrate (Sublimaze) 25 mcg Q5MP PRN IV MODERATE PAIN (PS 4-7) 12/09/18 17:45 12/09/18 18:45 DC Fluconazole (Diflucan) 100 mg DAILY PO 12/19/18 09:00 12/19/18 16:04 Home Med (Med Rec Complete!) ASDIRECTED XX 12/09/18 12:30 12/09/18 12:30 DC Lactated Ringer's 1,000 ml @ 75 mls/hr [id number] IV 12/09/18 17:45 12/09/18 18:45 DC Lactated Ringer's 1,000 ml @ 80 mls/hr [id number] IV 12/09/18 18:00 12/13/18 08:25 DC 12/13/18 04:00 Lactated Ringer's 1,000 ml @ 100 mls/hr Q10H IV 12/09/18 12:30 12/09/18 17:26 DC Lactated Ringer's 1,000 ml @ 100 mls/hr Q10H IV 12/17/18 09:00 12/20/18 01:30 Levofloxacin (Levaquin) 250 mg DAILY@06 PO 12/14/18 06:00 12/16/18 08:08 DC 12/16/18 05:36 Levofloxacin (Levaquin) 500 mg DAILY@06 PO 12/17/18 06:00 12/17/18 06:00 DC Levothyroxine Sodium (Synthroid) 75 mcg DAILY@0600 PO 12/10/18 06:00 12/20/18 05:16 Magnesium Chloride (Slow-Mag) 64 mg DAILY PO 12/12/18 09:00 12/19/18 07:57 Meropenem 1 gm/IV Miscellaneous Supplies 50 ml @ 100 mls/hr Q8H IV 12/17/18 15:00 12/17/18 15:00 DC Metoclopramide HCl (REGLAN INJection) 10 mg Q6HP PRN IV NAUSEA OR VOMITING 12/09/18 17:45 12/09/18 18:45 DC Metoprolol Tartrate (Lopressor) 5 mg Q6HP PRN IV TACHICARDIA 12/11/18 10:15 12/16/18 14:11 DC Metoprolol Tartrate (Lopressor) 25 mg BID PO 12/11/18 09:00 12/19/18 07:59 Miscellaneous (Unresolved Clarification Entry) SEE LABEL COMMENTS DAILY XX 12/16/18 09:00 12/16/18 11:15 DC Morphine Sulfate (Morphine Sulfate Inj) 2 mg Q2HP PRN IV SEVERE PAIN (PS 8-10) 12/09/18 17:15 12/13/18 08:25 DC 12/10/18 20:19 Morphine Sulfate (Morphine Sulfate Inj) 2 mg Q4HP PRN IV PAIN 12/13/18 11:45 12/16/18 14:11 DC 12/15/18 06:56 Nitrofurantoin Monoh/Nitrofur Macro (Macrobid) 100 mg BID PO 12/11/18 09:00 12/11/18 09:00 DC Ondansetron HCl (ZOFRAN INJection) 4 mg Q4HP PRN IV NAUSEA OR VOMITING 12/09/18 17:45 12/09/18 18:45 DC Ondansetron HCl (ZOFRAN INJection) 4 mg Q6HP PRN IV NAUSEA OR VOMITING 12/09/18 17:15 12/13/18 06:43 Pantoprazole Sodium (Protonix) 40 mg BID PO 12/13/18 09:00 12/19/18 20:46 Pantoprazole Sodium (Protonix) 40 mg Q12H IV 12/09/18 21:00 12/13/18 08:28 DC 12/12/18 20:55 Phenol (Chloraseptic [place]) 2 spray Q4HP PRN MT SORE THROAT 12/10/18 14:15 12/16/18 14:11 DC 12/10/18 16:38 Piperacillin Sod/ Tazobactam Sod 3.375 gm/Dextrose 50 ml @ 50 mls/hr Q6H IV 12/17/18 12:00 12/20/18 05:17 Potassium Chloride 10 meq/ IV Miscellaneous Supplies 100 ml @ 100 mls/hr Q1H IV 12/13/18 09:00 12/13/18 10:59 DC 12/13/18 11:40 Potassium Chloride (Potassium Chloride Liquid) 20 meq Q4H PO 12/13/18 06:00 12/13/18 21:00 DC 12/13/18 06:57 Senna/Docusate Sodium (Senokot S) 1 tab BID PO 12/09/18 21:00 12/13/18 08:25 DC 12/12/18 20:56 Sodium Chloride 1,000 ml @ 150 mls/hr Q6H40M IV 12/09/18 11:27 12/09/18 17:26 DC 12/09/18 11:32 Sodium Chloride (Saline Lock Flush) 2 ml ASDIRECTED PRN IV SEE LABEL COMMENTS 12/13/18 09:00 Sodium Chloride (Saline Lock Flush) 2 ml SLF IV 12/13/18 14:00 12/20/18 05:17 Sucralfate (Carafate Suspension) 1 gm Q8H PO 12/09/18 22:00 12/20/18 05:16 Allergies Coded Allergies: Tetracyclines (Verified Allergy, Unknown, rash, 12/09/18) codeine (Verified Allergy, Unknown, rash, 12/09/18) Objective Physical Examination Examination GENERAL APPEARANCE:[Patient seen, laying in bed, awake, alert, and oriented. C omfortable, in no acute distress]. SKIN: [Warm and moist]. HEENT: [Normocephalic, atraumatic. [place] palpebral conjunctiva, anicteric sclerae. Lips and mucosa appear moist]. NECK: [Supple, no thyromegaly. No obvious jugular venous distention]. LUNGS: [Clear to auscultation bilaterally. No wheezing appreciated]. HEART: [No chest wall abnormalities. Regular rate and rhythm with no murmurs appreciated]. ABDOMEN: Abdomen is , soft, . [No hepatosplenomegaly. No umbilical or groin herniations, nondistended. No noticeable rebound or guarding. No grimacing with palpation. No rebound tenderness. No masses appreciated]. EXTREMITIES: [Extremities have no deformities. No edema identified]. Vital Signs Vital Signs Date Time Temp Pulse Resp B/P (MAP) Pulse Ox O2 Delivery O2 Flow Rate FiO2 12/20/18 06:00 97.6 72 16 116/70 (85) 98 12/18/18 12:07 2.0 I&Os I&O- Last 24 Hours up to 6 AM 12/20/18 06:00 Intake Total 1790 ml Output Total 50 ml Balance 1740 ml Laboratory Data Labs 24H Laboratory Tests 2 12/20/18 05:41: Immature Granulocyte % (Auto) 0.6, White Blood Count 13.0H, Red Blood Count 4.12, Hemoglobin 12.9, Hematocrit 38.0, Mean Corpuscular Volume 92.2, Mean Corpuscular Hemoglobin 31.3, Mean Corpuscular Hemoglobin Concent 33.9, Red Cell Distribution Width 12.7, Platelet Count 325, Neutrophils (%) (Auto) 81.9H, Lymph ocytes (%) (Auto) 8.3L, Monocytes (%) (Auto) 6.0H, Eosinophils (%) (Auto) 3.0, Basophils (%) (Auto) 0.2, Neutrophils # (Auto) 10.7H, Lymphocytes # (Auto) 1.1L, Monocytes # (Auto) 0.8, Eosinophils # (Auto) 0.4, Basophils # (Auto) 0.0, Nucleated Red Blood Cells % (auto) 0.0 CBC/BMP Laboratory Tests 12/20/18 05:41 Red Blood Count 4.12, Mean Corpuscular Volume 92.2, Mean Corpuscular Hemoglobin 31.3, Mean Corpuscular Hemoglobin Concent 33.9, Red Cell Distribution Width 12.7, Neutrophils (%) (Auto) 81.9 H, Lymphocytes (%) (Auto) 8.3 L, Monocytes (%) (Auto) 6.0 H, Eosinophils (%) (Auto) 3.0, Basophils (%) (Auto) 0.2, Neutrophils # (Auto) 10.7 H, Lymphocytes # (Auto) 1.1 L, Monocytes # (Auto) 0.8, Eosinophils # (Auto) 0.4, Basophils # (Auto) 0.0 Microbiology Microbiology 12/18/18 Anaerobic Culture, Received Pending 12/18/18 Gram Stain - Final, Resulted 12/18/18 Abscess Culture - Preliminary, Resulted Yeast Like Organism Corynebacterium Species Impression She is now postop day 11 after laparoscopic omental patch repair of duodenal ulcer perforation. She subsequently developed an intra-abdominal abscess which was drained percutaneously by interventional radiology (12/18/18) Culture shows growth of yeast sp. and corynebacterium sp. Diflucan has been added. Stop zosyn, convert to levaquin which shouldcover corynebacterium (no sensitivity in culture results). Minimal drainage but purulent looking. continue to work with increasing dietary intake, mobilizing patient. . Plan / VTE VTE Prophylaxis Ordered?: Yes VTE Exclusion Mechanical Proph: N/A:VTE Prophy Ordered (Lovenox 30 mg SC) VTE Exclusion Pharmacological: Active Bleeding (Bowel resection surgery 12/09/18) Plan / Urinary Catheter Urinary Catheter: D/C FREDDY aBig MD Dec 20, 2018 07:51
[2018-12-20] MEDS: LevoFLOXacin 500 MG TABLET PO SCH (08:00)
[2018-12-20] MEDS: ENOXAPARIN 30 MG/0.3 ML SYR (J1650) SC SCH (08:28)
[2018-12-20] MEDS: FLUCONAZOLE 100 MG TAB PO SCH (08:29)
[2018-12-20] MEDS: amLODIPine 5 MG TAB PO SCH (08:29)
[2018-12-20] MEDS: PANTOPRAZOLE 40MG TAB (PROTONIX) PO SCH ×2 (08:29→21:15)
[2018-12-20] MEDS: METOPROLOL TART 25 MG TABLET PO SCH ×2 (08:30→21:15)
[2018-12-20] MEDS: MAGNESIUM CHLORIDE 64 MG TABCR (SLO MAG) PO SCH (09:35)
[2018-12-20] MEDS ORDERED: METO1TAB87 PO (11:00)
[2018-12-20] MEDS ORDERED: LEVA1TAB2 PO (12:23)
[2018-12-20] MEDS ORDERED: PANT40TA3 PO (12:25)
[2018-12-20] MEDS ORDERED: SUCR10SS PO (12:25)
[2018-12-20 14:00] VITALS: BP 141/61
--- NOTE | 2018-12-20 14:51 | DSES ---
DATE OF ADMISSION: 12/09/2018 DATE OF DISCHARGE: CONSULTANTS: Dr. Osman, general surgery. DISCHARGE DIAGNOSES: 1. Perforated abdominal viscus. 2. Perforated duodenal ulcer, status post laparoscopic bowel resection with repair of two perforated duodenal ulcers and esophagogastroduodenoscopy. 3. Atrial fibrillation. 4. Hypokalemia. 5. Enterococcus urinary tract infection (UTI). 6. Hypomagnesemia. DISCHARGE MEDICATIONS: - Levaquin 500 mg daily for 7 days - metoprolol 25 mg twice a day - Norvasc 5 mg daily - acetaminophen 500 mg every 4 hours as needed for pain - levothyroxine 75 mcg daily - vitamin D3 3000 units daily - fluconazole 100 mg daily - Protonix 40 mg twice a day - Carafate 1 gram every 8 hours HOSPITAL COURSE: 88-year-old female presented to the emergency room with complaints of palpitations without dizziness, lightheadedness, or shortness of breath. The patient was admitted to general surgery for perforated duodenal ulcer, status post bowel resection and developed postoperative atrial fibrillation, which was rate controlled with metoprolol twice a day, anticoagulation could not be given as the patient was postoperative. She was kept on Carafate and Protonix and slowly advanced on her diet. Her CT of the abdomen and pelvis on 12/09/2018 showed pneumoperitoneum and ascites with perforation from gastric or duodenal ulcer, acute cholecystis could not be excluded, warrants followup. The patient underwent upper GI series with air contrast, which showed mucosal thickening in distal duodenum, representing postsurgical changes, no stricture, obstruction or extravasation noted. The patient underwent repair of perforated duodenal ulcers with EGD and laparoscopic bowel resection by Dr. Osman. Drainage placement was done on 12/18/2018. Microbiology grew out yeast and corynebacterium. THe patient was also found to have E coli in the urine. She was initially treated with IV ertapenem and changed to Levaquin and Diflucan when cultures were available. The patient's blood pressure remained stable and she was resumed back on her home dose of Norvasc. She became rate controlled with metoprolol 25 mg twice a day. She was kept on deep vein thrombosis (DVT) prophylaxis 30 mg subcutaneous daily. She did not have any neurological dysfunction during this admission and was kept off anticoagulation for atrial fibrillation for now. The patient passed a home safety evaluation and subsequently discharged to [facility] for rehabilitation. LABORATORIES ON DISCHARGE: White count 13, hemoglobin 12, hematocrit 38, platelet count 325. Sodium 140, potassium 3.4, chloride 104, bicarbonate 28, BUN 6, creatinine 0.46, glucose of 86. Abdominal fluid showed yeast and corynebacterium. Urine culture grew E coli. Anaerobic culture on 12/18/2018 showed no growth anaerobically. Imaging CT studies: CT of the abdomen and pelvis on 12/09/2018 showed pneumoperitoneum and ascites, suggestive of bowel perforation secondary to perforated gastric or duodenal ulcer based on distribution of fluid and gas. Acute cholecystitis could not be excluded. Colonic diverticulosis without focal inflammatory findings to suggest acute diverticulitis. Chest x-ray on 12/16/2018 showed right pleural effusion. CT of the abdomen and pelvis on 12/17/2018 suspected secondary colitis involving ascending and mid transverse colon, bibasilar pleural effusion, bibasilar atelectasis. CT guided drainage on 12/18/2018, 5 mL of bloody pus was obtained and sent to the lab. Time spent on discharge: 30 minutes. REGINE
[2018-12-20 20:00] VITALS: BP 131/67
[2018-12-20 21:03] VITALS: BP 128/60
[2018-12-20] MEDS: ACETAMINOPHEN TAB 650MG DOSE (2X325MG) PO PRN (21:15)
[2018-12-21 06:00] VITALS: BP 121/62
[2018-12-21] MEDS: LEVOTHYROXINE 75MCG TABLET (0.075MG) PO SCH (06:20)
[2018-12-21] MEDS: LevoFLOXacin 500 MG TABLET PO SCH (06:21)
[2018-12-21] MEDS: SLF 3 ML SYR IV SCH ×3 (06:21→21:23)
[2018-12-21] MEDS: SUCRALFATE SUSP 1GM/10ML UD PO SCH ×3 (06:21→21:23)
[2018-12-21] MEDS: MAGNESIUM CHLORIDE 64 MG TABCR (SLO MAG) PO SCH (08:25)
[2018-12-21] MEDS: ENOXAPARIN 30 MG/0.3 ML SYR (J1650) SC SCH (08:25)
[2018-12-21] MEDS: PANTOPRAZOLE 40MG TAB (PROTONIX) PO SCH ×2 (08:25→21:23)
[2018-12-21] MEDS: FLUCONAZOLE 100 MG TAB PO SCH (08:25)
[2018-12-21] MEDS: amLODIPine 5 MG TAB PO SCH (08:26)
[2018-12-21] MEDS: METOPROLOL TART 25 MG TABLET PO SCH ×2 (08:26→21:23)
[2018-12-21] MEDS: ACETAMINOPHEN TAB 650MG DOSE (2X325MG) PO PRN ×2 (10:05→21:24)
[2018-12-21 14:00] VITALS: BP 107/52
[2018-12-21 22:00] VITALS: BP 137/63
--- NOTE | 2018-12-22 01:51 | IPNPDOC ---
Text Note Date of Service The patient was seen on 12/22/18. NOTE Subjective: Sitting up in chair, without complaints at this time Objective: Vitals: please see details below General: Frail female, sitting up in chair HEENT: PERRLA, EOMI Lungs: ST CV: S1 and S2, irregularly, irregular tachycardic Abdomen: Mild tenderness, moderately distended, no rigidity Neuro: Nonfocal Assessment and plan Patient is 88 years old female who was admitted with perforated viscus s/p laparoscopic omental patch repair of duodenal ulcer perforation with a course that was complicated by atrial fibrillation with rapid ventricular rate for which she was started atenolol, and then subsequently developed an intra- abdominal abscess which was drained percutaneously by interventional radiology (12/18/18) Culture showed growth of yeast sp. and corynebacterium sp. Diflucan has been added. The patient was ready to go to rehab when she was declined because of the drain and will need to complete drain treatment before she can be accepted to that facility Plan (1) Abscess between intestinal loops -Abscess was drained by IR 12/[address] which is draining some amount of discharge Preliminary report of Gram stain shows chronic bacterium and yeastlike organisms and now on appropriate coverage Patient is responding very well to levofloxacin, fluconazole (2) Perforated duodenal ulcer Duodenal ulcer perforation status post laparoscopic repair postop day 11 resolved diarrhea or abdominal pain at the present time PO Protonix twice a day (3) Atrial fibrillation Continue home meds (4) Enterococcus UTI Treated antibiotics were DC'd VS,Fishbone, I+O VS, Fishbone, I+O Vital Signs Date Time Temp Pulse Resp B/P (MAP) Pulse Ox O2 Delivery O2 Flow Rate FiO2 12/21/18 22:00 98.2 71 20 137/63 (87) 95 12/18/18 12:07 2.0 I&O- Last 24 Hours up to 6 AM 12/22/18 06:00 Intake Total 1740 ml Output Total 25 ml Balance 1715 ml MAYUR VELA MD Dec 22, 2018 01:51
[2018-12-22] MEDS: ACETAMINOPHEN TAB 650MG DOSE (2X325MG) PO PRN ×2 (03:43→20:40)
[2018-12-22] MEDS: LEVOTHYROXINE 75MCG TABLET (0.075MG) PO SCH (05:47)
[2018-12-22] MEDS: LevoFLOXacin 500 MG TABLET PO SCH (05:48)
[2018-12-22] MEDS: SLF 3 ML SYR IV SCH ×3 (05:48→22:45)
[2018-12-22] MEDS: SUCRALFATE SUSP 1GM/10ML UD PO SCH ×3 (05:48→20:32)
[2018-12-22 06:00] VITALS: BP 125/60
[2018-12-22 06:34] LABS: HEMOGLOBIN 12.3 g/dl (12.0-15.5); MEAN CORPUSCULAR HGB CONC 33.2 g/dl (32.0-36.5); MEAN CORPUSCULAR VOLUME 93.2 fl (80.0-96.0); PLATELET COUNT, AUTOMATED 411 10^3/uL (150-450); RED BLOOD COUNT 3.97 10^6/uL (4.00-5.40); WHITE BLOOD COUNT 12.4 10^3/uL (4.0-10.0)
[2018-12-22] MEDS: PANTOPRAZOLE 40MG TAB (PROTONIX) PO SCH ×2 (09:39→20:33)
[2018-12-22] MEDS: FLUCONAZOLE 100 MG TAB PO SCH (09:39)
[2018-12-22] MEDS: MAGNESIUM CHLORIDE 64 MG TABCR (SLO MAG) PO SCH (09:39)
[2018-12-22] MEDS: amLODIPine 5 MG TAB PO SCH (09:40)
[2018-12-22] MEDS: ENOXAPARIN 30 MG/0.3 ML SYR (J1650) SC SCH (09:40)
[2018-12-22] MEDS: METOPROLOL TART 25 MG TABLET PO SCH ×2 (09:40→20:33)
[2018-12-22] MEDS ORDERED: POTASSIUM CHLORIDE 10 MEQ SR TABLET PO ONE (10:00)
--- NOTE | 2018-12-22 10:01 | IPNPDOC ---
Subjective General Date/Time Seen The patient was seen on 12/22/18 at 09:57. Subject Chief Complaint/History The patient is a 88-year-old female admitted with a reason for visit of Perforated Abdominal Viscus. Current Medications Current Medications Current Medications Medications (Trade) Dose Ordered Sig/Ronaldo Route PRN Reason Start Time Stop Time Status Last Admin Dose Admin Acetaminophen (Tylenol Tab) 650 mg Q4HP PRN PO MILD PAIN or TEMP > 101 12/09/18 17:15 12/22/18 03:43 Amlodipine Besylate (Norvasc) 5 mg DAILY PO 12/10/18 09:00 12/22/18 09:40 Atenolol (Tenormin) 25 mg QPM@1800 PO 12/09/18 18:00 12/11/18 10:13 DC 12/10/18 17:08 Diatrizoate Meglum/ Diatrizoate Sod (Gastrografin) 10 ml Q30M PO 12/09/18 10:30 12/09/18 11:01 DC 12/09/18 10:20 Diatrizoate Meglum/ Diatrizoate Sod (Gastrografin) 10 ml Q30M PO 12/17/18 08:45 12/17/18 09:16 DC 12/17/18 09:49 Enoxaparin Sodium (Lovenox) 30 mg DAILY SC 12/10/18 09:00 12/22/18 09:40 Ertapenem 1 gm/ Sodium Chloride 50 ml @ 100 mls/hr Q24H IV 12/10/18 12:00 12/14/18 07:49 DC 12/13/18 13:05 Fentanyl Citrate (Sublimaze) 25 mcg Q5MP PRN IV MODERATE PAIN (PS 4-7) 12/09/18 17:45 12/09/18 18:45 DC Fluconazole (Diflucan) 100 mg DAILY PO 12/19/18 09:00 12/22/18 09:39 Home Med (Med Rec Complete!) ASDIRECTED XX 12/09/18 12:30 12/09/18 12:30 DC Lactated Ringer's 1,000 ml @ 75 mls/hr [id number] IV 12/09/18 17:45 12/09/18 18:45 DC Lactated Ringer's 1,000 ml @ 80 mls/hr [id number] IV 12/09/18 18:00 12/13/18 08:25 DC 12/13/18 04:00 Lactated Ringer's 1,000 ml @ 100 mls/hr Q10H IV 12/09/18 12:30 12/09/18 17:26 DC Lactated Ringer's 1,000 ml @ 100 mls/hr Q10H IV 12/17/18 09:00 12/20/18 07:52 DC 12/20/18 01:30 Levofloxacin (Levaquin) 250 mg DAILY@06 PO 12/14/18 06:00 12/16/18 08:08 DC 12/16/18 05:36 Levofloxacin (Levaquin) 500 mg DAILY@06 PO 12/20/18 06:00 12/22/18 05:48 Levofloxacin (Levaquin) 500 mg DAILY@06 PO 12/17/18 06:00 12/17/18 06:00 DC Levothyroxine Sodium (Synthroid) 75 mcg DAILY@0600 PO 12/10/18 06:00 12/22/18 05:47 Magnesium Chloride (Slow-Mag) 64 mg DAILY PO 12/12/18 09:00 12/22/18 09:39 Meropenem 1 gm/IV Miscellaneous Supplies 50 ml @ 100 mls/hr Q8H IV 12/17/18 15:00 12/17/18 15:00 DC Metoclopramide HCl (REGLAN INJection) 10 mg Q6HP PRN IV NAUSEA OR VOMITING 12/09/18 17:45 12/09/18 18:45 DC Metoprolol Tartrate (Lopressor) 5 mg Q6HP PRN IV TACHICARDIA 12/11/18 10:15 12/16/18 14:11 DC Metoprolol Tartrate (Lopressor) 25 mg BID PO 12/11/18 09:00 12/22/18 09:40 Miscellaneous (Unresolved Clarification Entry) SEE LABEL COMMENTS DAILY XX 12/16/18 09:00 12/16/18 11:15 DC Morphine Sulfate (Morphine Sulfate Inj) 2 mg Q2HP PRN IV SEVERE PAIN (PS 8-10) 12/09/18 17:15 12/13/18 08:25 DC 12/10/18 20:19 Morphine Sulfate (Morphine Sulfate Inj) 2 mg Q4HP PRN IV PAIN 12/13/18 11:45 12/16/18 14:11 DC 12/15/18 06:56 Nitrofurantoin Monoh/Nitrofur Macro (Macrobid) 100 mg BID PO 12/11/18 09:00 12/11/18 09:00 DC Ondansetron HCl (ZOFRAN INJection) 4 mg Q4HP PRN IV NAUSEA OR VOMITING 12/09/18 17:45 12/09/18 18:45 DC Ondansetron HCl (ZOFRAN INJection) 4 mg Q6HP PRN IV NAUSEA OR VOMITING 12/09/18 17:15 12/13/18 06:43 Pantoprazole Sodium (Protonix) 40 mg BID PO 12/13/18 09:00 12/22/18 09:39 Pantoprazole Sodium (Protonix) 40 mg Q12H IV 12/09/18 21:00 12/13/18 08:28 DC 12/12/18 20:55 Phenol (Chloraseptic [place]) 2 spray Q4HP PRN MT SORE THROAT 12/10/18 14:15 12/16/18 14:11 DC 12/10/18 16:38 Piperacillin Sod/ Tazobactam Sod 3.375 gm/Dextrose 50 ml @ 50 mls/hr Q6H IV 12/17/18 12:00 12/20/18 07:52 DC 12/20/18 05:17 Potassium Chloride 10 meq/ IV Miscellaneous Supplies 100 ml @ 100 mls/hr Q1H IV 12/13/18 09:00 12/13/18 10:59 DC 12/13/18 11:40 Potassium Chloride (Potassium Chloride Liquid) 20 meq Q4H PO 12/13/18 06:00 12/13/18 21:00 DC 12/13/18 06:57 Senna/Docusate Sodium (Senokot S) 1 tab BID PO 12/09/18 21:00 12/13/18 08:25 DC 12/12/18 20:56 Sodium Chloride 1,000 ml @ 150 mls/hr Q6H40M IV 12/09/18 11:27 12/09/18 17:26 DC 12/09/18 11:32 Sodium Chloride (Saline Lock Flush) 2 ml ASDIRECTED PRN IV SEE LABEL COMMENTS 12/13/18 09:00 Sodium Chloride (Saline Lock Flush) 2 ml SLF IV 12/13/18 14:00 12/22/18 05:48 Sucralfate (Carafate Suspension) 1 gm Q8H PO 12/09/18 22:00 12/22/18 05:48 Allergies Coded Allergies: Tetracyclines (Verified Allergy, Unknown, rash, 12/09/18) codeine (Verified Allergy, Unknown, rash, 12/09/18) Objective Physical Examination Examination GENERAL APPEARANCE:[Patient seen, laying in bed, awake, alert, and oriented. Comfortable, in no acute distress]. SKIN: [Warm and moist]. HEENT: [Normocephalic, atraumatic. [place] palpebral conjunctiva, anicteric sclerae. Lips and mucosa appear moist]. NECK: [Supple, no thyromegaly. No obvious jugular venous distention]. LUNGS: [Clear to auscultation bilaterally. No wheezing appreciated]. HEART: [No chest wall abnormalities. Regular rate and rhythm with no murmurs appreciated]. ABDOMEN: Abdomen is , soft, . [No hepatosplenomegaly. No umbilical or groin herniations, nondistended. No noticeable rebound or guarding. No grimacing with palpation. No rebound tenderness. No masses appreciated]. EXTREMITIES: [Extremities have no deformities. No edema identified]. Vital Signs Vital Signs Date Time Temp Pulse Resp B/P (MAP) Pulse Ox O2 Delivery O2 Flow Rate FiO2 12/22/18 09:40 80 122/64 12/22/18 06:00 99.1 18 91 12/18/18 12:07 2.0 I&Os I&O- Last 24 Hours up to 6 AM 12/22/18 06:00 Intake Total 1740 ml Output Total 40 ml Balance 1700 ml Laboratory Data Labs 24H Laboratory Tests 2 12/22/18 05:20: Nucleated Red Blood Cells % (auto) 0.0, C-Reactive Protein, Quantitative 7.35H CBC/BMP Laboratory Tests 12/22/18 05:20 Red Blood Count 3.97 L, Mean Corpuscular Volume 93.2, Mean Corpuscular Hemoglobin 31.0, Mean Corpuscular Hemoglobin Concent 33.2, Red Cell Distribution Width 12.9 Microbiology Microbiology 12/18/18 Anaerobic Culture - Final, Complete 12/18/18 Gram Stain - Final, Resulted 12/18/18 Abscess Culture - Preliminary, Resulted Yeast Like Organism Corynebacterium Species Impression POD 13 Lap repair of perforated duodenal ulcer post op intraabdominal abscess s/p perc drainage (12/18/18) Patient feeling better, appetite better and needs time to recover strength to be independent. She was scheduled to go to [facility] for subacute rehab except un fortunately they dont take patient with drains in them. I evaluated whether the drain can come out today, still has a small amount of thick drainage though only minimally. Drain not ready to come out yet. I will instruct nurse to try and flush the drain and aspirate the flushings. Once drainage clears up prob ok to remove it. I anticipate she prob. will stay over the weekend. Continue po abx. Plan / VTE VTE Prophylaxis Ordered?: Yes VTE Exclusion Mechanical Proph: N/A:VTE Prophy Ordered (Lovenox 30 mg SC) VTE Exclusion Pharmacological: Active Bleeding (Bowel resection surgery 12/09/18) Plan / Urinary Catheter Urinary Catheter: D/C FREDDY Baig MD Dec 22, 2018 10:01
--- NOTE | 2018-12-22 10:21 | IPN ---
DATE: 12/22/2018 SUBJECTIVE: Patient denies any chest pain, pressure or tightness. No nausea or vomiting tolerating her diet. Output via the Chencho-Betancourt (SERGEY) drain in the right abdomen was 25 mL overnight and 15 mL this morning. She otherwise, denies any epigastric, abdominal wall pain. No fever or chills overnight. Patient could not be discharged due to drain in place. She has complained of neck pain and did not sleep well last night. But no fever or chills. OBJECTIVE: Vitals: Temperature 99.1, pulse 77, respiratory rate 18, blood pressure 125/60, 91% on room air. Generally, patient is awake, alert, oriented to herself. Able to provide much history. She is not using her accessory respiratory muscles. No conversational dyspnea. Anicteric. No jaundice. She HEENT: No jugular venous distention or thyromegaly. Dry mucous membranes. Poor dentition. No cervical lymphadenopathy or thyromegaly. Lungs are diminished by clear to auscultation. No wheezing, rales or rhonchi. Heart: S1, S2 sinus rhythm. Abdomen is soft, slightly tender right drain. Otherwise, drain still continues to have purulent drainage. Positive bowel sounds times four quadrants. No hepatosplenomegaly or abdominal bruits. Extremities: No cyanosis, clubbing or any pitting edema. CURRENT MEDICATIONS: - Levaquin 500 daily - Diflucan 100 daily - Protonix 40 twice a day - Slow Mag - metoprolol - Lovenox - amlodipine - Synthroid - Carafate - acetaminophen - Zofran IV LABORATORY DATA: White count 12.4, hemoglobin 12, hematocrit 37, platelet count 411. Sodium 140, potassium 3.4, chloride 104, bicarbonate 28, BUN 6, creatinine 0.46, glucose 86, C-reactive protein 7.35. ASSESSMENT/PLAN: This is an 88-year-old female with perforated viscus due to duodenal ulcer perforation status post exploratory laparotomy. Patient was kept on Protonix and Carafate. Diet was advanced. She then developed atrial fibrillation with rapid ventricular response (RVR). Hospitalists was consulted and placed on metoprolol. Anticoagulation could not be given due to postoperative state and risk of bleeding. Drainage placement was done on 12/18/2018 with microbiology recording yeast and Corynebacteria and E coli in the urine. Patient was initially treated with IV ertapenem changed to Levaquin and Diflucan after cultures were finalized. Patient could not be discharged to [facility] due to persistent SERGEY drain. Per surgery, patient is to be kept over the weekend. Active issues are as follows: 1. Perforated abdominal viscus due to duodenal ulcer. Perforation status post laparoscopic bowel resection with repair of two perforated duodenal ulcers and Esophagogastroduodenoscopy (EGD), currently managed by surgery. Still on Diflucan and Levaquin. SERGEY drain managed by surgery. Patient is not being discharged over the weekend due to persistent purulent drainage. She has remained afebrile with decreasing white count and responding to antibiotic treatment. No significant pain, tolerating her diet well. 2. Atrial fibrillation: Currently rate controlled on no anticoagulation due to recent postoperative phase. 3. Hypokalemia: Low potassium has been supplemented. Most likely due to decreased dietary intake. 4. Urinary tract infection: Currently on Levaquin. DISPOSITION: Patient is not to be discharged over the weekend as patient continues to have drain which cannot be taken out, to [facility]. [facility]
[2018-12-22 13:25] LABS: BASO % 0.3 % (0.0-1.0); EOS # 0.3 10^3/uL (0.0-0.5); EOS % 2.4 % (0.0-3.0); HEMATOCRIT 38.5 % (36.0-47.0); HEMOGLOBIN 12.7 g/dl (12.0-15.5); LYMPH # 0.9 10^3/uL (1.5-5.0); LYMPH % 6.9 % (24.0-44.0); MEAN CORPUSCULAR HEMOGLOBIN 31.1 pg (27.0-33.0); MEAN CORPUSCULAR VOLUME 94.4 fl (80.0-96.0); MONO # 0.9 10^3/uL (0.0-0.8); MONO % 7.5 % (0.0-5.0); NEUTROPHILS # 10.2 10^3/uL (1.5-8.5); NEUTROPHILS % 82.3 % (36.0-66.0); PLATELET COUNT, AUTOMATED 432 10^3/uL (150-450); RED BLOOD COUNT 4.08 10^6/uL (4.00-5.40); WHITE BLOOD COUNT 12.4 10^3/uL (4.0-10.0)
[2018-12-22 13:42] LABS: ALBUMIN 2.1 GM/DL (3.2-5.2); ALT/SGPT 14 U/L (12-78); BILIRUBIN,TOTAL 0.3 MG/DL (0.2-1.0); BLOOD UREA NITROGEN 12 MG/DL (7-18); CALCIUM LEVEL 9.1 MG/DL (8.8-10.2); CARBON DIOXIDE LEVEL 26 MEQ/L (21-32); CHLORIDE LEVEL 102 MEQ/L (98-107); GLOMERULAR FILTRATION RATE > 60.0 (>32); GLUCOSE, FASTING 104 MG/DL (70-100); MAGNESIUM LEVEL 1.7 MG/DL (1.8-2.4); POTASSIUM SERUM 3.3 MEQ/L (3.5-5.1); SODIUM LEVEL 135 MEQ/L (136-145); TOTAL PROTEIN 6.8 GM/DL (6.4-8.2)
[2018-12-22 14:00] VITALS: BP 113/61
[2018-12-22 22:00] VITALS: BP 127/63
[2018-12-23] MEDS: LevoFLOXacin 500 MG TABLET PO SCH (05:55)
[2018-12-23] MEDS: SUCRALFATE SUSP 1GM/10ML UD PO SCH ×3 (05:55→20:07)
[2018-12-23] MEDS: LEVOTHYROXINE 75MCG TABLET (0.075MG) PO SCH (05:55)
[2018-12-23 06:00] VITALS: BP 119/77
[2018-12-23] MEDS: SLF 3 ML SYR IV SCH ×3 (06:50→22:57)
[2018-12-23 07:56] LABS: HEMATOCRIT 38.9 % (36.0-47.0); HEMOGLOBIN 12.8 g/dl (12.0-15.5); MEAN CORPUSCULAR HEMOGLOBIN 30.3 pg (27.0-33.0); MEAN CORPUSCULAR HGB CONC 32.9 g/dl (32.0-36.5); PLATELET COUNT, AUTOMATED 472 10^3/uL (150-450); RED BLOOD COUNT 4.23 10^6/uL (4.00-5.40); WHITE BLOOD COUNT 11.1 10^3/uL (4.0-10.0)
[2018-12-23] MEDS: FLUCONAZOLE 100 MG TAB PO SCH (08:14)
[2018-12-23] MEDS: PANTOPRAZOLE 40MG TAB (PROTONIX) PO SCH ×2 (08:14→20:07)
[2018-12-23 08:16] LABS: BLOOD UREA NITROGEN 10 MG/DL (7-18); CALCIUM LEVEL 8.7 MG/DL (8.8-10.2); CARBON DIOXIDE LEVEL 27 MEQ/L (21-32); CHLORIDE LEVEL 104 MEQ/L (98-107); CREATININE FOR GFR 0.49 MG/DL (0.55-1.30); GLOMERULAR FILTRATION RATE > 60.0 (>32); GLUCOSE, FASTING 87 MG/DL (70-100); POTASSIUM SERUM 3.7 MEQ/L (3.5-5.1); SODIUM LEVEL 139 MEQ/L (136-145)
[2018-12-23] MEDS: METOPROLOL TART 25 MG TABLET PO SCH ×2 (08:18→20:08)
[2018-12-23] MEDS: MAGNESIUM CHLORIDE 64 MG TABCR (SLO MAG) PO SCH (08:18)
[2018-12-23] MEDS: ENOXAPARIN 30 MG/0.3 ML SYR (J1650) SC SCH (08:18)
[2018-12-23] MEDS: amLODIPine 5 MG TAB PO SCH (08:19)
[2018-12-23] MEDS: ACETAMINOPHEN TAB 650MG DOSE (2X325MG) PO PRN ×2 (13:29→20:13)
[2018-12-23 14:00] VITALS: BP 130/65
[2018-12-23] MEDS: MIRALAX *UNIT DOSE* 17GM PACKET PO PRN (14:34)
--- NOTE | 2018-12-23 17:49 | IPNPDOC ---
Text Note Date of Service The patient was seen on 12/23/18. NOTE Subjective: Denies any pain this afternoon. Objective: Vitals: please see details below General: Frail elderly female, NAD HEENT: PERRLA, EOMI Lungs: ST CV: S1 and S2, irregularly, irregular Abdomen: Mild tenderness, moderately distended, no rigidity Neuro: Nonfocal exam, moving all extremities Assessment and plan Patient is 88 years old female who was admitted with perforated viscus s/p laparoscopic omental patch repair of duodenal ulcer perforation with a course that was complicated by atrial fibrillation with rapid ventricular rate for which she was started atenolol, and then subsequently developed an intra- abdominal abscess which was drained percutaneously by interventional radiology (12/18/18). She was initially treated with IV ertapenem and later changed to Levaquin and Diflucan after cultures finalized. There had been a plan to discharge her to [facility] but had to remain inpatient due to the persistent SERGEY drain. Per surgery, patient is to be kept over the weekend. She is otherwise doing well. 1. Perforated abdominal viscus due to duodenal ulcer. Perforation status post laparoscopic bowel resection with repair of two perforated duodenal ulcers and Esophagogastroduodenoscopy (EGD), currently managed by surgery. Still on Diflucan and Levaquin. SERGEY drain managed by surgery. Patient is not being discharged over the weekend due to persistent purulent drainage. She has remained afebrile with decreasing white count and responding to antibiotic treatment. No significant pain, tolerating her diet well. Plan (1) Abscess between intestinal loops - Is doing well, has no significant pain and is tolerating her diet well. -Abscess was drained by IR 12/18 -Drain is in place which is draining purulent discharge -Patient is responding very well to levofloxacin, fluconazole (2) Perforated duodenal ulcer -Duodenal ulcer perforation status post laparoscopic repair postop day 13 -Resolved diarrhea and abdominal pain -PO Protonix BID (3) Atrial fibrillation -Continue home meds (4): E.coli UTI: on levaquin DISPOSITION: Remains inpatient over the weekend as patient continues to have drainage and surgery wanted the SERGEY drain to remain over the weekend. VS,Fishbone, I+O VS, Fishbone, I+O Laboratory Tests 12/23/18 07:43 Red Blood Count 4.23, Mean Corpuscular Volume 92.0, Mean Corpuscular Hemoglobin 30.3, Mean Corpuscular Hemoglobin Concent 32.9, Red Cell Distribution Width 13.0, Calcium Level 8.7 L Vital Signs Date Time Temp Pulse Resp B/P (MAP) Pulse Ox O2 Delivery O2 Flow Rate FiO2 12/23/18 14:00 97.9 76 20 130/65 (86) 93 12/18/18 12:07 2.0 I&O- Last 24 Hours up to 6 AM 12/23/18 06:00 Intake Total 566 ml Output Total 20 ml Balance 546 ml MAYUR VELA MD Dec 23, 2018 17:49
[2018-12-23 22:00] VITALS: BP 130/65
[2018-12-24] MEDS: LevoFLOXacin 500 MG TABLET PO SCH (05:41)
[2018-12-24] MEDS: SUCRALFATE SUSP 1GM/10ML UD PO SCH ×3 (05:41→21:14)
[2018-12-24] MEDS: LEVOTHYROXINE 75MCG TABLET (0.075MG) PO SCH (05:41)
[2018-12-24] MEDS: SLF 3 ML SYR IV SCH ×3 (05:42→21:14)
[2018-12-24 05:51] LABS: HEMATOCRIT 39.1 % (36.0-47.0); HEMOGLOBIN 12.8 g/dl (12.0-15.5); MEAN CORPUSCULAR HEMOGLOBIN 30.8 pg (27.0-33.0); MEAN CORPUSCULAR HGB CONC 32.7 g/dl (32.0-36.5); MEAN CORPUSCULAR VOLUME 94.2 fl (80.0-96.0); PLATELET COUNT, AUTOMATED 467 10^3/uL (150-450); RED BLOOD COUNT 4.15 10^6/uL (4.00-5.40); WHITE BLOOD COUNT 11.4 10^3/uL (4.0-10.0)
[2018-12-24 06:00] VITALS: BP 126/78
[2018-12-24 06:14] LABS: BLOOD UREA NITROGEN 10 MG/DL (7-18); CALCIUM LEVEL 8.9 MG/DL (8.8-10.2); CARBON DIOXIDE LEVEL 27 MEQ/L (21-32); CHLORIDE LEVEL 103 MEQ/L (98-107); CREATININE FOR GFR 0.41 MG/DL (0.55-1.30); GLOMERULAR FILTRATION RATE > 60.0 (>32); GLUCOSE, FASTING 83 MG/DL (70-100); POTASSIUM SERUM 3.8 MEQ/L (3.5-5.1); SODIUM LEVEL 137 MEQ/L (136-145)
[2018-12-24 07:24] LABS: C REACTIVE PROTEIN QUANTITATIV 7.07 MG/DL (0.00-0.30)
[2018-12-24] MEDS: ACETAMINOPHEN TAB 650MG DOSE (2X325MG) PO PRN ×2 (09:27→21:14)
[2018-12-24] MEDS: METOPROLOL TART 25 MG TABLET PO SCH ×2 (09:27→21:13)
[2018-12-24] MEDS: MIRALAX *UNIT DOSE* 17GM PACKET PO PRN (09:27)
[2018-12-24] MEDS: ENOXAPARIN 30 MG/0.3 ML SYR (J1650) SC SCH (09:27)
[2018-12-24] MEDS: PANTOPRAZOLE 40MG TAB (PROTONIX) PO SCH ×2 (09:28→21:13)
[2018-12-24] MEDS: amLODIPine 5 MG TAB PO SCH (09:28)
[2018-12-24] MEDS: MAGNESIUM CHLORIDE 64 MG TABCR (SLO MAG) PO SCH (09:28)
[2018-12-24] MEDS: FLUCONAZOLE 100 MG TAB PO SCH (09:28)
[2018-12-24 14:00] VITALS: BP_SYST 116; BP_SYST 138; BP_DIAS 62; BP_DIAS 76
[2018-12-24] MEDS: ANALGESIC BALM CRM 120 GM TOP SCH ×2 (15:30→21:14)
[2018-12-24 21:11] VITALS: BP 135/69
--- NOTE | 2018-12-24 21:17 | IPNPDOC ---
Text Note Date of Service The patient was seen on 12/24/18. NOTE Subjective: Sitting up eating lunch. No pain complaints. Objective: Vitals: please see details below General: Frail elderly female, NAD HEENT: PERRLA, EOMI Lungs: ST CV: S1 and S2, irregularly, irregular Abdomen: Normoactive bowel sounds, no tenderness, moderately distended Neuro: Nonfocal exam, moving all extremities Assessment and plan Patient is 88 years old female who was admitted with perforated viscus s/p laparoscopic omental patch repair of duodenal ulcer perforation with a course that was complicated by atrial fibrillation with rapid ventricular rate for whic h she was started atenolol, and then subsequently developed an intra-abdominal abscess which was drained percutaneously by interventional radiology (12/18/18). She was initially treated with IV ertapenem and later changed to Levaquin and Diflucan after cultures finalized. There had been a plan to discharge her to [facility] but had to remain inpatient due to the persistent SERGEY drain. Per surgery, patient is to be kept over the weekend. She is otherwise doing well. Perforated abdominal viscus due to duodenal ulcer: s/p laparoscopic bowel resection with repair of two perforated duodenal ulcers and Esophagogastroduodenoscopy (EGD), currently managed by surgery. Still on Diflucan and Levaquin. SERGEY drain managed by surgery. Patient is not being discharged over the weekend due to persistent purulent drainage. -She has remained afebrile with decreasing white count and responding to ant ibiotic treatment. -No significant pain, tolerating her diet well. Abscess between intestinal loops: Is doing well, has no significant pain and is tolerating her diet well. -Abscess was drained by IR 12/18 -Drain is in place which is draining purulent discharge -Patient is responding very well to levofloxacin, fluconazole Perforated duodenal ulcer: -Duodenal ulcer perforation status post laparoscopic repair postop day 13 -Resolved diarrhea and abdominal pain -PO Protonix BID Atrial fibrillation: -Continue home meds E.coli UTI: on levaquin DISPOSITION: Remains inpatient over the weekend as patient continues to have drainage and surgery wanted the SERGEY drain to remain over the weekend. VS,Fishbone, I+O VS, Fishbone, I+O Laboratory Tests 12/24/18 05:04 Red Blood Count 4.15, Mean Corpuscular Volume 94.2, Mean Corpuscular Hemoglobin 30.8, Mean Corpuscular Hemoglobin Concent 32.7, Red Cell Distribution Width 13.0, Calcium Level 8.9 Vital Signs Date Time Temp Pulse Resp B/P (MAP) Pulse Ox O2 Delivery O2 Flow Rate FiO2 12/24/18 21:11 81 135/69 (91) 12/24/18 14:00 98.0 15 95 12/18/18 12:07 2.0 I&O- Last 24 Hours up to 6 AM 12/24/18 06:00 Intake Total 720 ml Output Total 15 ml Balance 705 ml MAYUR VELA MD Dec 24, 2018 21:17
[2018-12-24 22:00] VITALS: BP 134/68
[2018-12-25] MEDS: SUCRALFATE SUSP 1GM/10ML UD PO SCH (05:44)
[2018-12-25] MEDS: LevoFLOXacin 500 MG TABLET PO SCH (05:45)
[2018-12-25] MEDS: SLF 3 ML SYR IV SCH (05:45)
[2018-12-25] MEDS: LEVOTHYROXINE 75MCG TABLET (0.075MG) PO SCH (05:45)
[2018-12-25 06:00] VITALS: BP 132/67
[2018-12-25 10:25] VITALS: BP 132/66
[2018-12-25] MEDS: METOPROLOL TART 25 MG TABLET PO SCH (10:25)
[2018-12-25] MEDS: PANTOPRAZOLE 40MG TAB (PROTONIX) PO SCH (10:25)
[2018-12-25] MEDS: MAGNESIUM CHLORIDE 64 MG TABCR (SLO MAG) PO SCH (10:26)
[2018-12-25] MEDS: ANALGESIC BALM CRM 120 GM TOP SCH (10:26)
[2018-12-25] MEDS: ENOXAPARIN 30 MG/0.3 ML SYR (J1650) SC SCH (10:26)
[2018-12-25] MEDS: FLUCONAZOLE 100 MG TAB PO SCH (10:26)
[2018-12-25] MEDS: amLODIPine 5 MG TAB PO SCH (10:26)
--- NOTE | 2018-12-25 10:37 | IPNPDOC ---
Text Note Date of Service The patient was seen on 12/25/18. NOTE Patient seen, chart reviewed. She seems to be doing well. We arent getting much from the drain despite the flushing. I flushed the drain and re-aspirated it and no new drainage came out. I will have the nurse pull out the drain. continue with levaquin and diflucan for 2 more weeks, BID protonix and carafate for 6 weeks. Have her follow up with me in 4 weeks or earlier if there is a problem. VS,Fishbone, I+O VS, Fishbone, I+O Vital Signs Date Time Temp Pulse Resp B/P (MAP) Pulse Ox O2 Delivery O2 Flow Rate FiO2 12/25/18 10:25 87 132/66 12/25/18 06:00 97.8 18 95 l I&O- Last 24 Hours up to 6 AM 12/25/18 06:00 Intake Total 360 ml Output Total 30 ml Balance 330 ml FREDDY CA MD Dec 25, 2018 10:37
[2018-12-25] MEDS: ACETAMINOPHEN TAB 650MG DOSE (2X325MG) PO PRN (11:41)
--- NOTE | 2018-12-25 12:53 | DS.PDOC ---
Discharge Summary General Date of Admission Dec 09, 2018 at 12:02 Date of Discharge 12/25/2018 Attending Physician: MAYUR VELA MD Specialist/Consultants Involve: FREDDY CA MD Discharge Summary PROCEDURES PERFORMED DURING STAY: 12/12: Had an UGI series with AIR AND KUB 12/12: Laparoscopic bowel resection 12/18: Abscess drainage ADMITTING DIAGNOSES: 1. Perforated abdominal viscus DISCHARGE DIAGNOSES: 1. Perforated abdominal viscus. 2. Perforated duodenal ulcer, status post laparoscopic bowel resection with repair of two perforated duodenal ulcers and esophagogastroduodenoscopy. 3. Atrial fibrillation. 4. Hypokalemia. 5. Enterococcus urinary tract infection (UTI). 6. Hypomagnesemia. COMPLICATIONS/CHIEF COMPLAINT: Perforated Abdominal Viscus. HISTORY OF PRESENT ILLNESS: HOSPITAL COURSE: Please refer to the discharge summary from 12/20 as it outlines the patient's course in detail. She was prepared for discharge on 12/22 but ended up standing three more days to complete drainage from her SERGEY drain and now that the SERGEY drain has been discontinued, she is now being discharged to [facility] as originally planned. In brief, Ms. Summers is an 88 years old woman who was admitted with perforated viscus and had a laparoscopic omental patch repair of a duodenal ulcer perforation with a course that was complicated by atrial fibrillation with rapid ventricular rate for which she was started atenolol, and then subsequently developed an intra-abdominal abscess which was drained percutaneously by interventional radiology (12/18/18) with a retained SERGEY drain. She was initially treated with IV ertapenem and later changed to Levaquin and Diflucan after cultures finalized. There had been a plan to discharge her to [facility] but had to remain inpatient due to the persistent SERGEY drainage. Per surgery, patient had to be kept over the weekend and the SERGEY drain was discontinued today (12/25) and thus she is now ready for discharge to [facility] as originally planned for rehabilitation. Perforated abdominal viscus due to duodenal ulcer: s/p laparoscopic bowel resection with repair of two perforated duodenal ulcers Steven sophagogastroduodenoscopy (EGD) that was managed by surgery. -After management of the abscess, she otherwise remained afebrile with decreasing white count and clinically responded well to antibiotic treatment. -At discharge she had no pain and was tolerating her diet well. Abscess between intestinal loops: -Abscess was drained by IR 12/18 and drain was in place and drained purulent discharge and eventually discontinued on 12/25 by surgery. -She is being discharged on Diflucan and Levaquin to complete her course. -Patient is responding very well to levofloxacin, fluconazole Perforated duodenal ulcer: -She had a laparoscopic repair and now resolution of her abdominal pain -She is being discharged on PO Protonix BID Atrial fibrillation: -Had brief episode of RVR that resolved. She is now being discharged on stephanie home meds Was noted to have an E.coli UTI: Is being treated by her levaquin DISCHARGE MEDICATIONS: Please see below. ALLERGIES: Please see below. PHYSICAL EXAMINATION ON DISCHARGE: VITAL SIGNS: Please see below. General: Frail elderly female, NAD HEENT: PERRLA, EOMI Lungs: ST CV: S1 and S2, irregularly, irregular Abdomen: Normoactive bowel sounds, no tenderness, moderately distended Neuro: Nonfocal exam, moving all extremities LABORATORY DATA: Please see below. IMAGING: CT of the abdomen and pelvis on 12/09/2018 showed pneumoperitoneum and ascites, suggestive of bowel perforation secondary to perforated gastric or duodenal ulcer based on distribution of fluid and gas. Acute cholecystitis could not be excluded. Colonic diverticulosis without focal inflammatory findings to suggest acute diverticulitis. Chest x-ray on 12/16/2018 showed right pleural effusion. CT of the abdomen and pelvis on 12/17/2018 suspected secondary colitis involving ascending and mid transverse colon, bibasilar pleural effusion, bibasilar atelectasis. CT guided drainage on 12/18/2018, 5 mL of bloody pus was obtained and sent to the lab. CT of the abdomen and pelvis on 12/17/2018 Lung bases demonstrate small pleural effusions and bibasilar atelectasis (rightgreater than left) which is slightly increased from prior examination. Somewhat irregular, ill-defined pockets of fluid and gas with surrounding inflammatory stranding identified extending from the gallbladder fossa inferiorly to the right mid abdomen likely related to recent perforated ulcer and subsequent surgical intervention. Findings require correlation and follow up as peritonitis and abscess formation cannot be excluded. Liver, spleen, pancreas, bilateral adrenal glands and kidneys are relatively normal / stable. Pericholecystic fluid is nonspecific and there is no evidence for biliary ductal dilatation. Mucosal thickening / enhancement and pericolonic stranding involving the ascending and transverse colon suggests secondary infectious/inflammatory colitis. There is no evidence for bowel obstruction. Evaluation of the pelvis is limited due to beam-hardening artifact from left hip prosthesis, but visualized portions of the bladder and uterus/adnexa appear r elatively normal / stable. Sigmoid diverticulosis noted without obvious acute diverticulitis. Abdominal aorta without aneurysm or dissection. Musculoskeletal structures demonstrate age-related degenerative changes. Impression: 1. Suspected infectious/inflammatory changes in the right mid abdomen including somewhat irregular pockets of fluid with gas. Correlation and follow up is recommended. 2. Suspected secondary colitis involving the ascending through mid transverse colon. 3. Small bibasilar pleural effusions and bibasilar atelectasis (right greater than left). 4. Further chronic changes as above. PROGNOSIS: Fair ACTIVITY: As tolerated DIET: Regular diet [facility] with surgery, GI and PCP follow up. DISPOSITION: [facility] DISCHARGE INSTRUCTIONS: 1. Complete levaquin and fluconazole course 2. surgery, GI and PCP follow up ITEMS TO FOLLOWUP ON ON OUTPATIENT: 1. Perforated abdominal viscus. 2. Perforated duodenal ulcer, status post laparoscopic bowel resection with repair of two perforated duodenal ulcers and esophagogastroduodenoscopy. 3. Atrial fibrillation DISCHARGE CONDITION: Fair TIME SPENT ON DISCHARGE: Greater than 60 minutes. Vital Signs/I&Os Vital Signs Date Time Temp Pulse Resp B/P (MAP) Pulse Ox O2 Delivery O2 Flow Rate FiO2 12/25/18 10:25 87 132/66 12/25/18 06:00 97.8 18 95 I&O- Last 24 Hours up to 6 AM 12/25/18 06:00 Intake Total 360 ml Output Total 30 ml Balance 330 ml Microbiology Microbiology 12/18/18 Anaerobic Culture - Final, Complete 12/18/18 - Final, Complete Sophie Albicans Sophie Glabrata 12/18/18 Gram Stain - Final, Complete 12/18/18 Abscess Culture - Final, Complete Yeast Like Organism Yeast Like Organism#2 Corynebacterium Species Discharge Medications Scheduled Amlodipine Besylate (Amlodipine Besylate) 5 Mg Tablet, 5 MG PO DAILY, (Reported) Cholecalciferol (Vitamin D3) (Vitamin D3) 1,000 Unit Capsule, 3,000 UNITS PO DAILY, (Reported) Levofloxacin (Levaquin) 500 Mg Tablet, 500 MG PO DAILY@06 Levothyroxine Sodium (Synthroid) 75 Mcg Tablet, 75 MCG PO DAILY, (Reported) Metoprolol Tartrate (Metoprolol Tartrate) 25 Mg Tablet, 25 MG PO BID Pantoprazole Sodium (Pantoprazole Sodium) 40 Mg Tablet.dr, 40 MG PO BID Sucralfate (Sucralfate) 1 Gm/10 Ml Oral.susp, 1 GM PO Q8H Vit A/Vit C/Vit E/Zinc/Copper (Healthy Eyes Supervision Sftgl) 1 Each Capsule, 1 CAP PO DAILY, (Reported) Scheduled PRN Acetaminophen (Acetaminophen) 500 Mg Tablet, 500 MG PO Q4H PRN for PAIN, (Reported) Allergies Coded Allergies: Tetracyclines (Verified Allergy, Unknown, rash, 12/09/18) codeine (Verified Allergy, Unknown, rash, 12/09/18) MAYUR VELA MD Dec 25, 2018 12:53
[2018-12-25 14:00] VITALS: BP 126/64
== END 2018-12-25 14:00 | DRG 330 ==
LOC: M ED 08:05 → EDBD 08:05 → M ED INP 12:02 → M PCU 18:02 → M MSPAV 12-15 15:18
PROVIDERS: ADMIT Surgery; ATTEND Internal Medicine
PROC: 0DU947Z Supplement Duodenum with Autologous Tissue Substitute, Percutaneous Endoscopic Approach (ICD-10-PCS; principal; 2018-12-09 13:23)
PROC: 0W9G3ZZ Drainage of Peritoneal Cavity, Percutaneous Approach (ICD-10-PCS; 2018-12-18)
DX: K26.5 Chronic or unspecified duodenal ulcer with perforation (principal); N39.0 Urinary tract infection, site not specified; K68.11 Postprocedural retroperitoneal abscess; R18.8 Other ascites; B37.82 Candidal enteritis; I48.2 Chronic atrial fibrillation; I10 Essential (primary) hypertension; K52.9 Noninfective gastroenteritis and colitis, unspecified; E03.9 Hypothyroidism, unspecified; E87.6 Hypokalemia; B96.20 Unspecified Escherichia coli [E. coli] as the cause of diseases classified elsewhere; E55.9 Vitamin D deficiency, unspecified; E83.39 Other disorders of phosphorus metabolism; Z86.718 Personal history of other venous thrombosis and embolism; Z79.82 Long term (current) use of aspirin; Z79.1 Long term (current) use of non-steroidal anti-inflammatories (NSAID); Z79.899 Other long term (current) drug therapy; Z88.1 Allergy status to other antibiotic agents; Z88.5 Allergy status to narcotic agent

== ENCOUNTER → 2019-01-04 | Outpatient (CLI) | payer MEDICARE ==
[~2019-01-04] MED LIST changes: +ACET-683 PO; +ACET1TAB55 PO; +AMLO5TAB6 PO; +APAP325T4 PO; +ASPI81TA85 PO; +ATEN25TA PO; +D 101000 PO; +DULC10SU2 PR; +ENEMENE PR; +GASTROGRAFIN SOLUTION 30ML (Q9963) As Ordered ONE; +GNPCAP19 PO; +ISOVUE-370 76% 100ML VIAL (Q9967) As Ordered ONE; +LEVA1TAB2 PO; +MELO15TA28 PO; +METO1TAB87 PO; +METO25TA4 PO; +MOM30SS PO; +MULTCAP PO; +NON-325T5 PO; +OMEP-218 PO; +OMEP10CASR PO; +PANT-23 PO; +PANT40TA3 PO; +PRESCAP PO; +SUCR10SS PO; +SYNT75TA PO
--- NOTE | 2019-01-04 18:19 | REP ---
CT of the abdomen without and with IV contrast and CT of the pelvis with IV contrast: Comparison is 12/17/2018. On the comparison study there were multiple contiguous fluid pockets in the abdominal right upper quadrant in the gallbladder fossa and sub hepatic space related to recent perforated ulcer. The patient underwent CT-guided drainage catheter placement on 12/18/2018. The patient returns today with right upper quadrant pain and elevated white blood cell count. No drainage catheter is present on the study today. There are multiple loculated fluid collections in the gallbladder fossa and right upper quadrant as previously. There are small scattered gas and air collections within these fluid collections and within the mesentery in the right upper quadrant. Additionally, there is a fluid collection in the right lateral abdominal wall adjacent to the right iliac wing anteriorly, not present previously measuring 3.2 cm in length with a tract extending from this fluid collection intraperitoneally to the multiloculated fluid collections in the abdomen. The visualized lower lung vital demonstrate dependent atelectasis. The previous small right pleural effusion is no longer present. The previous small volume of ascites along the posterior margin of the liver is no longer present. There is no ascites elsewhere in the abdomen. There is no bowel distension or obstruction. However, the stomach is massively distended. This was also present previously and may represent gastroparesis. There is a large air-fluid level within the stomach. The gallbladder is nondistended. There is no gallbladder wall thickening. However, the gallbladder is surrounded by the inflammatory changes in the abdominal right upper quadrant and the gallbladder wall demonstrates enhancement. This is unchanged. There is wall thickening and enhancement of the colonic hepatic flexure, likely secondary to the right upper quadrant inflammatory process. The pancreas, spleen, adrenals, kidneys and abdominal aorta are unremarkable. The bowel loops throughout the remainder of the abdomen and pelvis are unremarkable. There are multiple uterine calcifications suggesting degenerating fibroids. This is unchanged. There is significant beam-hardening artifact from the right hip arthroplasty degrading images in the pelvis, as previously. Impression: Multiloculated fluid collections consistent with multiple abscesses in the right upper quadrant. There are small air / gas bubbles within and adjacent to these suspected abscesses. There is a new fluid collection in the right lateral abdominal wall adjacent to the anterior margin of the right iliac wing with a tract extending intraperitoneal toward the intraperitoneal abscess. I suspect this is an abdominal wall abscess. This was not present previously. The stomach is massively dilated with a large air-fluid level, similar to prior study, compatible with gastroparesis. These results are discussed by telephone upon completion of the study with the nurse practitioner, Dank Hurley NP. Electronically Signed by Destin Mckeon MD 01/04/2019 06:10 P
== END ==
LOC: M RAD 15:15
PROVIDERS: ATTEND Nurse Practitioner
DX: R10.11 Right upper quadrant pain (principal); D72.829 Elevated white blood cell count, unspecified

== ENCOUNTER → 2019-01-04 | Outpatient (REF) ==
[~2019-01-04] MED LIST changes: -GASTROGRAFIN SOLUTION 30ML (Q9963) As Ordered ONE; -ISOVUE-370 76% 100ML VIAL (Q9967) As Ordered ONE
[2019-01-04 08:36] LABS: BASO # 0.1 10^3/uL (0.0-0.2); BASO % 0.4 % (0.0-1.0); EOS # 0.1 10^3/uL (0.0-0.5); EOS % 0.6 % (0.0-3.0); HEMATOCRIT 41.1 % (36.0-47.0); HEMOGLOBIN 13.4 g/dl (12.0-15.5); LYMPH # 0.7 10^3/uL (1.5-5.0); MEAN CORPUSCULAR HGB CONC 32.6 g/dl (32.0-36.5); MEAN CORPUSCULAR VOLUME 92.2 fl (80.0-96.0); MONO # 0.7 10^3/uL (0.0-0.8); MONO % 4.7 % (0.0-5.0); NEUTROPHILS # 12.3 10^3/uL (1.5-8.5); NEUTROPHILS % 88.8 % (36.0-66.0); PLATELET COUNT, AUTOMATED 373 10^3/uL (150-450); RED BLOOD COUNT 4.46 10^6/uL (4.00-5.40); WHITE BLOOD COUNT 13.9 10^3/uL (4.0-10.0)
[2019-01-04 09:19] LABS: BLOOD UREA NITROGEN 9 MG/DL (7-18); CALCIUM LEVEL 9.2 MG/DL (8.8-10.2); CARBON DIOXIDE LEVEL 28 MEQ/L (21-32); CHLORIDE LEVEL 98 MEQ/L (98-107); CREATININE FOR GFR 0.47 MG/DL (0.55-1.30); GLOMERULAR FILTRATION RATE > 60.0 (>32); GLUCOSE, FASTING 80 MG/DL (70-100); MAGNESIUM LEVEL 1.5 MG/DL (1.8-2.4); SODIUM LEVEL 137 MEQ/L (136-145)
== END ==
LOC: SKLAB5 08:12
PROVIDERS: ATTEND Family Medicine
DX: E03.9 Hypothyroidism, unspecified (principal); I10 Essential (primary) hypertension

== ENCOUNTER 2019-01-05 08:27 | Inpatient (IN) | payer MEDICARE ==
[~2019-01-05] VITALS: Ht 157.5 cm; Wt 46.9 kg
[~2019-01-05 08:27] MED LIST changes: -APAP325T4 PO; -DULC10SU2 PR; -ENEMENE PR; -METO25TA4 PO; -MOM30SS PO; -MULTCAP PO; -NON-325T5 PO; -PANT-23 PO; -PRESCAP PO
[2019-01-05] MEDS ORDERED: D5W/0.45% SODIUM CHLORIDE 1,000 ML IV SCH (09:10)
[2019-01-05 09:35] VITALS: BP 120/65
[2019-01-05] MEDS ORDERED: DULC10SU2 PR (10:22)
[2019-01-05] MEDS ORDERED: MULTCAP PO (10:22)
[2019-01-05] MEDS ORDERED: APAP325T4 PO (10:22)
[2019-01-05] MEDS ORDERED: PANT-23 PO (10:22)
[2019-01-05] MEDS ORDERED: METO25TA4 PO (10:22)
[2019-01-05] MEDS ORDERED: AMLO5TAB6 PO (10:22)
[2019-01-05] MEDS ORDERED: PRESCAP PO (10:22)
[2019-01-05] MEDS ORDERED: NON-325T5 PO (10:22)
[2019-01-05] MEDS ORDERED: MOM30SS PO (10:22)
[2019-01-05] MEDS ORDERED: ENEMENE PR (10:22)
[2019-01-05 10:24] LABS: HEMATOCRIT 41.6 % (36.0-47.0); HEMOGLOBIN 13.7 g/dl (12.0-15.5); MEAN CORPUSCULAR HEMOGLOBIN 30.3 pg (27.0-33.0); MEAN CORPUSCULAR HGB CONC 32.9 g/dl (32.0-36.5); PLATELET COUNT, AUTOMATED 367 10^3/uL (150-450); RED BLOOD COUNT 4.52 10^6/uL (4.00-5.40); WHITE BLOOD COUNT 14.4 10^3/uL (4.0-10.0)
[2019-01-05 10:36] LABS: INR 1.43; PROTHROMBIN TIME 17.2 SECONDS (11.8-14.0)
[2019-01-05] MEDS ORDERED: FLUCONAZOLE 400 MG in IV 1 EA IV SCH (10:45)
[2019-01-05 11:30] LABS: ALBUMIN 2.1 GM/DL (3.2-5.2); ALT/SGPT 9 U/L (12-78); BILIRUBIN,TOTAL 0.4 MG/DL (0.2-1.0); BLOOD UREA NITROGEN 8 MG/DL (7-18); CARBON DIOXIDE LEVEL 29 MEQ/L (21-32); CHLORIDE LEVEL 95 MEQ/L (98-107); CREATININE FOR GFR 0.47 MG/DL (0.55-1.30); GLOMERULAR FILTRATION RATE > 60.0 (>32); GLUCOSE, FASTING 76 MG/DL (70-100); SODIUM LEVEL 134 MEQ/L (136-145); TOTAL PROTEIN 7.6 GM/DL (6.4-8.2)
[2019-01-05] MEDS: amLODIPine 5 MG TAB PO SCH (12:05)
--- NOTE | 2019-01-05 12:10 | REP ---
Supine abdomen two views: Comparison is the abdomen/pelvis CT dated 01/04/2019. The bowel gas pattern is normal. There is a large air collection in the stomach. On the comparison CT. The stomach is massively dilated, possibly gastroparesis. The bladder is opacified, likely from the IV contrast for the comparison CT. There is calcified atheroma in the splenic artery in the left upper quadrant. Impression: Large collection of air in the stomach as described. Otherwise, normal bowel gas pattern. The bladder is opacified. 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 Electronically Signed by Destin Mckeon MD 01/05/2019 12:01 P
[2019-01-05] MEDS ORDERED: PIPERACILLIN/TAZOBACTAM SOD 3.375 GM in D5W MINI-BAG PLUS 50 ML IV SCH (13:00)
--- NOTE | 2019-01-05 13:40 | REP ---
CHEST X-RAY: Two views. HISTORY: Gastric outlet obstruction on CT. CHEST X-RAY FINDINGS: The lungs are somewhat hyperinflated but no infiltrate is seen. Pleural angles are sharp. No free subdiaphragmatic air is noted. Heart size is normal. There are degenerative changes in the thoracic spine and in the shoulders. Pulmonary vasculature is not increased. IMPRESSION: No acute disease. Electronically Signed by Pelon Gallardo MD 01/05/2019 02:41 P
--- NOTE | 2019-01-05 14:44 | HPEPDOC ---
General Date of Admission Jan 05, 2019 at 09:35 Date of Service: Jan 05, 2019 Chief Complaint The patient is a 88-year-old female Who is transferred from [facility] after having a CT scan completed as an outpatient had revealed possible gastric outlet obstruction and multiple abscesses. History of Present Illness Patient is an 88-year-old female with a PMHx of A. fib (not on anticoagulation), HTN, Arthritis of bilateral knees / hips, Chronic constipation, and recent hospitalization in which she was found to have a perforated duodenal ulcer (s/p Laparoscopic bowel resection and repair of two perforated duodenal ulcers). Patient was admitted to [facility] on 12/09/2018 and was discharged on 12/25/2018. Throughout hospital course patient was found to have a perforated duodenal ulcer that was her pared laparoscopically by Dr. Osman. Since that point. Patient was discharged [facility] for continued rehabilitation. Patient subsequently had a follow-up CT scan on 01/04/2019 that had revealed multiple abscesses and possible gastric outlet obstruction. Provider at [facility] has contacted hospitalist service for direct admission based on the recommendations of general s recommendations of general surgery. Currently, patient reports that she does not have any abdominal pain. She denies any current nausea or vomiting. Reports that she has been having loose stools most recent of which was this morning. Patient denies any discomfort with urination. Patient denies any chest pain, shortness breath, palpitations. Patient has repor sidra subjective chills but denies any fevers. She notes that her appetite has been very poor and has reported weight loss but is unable to quantify. Home Medications Scheduled Acetaminophen (Acetaminophen) 325 Mg Tablet, 650 MG PO QID, (Reported) Amlodipine Besylate (Amlodipine Besylate) 5 Mg Tablet, 5 MG PO DAILY, (Reported) Cholecalciferol (Vitamin D3) (Vitamin D3) 1,000 Unit Capsule, 3,000 UNITS PO DAILY, (Reported) TAKES AT NOON Levothyroxine Sodium (Synthroid) 75 Mcg Tablet, 75 MCG PO DAILY, (Reported) Metoprolol Tartrate (Metoprolol Tartrate) 25 Mg Tablet, 25 MG PO BID, (Reported) Multivitamin (Multivitamins) 1 Each Capsule, 1 CAP PO DAILY, (Reported) Pantoprazole Sodium (Pantoprazole Sodium) 40 Mg Tablet.dr, 40 MG PO BID, (Reported) Vit A/Vit C/Vit E/Zinc/Copper (Preservision Areds Softgel) 1 Each Capsule, 1 CAP PO DAILY, (Reported) Scheduled PRN Acetaminophen (Acetaminophen) 325 Mg Tablet, 650 MG PO Q4H PRN for PAIN / FEVER, (Reported) Bisacodyl (Dulcolax) 10 Mg Supp.rect, 10 MG MS DAILY PRN for CONSTIPATION, (Reported) Milk Of Magnesia (Milk of Magnesia) 2,400 Mg/10 Ml Oral.susp, 10 ML PO DAILY PRN for CONSTIPATION, (Reported) Sodium Phosphate,Emmons-Dibasic (Enema) 133 Ml Enema, 1 FAVIAN MS DAILY PRN for CONSTIPATION, (Reported) Allergies Coded Allergies: Tetracyclines (Verified Allergy, Unknown, rash, 12/09/18) codeine (Verified Allergy, Unknown, rash, 12/09/18) Past Medical History Medical History A. fib (not on anticoagulation), HTN, Arthritis of bilateral knees / hips, Chronic constipation, Perforated duodenal ulcer Surgical History Left hip ORIF - 2/2 mechanical fall Cataract surgery Laparoscopic repair of 2 perforated duodenal ulcers Family History - Mother with history of heart problems - Father with a history of emphysema Social History - Denies the use of alcohol, tobacco or illicit drugs - Denies recent travel or sick contacts - Lives alone at home, however, has been [facility] for rehabilitation. 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 Review of Systems Other systems 10 point review of systems complete, all negative otherwise stated in HPI Vital Signs - Vitals: BP 123/66, HR 85, RR 18, Sat 96%RA, Temp 98F - General: Lying in bed, No acute distress, Speaking in full sentences, AAOx3 - HEENT: NC, AT, PERRLA, EOMI - CVS: RRR, +S1S2 - Lungs: Fair air entry bilaterally, No appreciable wheezing / rales / rhonchi - Abdomen: Soft, Non-distended, Non-tender, bowel sounds appreciated, old/healing laparoscopic incisions noted - Extremities: No lower extremity edema, No calf tenderness - Neuro: No focal motor or sensory deficit - Skin: No visible rashes Laboratory Data Labs 24H Laboratory Tests 2 01/05/19 10:01: Nucleated Red Blood Cells % (auto) 0.0, Prothrombin Time 17.2H, Prothromb Time International Ratio 1.43, Anion Gap 10, Glomerular Filtration Rate > 60.0, Blood Urea Nitrogen 8, Creatinine 0.47L, Sodium Level 134L, Potassium Level 3.0L, C hloride Level 95L, Carbon Dioxide Level 29, Calcium Level 9.0, Aspartate Amino Transf (AST/SGOT) 16, Alanine Aminotransferase (ALT/SGPT) 9L, Alkaline Phosphatase 94, Total Bilirubin 0.4, Total Protein 7.6, Albumin 2.1L, Albumin/Globulin Ratio 0.38L CBC/BMP Laboratory Tests 01/05/19 10:01 Red Blood Count 4.52, Mean Corpuscular Volume 92.0, Mean Corpuscular Hemoglobin 30.3, Mean Corpuscular Hemoglobin Concent 32.9, Red Cell Distribution Width 12.8, Calcium Level 9.0, Aspartate Amino Transf (AST/SGOT) 16, Alanine Aminotransferase (ALT/SGPT) 9 L, Alkaline Phosphatase 94, Total Bilirubin 0.4, Total Protein 7.6, Albumin 2.1 L Microbiology Microbiology 01/05/19 Blood Culture, Received Pending 01/05/19 Blood Culture, Received Pending Plan / VTE VTE Prophylaxis Ordered?: Yes Plan Plan Multiple abdominal abscesses - Patient has presented as a direct admission from [facility] after she had imaging that revealed multiple abscesses - Patient has had a recent extensive hospitalization for perforated duodenal ulcer that was corrected laparoscopically - Currently, patient does not have any abdominal pain, nausea, vomiting - Hemodynamically stable and afebrile - Mild leukocytosis is noted - CT abdomen / pelvis 01/04: Multiloculated fluid collections consistent with multiple abscesses in the right upper quadrant. There are small air / gas bubbles within and adjacent to these suspected abscesses. There is a new fluid collection in the right lateral abdominal wall adjacent to the anterior margin of the right iliac wing with a tract extending intraperitoneal toward the intraperitoneal abscess. I suspect this is an abdominal wall abscess. This was not present previously. The stomach is massively dilated with a large air-fluid level, similar to prior study, compatible with gastroparesis. These results are discussed by telephone upon completion of the study with the nurse practitioner, Dank Hurley NP. - Patient is scheduled to receive IR guided drainage tube placed today - Will cover for intra-abdominal source of infection with Zosyn in fluconazole based on prior cultures - Case is discussed with Dr. Osman who will be on consultation Gastric outlet obstruction - Patient have an NG tube placed for decompression - Discussed with general surgery will be performing an endoscopy likely early next week - Will keep patient nothing by mouth at this point - Will start Protonix IV BID A. fib - Will order EKG to evaluate rhythm - Continue with rate control with metoprolol - Patient is currently not on anticoagulation HTN - Blood pressures to be within normal range - Will continue with amlodipine and metoprolol with holding parameters Hypothyroidism - c/w Levothyroxine IV Arthritis of bilateral knees / hips - c/w Tylenol PRN Chronic constipation - Patient reports that this is a problem that shes experience as an outpatient - She reports that currently she expresses some loose stools Gastrointestinal prophylaxis - Will start Protonix DVT prophylaxis - Will start Heparin BELGICA RUTLEDGE MD Jan 05, 2019 14:44
[2019-01-05] MEDS: PIPERACILLIN/TAZOBACTAM SOD 2.25 GM in D5W MINI-BAG PLUS 50 ML IV SCH ×2 (15:51→18:17)
--- NOTE | 2019-01-05 16:05 | REP ---
CT-guided abscess drainage The procedure is performed by CESAR Estrada, under the direct supervision of Dr. Medina. The risks and benefits of the procedure were explained to the patient and informed consent was obtained both orally and written. Directly prior to the start of the procedure, a formal timeout was done in the exam room. The right upper quadrant abscess was localized using CT guidance. Skin was prepped and draped in the usual sterile fashion. 7 ml of 1% lidocaine was used as a local anesthetic. Using CT guidance and a trocar technique an 8-Maori multi side-hole pigtail catheter was inserted and advanced into the right upper quadrant abscess. Approximately a 15 ml of green/medina pus was aspirated and sent to the lab for further analysis. After the appropriate amount of monitored convalescence the patient was discharged from the department. Reviewed by CESAR Coe 01/05/2019 03:25 P Electronically Signed by Destin Medina MD 01/05/2019 03:56 P
[2019-01-05] MEDS: KCL 40MEQ IN D5/0.45NS 1000ML 1,000 ML IV SCH (16:24)
[2019-01-05] MEDS: PANTOPRAZOLE 40MG INJ (PROTONIX) (C9113) IV SCH ×2 (16:24→21:43)
[2019-01-05] MEDS: FLUCONAZOLE 200 MG in IV 1 EA IV SCH (16:24)
--- NOTE | 2019-01-05 21:18 | ECGEPIP ---
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
[2019-01-05] MEDS ORDERED: ACETAMINOPHEN TAB 650MG DOSE (2X325MG) PO ONE (21:30)
[2019-01-05] MEDS: HEPARIN SOD (PORCINE) 5000 UNITS/ML VIAL SQ SCH (21:43)
[2019-01-05] MEDS: METOPROLOL TART 25 MG TABLET PO SCH (21:44)
[2019-01-05 22:00] VITALS: BP 127/63
[2019-01-06] MEDS: PIPERACILLIN/TAZOBACTAM SOD 2.25 GM in D5W MINI-BAG PLUS 50 ML IV SCH ×4 (00:16→18:32)
[2019-01-06 06:00] VITALS: BP 128/67
[2019-01-06] MEDS: KCL 40MEQ IN D5/0.45NS 1000ML 1,000 ML IV SCH (06:49)
[2019-01-06 07:28] LABS: BASO % 0.3 % (0.0-1.0); EOS # 0.3 10^3/uL (0.0-0.5); HEMATOCRIT 37.9 % (36.0-47.0); HEMOGLOBIN 12.3 g/dl (12.0-15.5); LYMPH % 7.7 % (24.0-44.0); MEAN CORPUSCULAR HEMOGLOBIN 29.6 pg (27.0-33.0); MEAN CORPUSCULAR HGB CONC 32.5 g/dl (32.0-36.5); MEAN CORPUSCULAR VOLUME 91.1 fl (80.0-96.0); MONO # 0.8 10^3/uL (0.0-0.8); MONO % 5.9 % (0.0-5.0); NEUTROPHILS # 11.1 10^3/uL (1.5-8.5); NEUTROPHILS % 83.5 % (36.0-66.0); PLATELET COUNT, AUTOMATED 340 10^3/uL (150-450); RED BLOOD COUNT 4.16 10^6/uL (4.00-5.40); WHITE BLOOD COUNT 13.3 10^3/uL (4.0-10.0)
[2019-01-06 07:45] LABS: ALBUMIN 1.8 GM/DL (3.2-5.2); ALT/SGPT 9 U/L (12-78); BILIRUBIN,TOTAL 0.3 MG/DL (0.2-1.0); BLOOD UREA NITROGEN 6 MG/DL (7-18); CALCIUM LEVEL 8.3 MG/DL (8.8-10.2); CARBON DIOXIDE LEVEL 28 MEQ/L (21-32); CHLORIDE LEVEL 100 MEQ/L (98-107); CREATININE FOR GFR 0.36 MG/DL (0.55-1.30); GLOMERULAR FILTRATION RATE > 60.0 (>32); GLUCOSE, FASTING 103 MG/DL (70-100); MAGNESIUM LEVEL 1.6 MG/DL (1.8-2.4); POTASSIUM SERUM 3.3 MEQ/L (3.5-5.1); SODIUM LEVEL 135 MEQ/L (136-145); TOTAL PROTEIN 6.5 GM/DL (6.4-8.2)
[2019-01-06] MEDS ORDERED: MAG SULF 1GM/100ML (MAG RUN) 1 GM in IV 1 EA IV ONE (09:00)
--- NOTE | 2019-01-06 09:19 | IPNPDOC ---
Text Note Date of Service The patient was seen on 01/06/19. NOTE No acute events overnight. She is tolerating the NG tube, and had the drain p laced yesterday. No output in the drain yet. No problems with nausea, emesis, fevers, or pain. VSSAF NAD abd - soft, nt, nd, drain in the RUQ with no output labs - below wbc - 14.4>13.3 A) 88y/o female with upper abdominal abscess, s/p IR drain placement P) NGT to LIS drain ambulate abx Cedric Bryden DO VS,Fishbone, I+O VS, Fishbone, I+O Laboratory Tests 01/05/19 10:01 Red Blood Count 4.52, Mean Corpuscular Volume 92.0, Mean Corpuscular Hemoglobin 30.3, Mean Corpuscular Hemoglobin Concent 32.9, Red Cell Distribution Width 12.8, Calcium Level 9.0, Aspartate Amino Transf (AST/SGOT) 16, Alanine Aminotransferase (ALT/SGPT) 9 L, Alkaline Phosphatase 94, Total Bilirubin 0.4, Total Protein 7.6, Albumin 2.1 L 01/06/19 06:51 Red Blood Count 4.16, Mean Corpuscular Volume 91.1, Mean Corpuscular Hemoglobin 29.6, Mean Corpuscular Hemoglobin Concent 32.5, Red Cell Distribution Width 12.9, Calcium Level 8.3 L, Aspartate Amino Transf (AST/SGOT) 11, Alanine Aminotransferase (ALT/SGPT) 9 L, Alkaline Phosphatase 73, Total Bilirubin 0.3, Total Protein 6.5, Albumin 1.8 L, Neutrophils (%) (Auto) 83.5 H, Lymphocytes (%) (Auto) 7.7 L, Monocytes (%) (Auto) 5.9 H, Eosinophils (%) (Auto) 2.0, Basophils (%) (Auto) 0.3, Neutrophils # (Auto) 11.1 H, Lymphocytes # (Auto) 1.0 L, Monocytes # (Auto) 0.8, Eosinophils # (Auto) 0.3, Basophils # (Auto) 0.0 Vital Signs Date Time Temp Pulse Resp B/P (MAP) Pulse Ox O2 Delivery O2 Flow Rate FiO2 01/06/19 06:00 97.9 84 18 128/67 (87) 93 I&O- Last 24 Hours up to 6 AM 01/06/19 06:00 Intake Total 410 ml Output Total 0 ml Balance 410 ml CARLOS PRETTY DO Jan 06, 2019 09:19
[2019-01-06] MEDS: PANTOPRAZOLE 40MG INJ (PROTONIX) (C9113) IV SCH ×2 (10:06→22:37)
[2019-01-06] MEDS: HEPARIN SOD (PORCINE) 5000 UNITS/ML VIAL SQ SCH ×2 (10:06→20:39)
[2019-01-06] MEDS: LEVOTHYROXINE 100 MCG (0.1MG) VIAL IV SCH (10:07)
[2019-01-06] MEDS: KCL 10MEQ/100ML SWI (KRUN) 10 MEQ in IV 1 EA IV SCH ×2 (10:07→11:14)
[2019-01-06] MEDS: METOPROLOL TART 25 MG TABLET PO SCH ×2 (10:10→20:39)
[2019-01-06] MEDS: amLODIPine 5 MG TAB PO SCH (10:10)
--- NOTE | 2019-01-06 10:22 | IPNPDOC ---
Text Note Date of Service The patient was seen on 01/06/19. NOTE Subjective: Patient is an 88-year-old female with a PMHx of A. fib (not on anticoagulation), HTN, Arthritis of bilateral knees / hips, Chronic constipati on, and recent hospitalization in which she was found to have a perforated duodenal ulcer (s/p Laparoscopic bowel resection and repair of two perforated duodenal ulcers). Patient was admitted to [facility] on 12/09/2018 and was discharged on 12/25/2018. Throughout hospital course patient was found to have a perforated duodenal ulcer that was her pared laparoscopically by Dr. Osman. Since that point. Patient was discharged [facility] for continued rehabilitation. Patient subsequently had a follow-up CT scan on 01/04/2019 that had revealed multiple abscesses and possible gastric outlet obstruction. Provider at [facility] has contacted hospitalist service for direct admission based on the recommendations of general s recommendations of general surgery. Patient was seen and examined at the bedside. Patient reports that she feels relatively fine. Denies any abdominal pain or bowel movements. Has NG tube in place. Denies chest pain, shortness of breath or palpitations. Objective: Vitals (See below) General: Lying in bed, no acute distress, comfortable, AAOx3 HEENT: NC, AT, +NGT CVS: +S1S2 Lungs: Fair air entry b/l, no appreciable wheezing, rales Abdomen: Soft, ND, NT, right lower quadrant with drainage catheter placed Extremities: - Edema, - Calf tenderness Assessment and plan: Multiple abdominal abscesses - Patient has presented as a direct admission from [facility] after she had imaging that revealed multiple abscesses - Patient has had a recent extensive hospitalization for perforated duodenal u lcer that was corrected laparoscopically - This morning, patient is not experiencing any abdominal pain or has had any bowel movements, NG tube is in place - Hemodynamically stable and afebrile - Mild leukocytosis is noted - Blood cultures 01/05: No growth at 24 hours, Abdominal abscess culture 01/05: Pending - CT abdomen / pelvis 01/04: Multiloculated fluid collections consistent with multiple abscesses in the right upper quadrant. There are small air / gas bubbles within and adjacent to these suspected abscesses. There is a new fluid collection in the right lateral abdominal wall adjacent to the anterior margin of the right iliac wing with a tract extending intraperitoneal toward the intrap eritoneal abscess. I suspect this is an abdominal wall abscess. This was not present previously. The stomach is massively dilated with a large air-fluid level, similar to prior study, compatible with gastroparesis. These results are discussed by telephone upon completion of the study with the nurse practitioner, Dank Hurley NP. - c/w IR guided drainage catheter on 01/05/2019 - c/w Zosyn in fluconazole (Day #2) - awaiting culture results - General surgery, Dr. Osman on consultation; appreciate their input Gastric outlet obstruction - c/w NGT for decompression - Plans for possible EGD early next week - c/w NPO and D5 1/2 NS - c/w Protonix IV BID Hypokalemia - Will supplement - c/w IV fluid supplemented with potassium A. fib - c/w rate control with metoprolol - Patient is currently not on anticoagulation HTN - Blood pressures to be within normal range - c/w amlodipine and metoprolol with holding parameters Hypothyroidism - c/w Levothyroxine IV Arthritis of bilateral knees / hips - c/w Tylenol PRN Chronic constipation - Patient reports that this is a problem that shes experience as an outpatient - She reports that currently she expresses some loose stools Gastrointestinal prophylaxis - c/w Protonix DVT prophylaxis - c/w Heparin Disposition: - Awaiting culture results - Patient will likely need EGD VSDuy, I+O VS, Duy, I+O Laboratory Tests 01/06/19 06:51 Red Blood Count 4.16, Mean Corpuscular Volume 91.1, Mean Corpuscular Hemoglobin 29.6, Mean Corpuscular Hemoglobin Concent 32.5, Red Cell Distribution Width 12.9, Neutrophils (%) (Auto) 83.5 H, Lymphocytes (%) (Auto) 7.7 L, Monocytes (%) (Auto) 5.9 H, Eosinophils (%) (Auto) 2.0, Basophils (%) (Auto) 0.3, Neutrophils # (Auto) 11.1 H, Lymphocytes # (Auto) 1.0 L, Monocytes # (Auto) 0.8, Eosinophils # (Auto) 0.3, Basophils # (Auto) 0.0, Calcium Level 8.3 L, Aspartate Amino Transf (AST/SGOT) 11, Alanine Aminotransferase (ALT/SGPT) 9 L, Alkaline Phosphatase 73, Total Bilirubin 0.3, Total Protein 6.5, Albumin 1.8 L Vital Signs Date Time Temp Pulse Resp B/P (MAP) Pulse Ox O2 Delivery O2 Flow Rate FiO2 01/06/19 10:10 82 127/64 01/06/19 06:00 97.9 18 93 I&O- Last 24 Hours up to 6 AM 01/06/19 06:00 Intake Total 410 ml Output Total 0 ml Balance 410 ml BELGICA RUTLEDGE MD Jan 06, 2019 10:22
[2019-01-06 14:00] VITALS: BP 125/65
[2019-01-06] MEDS: FLUCONAZOLE 200 MG in IV 1 EA IV SCH (15:28)
[2019-01-06] MEDS: ACETAMINOPHEN TAB 650MG DOSE (2X325MG) PO PRN (20:38)
[2019-01-06 22:00] VITALS: BP 136/65
[2019-01-07] MEDS: PIPERACILLIN/TAZOBACTAM SOD 2.25 GM in D5W MINI-BAG PLUS 50 ML IV SCH ×4 (00:50→19:00)
[2019-01-07 06:00] VITALS: BP 135/68
[2019-01-07 06:22] LABS: BASO % 0.3 % (0.0-1.0); EOS # 0.2 10^3/uL (0.0-0.5); EOS % 1.8 % (0.0-3.0); HEMATOCRIT 36.9 % (36.0-47.0); HEMOGLOBIN 12.1 g/dl (12.0-15.5); LYMPH % 7.9 % (24.0-44.0); MEAN CORPUSCULAR HEMOGLOBIN 29.3 pg (27.0-33.0); MEAN CORPUSCULAR HGB CONC 32.8 g/dl (32.0-36.5); MEAN CORPUSCULAR VOLUME 89.3 fl (80.0-96.0); MONO # 0.8 10^3/uL (0.0-0.8); NEUTROPHILS # 10.6 10^3/uL (1.5-8.5); NEUTROPHILS % 83.3 % (36.0-66.0); PLATELET COUNT, AUTOMATED 351 10^3/uL (150-450); RED BLOOD COUNT 4.13 10^6/uL (4.00-5.40); WHITE BLOOD COUNT 12.7 10^3/uL (4.0-10.0)
[2019-01-07] MEDS: KCL 40MEQ IN D5/0.45NS 1000ML 1,000 ML IV SCH ×2 (06:34→16:00)
[2019-01-07 06:49] LABS: ALBUMIN 1.7 GM/DL (3.2-5.2); ALT/SGPT 8 U/L (12-78); BILIRUBIN,TOTAL 0.3 MG/DL (0.2-1.0); BLOOD UREA NITROGEN 5 MG/DL (7-18); CALCIUM LEVEL 8.2 MG/DL (8.8-10.2); CARBON DIOXIDE LEVEL 27 MEQ/L (21-32); CHLORIDE LEVEL 102 MEQ/L (98-107); CREATININE FOR GFR 0.39 MG/DL (0.55-1.30); GLOMERULAR FILTRATION RATE > 60.0 (>32); GLUCOSE, FASTING 101 MG/DL (70-100); MAGNESIUM LEVEL 1.7 MG/DL (1.8-2.4); POTASSIUM SERUM 3.8 MEQ/L (3.5-5.1); SODIUM LEVEL 135 MEQ/L (136-145); TOTAL PROTEIN 6.3 GM/DL (6.4-8.2)
[2019-01-07] MEDS ORDERED: MAG SULF 1GM/100ML (MAG RUN) 1 GM in IV 1 EA IV ONE (08:00)
--- NOTE | 2019-01-07 09:23 | IPNPDOC ---
Text Note Date of Service The patient was seen on 01/07/19. NOTE No acute events overnight. She is tolerating the NG tube. Still no output in the drain yet. No problems with nausea, emesis, fevers, or pain. NG output is minimal. NG - 250 BM - 4 VSSAF NAD abd - soft, nt, nd, drain in the RUQ with no output labs - below wbc - 14.4>13.3>12.7 A) 88y/o female with upper abdominal abscess, s/p IR drain placement P) clamp NGT drain ambulate abx clq diet npo after midnight for possible egd Cedric Marshall DO VS,Fishbone, I+O VS, Fishbone, I+O Laboratory Tests 01/07/19 05:48 Red Blood Count 4.13, Mean Corpuscular Volume 89.3, Mean Corpuscular Hemoglobin 29.3, Mean Corpuscular Hemoglobin Concent 32.8, Red Cell Distribution Width 12.9, Neutrophils (%) (Auto) 83.3 H, Lymphocytes (%) (Auto) 7.9 L, Monocytes (%) (Auto) 6.0 H, Eosinophils (%) (Auto) 1.8, Basophils (%) (Auto) 0.3, Neutrophils # (Auto) 10.6 H, Lymphocytes # (Auto) 1.0 L, Monocytes # (Auto) 0.8, Eosinophils # (Auto) 0.2, Basophils # (Auto) 0.0, Calcium Level 8.2 L, Aspartate Amino Transf (AST/SGOT) 12, Alanine Aminotransferase (ALT/SGPT) 8 L, Alkaline Phosphatase 69, Total Bilirubin 0.3, Total Protein 6.3 L, Albumin 1.7 L Vital Signs Date Time Temp Pulse Resp B/P (MAP) Pulse Ox O2 Delivery O2 Flow Rate FiO2 01/07/19 06:00 97.1 80 16 135/68 (90) 93 I&O- Last 24 Hours up to 6 AM 01/07/19 06:00 Intake Total 1220 ml Output Total 250 ml Balance 970 ml CARLOS MARSHALL DO Jan 07, 2019 09:23
[2019-01-07] MEDS: amLODIPine 5 MG TAB PO SCH (09:55)
[2019-01-07] MEDS: LEVOTHYROXINE 100 MCG (0.1MG) VIAL IV SCH (09:56)
[2019-01-07] MEDS: HEPARIN SOD (PORCINE) 5000 UNITS/ML VIAL SQ SCH ×2 (09:56→21:02)
[2019-01-07] MEDS: PANTOPRAZOLE 40MG INJ (PROTONIX) (C9113) IV SCH ×2 (09:56→22:47)
[2019-01-07] MEDS: METOPROLOL TART 25 MG TABLET PO SCH ×2 (09:56→21:02)
--- NOTE | 2019-01-07 12:26 | IPNPDOC ---
Text Note Date of Service The patient was seen on 01/07/19. NOTE Subjective: Patient is an 88-year-old female with a PMHx of A. fib (not on anticoagulation), HTN, Arthritis of bilateral knees / hips, Chronic constipati on, and recent hospitalization in which she was found to have a perforated duodenal ulcer (s/p Laparoscopic bowel resection and repair of two perforated duodenal ulcers). Patient was admitted to [facility] on 12/09/2018 and was discharged on 12/25/2018. Throughout hospital course patient was found to have a perforated duodenal ulcer that was her pared laparoscopically by Dr. Osman. Since that point. Patient was discharged [facility] for continued rehabilitation. Patient subsequently had a follow-up CT scan on 01/04/2019 that had revealed multiple abscesses and possible gastric outlet obstruction. Provider at [facility] has contacted hospitalist service for direct admission based on the recommendations of general s recommendations of general surgery. Patient was seen and examined at the bedside. Currently patient has NG tube in place. Patient denies any nausea, vomiting. She denies any abdominal pain. Reports that she feels empty stomach has been reporting loose bowel movements. Denies chest pain, shortness of breath or palpitations. Objective: Vitals (See below) General: Lying in bed, no acute distress, comfortable, AAOx3 HEENT: NC, AT, +NGT CVS: +S1S2 Lungs: Air entry is fair bilaterally without auscultated rhonchi, rales or wheezing Abdomen: Soft, ND, NT, drainage catheter is noted without any drainage noted in bag Extremities: Lower extremities are free of edema, - Calf tenderness Assessment and plan: Multiple abdominal abscesses - Patient has presented as a direct admission from [facility] after she had imaging that revealed multiple abscesses - Patient has had a recent extensive hospitalization for perforated duodenal ulcer that was corrected laparoscopically - This morning, patient is not experiencing any abdominal pain or has had any bowel movements, NG tube is in place - Hemodynamically stable and afebrile - Leukocytosis is improving - Blood cultures 01/05: No growth at 48 hours, Abdominal abscess culture 01/05: Staphylococcus aureus - Will check MRSA PCR - CT abdomen / pelvis 01/04: Multiloculated fluid collections consistent with multiple abscesses in the right upper quadrant. There are small air / gas bubbles within and adjacent to these suspected abscesses. There is a new fluid collection in the right lateral abdominal wall adjacent to the anterior margin of the right iliac wing with a tract extending intraperitoneal toward the intraperitoneal abscess. I suspect this is an abdominal wall abscess. This was not present previously. The stomach is massively dilated with a large air-fluid level, similar to prior study, compatible with gastroparesis. These results are discussed by telephone upon completion of the study with the nurse practitioner, Dank Hurley NP. - c/w IR guided drainage catheter on 01/05/2019 - c/w Zosyn in fluconazole (Day #3) - awaiting culture results - General surgery, Dr. Osman on consultation; we will clamp NGT, and start clear liquid diet Gastric outlet obstruction - c/w NGT for decompression - Patient will be nothing by mouth post midnight for possible EGD - c/w Protonix IV BID s/p Hypokalemia A. fib - c/w rate control with metoprolol - Patient is currently not on anticoagulation HTN - Blood pressures to be within normal range - c/w amlodipine and metoprolol with holding parameters Hypothyroidism - c/w Levothyroxine IV Arthritis of bilateral knees / hips - c/w Tylenol PRN Chronic constipation - Patient reports that this is a problem that shes experience as an outpatient - She reports that currently she expresses some loose stools Gastrointestinal prophylaxis - c/w Protonix DVT prophylaxis - c/w Heparin Disposition: - Awaiting culture results - Patient will likely need EGD VS,Fishbone, I+O VS, Fishbone, I+O Laboratory Tests 01/07/19 05:48 Red Blood Count 4.13, Mean Corpuscular Volume 89.3, Mean Corpuscular Hemoglobin 29.3, Mean Corpuscular Hemoglobin Concent 32.8, Red Cell Distribution Width 12.9, Neutrophils (%) (Auto) 83.3 H, Lymphocytes (%) (Auto) 7.9 L, Monocytes (%) (Auto) 6.0 H, Eosinophils (%) (Auto) 1.8, Basophils (%) (Auto) 0.3, Neutrophils # (Auto) 10.6 H, Lymphocytes # (Auto) 1.0 L, Monocytes # (Auto) 0.8, Eosinophils # (Auto) 0.2, Basophils # (Auto) 0.0, Calcium Level 8.2 L, Aspartate Amino Transf (AST/SGOT) 12, Alanine Aminotransferase (ALT/SGPT) 8 L, Alkaline Phosphatase 69, Total Bilirubin 0.3, Total Protein 6.3 L, Albumin 1.7 L Vital Signs Date Time Temp Pulse Resp B/P (MAP) Pulse Ox O2 Delivery O2 Flow Rate FiO2 01/07/19 09:56 82 124/64 01/07/19 06:00 97.1 16 93 I&O- Last 24 Hours up to 6 AM 01/07/19 05:59 Intake Total 1220 ml Output Total 250 ml Balance 970 ml BELGICA RUTLEDGE MD Jan 07, 2019 12:26
[2019-01-07 14:00] VITALS: BP 121/63
[2019-01-07] MEDS: FLUCONAZOLE 200 MG in IV 1 EA IV SCH (14:54)
[2019-01-07 20:00] VITALS: BP 125/69
[2019-01-07] MEDS: ACETAMINOPHEN TAB 650MG DOSE (2X325MG) PO PRN (21:02)
[2019-01-08] MEDS: PIPERACILLIN/TAZOBACTAM SOD 2.25 GM in D5W MINI-BAG PLUS 50 ML IV SCH (00:45)
[2019-01-08] MEDS: KCL 40MEQ IN D5/0.45NS 1000ML 1,000 ML IV SCH ×2 (00:45→14:46)
--- NOTE | 2019-01-08 05:56 | PHACANCOPD ---
PHARMACY VANCOMYCIN DOSING Pt Demographics Demographics Patient Age:88 , Weight:49.000 , Gender: female Adjusted Body Weight Date: 01/08/19, Adjusted Body Weight: Kg Events Past 24 Hours Events Past 24 Hours: NO: Dialysis, Diuretic Therapy, Change in CrCl, Fever, Elevation in WBC, Pending Diagnostics, Pending Procedures, Other Vancomycin Vancomycin Target Ranges: 10-20 mcg/ml Vancomycin Load Y/N: Yes Load Dose Date Time Vancomycin Load Dose: 1000mg Date: 01-08 Time: 0600 Vancomycin Dose Date: 01/08/19. Current Vancomycin Dose: [750mg q24h] Intermittent Dosing?: No Labs Labs Item Value Date Time White Blood Count 12.7 10^3/uL H 01/07/1948 Glomerular Filtration Rate > 60.0 01/07/19547 Creatinine 0.39 MG/DL L 01/07/19547 Blood Urea Nitrogen 5 MG/DL L 01/07/1948 Vital Signs Label Value Date Time Patient Temperature 98.3 degrees F 01/07/191999 Temperature Source Oral 01/07/191999 Micro Microbiology 01/05/19 Gram Stain - Final, Resulted 01/05/19 Abscess Culture - Preliminary, Resulted Staph.aureus Methicillin Resis 01/05/19 Anaerobic Culture, Received Pending 01/05/19 Blood Culture - Preliminary, Resulted No Growth after 48 hours. All Specime... 01/05/19 Blood Culture - Preliminary, Resulted No Growth after 48 hours. All Specime... Creatinine Clearance Date:01/08/19. Creatinine Clearance: [~40]. Pending Labs Trough 10-2 @0500 Assessment and Plan Maintaining Current Dose?: Yes Reason for dose change: No Dose Change Pharmacist Note Pharmacist Note Date: 01/08/19. Pharmacist note:Will continue to monitor and make adjustments as needed. MARY ASENCIO PHARMACY Jan 08, 2019 05:56
[2019-01-08] MEDS ORDERED: VANCOMYCIN HCL 1,000 MG, VIAL MATE ADAPTER 1 EACH in D5W 250 ML IV ONE (06:00)
[2019-01-08 06:11] LABS: BASO % 0.3 % (0.0-1.0); EOS # 0.3 10^3/uL (0.0-0.5); EOS % 2.3 % (0.0-3.0); HEMATOCRIT 36.6 % (36.0-47.0); HEMOGLOBIN 11.9 g/dl (12.0-15.5); LYMPH # 1.2 10^3/uL (1.5-5.0); LYMPH % 10.5 % (24.0-44.0); MEAN CORPUSCULAR HEMOGLOBIN 29.2 pg (27.0-33.0); MEAN CORPUSCULAR HGB CONC 32.5 g/dl (32.0-36.5); MEAN CORPUSCULAR VOLUME 89.7 fl (80.0-96.0); MONO # 0.8 10^3/uL (0.0-0.8); MONO % 6.5 % (0.0-5.0); NEUTROPHILS # 9.2 10^3/uL (1.5-8.5); NEUTROPHILS % 79.7 % (36.0-66.0); PLATELET COUNT, AUTOMATED 352 10^3/uL (150-450); RED BLOOD COUNT 4.08 10^6/uL (4.00-5.40); WHITE BLOOD COUNT 11.6 10^3/uL (4.0-10.0)
[2019-01-08 06:40] LABS: ALBUMIN 1.7 GM/DL (3.2-5.2); ALT/SGPT 7 U/L (12-78); BILIRUBIN,TOTAL 0.3 MG/DL (0.2-1.0); BLOOD UREA NITROGEN 2 MG/DL (7-18); CALCIUM LEVEL 8.5 MG/DL (8.8-10.2); CARBON DIOXIDE LEVEL 25 MEQ/L (21-32); CHLORIDE LEVEL 104 MEQ/L (98-107); CREATININE FOR GFR 0.34 MG/DL (0.55-1.30); GLOMERULAR FILTRATION RATE > 60.0 (>32); GLUCOSE, FASTING 89 MG/DL (70-100); MAGNESIUM LEVEL 1.8 MG/DL (1.8-2.4); SODIUM LEVEL 135 MEQ/L (136-145); TOTAL PROTEIN 6.1 GM/DL (6.4-8.2)
--- NOTE | 2019-01-08 09:05 | IPNPDOC ---
Subjective General Date/Time Seen The patient was seen on 01/08/19 at 09:04. Subject Chief Complaint/History The patient is a 88-year-old female admitted with a reason for visit of Gastric Outlet Obstruction. Patient's course over the weekend reviewed. Stable. Minimal output from NGT. No febrile episodes. She has been having diarrhea with the antibiotics. Cultures from the drainage shows MRSA. Current Medications Current Medications Current Medications Medications (Trade) Dose Ordered Sig/Ronaldo Route PRN Reason Start Time Stop Time Status Last Admin Dose Admin Acetaminophen (Tylenol Tab) 650 mg Q6HP PRN PO PAIN / FEVER 01/06/19 18:45 01/07/19 21:02 Amlodipine Besylate (Norvasc) 5 mg DAILY PO 01/05/19 09:00 01/07/19 09:55 Dextrose/Sodium Chloride 1,000 ml @ 60 mls/hr [id number] IV 01/05/19 09:10 01/05/19 13:47 DC 01/05/19 12:05 Fluconazole 200 mg/IV Miscellaneous Supplies 100 ml @ 100 mls/hr Q24H IV 01/05/19 14:00 01/08/19 07:59 DC 01/07/19 14:54 Fluconazole 400 mg/IV Miscellaneous Supplies 200 ml @ 100 mls/hr Q24H IV 01/05/19 10:45 01/05/19 12:19 DC Heparin Sodium (Porcine) (Heparin) 5,000 units Q12H SQ 01/05/19 21:00 01/07/19 21:02 Home Med (Med Rec Complete!) ASDIRECTED XX 01/05/19 10:30 01/05/19 10:27 DC Levothyroxine Sodium (Synthroid) 37.5 mcg DAILY IV 01/06/19 09:00 01/07/19 09:56 Metoprolol Tartrate (Lopressor) 25 mg BID PO 01/05/19 21:00 01/07/19 21:02 Miscellaneous (Unresolved Clarification Entry) SEE LABEL COMMENTS STAT STAT XX 01/05/19 11:57 01/05/19 11:58 Cancel Pantoprazole Sodium (Protonix) 40 mg Q12H IV 01/05/19 10:45 01/07/19 22:47 Piperacillin Sod/ Tazobactam Sod 2.25 gm/Dextrose 50 ml @ 100 mls/hr Q6H IV 01/05/19 13:00 01/08/19 07:59 DC 01/08/19 00:45 Piperacillin Sod/ Tazobactam Sod 3.375 gm/Dextrose 50 ml @ 50 mls/hr Q6H IV 01/05/19 13:00 01/05/19 12:15 DC Potassium Chloride 10 meq/ IV Miscellaneous Supplies 100 ml @ 100 mls/hr Q1H IV 01/06/19 10:00 01/06/19 11:59 DC 01/06/19 11:14 Potassium Chloride/Dextrose/ Sod Cl 1,000 ml @ 60 mls/hr [id number] IV 01/05/19 14:00 01/08/19 00:45 Vancomycin HCl 750 mg/IV Miscellaneous Supplies 1 each/ Dextrose 275 ml @ 275 mls/hr Q24H IV 01/09/19 06:00 Allergies Coded Allergies: Tetracyclines (Verified Allergy, Unknown, rash, 12/09/18) codeine (Verified Allergy, Unknown, rash, 12/09/18) Objective Physical Examination Examination GENERAL APPEARANCE:relatively comfortable. SKIN: warm and dry. HEENT: mild pale palpebral conjunctivae. NGT in place, not much out the past 2 days. NECK: Supple, no thyromegaly. No obvious jugular venous distention. LUNGS: Clear to auscultation bilaterally. No wheezing appreciated. HEART: No chest wall abnormalities. Regular rate and rhythm with no murmurs appreciated. ABDOMEN: Abdomen is nondistended, soft, nontender on palpation. percutaneous drain does not have anything draining in the bag. . EXTREMITIES: minimal le edema. Vital Signs Vital Signs Date Time Temp Pulse Resp B/P (MAP) Pulse Ox O2 Delivery O2 Flow Rate FiO2 01/07/19 21:02 72 121/63 01/07/19 20:00 98.3 16 95 I&Os I&O- Last 24 Hours up to 6 AM 01/08/19 06:00 Intake Total 660 ml Output Total 0 ml Balance 660 ml Laboratory Data Labs 24H Laboratory Tests 2 01/08/19 05:18: Immature Granulocyte % (Auto) 0.7, White Blood Count 11.6H, Red Blood Count 4.08 , Hemoglobin 11.9L, Hematocrit 36.6, Mean Corpuscular Volume 89.7, Mean Corpuscular Hemoglobin 29.2, Mean Corpuscular Hemoglobin Concent 32.5, Red Cell Distribution Width 13.0, Platelet Count 352, Neutrophils (%) (Auto) 79.7H, Lymphocytes (%) (Auto) 10.5L, Monocytes (%) (Auto) 6.5H, Eosinophils (%) (Auto) 2.3, Basophils (%) (Auto) 0.3, Neutrophils # (Auto) 9.2H, Lymphocytes # (Auto) 1.2L, Monocytes # (Auto) 0.8, Eosinophils # (Auto) 0.3, Basophils # (Auto) 0.0, Nucleated Red Blood Cells % (auto) 0.0, Anion Gap 6L, Glomerular Filtration Rate > 60.0, Blood Urea Nitrogen 2#L, Creatinine 0.34L, Sodium Level 135L, Potassium Level 4.0, Chloride Level 104, Carbon Dioxide Level 25, Calcium Level 8.5L, Aspartate Amino Transf (AST/SGOT) 13, Alanine Aminotransferase (ALT/SGPT) 7L, Alkaline Phosphatase 69, Total Bilirubin 0.3, Total Protein 6.1L, Albumin 1.7L, Magnesium Level 1.8, Albumin/Globulin Ratio 0.39L CBC/BMP Laboratory Tests 01/08/19 05:18 Red Blood Count 4.08, Mean Corpuscular Volume 89.7, Mean Corpuscular Hemoglobin 29.2, Mean Corpuscular Hemoglobin Concent 32.5, Red Cell Distribution Width 13.0, Neutrophils (%) (Auto) 79.7 H, Lymphocytes (%) (Auto) 10.5 L, Monocytes (%) (Auto) 6.5 H, Eosinophils (%) (Auto) 2.3, Basophils (%) (Auto) 0.3, Neutrophils # (Auto) 9.2 H, Lymphocytes # (Auto) 1.2 L, Monocytes # (Auto) 0.8, Eosinophils # (Auto) 0.3, Basophils # (Auto) 0.0, Calcium Level 8.5 L, Aspartate Amino Transf (AST/SGOT) 13, Alanine Aminotransferase (ALT/SGPT) 7 L, Alkaline Phosphatase 69, Total Bilirubin 0.3, Total Protein 6.1 L, Albumin 1.7 L Microbiology Microbiology 01/05/19 Gram Stain - Final, Resulted 01/05/19 Abscess Culture - Preliminary, Resulted Staph.aureus Methicillin Resis 01/05/19 Anaerobic Culture - Final, Complete 01/05/19 Blood Culture - Preliminary, Resulted No Growth after 48 hours. All Specime... 01/05/19 Blood Culture - Preliminary, Resulted No Growth after 48 hours. All Specime... Impression history of perforated duodenal ulcer s/p lap repair abdominal abscess s/p perc drainage enlarged stomach ?gastric outlet obstruction diarrhea C.dff test is negative. debility Patient for EGD today. Seems to be not having a lot of drainage from the NGT so the stomach may just be chronically enlarged not acutely obstructed. Will proceed with EGD and evaluate the site of duodenal perforation, ulcer location, possibly biopsy the area. Clostridium difficile test is negative. Antibiotics have been adjusted for the MRSA growth in the intraabdominal abscess. Nothing is coming out from the drain itself since placement. I saw her get up from bed today and she seems noticeably week needing 2 persons helping her to get to the bathroom, so she is significantly debilitated and wound need prolonged PT/OT/rehab treatment to get her back to an independent state. Plan / VTE VTE Prophylaxis Ordered?: Yes FREDDY CA MD Jan 08, 2019 09:05
[2019-01-08] MEDS: LEVOTHYROXINE 100 MCG (0.1MG) VIAL IV SCH (09:38)
[2019-01-08] MEDS: METOPROLOL TART 25 MG TABLET PO SCH ×2 (09:39→20:45)
[2019-01-08] MEDS: HEPARIN SOD (PORCINE) 5000 UNITS/ML VIAL SQ SCH ×2 (09:39→20:45)
[2019-01-08] MEDS: amLODIPine 5 MG TAB PO SCH (09:39)
--- NOTE | 2019-01-08 10:16 | CR.PDOC ---
General Surgery Consultation Date of Consultation 01/05/19 History and Physical CONSULT REPORT FOR: Elizabeth Meraz MD (hospitalist service) REASON FOR CONSULTATION: Intra-abdominal abscess following laparoscopic repair of perforated duodenal ulcer HISTORY OF PRESENT ILLNESS: Patient is known to me from her last admission. She presented with perforated duodenal ulcer on 12/09/2018. She underwent laparoscopic omental plication of the ulcer. Her x-ray 2 adjacent ulcers found. Unclear if this is a singular ulcer causing 2 perforations or couple of ulcers in her duodenum. She did well following the surgery. Upper GI series was performed on 12/12/2018 prior to starting her oral diet. This shows good contrast flow into the duodenal sweep with mild mucosal thickening and duodenum. No evidence of stricture, obstruction or extravasation was seen. She was then resumed oral diet. She was kept on twice a day Protonix and Carafate. Her posto perative course was complicated by development of an intra-abdominal abscess for which she had percutaneous drainage of the abscess performed clinically she was doing well but she was noted to have increasing leukocytosis. With the drainage of the abscess her leukocytosis improved. On day of discharge on 12/24/2018 her white cell count was at the 11.4 which came down from as high as 18.6 prior to the drainage of the abscess. I had the nurses flush the abscess pocket to try to get drainage. She stated the hospital for the next week or so has the half-way facility where she will go would not accept her with a drain in place. The drain was discontinued on day of discharge. Patient reports since being placed on the half-way facility that she did not feel well. She reports poor to fair appetite, feeling full with small amounts of oral intake, reports postprandial nausea but no actual vomiting. She also reports multiple loose stools. She denies any fevers or chills. I was contacted by her doctor (Dr. Parks) she was seen by my nurse practitioner in clinic and recommended p erforming a CT scan of the abdomen and pelvis which I had reviewed early this morning. This shows multiloculated abscess probably an abscess tract from the previous drain. She also had a large stomach on CT but on looking back on previous imaging she does have an enlarged stomach which may reflect the degree of ulcer burden at the duodenum causing possibly gastric outlet obstruction. She was then admitted under the hospitalist service and I came in to see the patient. I have also spoken to our radiology service to have her abscess drained percutaneously. PAST MEDICAL HISTORY: 1. Paroxysmal atrial fibrillation. Patient is not on anticoagulation. Currently in sinus 2. Hypertension 3. Arthritis and now needs/hips 4. Recent history of perforated duodenal ulcer. PAST SURGICAL HISTORY: INCLUDES: 1. Left hip ORIF 2. Cataract surgery 3. Recent laparoscopic repair of perforated duodenal ulcer (12/09/2018). ALLERGIES: Please see below. FAMILY HISTORY: Noncontributory. HOME MEDICATIONS: Please see below. REVIEW OF SYSTEMS: GENERAL: Patient reports feeling weak, no appetite, feeling full not been eating well since last time I saw her during her last hospitalization. HEENT: [Denies blurred vision and double vision. Denies ear symptoms. Denies hoarseness]. NECK: Denies any neck pain CARDIOVASCULAR: [Denies chest pain and palpitations]. SKIN: [Denies rash]. No redness at the incision sites NEUROLOGIC: [Denies headache, stroke and transient ischemic attack]. HEMATOLOGY/ONCOLOGY: [Denies bleeding or clotting disorder]. HEART: [Denies any chest pains, palpitations, paroxysmal dyspnea, orthopnea]. PULMONARY: [Denies chronic cough, dyspnea and wheezing]. GASTROINTESTINAL: See HPI. GENITOURINARY: [Denies dysuria, frequency, hematuria and nocturia]. ENDOCRINE: [Denies polydipsia, polyphagia, polyuria, heat or cold intolerance]. INFECTIOUS: Patient has completed a seven-day course of Levaquin and Diflucan following her discharge from the hospital. NUTRITION: Reports poor to fair appetite. PHYSICAL EXAMINATION: VITALS SIGNS: Please see below. GENERAL APPEARANCE: Patient seen laying on bed, relatively comfortable at this time that I saw her. Reports only minimal abdominal discomfort. According to her since she hasn't eaten since yesterday evening. SKIN: Pale-appearing, warm and dry. HEENT: [Normocephalic, atraumatic. pale palpebral conjunctiva, anicteric sclerae. Lips and mucosa appear dry]. NECK: [Supple, no thyromegaly. No obvious jugular venous distention]. LUNGS: [Clear to auscultation bilaterally. No wheezing appreciated]. HEART: [No chest wall abnormalities. Regular rate and rhythm with no murmurs appreciated]. ABDOMEN: Abdomen skin with laxity, slightly loose pannus, soft, nondistended. Laparoscopic port sites have healed. On the right lower quadrant where she had a previous drain placed. Is some noticeable fullness at the subcutaneous space though there is no associated erythema. This area is mildly tender on palpation. No gross drainage. Minimal discomfort on deep palpation over the right upper quadrant and epigastric and left upper quadrant area without guarding. No definite point tenderness or rebound tenderness. EXTREMITIES: Mild enlarged, swollen bilateral knees. Minimal lower extremity edema ANCILLARIES:. LABORATORY DATA: Please see below. IMAGING STUDIES: CT scan abdomen and pelvis (01/04/2019) Multiloculated fluid collections consistent with multiple abscesses in the right upper quadrant. There are small air / gas bubbles within and adjacent to these suspected abscesses. There is a new fluid collection in the right lateral abdominal wall adjacent to the anterior margin of the right iliac wing with a tract extending intraperitoneal toward the intraperitoneal abscess. I suspect this is an abdominal wall abscess. This was not present previously. The stomach is massively dilated with a large air-fluid level, similar to prior study, compatible with gastroparesis. IMPRESSION AND PLAN: Recent history of perforated duodenal ulcer status post laparoscopic repair/omental patch repair of perforated duodenal ulcer Intra-abdominal abscess status post percutaneous drainage with subsequent discontinuation of the drain (12/24/2018) New multiloculated abscess/recurrent abscess formation at the right upper quadrant area Enlarged stomach gastroparesis versus gastric outlet obstruction She has looked much better prior to her discharge when she was in the hospital. At that time she was eating very well and had good appetite. At that time of discharge, the drain was barely putting out any output and so I discontinued the drain and I continued her on additional seven-day course of Levaquin and Diflucan to cover the organisms that grew from the drainage. I reviewed the CT scan of the abdomen and pelvis with her radiologist. She does have some multiloculated abscess the biggest collection of which is located at the right upper quadrant area. There seems to be small fluid collection tracing the previous drain tract up to the subcutaneous area and I could feel some fullness underneath the previous drain site; though there is no noticeable erythema or induration at that area. She is minimally tender over the area. There is a question whether she is having a subclinical leak from the previous duodenal perforation site feeding the abscess pocket. The upper GI series certainly did not show this. She is about 4 weeks from her perforation. There is also a very large stomach so she could have a former advanced ulcer at the area that is not responsive to the PPI and Carafate. I would like to do an upper endoscopy and we'll schedule her for Tuesday. For the meantime I would like to place a nasogastric tube to decompress her large stomach. I have spoken to our radiologist to drain the biggest abscess collection over the right upper quadrant area at some point will need to reimage this to see or check for resolution of the abscess. She has some mild leukocytosis though she is not showing signs of severe systemic inflammatory response from the abscess collection. She does not have any new perforation or recurrent perforation of her ulcer. I have discussed the plan of therapy with her daughter who was at the bedside with her. If she does have some sort of gastric outlet obstruction possible nonoperative therapy will be placement of a gastrojejunostomy tube to allow for gastric drainage and for post duodenal feeding to allow her to recover. Further recommendations following the endoscopy. Vital Signs Vital Signs Date Time Temp Pulse Resp B/P (MAP) Pulse Ox O2 Delivery O2 Flow Rate FiO2 01/08/19 09:39 72 121/63 01/07/19 20:00 98.3 16 95 I&Os I&O- Last 24 Hours up to 6 AM 01/08/19 06:00 Intake Total 660 ml Output Total 0 ml Balance 660 ml Laboratory Data Labs 24H Laboratory Tests 2 01/08/19 05:18: Immature Granulocyte % (Auto) 0.7, White Blood Count 11.6H, Red Blood Count 4.08, Hemoglobin 11.9L, Hematocrit 36.6, Mean Corpuscular Volume 89.7, Mean Corpuscular Hemoglobin 29.2, Mean Corpuscular Hemoglobin Concent 32.5, Red Cell Distribution Width 13.0, Platelet Count 352, Neutrophils (%) (Auto) 79.7H, Lymphocytes (%) (Auto) 10.5L, Monocytes (%) (Auto) 6.5H, Eosinophils (%) (Auto) 2.3, Basophils (%) (Auto) 0.3, Neutrophils # (Auto) 9.2H, Lymphocytes # (Auto) 1.2L, Monocytes # (Auto) 0.8, Eosinophils # (Auto) 0.3, Basophils # (Auto) 0.0, Nucleated Red Blood Cells % (auto) 0.0, Anion Gap 6L, Glomerular Filtration Rate > 60.0, Blood Urea Nitrogen 2#L, Creatinine 0.34L, Sodium Level 135L, Potassium Level 4.0, Chloride Level 104, Carbon Dioxide Level 25, Calcium Level 8.5L, Aspartate Amino Transf (AST/SGOT) 13, Alanine Aminotransferase (ALT/SGPT) 7L, Alkaline Phosphatase 69, Total Bilirubin 0.3, Total Protein 6.1L, Albumin 1.7L, Magnesium Level 1.8, Albumin/Globulin Ratio 0.39L CBC/BMP Laboratory Tests 01/08/19 05:18 Red Blood Count 4.08, Mean Corpuscular Volume 89.7, Mean Corpuscular Hemoglobin 29.2, Mean Corpuscular Hemoglobin Concent 32.5, Red Cell Distribution Width 13.0, Neutrophils (%) (Auto) 79.7 H, Lymphocytes (%) (Auto) 10.5 L, Monocytes (%) (Auto) 6.5 H, Eosinophils (%) (Auto) 2.3, Basophils (%) (Auto) 0.3, Neutrophils # (Auto) 9.2 H, Lymphocytes # (Auto) 1.2 L, Monocytes # (Auto) 0.8, Eosinophils # (Auto) 0.3, Basophils # (Auto) 0.0, Calcium Level 8.5 L, Aspartate Amino Transf (AST/SGOT) 13, Alanine Aminotransferase (ALT/SGPT) 7 L, Alkaline Phosphatase 69, Total Bilirubin 0.3, Total Protein 6.1 L, Albumin 1.7 L Microbiology Microbiology 01/05/19 Gram Stain - Final, Resulted 01/05/19 Abscess Culture - Preliminary, Resulted Staph.aureus Methicillin Resis 01/05/19 Anaerobic Culture - Final, Complete 01/05/19 Blood Culture - Preliminary, Resulted No Growth after 48 hours. All Specime... 01/05/19 Blood Culture - Preliminary, Resulted No Growth after 48 hours. All Specime... Home Medications Scheduled Acetaminophen (Acetaminophen) 325 Mg Tablet, 650 MG PO QID, (Reported) Amlodipine Besylate (Amlodipine Besylate) 5 Mg Tablet, 5 MG PO DAILY, (Reported) Cholecalciferol (Vitamin D3) (Vitamin D3) 1,000 Unit Capsule, 3,000 UNITS PO DAILY, (Reported) TAKES AT NOON Levothyroxine Sodium (Synthroid) 75 Mcg Tablet, 75 MCG PO DAILY, (Reported) Metoprolol Tartrate (Metoprolol Tartrate) 25 Mg Tablet, 25 MG PO BID, (Reported) Multivitamin (Multivitamins) 1 Each Capsule, 1 CAP PO DAILY, (Reported) Pantoprazole Sodium (Pantoprazole Sodium) 40 Mg Tablet.dr, 40 MG PO BID, (Reported) Vit A/Vit C/Vit E/Zinc/Copper (Preservision Areds Softgel) 1 Each Capsule, 1 CAP PO DAILY, (Reported) Scheduled PRN Acetaminophen (Acetaminophen) 325 Mg Tablet, 650 MG PO Q4H PRN for PAIN / FEVER, (Reported) Bisacodyl (Dulcolax) 10 Mg Supp.rect, 10 MG [place] DAILY PRN for CONSTIPATION, (Reported) Milk Of Magnesia (Milk of Magnesia) 2,400 Mg/10 Ml Oral.susp, 10 ML PO DAILY PRN for CONSTIPATION, (Reported) Sodium Phosphate,Cassia-Dibasic (Enema) 133 Ml Enema, 1 FAVIAN [place] DAILY PRN for CONS TIPATION, (Reported) Allergies Coded Allergies: Tetracyclines (Verified Allergy, Unknown, rash, 12/09/18) codeine (Verified Allergy, Unknown, rash, 12/09/18) FREDDY CA MD Jan 08, 2019 10:16
[2019-01-08] MEDS: PANTOPRAZOLE 40MG INJ (PROTONIX) (C9113) IV SCH ×2 (10:59→22:02)
[2019-01-08 11:05] LABS: CLOSTRIDIUM DIFFICILE PCR NEGATIVE (NEGATIVE)
--- NOTE | 2019-01-08 11:15 | IPNPDOC ---
Text Note Date of Service The patient was seen on 01/08/19. NOTE Subjective: Patient is an 88-year-old female with a PMHx of A. fib (not on anticoagulation), HTN, Arthritis of bilateral knees / hips, Chronic constipati on, and recent hospitalization in which she was found to have a perforated duodenal ulcer (s/p Laparoscopic bowel resection and repair of two perforated duodenal ulcers). Patient was admitted to [facility] on 12/09/2018 and was discharged on 12/25/2018. Throughout hospital course patient was found to have a perforated duodenal ulcer that was her pared laparoscopically by Dr. Osman. Since that point. Patient was discharged [facility] for continued rehabilitation. Patient subsequently had a follow-up CT scan on 01/04/2019 that had revealed multiple abscesses and possible gastric outlet obstruction. Provider at [facility] has contacted hospitalist service for direct admission based on the recommendations of general s recommendations of general surgery. Patient was seen and examined at the bedside. Patient reported that yesterday she was able to tolerate a liquid diet without any nausea, vomiting or abdominal pain. She still experiences several loose watery stools. She denies any chest pain, shortness of breath, palpitations. Patient is prepared to go for EGD later today with his general surgery. Objective: Vitals (See below) General: Lying in bed, no acute distress, comfortable, AAOx3 HEENT: NC, AT, +NGT CVS: +S1S2 Lungs: Air entry is fair bilaterally without auscultated rhonchi, rales or wheezing Abdomen: Soft, ND, NT, drainage catheter is noted without any drainage noted in bag Extremities: Lower extremities are free of edema, - Calf tenderness Assessment and plan: Multiple abdominal abscesses - Patient has presented as a direct admission from [facility] after she had imaging that revealed multiple abscesses - Patient has had a recent extensive hospitalization for perforated duodenal ulcer that was corrected laparoscopically - Patient had tolerated a clear liquid diet yesterday - Hemodynamically stable and afebrile - Leukocytosis continues to trend down - Blood cultures 01/05: No growth at 72 hours, Abdominal abscess culture 01/05: MRSA - CT abdomen / pelvis 01/04: Multiloculated fluid collections consistent with multiple abscesses in the right upper quadrant. There are small air / gas bubbles within and adjacent to these suspected abscesses. There is a new fluid collection in the right lateral abdominal wall adjacent to the anterior margin of the right iliac wing with a tract extending intraperitoneal toward the intraperitoneal abscess. I suspect this is an abdominal wall abscess. This was not present previously. The stomach is massively dilated with a large air-fluid level, similar to prior study, compatible with gastroparesis. These results are discussed by telephone upon completion of the study with the nurse practitioner, Dank Hurley NP. - c/w IR guided drainage catheter on 01/05/2019 - Vancomycin IV was started overnight (Day #1); Will DC Zosyn in fluconazole - Patient will likely require repeat imaging to be completed prior to drainage catheter removal - General surgery, Dr. Osman on consultation Gastric outlet obstruction - c/w NGT for decompression - c/w Protonix IV BID - Patient is scheduled for EGD later today with Dr. Osman Diarrhea - unlikely 2/2 C. diff, possibly 2/2 post-obstructive diarrhea - Has been experiencing loose watery stools - C. difficile PCR 01/08: Negative - c/w Gentle IV fluid hydration s/p Hypokalemia A. fib - c/w rate control with metoprolol - Patient is currently not on anticoagulation HTN - Blood pressures to be within normal range - c/w amlodipine and metoprolol with holding parameters Hypothyroidism - c/w Levothyroxine IV Arthritis of bilateral knees / hips - c/w Tylenol PRN Chronic constipation - Patient reports that this is a problem that shes experience as an outpatient - She reports that currently she expresses some loose stools Gastrointestinal prophylaxis - c/w Protonix DVT prophylaxis - c/w Heparin Disposition: - Will go for EGD today - Abdominal drain will remain in place currently VS,Duy, I+O VS, Ana Rosae, I+O Laboratory Tests 01/08/19 05:18 Red Blood Count 4.08, Mean Corpuscular Volume 89.7, Mean Corpuscular Hemoglobin 29.2, Mean Corpuscular Hemoglobin Concent 32.5, Red Cell Distribution Width 13. 0, Neutrophils (%) (Auto) 79.7 H, Lymphocytes (%) (Auto) 10.5 L, Monocytes (%) (Auto) 6.5 H, Eosinophils (%) (Auto) 2.3, Basophils (%) (Auto) 0.3, Neutrophils # (Auto) 9.2 H, Lymphocytes # (Auto) 1.2 L, Monocytes # (Auto) 0.8, Eosinophils # (Auto) 0.3, Basophils # (Auto) 0.0, Calcium Level 8.5 L, Aspartate Amino Transf (AST/SGOT) 13, Alanine Aminotransferase (ALT/SGPT) 7 L, Alkaline Phosphatase 69, Total Bilirubin 0.3, Total Protein 6.1 L, Albumin 1.7 L Vital Signs Date Time Temp Pulse Resp B/P (MAP) Pulse Ox O2 Delivery O2 Flow Rate FiO2 01/08/19 09:39 72 121/63 01/07/19 20:00 98.3 16 95 I&O- Last 24 Hours up to 6 AM 01/08/19 06:00 Intake Total 660 ml Output Total 0 ml Balance 660 ml BELGICA RUTLEDGE MD Jan 08, 2019 11:15
[2019-01-08] MEDS ORDERED: PROPOFOL 500 MG/50 ML VIAL As Ordered ONE (12:22)
--- NOTE | 2019-01-08 13:33 | ROOR ---
Patient Name: Therese Summers Procedure Date: 01/08/2019 12:43 PM Date of : 1930 Age: 88 Gender: Female Note Status: Finalized Procedure: Upper GI endoscopy Indications: Diagnostic procedure, Abnormal CT of the GI tract, Follow-up of duodenal perforation Providers: Sohan Osman MD Referring MD: 2. Inpatient 2. Inpatient Requesting Provider: Medicines: Monitored Anesthesia Care Complications: No immediate complications. Procedure: Pre-Anesthesia Assessment: - Prior to the procedure, a History and Physical was performed, and patient medications and allergies were reviewed. The patient is competent. The risks and benefits of the procedure and the sedation options and risks were discussed with the patient. All questions were answered and informed consent was obtained. Patient identification and proposed procedure were verified by the physician, the nurse and the anesthesiologist in the procedure room. Mental Status Examination: alert and oriented. Airway Examination: normal oropharyngeal airway and neck mobility. Respiratory Examination: clear to auscultation. CV Examination: normal. ASA Grade Assessment: III - A patient with severe systemic disease. After reviewing the risks and benefits, the patient was deemed in satisfactory condition to undergo the procedure. The anesthesia plan was to use monitored anesthesia care (MAC). Immediately prior to administration of medications, the patient was re-assessed for adequacy to receive sedatives. The heart rate, respiratory rate, oxygen saturations, blood pressure, adequacy of pulmonary ventilation, and response to care were monitored throughout the procedure. The physical status of the patient was re-assessed after the procedure. The Endoscope was introduced through the mouth, and advanced to the second part of duodenum. The upper GI endoscopy was somewhat difficult due to large stomach containing retained food. Successful completion of the procedure was aided by lavage. The patient tolerated the procedure well. Findings: There is no endoscopic evidence of bleeding, areas of erosion, stenosis or stricture in the entire esophagus. Suspect gastroparesis due to retained gastric contents, enlarged stomach. A small amount of food (residue) was found in the gastric body. Diffuse atrophic mucosa was found in the gastric body. This was biopsied with a cold forceps for Helicobacter pylori testing. prominent duodenal folds at the duodenal bulb, no obvious stenosis One non-bleeding cratered duodenal ulcer with no stigmata of bleeding was found in the duodenal bulb. The lesion was 5 mm in largest dimension. This was biopsied with a cold forceps for histology. Estimated blood loss was minimal. The second portion of the duodenum was normal. Impression: - Gastroparesis. - A small amount of food (residue) in the stomach. - Gastric mucosal atrophy. Biopsied. - One non-bleeding duodenal ulcer with no stigmata of bleeding. Biopsied. - Normal second portion of the duodenum. Biopsied. Recommendation: - [facility] the [facility] to [facility]. Attending Participation: I personally performed the entire procedure. Sohan Osman MD Sohan Osman MD 01/08/2019 1:33:09 PM Electronically signed by Sohan Osman MD Number of Addenda: 0 Note Initiated On: 01/08/2019 12:43 PM Estimated Blood Loss: Estimated blood loss was minimal.
[2019-01-08] MEDS ORDERED: fentaNYL 100 MCG/2 ML INJECTION (J3010) IV PRN (13:45)
[2019-01-08] MEDS ORDERED: ONDANSETRON 4MG/2ML VIAL (J2405) IV PRN (13:45)
[2019-01-08] MEDS ORDERED: BISACODYL 10 MG SUPP PR PRN (13:45)
[2019-01-08] MEDS ORDERED: LR 1,000 ML IV SCH (13:45)
[2019-01-08] MEDS ORDERED: MOM 30ML SUSPENSION UDC PO PRN (13:45)
--- NOTE | 2019-01-08 14:32 | IPNPDOC ---
Text Note Date of Service The patient was seen on 01/08/19. NOTE EGD findings discussed with her daughters healing duodenal bulb ulcer, remaining duodenitis but I was able to go through the opening without difficulty. Unlikely gastric outlet obstruction. Presence of food from 4 days ago in the stomach, enlarged stomach probably d/t gastrop aresis. will try metoclopramide at a low dose and full liquids Regarding multiloculated abscess, nothing is coming out from the drain will repeat CT tomorrow, look for drainable collection. VS,Fishbone, I+O VS, Fishbone, I+O Laboratory Tests 01/08/19 05:18 Red Blood Count 4.08, Mean Corpuscular Volume 89.7, Mean Corpuscular Hemoglobin 29.2, Mean Corpuscular Hemoglobin Concent 32.5, Red Cell Distribution Width 13.0, Neutrophils (%) (Auto) 79.7 H, Lymphocytes (%) (Auto) 10.5 L, Monocytes (%) (Auto) 6.5 H, Eosinophils (%) (Auto) 2.3, Basophils (%) (Auto) 0.3, Neutrophils # (Auto) 9.2 H, Lymphocytes # (Auto) 1.2 L, Monocytes # (Auto) 0.8, Eosinophils # (Auto) 0.3, Basophils # (Auto) 0.0, Calcium Level 8.5 L, Aspartate Amino Transf (AST/SGOT) 13, Alanine Aminotransferase (ALT/SGPT) 7 L, Alkaline Phosphatase 69, Total Bilirubin 0.3, Total Protein 6.1 L, Albumin 1.7 L Vital Signs Date Time Temp Pulse Resp B/P (MAP) Pulse Ox O2 Delivery O2 Flow Rate FiO2 01/08/19 14:15 72 16 116/59 (78) 97 2 01/08/19 14:10 97.9 I&O- Last 24 Hours up to 6 AM 01/08/19 06:00 Intake Total 660 ml Output Total 0 ml Balance 660 ml FREDDY CA MD Jan 08, 2019 14:32
[2019-01-08] MEDS: OCUVITE 1 TAB PO SCH (14:41)
[2019-01-08] MEDS: METOCLOPRAMIDE INJ 10MG/2ML VIAL (J2765) IV SCH ×2 (14:42→20:46)
[2019-01-08] MEDS: LOMOTIL 2.5MG/0.025MG TABLET PO SCH ×2 (14:46→20:45)
[2019-01-08] MEDS: ACETAMINOPHEN TAB 650MG DOSE (2X325MG) PO PRN (20:46)
[2019-01-08 22:00] VITALS: BP 125/62
[2019-01-09 05:57] LABS: BASO # 0.1 10^3/uL (0.0-0.2); BASO % 0.4 % (0.0-1.0); EOS # 0.3 10^3/uL (0.0-0.5); EOS % 2.7 % (0.0-3.0); HEMATOCRIT 36.9 % (36.0-47.0); HEMOGLOBIN 12.2 g/dl (12.0-15.5); LYMPH # 1.5 10^3/uL (1.5-5.0); LYMPH % 12.8 % (24.0-44.0); MEAN CORPUSCULAR HEMOGLOBIN 30.5 pg (27.0-33.0); MEAN CORPUSCULAR HGB CONC 33.1 g/dl (32.0-36.5); MEAN CORPUSCULAR VOLUME 92.3 fl (80.0-96.0); MONO # 0.9 10^3/uL (0.0-0.8); MONO % 7.3 % (0.0-5.0); NEUTROPHILS # 8.8 10^3/uL (1.5-8.5); NEUTROPHILS % 75.9 % (36.0-66.0); PLATELET COUNT, AUTOMATED 324 10^3/uL (150-450); WHITE BLOOD COUNT 11.6 10^3/uL (4.0-10.0)
[2019-01-09 06:00] VITALS: BP 113/57
[2019-01-09] MEDS: KCL 40MEQ IN D5/0.45NS 1000ML 1,000 ML IV SCH (06:04)
[2019-01-09] MEDS: METOCLOPRAMIDE INJ 10MG/2ML VIAL (J2765) IV SCH ×3 (06:04→22:00)
[2019-01-09] MEDS: VANCOMYCIN HCL 750 MG, VIAL MATE ADAPTER 1 EACH in D5W 250 ML IV SCH (06:04)
[2019-01-09 06:26] LABS: ALBUMIN 1.6 GM/DL (3.2-5.2); ALT/SGPT 9 U/L (12-78); BILIRUBIN,TOTAL 0.2 MG/DL (0.2-1.0); BLOOD UREA NITROGEN 2 MG/DL (7-18); CALCIUM LEVEL 8.7 MG/DL (8.8-10.2); CARBON DIOXIDE LEVEL 25 MEQ/L (21-32); CHLORIDE LEVEL 108 MEQ/L (98-107); CREATININE FOR GFR 0.46 MG/DL (0.55-1.30); GLOMERULAR FILTRATION RATE > 60.0 (>32); GLUCOSE, FASTING 88 MG/DL (70-100); MAGNESIUM LEVEL 1.8 MG/DL (1.8-2.4); POTASSIUM SERUM 4.4 MEQ/L (3.5-5.1); SODIUM LEVEL 139 MEQ/L (136-145); TOTAL PROTEIN 6.4 GM/DL (6.4-8.2)
[2019-01-09] MEDS: OCUVITE 1 TAB PO SCH (08:44)
[2019-01-09] MEDS: METOPROLOL TART 25 MG TABLET PO SCH ×2 (08:45→21:00)
[2019-01-09] MEDS: amLODIPine 5 MG TAB PO SCH (08:46)
[2019-01-09] MEDS: LEVOTHYROXINE 100 MCG (0.1MG) VIAL IV SCH (08:47)
[2019-01-09] MEDS: HEPARIN SOD (PORCINE) 5000 UNITS/ML VIAL SQ SCH ×2 (08:47→22:01)
[2019-01-09] MEDS: GASTROGRAFIN SOLUTION 30ML PO SCH ×2 (09:18→09:56)
[2019-01-09] MEDS: LOMOTIL 2.5MG/0.025MG TABLET PO SCH ×2 (09:18→22:01)
[2019-01-09] MEDS ORDERED: ISOVUE-370 76% 100ML VIAL (Q9967) As Ordered ONE (10:44)
[2019-01-09] MEDS: PANTOPRAZOLE 40MG INJ (PROTONIX) (C9113) IV SCH ×2 (11:25→22:01)
--- NOTE | 2019-01-09 12:43 | IPNPDOC ---
Text Note Date of Service The patient was seen on 01/09/19. NOTE Subjective: Patient is an 88-year-old female with a PMHx of A. fib (not on anticoagulation), HTN, Arthritis of bilateral knees / hips, Chronic constipati on, and recent hospitalization in which she was found to have a perforated duodenal ulcer (s/p Laparoscopic bowel resection and repair of two perforated duodenal ulcers). Patient was admitted to [facility] on 12/09/2018 and was discharged on 12/25/2018. Throughout hospital course patient was found to have a perforated duodenal ulcer that was her pared laparoscopically by Dr. Osman. Since that point. Patient was discharged [facility] for continued rehabilitation. Patient subsequently had a follow-up CT scan on 01/04/2019 that had revealed multiple abscesses and possible gastric outlet obstruction. Provider at [facility] has contacted hospitalist service for direct admission based on the recommendations of general s recommendations of general surgery. Patient was seen and examined at the bedside. Patient has been tolerating a diet. Denies nausea, vomiting, has not experienced any further diarrhea. Denies chest pain shortness of breath, palpitations Objective: Vitals (See below) General: Lying in bed, no acute distress, comfortable, AAOx3 HEENT: NC, AT, s/p NG tube CVS: +S1S2 Lungs: Fair b/l, without rhonchi/crackles or wheezing Abdomen: Soft, remains non-distended and non-tender, Catheter in place - no drainage noted Extremities: No edema of LE, - Calf tenderness Assessment and plan: Multiple abdominal abscesses - Patient has presented as a direct admission from [facility] after she had imaging th at revealed multiple abscesses - Patient has had a recent extensive hospitalization for perforated duodenal ulcer that was corrected laparoscopically - Tolerating diet - Leukocytosis stable; Will check CRP - Blood cultures 01/05: No growth at 72 hours, Abdominal abscess culture 01/05: MRSA - CT abdomen / pelvis 01/04: Multiloculated fluid collections consistent with multiple abscesses in the right upper quadrant. There are small air / gas bubbles within and adjacent to these suspected abscesses. There is a new fluid collection in the right lateral abdominal wall adjacent to the anterior margin of the right iliac wing with a tract extending intraperitoneal toward the intraperitoneal abscess. I suspect this is an abdominal wall abscess. This was not present previously. The stomach is massively dilated with a large air-fluid level, similar to prior study, compatible with gastroparesis. These results are discussed by telephone upon completion of the study with the nurse practitioner, Dank Hurley NP. - c/w IR guided drainage catheter on 01/05/2019 - Repeat CT scan completed - report pending - Vancomycin IV was started overnight (Day #2); s/p Zosyn in fluconazole - General surgery, Dr. Osman on consultation Possible gastric outlet obstruction on imaging - possibly 2/2 gastroparesis - c/w NGT for decompression - c/w Protonix IV BID - s/p EGD with Dr. Osman - Gastroparesis; small amount of food residue, gastric mucosal attrophy, one non-bleeding duodenal ulcer with no stigmata of bleeding - c/w Metoclopramide s/p Diarrhea - unlikely 2/2 C. diff, possibly 2/2 post-obstructive diarrhea - Has been experiencing loose watery stools - C. difficile PCR 01/08: Negative - c/w Gentle IV fluid hydration - c/w Loperamide s/p Hypokalemia A. fib - c/w rate control with metoprolol - Patient is currently not on anticoagulation HTN - Blood pressures to be within normal range - c/w amlodipine and metoprolol with holding parameters Hypothyroidism - c/w Levothyroxine IV Arthritis of bilateral knees / hips - c/w Tylenol PRN Chronic constipation - Patient reports that this is a problem that shes experience as an outpatient - She reports that currently she expresses some loose stools Gastrointestinal prophylaxis - c/w Protonix DVT prophylaxis - c/w Heparin Disposition: - Awaiting repeat imaging to result Duy PIMENTEL, I+O Duy PIMENTEL, I+O Laboratory Tests 01/09/19 05:33 Red Blood Count 4.00, Mean Corpuscular Volume 92.3, Mean Corpuscular Hemoglobin 30.5, Mean Corpuscular Hemoglobin Concent 33.1, Red Cell Distribution Width 13.0, Neutrophils (%) (Auto) 75.9 H, Lymphocytes (%) (Auto) 12.8 L, Monocytes (%) (Auto) 7.3 H, Eosinophils (%) (Auto) 2.7, Basophils (%) (Auto) 0.4, Neutrophils # (Auto) 8.8 H, Lymphocytes # (Auto) 1.5, Monocytes # (Auto) 0.9 H, Eosinophils # (Auto) 0.3, Basophils # (Auto) 0.1, Calcium Level 8.7 L, Aspartate Amino Transf (AST/SGOT) 16, Alanine Aminotransferase (ALT/SGPT) 9 L, Alkaline Phosphatase 76, Total Bilirubin 0.2, Total Protein 6.4, Albumin 1.6 L Vital Signs Date Time Temp Pulse Resp B/P (MAP) Pulse Ox O2 Delivery O2 Flow Rate FiO2 01/09/19 08:45 71 95/45 01/09/19 06:00 96.5 16 95 01/08/19 14:15 2 I&O- Last 24 Hours up to 6 AM 01/09/19 06:00 Intake Total 1310 ml Balance 1310 ml BELGICA RUTLEDGE MD Jan 09, 2019 12:43
--- NOTE | 2019-01-09 12:50 | IPNPDOC ---
Subjective General Date/Time Seen The patient was seen on 01/09/19 at 12:42. Subject Chief Complaint/History The patient is a 88-year-old female admitted with a reason for visit of Gastric Outlet Obstruction. Patient reports she had a good night sleep last night. Denies any ongoing abdominal discomfort, nausea or vomiting. Her daughter reports that she ate some of the oatmeal this morning and probably half of the ensure. Patient has been afebrile. I asked for a repeat CT early this morning I reviewed this with the patient and family. Current Medications Current Medications Current Medications Medications (Trade) Dose Ordered Sig/Ronaldo Route PRN Reason Start Time Stop Time Status Last Admin Dose Admin Acetaminophen (Tylenol Tab) 650 mg Q6HP PRN PO PAIN / FEVER 01/06/19 18:45 01/08/19 20:46 Amlodipine Besylate (Norvasc) 5 mg DAILY PO 01/05/19 09:00 01/08/19 09:39 Bisacodyl (Dulcolax Suppository) 10 mg DAILY PRN [place] CONSTIPATION 01/08/19 13:45 Dextrose/Sodium Chloride 1,000 ml @ 60 mls/hr [id number] IV 01/05/19 09:10 01/05/19 13:47 DC 01/05/19 12:05 Diatrizoate Meglum/ Diatrizoate Sod (Gastrografin) 10 ml Q30M PO 01/09/19 08:30 01/09/19 09:01 DC 01/09/19 09:56 Diphenoxylate HCl/ Atropine (Lomotil 2.5mg/ 0.025mg) 1 ea BID PO 01/08/19 09:00 01/09/19 09:18 Fentanyl Citrate (Sublimaze) 25 mcg Q5MP PRN IV MODERATE PAIN (PS 4-7) 01/08/19 13:45 01/08/19 14:45 DC Fluconazole 200 mg/IV Miscellaneous Supplies 100 ml @ 100 mls/hr Q24H IV 01/05/19 14:00 01/08/19 07:59 DC 01/07/19 14:54 Fluconazole 400 mg/IV Miscellaneous Supplies 200 ml @ 100 mls/hr Q24H IV 01/05/19 10:45 01/05/19 12:19 DC Heparin Sodium (Porcine) (Heparin) 5,000 units Q12H SQ 01/05/19 21:00 01/09/19 08:47 Home Med (Med Rec Complete!) ASDIRECTED XX 01/05/19 10:30 01/05/19 10:27 DC Lactated Ringer's 1,000 ml @ 100 mls/hr Q10H IV 01/08/19 13:45 01/08/19 13:45 DC Levothyroxine Sodium (Synthroid) 37.5 mcg DAILY IV 01/06/19 09:00 01/09/19 08:47 Magnesium Hydroxide (Milk Of Magnesia) 10 ml DAILY PRN PO CONSTIPATION 01/08/19 13:45 01/08/19 14:29 DC Metoclopramide HCl (REGLAN INJection) 5 mg Q8H IV 01/08/19 14:00 01/09/19 06:04 Metoprolol Tartrate (Lopressor) 25 mg BID PO 01/05/19 21:00 01/08/19 20:45 Miscellaneous (Unresolved Clarification Entry) SEE LABEL COMMENTS STAT STAT XX 01/05/19 11:57 01/05/19 11:58 Cancel Multivitamins (Ocuvite(I-Raheel)) 1 tab DAILY PO 01/08/19 14:00 01/09/19 08:44 Ondansetron HCl (ZOFRAN INJection) 4 mg Q4HP PRN IV NAUSEA OR VOMITING 01/08/19 13:45 01/08/19 14:29 DC Pantoprazole Sodium (Protonix) 40 mg Q12H IV 01/05/19 10:45 01/09/19 11:25 Piperacillin Sod/ Tazobactam Sod 2.25 gm/Dextrose 50 ml @ 100 mls/hr Q6H IV 01/05/19 13:00 01/08/19 07:59 DC 01/08/19 00:45 Piperacillin Sod/ Tazobactam Sod 3.375 gm/Dextrose 50 ml @ 50 mls/hr Q6H IV 01/05/19 13:00 01/05/19 12:15 DC Potassium Chloride 10 meq/ IV Miscellaneous Supplies 100 ml @ 100 mls/hr Q1H IV 01/06/19 10:00 01/06/19 11:59 DC 01/06/19 11:14 Potassium Chloride/Dextrose/ Sod Cl 1,000 ml @ 60 mls/hr [id number] IV 01/05/19 14:00 01/09/19 06:04 Vancomycin HCl 750 mg/IV Miscellaneous Supplies 1 each/ Dextrose 275 ml @ 275 mls/hr Q24H IV 01/09/19 06:00 01/09/19 06:04 Allergies Coded Allergies: Tetracyclines (Verified Allergy, Unknown, rash, 12/09/18) codeine (Verified Allergy, Unknown, rash, 12/09/18) Objective Physical Examination Examination GENERAL APPEARANCE: Patient laying on bed appears comfortable. SKIN: Warm and dry. HEENT: Mild pale palpebral conjunctiva.. NECK: Supple, no thyromegaly. No obvious jugular venous distention. LUNGS: Clear to auscultation bilaterally. No wheezing appreciated. HEART: No chest wall abnormalities. Regular rate and rhythm with no murmurs appreciated. ABDOMEN: Abdomen is nondistended, soft, nontender. Right side drain now has some thick purulent fluid in the tubing was not in the bag. EXTREMITIES: Extremities have no deformities. No edema identified. Vital Signs Vital Signs Date Time Temp Pulse Resp B/P (MAP) Pulse Ox O2 Delivery O2 Flow Rate FiO2 01/09/19 08:45 71 95/45 01/09/19 06:00 96.5 16 95 01/08/19 14:15 2 I&Os I&O- Last 24 Hours up to 6 AM 01/09/19 06:00 Intake Total 1310 ml Balance 1310 ml Laboratory Data Labs 24H Laboratory Tests 2 01/09/19 05:33: Immature Granulocyte % (Auto) 0.9, White Blood Count 11.6H, Red Blood Count 4.00, Hemoglobin 12.2, Hematocrit 36.9, Mean Corpuscular Volume 92.3, Mean Corpuscular Hemoglobin 30.5, Mean Corpuscular Hemoglobin Concent 33.1, Red Cell Distribution Width 13.0, Platelet Count 324, Neutrophils (%) (Auto) 75.9H, Lymphocytes (%) (Auto) 12.8L, Monocytes (%) (Auto) 7.3H, Eosinophils (%) (Auto) 2.7, Basophils (%) (Auto) 0.4, Neutrophils # (Auto) 8.8H, Lymphocytes # (Auto) 1.5, Monocytes # (Auto) 0.9H, Eosinophils # (Auto) 0.3, Basophils # (Auto) 0.1, Nucleated Red Blood Cells % (auto) 0.0, Anion Gap 6L, Glomerular Filtration Rate > 60.0, Blood Urea Nitrogen 2L, Creatinine 0.46L, Sodium Level 139, Potassium Level 4.4, Chloride Level 108H, Carbon Dioxide Level 25, Calcium Level 8.7L, Aspartate Amino Transf (AST/SGOT) 16, Alanine Aminotransferase (ALT/SGPT) 9L, Alkaline Phosphatase 76, Total Bilirubin 0.2, Total Protein 6.4, Albumin 1.6L, Magnesium Level 1.8, Albumin/Globulin Ratio 0.33L CBC/BMP Laboratory Tests 01/09/19 05:33 Red Blood Count 4.00, Mean Corpuscular Volume 92.3, Mean Corpuscular Hemoglobin 30.5, Mean Corpuscular Hemoglobin Concent 33.1, Red Cell Distribution Width 13.0, Neutrophils (%) (Auto) 75.9 H, Lymphocytes (%) (Auto) 12.8 L, Monocytes (%) (Auto) 7.3 H, Eosinophils (%) (Auto) 2.7, Basophils (%) (Auto) 0.4, Neutrophils # (Auto) 8.8 H, Lymphocytes # (Auto) 1.5, Monocytes # (Auto) 0.9 H, Eosinophils # (Auto) 0.3, Basophils # (Auto) 0.1, Calcium Level 8.7 L, Aspartate Amino Transf (AST/SGOT) 16, Alanine Aminotransferase (ALT/SGPT) 9 L, Alkaline Phosphatase 76, Total Bilirubin 0.2, Total Protein 6.4, Albumin 1.6 L Microbiology Microbiology 01/05/19 Gram Stain - Final, Resulted 01/05/19 Abscess Culture - Preliminary, Resulted Staph.aureus Methicillin Resis Lactobacillus Species 01/05/19 Anaerobic Culture - Final, Complete 01/05/19 Blood Culture - Preliminary, Resulted No Growth after 72 hours. All specime... 01/05/19 Blood Culture - Preliminary, Resulted No Growth after 72 hours. All specime... Impression history of perforated duodenal ulcer s/p lap repair abdominal abscess s/p perc drainage enlarged stomach ?gastric outlet obstruction diarrhea C.dff test is negative. debility Endoscopy yesterday shows moderate inflammation at the gastric outlet/duodenal bulb but no gross obstruction. I biopsied the area of the ulcer which seems to be healing accordingly. Beyond the duodenal bulb the duodenum appears normal. I repeated his CT scan today as we are not getting anything from the drain. I reviewed the images with Dr. Medina. Seems to tube is appropriately placed risk collection next to it though it doesn't seem more draining this adequately. I we will have the nurses flush the drain tube to see if he could get it to drain better. Clinically she looks to be improving. We will continue with the full liquid diet. I have asked her to try to see if she could finish and ensure bottle each meal. I'll get physical therapy and occupational therapy to start working with her. Clinically she does not look ill.The acute question is how long she'll stay here or whether they look septic her back at with a drain. Last time around she had to stay in the hospital until the drain was removed. Plan / VTE VTE Prophylaxis Ordered?: Yes FREDDY CA MD Jan 09, 2019 12:50
[2019-01-09 13:09] LABS: C REACTIVE PROTEIN QUANTITATIV 4.35 MG/DL (0.00-0.30)
[2019-01-09 14:00] VITALS: BP_SYST 108; BP_SYST 112; BP_DIAS 54
--- NOTE | 2019-01-09 15:04 | REP ---
CT ABDOMEN AND PELVIS WITH ORAL AND IV CONTRAST: COMPARISON: 01/04/2019. Visualized lung bases demonstrate increased dependent atelectatic changes. Reportedly the patient underwent endoscopy yesterday. Pigtail drainage catheter is again seen in the right upper quadrant, placed since the prior CT scan. The catheter was placed 01/05/2019. There is an area of free air in the subhepatic region medial to the gallbladder. This has mildly increased since the prior CT exam. Small amount of residual fluid is seen around the pigtail drainage catheter distally, definitely improved since the prior study. There are adjacent small locules of fluid inferior to that which are stable. Below the stomach there is edema and several small lymph nodes in the omentum similar to the prior study. There is probably some degree of gallbladder wall thickening. Liver, spleen, adrenals, pancreas, and kidneys are again unremarkable. There is no abdominal aortic aneurysm. No pelvic collection is seen. Pelvic structures appear unchanged. There is metallic prosthesis in the left hip. IMPRESSION: Pigtail drainage catheter in place in the right upper quadrant. Mild residual fluid surrounding the distal end of the catheter, with improvement of the drained fluid collection. Small adjacent loculated areas of fluid are unchanged. There is mild increase in free air in the right upper quadrant compared to the prior CT of 01/04/2019, status post endoscopy 1 day ago. This was discussed with Dr. Osman at the time of the exam. Electronically Signed by Destin Medina MD 01/10/2019 04:18 P
[2019-01-09 22:00] VITALS: BP 127/58
[2019-01-09 22:05] VITALS: BP 109/53
[2019-01-09] MEDS ORDERED: ACETAMINOPHEN 325 MG TAB PO ONE (22:30)
[2019-01-10] MEDS: KCL 40MEQ IN D5/0.45NS 1000ML 1,000 ML IV SCH ×2 (00:14→17:44)
[2019-01-10 05:38] LABS: BASO # 0.1 10^3/uL (0.0-0.2); BASO % 0.4 % (0.0-1.0); EOS # 0.3 10^3/uL (0.0-0.5); EOS % 2.2 % (0.0-3.0); HEMATOCRIT 35.6 % (36.0-47.0); HEMOGLOBIN 11.3 g/dl (12.0-15.5); LYMPH # 1.4 10^3/uL (1.5-5.0); LYMPH % 12.4 % (24.0-44.0); MEAN CORPUSCULAR HEMOGLOBIN 29.2 pg (27.0-33.0); MEAN CORPUSCULAR HGB CONC 31.7 g/dl (32.0-36.5); MONO # 0.8 10^3/uL (0.0-0.8); NEUTROPHILS # 8.6 10^3/uL (1.5-8.5); NEUTROPHILS % 77.1 % (36.0-66.0); PLATELET COUNT, AUTOMATED 316 10^3/uL (150-450); RED BLOOD COUNT 3.87 10^6/uL (4.00-5.40); WHITE BLOOD COUNT 11.2 10^3/uL (4.0-10.0)
[2019-01-10 05:57] LABS: ALBUMIN 1.6 GM/DL (3.2-5.2); ALT/SGPT 7 U/L (12-78); BILIRUBIN,TOTAL 0.2 MG/DL (0.2-1.0); BLOOD UREA NITROGEN 2 MG/DL (7-18); CALCIUM LEVEL 8.7 MG/DL (8.8-10.2); CARBON DIOXIDE LEVEL 25 MEQ/L (21-32); CHLORIDE LEVEL 106 MEQ/L (98-107); CREATININE FOR GFR 0.51 MG/DL (0.55-1.30); GLOMERULAR FILTRATION RATE > 60.0 (>32); GLUCOSE, FASTING 93 MG/DL (70-100); MAGNESIUM LEVEL 1.7 MG/DL (1.8-2.4); POTASSIUM SERUM 4.3 MEQ/L (3.5-5.1); SODIUM LEVEL 139 MEQ/L (136-145); TOTAL PROTEIN 6.3 GM/DL (6.4-8.2); VANCOMYCIN LEVEL TROUGH 5.9 UG/ML (10.0-20.0)
[2019-01-10 06:00] VITALS: BP 118/60
--- NOTE | 2019-01-10 06:35 | PHACANCOPD ---
PHARMACY VANCOMYCIN DOSING Pt Demographics Demographics Patient Age:88 , Weight:49.000 , Gender: female Adjusted Body Weight Date: 01/08/19, Adjusted Body Weight: Kg Vancomycin Vancomycin Target Ranges: 10-20 mcg/ml Vancomycin Load Y/N: Yes Load Dose Date Time Vancomycin Load Dose: 1000mg Date: 01-08 Time: 0600 Vancomycin Dose Date: 01/08/19. Current Vancomycin Dose: [750mg q24h] Intermittent Dosing?: No Labs Micro Microbiology 01/05/19 Gram Stain - Final, Resulted 01/05/19 Abscess Culture - Preliminary, Resulted Staph.aureus Methicillin Resis Lactobacillus Species 01/05/19 Anaerobic Culture - Final, Complete 01/05/19 Blood Culture - Preliminary, Resulted No Growth after 72 hours. All specime... 01/05/19 Blood Culture - Preliminary, Resulted No Growth after 72 hours. All specime... Creatinine Clearance Date:01/08/19. Creatinine Clearance: [~40]. Assessment and Plan Maintaining Current Dose?: Yes Reason for dose change: Trough too low Pharmacist Note Pharmacist Note Date: 01/10/19. Pharmacist note:Vancomycin trough drawn this morning@5:16 reported as 5.9 (goal=10-20)Do not wish to increase her dose at this time D/T age/weight so will give an additional 750mg @ 1800 today ,then will maintain the previous Q24 regimen- will continue to follow. Date: 01/08/19. Pharmacist note:Will continue to monitor and make adjustments as needed. FABIANA SMITH PHARMACY Jan 10, 2019 06:35
[2019-01-10] MEDS: VANCOMYCIN HCL 750 MG, VIAL MATE ADAPTER 1 EACH in D5W 250 ML IV SCH (06:47)
[2019-01-10] MEDS: METOCLOPRAMIDE INJ 10MG/2ML VIAL (J2765) IV SCH ×3 (06:47→20:29)
[2019-01-10] MEDS ORDERED: MAG SULF 1GM/100ML (MAG RUN) 1 GM in IV 1 EA IV ONE (08:00)
[2019-01-10] MEDS: amLODIPine 5 MG TAB PO SCH (08:13)
[2019-01-10] MEDS: METOPROLOL TART 25 MG TABLET PO SCH ×2 (08:14→20:27)
[2019-01-10] MEDS: LOMOTIL 2.5MG/0.025MG TABLET PO SCH ×2 (08:14→20:29)
[2019-01-10] MEDS: OCUVITE 1 TAB PO SCH (08:14)
[2019-01-10] MEDS: HEPARIN SOD (PORCINE) 5000 UNITS/ML VIAL SQ SCH ×2 (08:14→20:29)
[2019-01-10] MEDS: PANTOPRAZOLE 40MG INJ (PROTONIX) (C9113) IV SCH ×2 (09:33→21:45)
[2019-01-10] MEDS: LEVOTHYROXINE 75MCG TABLET (0.075MG) PO SCH (12:16)
--- NOTE | 2019-01-10 12:30 | IPNPDOC ---
Text Note Date of Service The patient was seen on 01/10/19. NOTE Subjective: Patient is an 88-year-old female with a PMHx of A. fib (not on anticoagulation), HTN, Arthritis of bilateral knees / hips, Chronic constipati on, and recent hospitalization in which she was found to have a perforated duodenal ulcer (s/p Laparoscopic bowel resection and repair of two perforated duodenal ulcers). Patient was admitted to [facility] on 12/09/2018 and was discharged on 12/25/2018. Throughout hospital course patient was found to have a perforated duodenal ulcer that was her pared laparoscopically by Dr. Osman. Since that point. Patient was discharged [facility] for continued rehabilitation. Patient subsequently had a follow-up CT scan on 01/04/2019 that had revealed multiple abscesses and possible gastric outlet obstruction. Provider at [facility] has contacted hospitalist service for direct admission based on the recommendations of general s recommendations of general surgery. Patient was seen and examined at the bedside. Patient reports that she still experiences profuse diarrhea. She notes that she has been tolerating her diet without any nausea, vomiting. Denies any abdominal discomfort. Has not any chest pain, shortness of breath or palpitations. Objective: Vitals (See below) General: Lying in bed, no acute distress, comfortable, AAOx3 HEENT: NC, AT, s/p NG tube CVS: +S1S2 Lungs: Fair entry, remains fair bilaterally without rhonchi, wheezing or crackles Abdomen: Drainage catheter noted right quadrant; bag is draining pus-like fluid, remains soft, nondistended, nontender Extremities: LE are without any edema, - Calf tenderness Imaging: - CT abdomen / pelvis 01/04: Multiloculated fluid collections consistent with multiple abscesses in the right upper quadrant. There are small air / gas bubbles within and adjacent to these suspected abscesses. There is a new fluid collection in the right lateral abdominal wall adjacent to the anterior margin of the right iliac wing with a tract extending intraperitoneal toward the intraperitoneal abscess. I suspect this is an abdominal wall abscess. This was not present previously. The stomach is massively dilated with a large air-fluid level, similar to prior study, compatible with gastroparesis. These results are discussed by telephone upon completion of the study with the nurse practitioner, Dank Hurley NP. - CT ab/pel 01/09: Pigtail drainage catheter in place in the right upper quadrant. Mild residual fluid surrounding the distal end of the catheter, with improvement of the drained fluid collection. Small adjacent loculated areas of fluid are unchanged. There is mild increase in free air in the right upper quadrant compared to the prior CT of 01/04/2019, status post endoscopy 1 day ago. This was discussed with Dr. Osman at the time of the exam. Assessment and plan: Multiple abdominal abscesses - Patient has presented as a direct admission from [facility] after she had imaging that revealed multiple abscesses - Patient has had a recent extensive hospitalization for perforated duodenal ulcer that was corrected laparoscopically - Leukocytosis continues to improve; CRP yesterday was noted to be elevated, will continue to trend - Blood cultures 01/05: Negative, Abdominal abscess culture 01/05: MRSA / Lactobacillus species / Corynebacterium species - Repeat imaging via CT scan 01/09 was noted to show free air; radiology has discussed directly with surgery - c/w IR guided drainage catheter on 01/05/2019; Flushes performed yesterday appear to have been successful as more pus is draining into bag this morning - Vancomycin IV was started overnight (Day #3); s/p Zosyn in fluconazole - General surgery, Dr. Osman on consultation Possible gastric outlet obstruction on imaging - possibly 2/2 gastroparesis - Patient has been tolerating a diet, has not experienced any nausea or vomiting - c/w NGT for decompression - c/w Protonix IV BID - s/p EGD with Dr. Osman - Gastroparesis; small amount of food residue, ga stric mucosal attrophy, one non-bleeding duodenal ulcer with no stigmata of bleeding - c/w Metoclopramide s/p Diarrhea - unlikely 2/2 C. diff, possibly 2/2 post-obstructive diarrhea - Has been experiencing loose watery stools - C. difficile PCR 01/08: Negative - c/w Gentle IV fluid hydration - c/w Lomotil s/p Hypokalemia A. fib - c/w rate control with metoprolol - Patient is currently not on anticoagulation HTN - Blood pressures to be within normal range - c/w amlodipine and metoprolol with holding parameters Hypothyroidism - c/w Levothyroxine IV Arthritis of bilateral knees / hips - c/w Tylenol PRN Chronic constipation - Patient reports that this is a problem that shes experience as an outpatient - She reports that currently she expresses some loose stools Gastrointestinal prophylaxis - c/w Protonix DVT prophylaxis - c/w Heparin Disposition: - Will discuss plans for further drainage with surgery VS,Duy, I+O VS, Ana Rosae, I+O Laboratory Tests 01/10/19 05:16 Red Blood Count 3.87 L, Mean Corpuscular Volume 92.0, Mean Corpuscular Hemoglobin 29.2, Mean Corpuscular Hemoglobin Concent 31.7 L, Red Cell Distribution Width 13.1, Neutrophils (%) (Auto) 77.1 H, Lymphocytes (%) (Auto) 12.4 L, Monocytes (%) (Auto) 7.0 H, Eosinophils (%) (Auto) 2.2, Basophils (%) (Auto) 0.4, Neutrophils # (Auto) 8.6 H, Lymphocytes # (Auto) 1.4 L, Monocytes # (Auto) 0.8, Eosinophils # (Auto) 0.3, Basophils # (Auto) 0.1, Calcium Level 8.7 L, Aspartate Amino Transf (AST/SGOT) 12, Alanine Aminotransferase (ALT/SGPT) 7 L, Alkaline Phosphatase 73, Total Bilirubin 0.2, Total Protein 6.3 L, Albumin 1.6 L Vital Signs Date Time Temp Pulse Resp B/P (MAP) Pulse Ox O2 Delivery O2 Flow Rate FiO2 01/10/19 08:13 94 132/75 01/10/19 06:00 96.1 18 97 01/08/19 14:15 2 I&O- Last 24 Hours up to 6 AM 01/10/19 05:59 Intake Total 2355 ml Output Total 7 ml Balance 2348 ml BELGICA RUTLEDGE MD Jan 10, 2019 12:30
[2019-01-10 12:43] LABS: C REACTIVE PROTEIN QUANTITATIV 3.53 MG/DL (0.00-0.30)
[2019-01-10 14:00] VITALS: BP 125/61
[2019-01-10] MEDS ORDERED: VANCOMYCIN HCL 750 MG, VIAL MATE ADAPTER 1 EACH in D5W 250 ML IV ONE (18:00)
[2019-01-10] MEDS: ACETAMINOPHEN TAB 650MG DOSE (2X325MG) PO SCH (20:31)
[2019-01-10 22:00] VITALS: BP 125/60
[2019-01-11 05:30] LABS: BASO # 0.1 10^3/uL (0.0-0.2); BASO % 0.5 % (0.0-1.0); EOS # 0.4 10^3/uL (0.0-0.5); HEMATOCRIT 35.5 % (36.0-47.0); HEMOGLOBIN 11.4 g/dl (12.0-15.5); LYMPH # 1.5 10^3/uL (1.5-5.0); LYMPH % 12.4 % (24.0-44.0); MEAN CORPUSCULAR HEMOGLOBIN 29.8 pg (27.0-33.0); MEAN CORPUSCULAR HGB CONC 32.1 g/dl (32.0-36.5); MEAN CORPUSCULAR VOLUME 92.7 fl (80.0-96.0); MONO % 7.9 % (0.0-5.0); NEUTROPHILS # 9.2 10^3/uL (1.5-8.5); NEUTROPHILS % 75.5 % (36.0-66.0); PLATELET COUNT, AUTOMATED 322 10^3/uL (150-450); RED BLOOD COUNT 3.83 10^6/uL (4.00-5.40); WHITE BLOOD COUNT 12.2 10^3/uL (4.0-10.0)
[2019-01-11 06:00] VITALS: BP 130/60
[2019-01-11 06:03] LABS: ALBUMIN 1.7 GM/DL (3.2-5.2); ALT/SGPT 8 U/L (12-78); BILIRUBIN,TOTAL 0.3 MG/DL (0.2-1.0); BLOOD UREA NITROGEN 3 MG/DL (7-18); C REACTIVE PROTEIN QUANTITATIV 3.84 MG/DL (0.00-0.30); CALCIUM LEVEL 8.5 MG/DL (8.8-10.2); CARBON DIOXIDE LEVEL 29 MEQ/L (21-32); CHLORIDE LEVEL 104 MEQ/L (98-107); CREATININE FOR GFR 0.48 MG/DL (0.55-1.30); GLOMERULAR FILTRATION RATE > 60.0 (>32); GLUCOSE, FASTING 87 MG/DL (70-100); MAGNESIUM LEVEL 1.6 MG/DL (1.8-2.4); POTASSIUM SERUM 4.6 MEQ/L (3.5-5.1); SODIUM LEVEL 137 MEQ/L (136-145); TOTAL PROTEIN 5.5 GM/DL (6.4-8.2)
--- NOTE | 2019-01-11 06:16 | PHACANCOPD ---
PHARMACY VANCOMYCIN DOSING Pt Demographics Demographics Patient Age:88 , Weight:49.000 , Gender: female Adjusted Body Weight Date: 01/08/19, Adjusted Body Weight: Kg Vancomycin Vancomycin Target Ranges: 10-20 mcg/ml Vancomycin Load Y/N: Yes Load Dose Date Time Vancomycin Load Dose: 1000mg Date: 01-08 Time: 0600 Vancomycin Dose Date: 01/08/19. Current Vancomycin Dose: [750mg q24h] Intermittent Dosing?: No Labs Micro Microbiology 01/05/19 Gram Stain - Final, Complete 01/05/19 Abscess Culture - Final, Complete Staph.aureus Methicillin Resis Lactobacillus Species Corynebacterium Species 01/05/19 Anaerobic Culture - Final, Complete 01/05/19 Blood Culture - Final, Complete NO GROWTH AFTER 5 DAYS 01/05/19 Blood Culture - Final, Complete NO GROWTH AFTER 5 DAYS Creatinine Clearance Date:01/08/19. Creatinine Clearance: [~40]. Assessment and Plan Maintaining Current Dose?: Yes Reason for dose change: No Dose Change Pharmacist Note Pharmacist Note Date: 01/11/19. Pharmacist note:Vancomycin trough drawn this morning@5:17 reported as 12.0(goal=10-20) Patient SCR=0.48. Will continue current regimen of Vancomycin 750mg IV [id number].-will continue to follow Date: 01/10/19. Pharmacist note:Vancomycin trough drawn this morning@5:16 reported as 5.9 (goal=10-20)Do not wish to increase her dose at this time D/T age/weight so will give an additional 750mg @ 1800 today ,then will maintain the previous Q24 regimen- will continue to follow. Date: 01/08/19. Pharmacist note:Will continue to monitor and make adjustments as needed. FABIANA SMITH PHARMACY Jan 11, 2019 06:16
[2019-01-11] MEDS: METOCLOPRAMIDE INJ 10MG/2ML VIAL (J2765) IV SCH ×3 (06:33→22:01)
[2019-01-11] MEDS: VANCOMYCIN HCL 750 MG, VIAL MATE ADAPTER 1 EACH in D5W 250 ML IV SCH (06:33)
[2019-01-11] MEDS: LEVOTHYROXINE 75MCG TABLET (0.075MG) PO SCH (06:33)
[2019-01-11] MEDS: HEPARIN SOD (PORCINE) 5000 UNITS/ML VIAL SQ SCH ×2 (08:22→22:01)
[2019-01-11] MEDS: LOMOTIL 2.5MG/0.025MG TABLET PO SCH ×2 (08:22→22:08)
[2019-01-11] MEDS: OCUVITE 1 TAB PO SCH (08:22)
[2019-01-11] MEDS: METOPROLOL TART 25 MG TABLET PO SCH ×2 (08:23→22:02)
[2019-01-11] MEDS: amLODIPine 5 MG TAB PO SCH (08:23)
[2019-01-11] MEDS: KCL 40MEQ IN D5/0.45NS 1000ML 1,000 ML IV SCH ×2 (09:35→23:44)
[2019-01-11] MEDS: PANTOPRAZOLE 40MG INJ (PROTONIX) (C9113) IV SCH ×2 (12:04→22:01)
[2019-01-11] MEDS: LACTOBACILLUS ACIDOPHILUS CAP (BACID) PO SCH ×2 (12:04→22:01)
--- NOTE | 2019-01-11 12:36 | IPNPDOC ---
Text Note Date of Service The patient was seen on 01/11/19. NOTE Subjective: Patient is an 88-year-old female with a PMHx of A. fib (not on anticoagulation), HTN, Arthritis of bilateral knees / hips, Chronic constipati on, and recent hospitalization in which she was found to have a perforated duodenal ulcer (s/p Laparoscopic bowel resection and repair of two perforated duodenal ulcers). Patient was admitted to [facility] on 12/09/2018 and was discharged on 12/25/2018. Throughout hospital course patient was found to have a perforated duodenal ulcer that was her pared laparoscopically by Dr. Osman. Since that point. Patient was discharged [facility] for continued rehabilitation. Patient subsequently had a follow-up CT scan on 01/04/2019 that had revealed multiple abscesses and possible gastric outlet obstruction. Provider at [facility] has contacted hospitalist service for direct admission based on the recommendations of general s recommendations of general surgery. Patient was seen and examined at the bedside. Patient continues to experience diarrhea. Denies abdominal pain, nausea or vomiting. Has been tolerating an oral diet. She denies any chest pain shortness of breath, palpitations. Objective: Vitals (See below) General: Lying in bed, no acute distress, comfortable, AAOx3 HEENT: NC, AT, s/p NG tube CVS: +S1S2 Lungs: Fair entry, again remains fair bilaterally without evidence of rhonchi, rales or wheezing Abdomen: Remains soft without distention or tenderness. Drainage catheter at right lower quadrant does reveal output of pus-like fluid Extremities: No edema of LE appreciated, - Calf tenderness Imaging: - CT abdomen / pelvis 01/04: Multiloculated fluid collections consistent with multiple abscesses in the right upper quadrant. There are small air / gas bubbles within and adjacent to these suspected abscesses. There is a new fluid collection in the right lateral abdominal wall adjacent to the anterior margin of the right iliac wing with a tract extending intraperitoneal toward the intraperitoneal abscess. I suspect this is an abdominal wall abscess. This was not present previously. The stomach is massively dilated with a large air-fluid level, similar to prior study, compatible with gastroparesis. These results are discussed by telephone upon completion of the study with the nurse practitioner, Dank Hurley NP. - CT ab/pel 01/09: Pigtail drainage catheter in place in the right upper quadrant. Mild residual fluid surrounding the distal end of the catheter, with improvement of the drained fluid collection. Small adjacent loculated areas of fluid are unchanged. There is mild increase in free air in the right upper quadrant compared to the prior CT of 01/04/2019, status post endoscopy 1 day ago. This was discussed with Dr. Osman at the time of the exam. Assessment and plan: Multiple abdominal abscesses - Patient has presented as a direct admission from [facility] after she had imaging that revealed multiple abscesses - Patient has had a recent extensive hospitalization for perforated duodenal ulcer that was corrected laparoscopically - Elevation of white blood cell count and elevation of CRP noted this morning - Blood cultures 01/05: Negative, Abdominal abscess culture 01/05: MRSA / Lactobacillus species / Corynebacterium species - Repeat imaging via CT scan 01/09 was noted to show free air; radiology has discussed directly with surgery - c/w IR guided drainage catheter on 01/05/2019; Flushes performed yesterday appear to have been successful as more pus is draining into bag this morning - c/w Vancomycin (Day #4); s/p Zosyn in fluconazole - General surgery, Dr. Osman on consultation - Will consult infectious disease Possible gastric outlet obstruction on imaging - possibly 2/2 gastroparesis - Continues to tolerate diet, but has experienced loose stools - c/w NGT for decompression - c/w Protonix IV BID - s/p EGD with Dr. Osman - Gastroparesis; small amount of food residue, gastric mucosal attrophy, one non-bleeding duodenal ulcer with no stigmata of bleeding - c/w Metoclopramide s/p Diarrhea - unlikely 2/2 C. diff, possibly 2/2 post-obstructive diarrhea - Has been experiencing loose watery stools - C. difficile PCR 01/08: Negative - c/w Gentle IV fluid hydration - c/w Lomotil s/p Hypokalemia A. fib - c/w rate control with metoprolol - Patient is currently not on anticoagulation HTN - Blood pressures to be within normal range - c/w amlodipine and metoprolol with holding parameters Hypothyroidism - c/w Levothyroxine IV Arthritis of bilateral knees / hips - c/w Tylenol PRN Chronic constipation - Patient reports that this is a problem that shes experience as an outpatient Gastrointestinal prophylaxis - c/w Protonix DVT prophylaxis - c/w Heparin Disposition: - Will discuss plans for further drainage with surgery VS,Fanbone, I+O VS, Fishbone, I+O Laboratory Tests 01/11/19 05:17 Red Blood Count 3.83 L, Mean Corpuscular Volume 92.7, Mean Corpuscular Hemoglobin 29.8, Mean Corpuscular Hemoglobin Concent 32.1, Red Cell Distribution Width 13.3, Neutrophils (%) (Auto) 75.5 H, Lymphocytes (%) (Auto) 12.4 L, Monocytes (%) (Auto) 7.9 H, Eosinophils (%) (Auto) 3.0, Basophils (%) (Auto) 0.5, Neutrophils # (Auto) 9.2 H, Lymphocytes # (Auto) 1.5, Monocytes # (Auto) 1.0 H, Eosinophils # (Auto) 0.4, Basophils # (Auto) 0.1, Calcium Level 8.5 L, Aspartate Amino Transf (AST/SGOT) 10, Alanine Aminotransferase (ALT/SGPT) 8 L, Alkaline Phosphatase 73, Total Bilirubin 0.3, Total Protein 5.5 L, Albumin 1.7 L Vital Signs Date Time Temp Pulse Resp B/P (MAP) Pulse Ox O2 Delivery O2 Flow Rate FiO2 01/11/19 08:23 85 128/67 01/11/19 06:00 96.5 16 94 01/08/19 14:15 2 I&O- Last 24 Hours up to 6 AM 01/11/19 06:00 Intake Total 2910 ml Balance 2910 ml BELGICA RUTLEDGE MD Jan 11, 2019 12:36
--- NOTE | 2019-01-11 12:51 | IPNPDOC ---
Subjective General Date/Time Seen The patient was seen on 01/11/19 at 12:43. Subject Chief Complaint/History The patient is a 88-year-old female admitted with a reason for visit of Gastric Outlet Obstruction. Patient seen today and she reports doing better. She is working in physical therapy and occupational therapy but she needs a lot more help and will benefit from subacute rehabilitation. She is not showing any fevers, chills no abdominal bloating or distention. She is tolerating full liquids. Her diarrhea is i mproved. Current Medications Current Medications Current Medications Medications (Trade) Dose Ordered Sig/Ronaldo Route PRN Reason Start Time Stop Time Status Last Admin Dose Admin Acetaminophen (Tylenol Tab) 650 mg Q6HP PRN PO PAIN / FEVER 01/06/19 18:45 01/10/19 10:11 DC 01/08/19 20:46 Acetaminophen (Tylenol Tab) 650 mg QHS PO 01/10/19 21:00 01/10/19 20:31 Amlodipine Besylate (Norvasc) 5 mg DAILY PO 01/05/19 09:00 01/11/19 08:23 Bisacodyl (Dulcolax Suppository) 10 mg DAILY PRN [place] CONSTIPATION 01/08/19 13:45 Dextrose/Sodium Chloride 1,000 ml @ 60 mls/hr [id number] IV 01/05/19 09:10 01/05/19 13:47 DC 01/05/19 12:05 Diatrizoate Meglum/ Diatrizoate Sod (Gastrografin) 10 ml Q30M PO 01/09/19 08:30 01/09/19 09:01 DC 01/09/19 09:56 Diphenoxylate HCl/ Atropine (Lomotil 2.5mg/ 0.025mg) 1 ea BID PO 01/08/19 09:00 01/11/19 08:22 Fentanyl Citrate (Sublimaze) 25 mcg Q5MP PRN IV MODERATE PAIN (PS 4-7) 01/08/19 13:45 01/08/19 14:45 DC Fluconazole 200 mg/IV Miscellaneous Supplies 100 ml @ 100 mls/hr Q24H IV 01/05/19 14:00 01/08/19 07:59 DC 01/07/19 14:54 Fluconazole 400 mg/IV Miscellaneous Supplies 200 ml @ 100 mls/hr Q24H IV 01/05/19 10:45 01/05/19 12:19 DC Heparin Sodium (Porcine) (Heparin) 5,000 units Q12H SQ 01/05/19 21:00 01/11/19 08:22 Home Med (Med Rec Complete!) ASDIRECTED XX 01/05/19 10:30 01/05/19 10:27 DC Lactated Ringer's 1,000 ml @ 100 mls/hr Q10H IV 01/08/19 13:45 01/08/19 13:45 DC Lactobacillus Acidophilus (Bacid) 2 ea BID PO 01/11/19 09:00 01/11/19 12:04 Levothyroxine Sodium (Synthroid) 37.5 mcg DAILY IV 01/06/19 09:00 01/10/19 11:30 DC 01/09/19 08:47 Levothyroxine Sodium (Synthroid) 75 mcg DAILY@06 PO 01/10/19 06:00 01/11/19 06:33 Magnesium Hydroxide (Milk Of Magnesia) 10 ml DAILY PRN PO CONSTIPATION 01/08/19 13:45 01/08/19 14:29 DC Metoclopramide HCl (REGLAN INJection) 5 mg Q8H IV 01/08/19 14:00 01/11/19 06:33 Metoprolol Tartrate (Lopressor) 25 mg BID PO 01/05/19 21:00 01/11/19 08:23 Miscellaneous (Unresolved Clarification Entry) SEE LABEL COMMENTS STAT STAT XX 01/05/19 11:57 01/05/19 11:58 Cancel Multivitamins (Ocuvite(I-Raheel)) 1 tab DAILY PO 01/08/19 14:00 01/11/19 08:22 Ondansetron HCl (ZOFRAN INJection) 4 mg Q4HP PRN IV NAUSEA OR VOMITING 01/08/19 13:45 01/08/19 14:29 DC Pantoprazole Sodium (Protonix) 40 mg Q12H IV 01/05/19 10:45 01/11/19 12:04 Piperacillin Sod/ Tazobactam Sod 2.25 gm/Dextrose 50 ml @ 100 mls/hr Q6H IV 01/05/19 13:00 01/08/19 07:59 DC 01/08/19 00:45 Piperacillin Sod/ Tazobactam Sod 3.375 gm/Dextrose 50 ml @ 50 mls/hr Q6H IV 01/05/19 13:00 01/05/19 12:15 DC Potassium Chloride 10 meq/ IV Miscellaneous Supplies 100 ml @ 100 mls/hr Q1H IV 01/06/19 10:00 01/06/19 11:59 DC 01/06/19 11:14 Potassium Chloride/Dextrose/ Sod Cl 1,000 ml @ 60 mls/hr [id number] IV 01/05/19 14:00 01/10/19 17:44 Vancomycin HCl 750 mg/IV Miscellaneous Supplies 1 each/ Dextrose 275 ml @ 275 mls/hr Q24H IV 01/09/19 06:00 01/11/19 06:33 Allergies Coded Allergies: Tetracyclines (Verified Allergy, Unknown, rash, 12/09/18) codeine (Verified Allergy, Unknown, rash, 12/09/18) Objective Physical Examination Examination Patient looks well and comfortable. Her abdomen is soft flat and pre-much benign and nontender on palpation. I flushed and aspirated the drain and got more fluid from this but it seems like with the flushing the other day and using the thick purulent collection enough that we are able to express this out from the tubing which is allowing it to drain better. There is more drainage going through the tube to the bag with the flushing. Vital Signs Vital Signs Date Time Temp Pulse Resp B/P (MAP) Pulse Ox O2 Delivery O2 Flow Rate FiO2 01/11/19 08:23 85 128/67 01/11/19 06:00 96.5 16 94 01/08/19 14:15 2 I&Os I&O- Last 24 Hours up to 6 AM 01/11/19 05:59 Intake Total 2790 ml Balance 2790 ml Laboratory Data Labs 24H Laboratory Tests 2 01/11/19 05:17: Immature Granulocyte % (Auto) 0.7, White Blood Count 12.2H, Red Blood Count 3.83L, Hemoglobin 11.4L, Hematocrit 35.5L, Mean Corpuscular Volume 92.7, Mean Co rpuscular Hemoglobin 29.8, Mean Corpuscular Hemoglobin Concent 32.1, Red Cell Distribution Width 13.3, Platelet Count 322, Neutrophils (%) (Auto) 75.5H, Lymphocytes (%) (Auto) 12.4L, Monocytes (%) (Auto) 7.9H, Eosinophils (%) (Auto) 3.0, Basophils (%) (Auto) 0.5, Neutrophils # (Auto) 9.2H, Lymphocytes # (Auto) 1.5, Monocytes # (Auto) 1.0H, Eosinophils # (Auto) 0.4, Basophils # (Auto) 0.1, Nucleated Red Blood Cells % (auto) 0.0, Anion Gap 4L, Glomerular Filtration Rate > 60.0, Blood Urea Nitrogen 3L, Creatinine 0.48L, Sodium Level 137, Potassium Level 4.6, Chloride Level 104, Carbon Dioxide Level 29, Calcium Level 8.5L, Aspartate Amino Transf (AST/SGOT) 10, Alanine Aminotransferase (ALT/SGPT) 8L, Alkaline Phosphatase 73, Total Bilirubin 0.3, Total Protein 5.5L, Albumin 1.7L, Magnesium Level 1.6L, C-Reactive Protein, Quantitative 3.84H, Albumin/Globulin Ratio 0.45L, Vancomycin Level Trough 12.0 CBC/BMP Laboratory Tests 01/11/19 05:17 Red Blood Count 3.83 L, Mean Corpuscular Volume 92.7, Mean Corpuscular Hemoglobin 29.8, Mean Corpuscular Hemoglobin Concent 32.1, Red Cell Distribution Width 13.3, Neutrophils (%) (Auto) 75.5 H, Lymphocytes (%) (Auto) 12.4 L, Monocy sunny (%) (Auto) 7.9 H, Eosinophils (%) (Auto) 3.0, Basophils (%) (Auto) 0.5, Neutrophils # (Auto) 9.2 H, Lymphocytes # (Auto) 1.5, Monocytes # (Auto) 1.0 H, Eosinophils # (Auto) 0.4, Basophils # (Auto) 0.1, Calcium Level 8.5 L, Aspartate Amino Transf (AST/SGOT) 10, Alanine Aminotransferase (ALT/SGPT) 8 L, Alkaline Phosphatase 73, Total Bilirubin 0.3, Total Protein 5.5 L, Albumin 1.7 L Microbiology Microbiology 01/05/19 Gram Stain - Final, Complete 01/05/19 Abscess Culture - Final, Complete Staph.aureus Methicillin Resis Lactobacillus Species Corynebacterium Species 01/05/19 Anaerobic Culture - Final, Complete 01/05/19 Blood Culture - Final, Complete NO GROWTH AFTER 5 DAYS 01/05/19 Blood Culture - Final, Complete NO GROWTH AFTER 5 DAYS Impression history of perforated duodenal ulcer s/p lap repair abdominal abscess s/p perc drainage enlarged stomach ?gastric outlet obstruction diarrhea C.dff test is negative. debility She looks well and is not having any abdominal complaints. She tells me she is finishing the Ensure and is not having any nausea or vomiting or bloating area in her diarrhea also seems to be improved some. She is asking if she can eat some bread. Certainly we can increase her to a soft type diet and continue to observe her. We are seeing more drainage from the tube now that we are flushing the tube. I flushed the tube didn't seem to be getting it more dilated enough to pass through the drain tubing more than anything else. Her CRP scope down and certainly is not showing any signs of systemic inflammatory response from this. Plan to continue on flushing the tube and probably get another CT on Tuesday. Technically she probably can go back to the long-term but [facility] does not accept any patient with the drain tube back. Certainly more technical question is what can we do if we are not able to clear the abscess collections and she may need laparoscopic placement of drains for this but a harder question to answer is if we need to address the persistent "leak" at the duodenum nicole if she does not seem to be getting ill. She has a new some swelling which looks gouty to me. I'll add some colchicine. Certainly the mild increase in CRP and white cell count can be probably attributed to this more than anything else. I will discuss with Dr. Meraz whether we can try to switch her to Bactrim instead of vancomycin which is pretty much specific to the MRSA and would not address the lactobacillus or the Corynebacterium species. Overall plan is to continue overdoing probably rescan on Tuesday. Plan / VTE VTE Prophylaxis Ordered?: Yes FREDDY CA MD Jan 11, 2019 12:51
--- NOTE | 2019-01-11 13:39 | REP ---
Right hand four views: There are no comparisons. There is diffuse demineralization. There is joint space narrowing of the PIP and DIP articulations and IP articulation of the thumb compatible with articular cartilage atrophy and possibly early osteoarthritis. There is soft tissue edema at the thumb IP joint suggesting there may be acute inflammation associated with the osteoarthritis. There is joint space narrowing of the carpal ossicles, trapezial carpal joint at the thumb and there is calcification in the triangular fibrocartilage and at the thumb trapezial metacarpal joint. This is compatible with CPPD. There is joint space narrowing of the MCP articulations, however there is no associated cortical erosion. This may also represent early osteoarthritic change. There is no fracture or dislocation. Impression: Diffuse demineralization. CPPD. Osteoarthritis. Possible acute inflammation of the osteoarthritic changes at the thumb IP articulation. Electronically Signed by Destin Mckeon MD 01/11/2019 01:31 P
[2019-01-11 14:00] VITALS: BP 127/55
[2019-01-11] MEDS: COLCHICINE 0.6 MG TAB PO SCH ×2 (14:51→22:01)
--- NOTE | 2019-01-11 18:33 | CR ---
DATE OF CONSULTATION: 01/11/2019 INFECTIOUS DISEASE CONSULTATION Asked to consult by hospitalist for evaluation of intra-abdominal abscess, status post perforated duodenal ulcer. HISTORY OF PRESENT ILLNESS: Mrs. Summers is an 88-year-old female who was admitted on 12/09/2018 with bowel perforation, duodenal ulcer status post laparoscopic bowel resection and omental patch done by Dr. Osman. The patient was in the hospital for a couple weeks and then was transferred to [facility] for rehabilitation on 12/25/2018. The patient was complaining of decreased appetite and not feeling well, weight loss. CT abdomen done on 01/04/2019 for followup and that showed a fluid collection in the right lateral abdominal wall measuring about 3.2 cm in length with a tract from this fluid collection intraperitoneally and multiple other multiloculated collections in the abdomen. This was new compared to a previous CT that was done on 12/17/2018. The patient was admitted and had a CT-guided drainage procedure done on 01/05/2019 with 15 mL of pus that was drained and sent for further analysis. Cultures were positive for methicillin-resistant Staphylococcus aureus (MRSA), Lactobacillus species, Corynebacterium. Cultures from 12/18/2018 during her previous hospitalization were positive for Sophie glabrata and Sophie albicans, which were both susceptible to fluconazole but Sophie glabrata had a susceptibility of two, which is dose-dependent susceptibility meaning the patient needs higher doses of 6 mg per kilogram. Her past medical history is significant for hypertension, hypothyroidism, history of deep vein thrombosis (DVT), vitamin D deficiency, history of paroxysmal atrial fibrillation postoperatively, history of bowel perforation with laparoscopic omental patch repair of duodenal ulcer on 12/09/2018. Past surgical history: Left total hip replacement. ALLERGIES: TETRACYCLINE and CODEINE. FAMILY HISTORY: Chronic obstructive pulmonary disease (COPD). MEDICATIONS: - probiotics two tablets by mouth twice a day - colchicine 0.6 mg by mouth twice a day - levothyroxine 75 mcg daily - vancomycin 750 mg every 24 hours - multivitamin one tablet daily - metoclopramide 5 mg IV every 8 hours as needed - Lomotil as needed - metoprolol 25 mg by mouth twice a day - pantoprazole 40 mg IV every 12 hours - amlodipine 5 mg by mouth daily LABORATORY: White count has remained around 12.2, hemoglobin 11.4, hematocrit 35.5, platelets 322, 75% neutrophils, 12% lymphocytes, 8% monocytes. Sodium 137, potassium 4.6, chloride 104, bicarbonate 24, BUN 3, creatinine 0.48, glucose 87, calcium 8.7, AST 10, ALT 8, alkaline phosphatase 73. Microbiology: As previously mentioned. Current culture has MRSA Lactobacillus species and Corynebacterium. Previous cultures had Sophie albicans and glabrata. Anaerobic culture was negative. IMAGING STUDIES: Hand x-ray done on 01/11/2019 shows diffuse demineralization, CPPD, which shows calcification of the trapezial carpal joint at the thumb. CT abdomen repeated on 01/09/2019 shows pigtail catheter in place in the right upper quadrant with mild residual fluid surrounding the distal end of the catheter, with improvement of the drain fluid collection. Small adjacent loculated areas of fluids are unchanged. These do not have any measurements. There are also some small lymph nodes. PHYSICAL EXAM: She is a frail looking female in no acute distress. Temperature is 97.6, pulse 76, respirations 15, blood pressure 127/55, oxygen saturation (O2 sat) 96% on room air. She has been afebrile throughout this admission and previous admission. Heart: Normal S1, S2. No murmurs appreciated. Lungs: Diminished breath sounds but clear. Abdomen is soft, mildly tender in the epigastric area. Right upper quadrant drain with purulent drainage, about 5 mL. Mild erythema at the drain site. Back: No costovertebral angle (CVA) or lumbosacral tenderness. Extremities: No clubbing, cyanosis or edema. Right hand slightly tender and warm to touch. LABORATORY DATA: White count 12.2, hemoglobin 11.4, hematocrit 35.5, platelets 322, 75% neutrophils, 12% lymphocytes, 7% monocytes. Sodium 137, potassium 4.6, chloride 104, bicarbonate 24, BUN 3, creatinine 0.48, glucose 86, calcium 8.5, CRP 3.84. IMPRESSION: 88-year-old female status post bowel perforation of a duodenal ulcer, status post repair, who has developed multiloculated abdominal abscess. Initially was treated for fungal abscess. Currently is being treated for MRSA infection. She is not on any antifungal therapy. This was discontinued on 01/07/2019. She had received also in the past levofloxacin from 12/14/2018 to 12/25/2018, IV Zosyn 01/05/2019 to 01/08/2019; that was discontinued as well. PLAN: Continue with IV vancomycin for coverage of MRSA Corynebacterium and Lactobacillus species that should be appropriate since there was some abdominal collection that had not been drained, could be persistent fungal infection. I would suggest continuing fluconazole, but that could be given orally. Continue monitoring with CRP, CBC. I will review the CT done tomorrow with Dr. Gallardo/Adam. Once the patient is clinically improved and eating, she could be switched to oral linezolid to finish treatment of MRSA abscess. MTDD
[2019-01-11 22:00] VITALS: BP 125/56
[2019-01-11] MEDS: ACETAMINOPHEN TAB 650MG DOSE (2X325MG) PO SCH (22:00)
[2019-01-11] MEDS: FLUCONAZOLE 100 MG TAB PO SCH (22:01)
[2019-01-12] MEDS: LEVOTHYROXINE 75MCG TABLET (0.075MG) PO SCH (05:47)
[2019-01-12] MEDS: VANCOMYCIN HCL 750 MG, VIAL MATE ADAPTER 1 EACH in D5W 250 ML IV SCH (05:48)
[2019-01-12] MEDS: METOCLOPRAMIDE INJ 10MG/2ML VIAL (J2765) IV SCH ×3 (05:48→21:36)
[2019-01-12 05:56] LABS: BASO % 0.4 % (0.0-1.0); EOS # 0.4 10^3/uL (0.0-0.5); EOS % 3.5 % (0.0-3.0); HEMATOCRIT 35.4 % (36.0-47.0); HEMOGLOBIN 11.5 g/dl (12.0-15.5); LYMPH # 1.4 10^3/uL (1.5-5.0); LYMPH % 12.9 % (24.0-44.0); MEAN CORPUSCULAR HEMOGLOBIN 29.9 pg (27.0-33.0); MEAN CORPUSCULAR HGB CONC 32.5 g/dl (32.0-36.5); MEAN CORPUSCULAR VOLUME 92.2 fl (80.0-96.0); MONO # 0.9 10^3/uL (0.0-0.8); NEUTROPHILS # 8.1 10^3/uL (1.5-8.5); NEUTROPHILS % 74.3 % (36.0-66.0); PLATELET COUNT, AUTOMATED 340 10^3/uL (150-450); RED BLOOD COUNT 3.84 10^6/uL (4.00-5.40); WHITE BLOOD COUNT 10.9 10^3/uL (4.0-10.0)
[2019-01-12 06:00] VITALS: BP 121/61
[2019-01-12 06:23] LABS: ALBUMIN 1.7 GM/DL (3.2-5.2); ALT/SGPT 8 U/L (12-78); BILIRUBIN,TOTAL 0.5 MG/DL (0.2-1.0); BLOOD UREA NITROGEN 5 MG/DL (7-18); C REACTIVE PROTEIN QUANTITATIV 4.91 MG/DL (0.00-0.30); CALCIUM LEVEL 8.6 MG/DL (8.8-10.2); CARBON DIOXIDE LEVEL 27 MEQ/L (21-32); CHLORIDE LEVEL 101 MEQ/L (98-107); CREATININE FOR GFR 0.52 MG/DL (0.55-1.30); GLOMERULAR FILTRATION RATE > 60.0 (>32); GLUCOSE, FASTING 92 MG/DL (70-100); MAGNESIUM LEVEL 1.7 MG/DL (1.8-2.4); POTASSIUM SERUM 4.4 MEQ/L (3.5-5.1); SODIUM LEVEL 135 MEQ/L (136-145); TOTAL PROTEIN 6.3 GM/DL (6.4-8.2)
[2019-01-12] MEDS: LACTOBACILLUS ACIDOPHILUS CAP (BACID) PO SCH ×2 (08:25→21:35)
[2019-01-12] MEDS: METOPROLOL TART 25 MG TABLET PO SCH ×2 (08:25→21:38)
[2019-01-12] MEDS: LOMOTIL 2.5MG/0.025MG TABLET PO SCH ×2 (08:25→21:35)
[2019-01-12] MEDS: OCUVITE 1 TAB PO SCH (08:25)
[2019-01-12] MEDS: HEPARIN SOD (PORCINE) 5000 UNITS/ML VIAL SQ SCH ×2 (08:26→21:36)
[2019-01-12] MEDS: amLODIPine 5 MG TAB PO SCH (08:26)
[2019-01-12] MEDS: COLCHICINE 0.6 MG TAB PO SCH ×2 (08:26→21:35)
[2019-01-12] MEDS: FLUCONAZOLE 100 MG TAB PO SCH ×2 (08:26→21:35)
--- NOTE | 2019-01-12 08:38 | IPNPDOC ---
Text Note Date of Service The patient was seen on 01/12/19. NOTE Subjective: -Persistent diarrhea without abdominal pain, nausea or vomiting and tolerating a diet. Interim events: -ID consulted --> recommends continuing vanc, and switch to linezolid PO once clinically improved and reliably taking PO. Also recommends continuing fluconazole -Surgery noted significant output since flushing, added colchicine for gout Objective: Vitals (See below) General: Lying in bed, no acute distress, AOx3 HEENT: NC, AT CVS: RRR, no mrg Lungs: CTAB, no rales or wheezing Abdomen: Normoactive bowel sounds, soft, drainage catheter at right lower quadrant with output of pus-like fluid Extremities: WWP, no LE edema, nontender Imaging: - CT abdomen / pelvis 01/04: Multiloculated fluid collections consistent with multiple abscesses in the right upper quadrant. There are small air / gas bubbles within and adjacent to these suspected abscesses. There is a new fluid collection in the right lateral abdominal wall adjacent to the anterior margin of the right iliac wing with a tract extending intraperitoneal toward the intraperitoneal abscess. I suspect this is an abdominal wall abscess. This was not present previously. The stomach is massively dilated with a large air-fluid level, similar to prior study, compatible with gastroparesis. These results are discussed by telephone upon completion of the study with the nurse practitioner, Dank Hurley NP. - CT ab/pel 01/09: Pigtail drainage catheter in place in the right upper quadrant. Mild residual fluid surrounding the distal end of the catheter, with improvement of the drained fluid collection. Small adjacent loculated areas of fluid are unchanged. There is mild increase in free air in the right upper quadrant compared to the prior CT of 01/04/2019, status post endoscopy 1 day ago. This was discussed with Dr. Osman at the time of the exam. Assessment and plan: 88-year-old woman with A. fib (not on anticoagulation), HTN, Arthritis of bilateral knees / hips, Chronic constipation, and recent hospitalization in which she was found to have a perforated duodenal ulcer (s/p Laparoscopic bowel resection and repair of two perforated duodenal ulcers) c/b multiple abscesses and possible gastric outlet obstruction, now being drained and on vancomycin/fluconazole Multiple abdominal abscesses - Blood cultures 01/05: Negative, Abdominal abscess culture 01/05: MRSA / Lactobacillus species / Corynebacterium species - Repeat imaging via CT scan 01/09 was noted to show free air; radiology has discussed directly with surgery for now to continue with antibiotics and drain - c/w Vancomycin/fluconazole (Day #5); s/p Zosyn - General surgery, Dr. Osman on consultation, appreciate recs - ID consulted, appreciate recs Possible gastric outlet obstruction on imaging - possibly 2/2 gastroparesis - Continues to tolerate diet, with loose stools - c/w Protonix IV BID - s/p EGD with Dr. Osman - Gastroparesis; small amount of food residue, gastric mucosal atrophy, one non-bleeding duodenal ulcer with no stigmata of bleeding - c/w Metoclopramide s/p Diarrhea - unlikely 2/2 C. diff, possibly 2/2 post-obstructive diarrhea - Has been experiencing loose watery stools - C. difficile PCR 01/08: Negative - c/w Gentle IV fluid hydration - c/w Lomotil s/p Hypokalemia A. fib - c/w rate control with metoprolol - Patient is currently not on anticoagulation HTN - Blood pressures to be within normal range - c/w amlodipine and metoprolol with holding parameters Hypothyroidism - c/w Levothyroxine IV Arthritis of bilateral knees / hips - c/w Tylenol PRN Gastrointestinal prophylaxis - c/w Protonix DVT prophylaxis - c/w Heparin Disposition: - Pending clinical improvement. - Unable to return to [facility] with drain in place VS,Fishbone, I+O VS, Fishbone, I+O Laboratory Tests 01/12/19 05:09 Red Blood Count 3.84 L, Mean Corpuscular Volume 92.2, Mean Corpuscular Hemoglobin 29.9, Mean Corpuscular Hemoglobin Concent 32.5, Red Cell Distribution Width 13.7, Neutrophils (%) (Auto) 74.3 H, Lymphocytes (%) (Auto) 12.9 L, Monocytes (%) (Auto) 8.0 H, Eosinophils (%) (Auto) 3.5 H, Basophils (%) (Auto) 0.4, Neutrophils # (Auto) 8.1, Lymphocytes # (Auto) 1.4 L, Monocytes # (Auto) 0.9 H, Eosinophils # (Auto) 0.4, Basophils # (Auto) 0.0, Calcium Level 8.6 L, Aspartate Amino Transf (AST/SGOT) 8, Alanine Aminotransferase (ALT/SGPT) 8 L, Alkaline Phosphatase 78, Total Bilirubin 0.5 #, Total Protein 6.3 L, Albumin 1.7 L Vital Signs Date Time Temp Pulse Resp B/P (MAP) Pulse Ox O2 Delivery O2 Flow Rate FiO2 01/12/19 08:26 68 121/61 01/12/19 06:00 97.6 18 94 01/08/19 14:15 2 I&O- Last 24 Hours up to 6 AM 01/12/19 06:00 Intake Total 1750 ml Output Total 0 ml Balance 1750 ml MAYUR VELA MD Jan 12, 2019 08:38
--- NOTE | 2019-01-12 09:53 | IPNPDOC ---
Subjective General Date/Time Seen The patient was seen on 01/12/19 at 09:52. Subject Chief Complaint/History The patient is a 88-year-old female admitted with a reason for visit of Gastric Outlet Obstruction. Patient seen this morning. Reports feeling just about the same. Denies any abdominal discomfort but does report that she feels full with her meals. She denies any nausea. She's been tried on soft foods. She reports her bowel movements have not been as runny as it was previously. Her right thumb is slightly less swollen today. Current Medications Current Medications Current Medications Medications (Trade) Dose Ordered Sig/Ronaldo Route PRN Reason Start Time Stop Time Status Last Admin Dose Admin Acetaminophen (Tylenol Tab) 650 mg Q6HP PRN PO PAIN / FEVER 01/06/19 18:45 01/10/19 10:11 DC 01/08/19 20:46 Acetaminophen (Tylenol Tab) 650 mg QHS PO 01/10/19 21:00 01/11/19 22:00 Amlodipine Besylate (Norvasc) 5 mg DAILY PO 01/05/19 09:00 01/12/19 08:26 Bisacodyl (Dulcolax Suppository) 10 mg DAILY PRN OK CONSTIPATION 01/08/19 13:45 Colchicine (Colcrys) 0.6 mg BID PO 01/11/19 09:00 01/12/19 08:26 Dextrose/Sodium Chloride 1,000 ml @ 60 mls/hr [id number] IV 01/05/19 09:10 01/05/19 13:47 DC 01/05/19 12:05 Diatrizoate Meglum/ Diatrizoate Sod (Gastrografin) 10 ml Q30M PO 01/09/19 08:30 01/09/19 09:01 DC 01/09/19 09:56 Diphenoxylate HCl/ Atropine (Lomotil 2.5mg/ 0.025mg) 1 ea BID PO 01/08/19 09:00 01/12/19 08:25 Fentanyl Citrate (Sublimaze) 25 mcg Q5MP PRN IV MODERATE PAIN (PS 4-7) 01/08/19 13:45 01/08/19 14:45 DC Fluconazole (Diflucan) 200 mg BID PO 01/11/19 21:00 01/12/19 08:26 Fluconazole 200 mg/IV Miscellaneous Supplies 100 ml @ 100 mls/hr Q24H IV 01/05/19 14:00 01/08/19 07:59 DC 01/07/19 14:54 Fluconazole 400 mg/IV Miscellaneous Supplies 200 ml @ 100 mls/hr Q24H IV 01/05/19 10:45 01/05/19 12:19 DC Heparin Sodium (Porcine) (Heparin) 5,000 units Q12H SQ 01/05/19 21:00 01/12/19 08:26 Home Med (Med Rec Complete!) ASDIRECTED XX 01/05/19 10:30 01/05/19 10:27 DC Lactated Ringer's 1,000 ml @ 100 mls/hr Q10H IV 01/08/19 13:45 01/08/19 13:45 DC Lactobacillus Acidophilus (Bacid) 2 ea BID PO 01/11/19 09:00 01/12/19 08:25 Levothyroxine Sodium (Synthroid) 37.5 mcg DAILY IV 01/06/19 09:00 01/10/19 11:30 DC 01/09/19 08:47 Levothyroxine Sodium (Synthroid) 75 mcg DAILY@06 PO 01/10/19 06:00 01/12/19 05:47 Magnesium Hydroxide (Milk Of Magnesia) 10 ml DAILY PRN PO CONSTIPATION 01/08/19 13:45 01/08/19 14:29 DC Metoclopramide HCl (REGLAN INJection) 5 mg Q8H IV 01/08/19 14:00 01/12/19 05:48 Metoprolol Tartrate (Lopressor) 25 mg BID PO 01/05/19 21:00 01/12/19 08:25 Miscellaneous (Unresolved Clarification Entry) SEE LABEL COMMENTS STAT STAT XX 01/05/19 11:57 01/05/19 11:58 Cancel Multivitamins (Ocuvite(I-Raheel)) 1 tab DAILY PO 01/08/19 14:00 01/12/19 08:25 Ondansetron HCl (ZOFRAN INJection) 4 mg Q4HP PRN IV NAUSEA OR VOMITING 01/08/19 13:45 01/08/19 14:29 DC Pantoprazole Sodium (Protonix) 40 mg Q12H IV 01/05/19 10:45 01/11/19 22:01 Piperacillin Sod/ Tazobactam Sod 2.25 gm/Dextrose 50 ml @ 100 mls/hr Q6H IV 01/05/19 13:00 01/08/19 07:59 DC 01/08/19 00:45 Piperacillin Sod/ Tazobactam Sod 3.375 gm/Dextrose 50 ml @ 50 mls/hr Q6H IV 01/05/19 13:00 01/05/19 12:15 DC Potassium Chloride 10 meq/ IV Miscellaneous Supplies 100 ml @ 100 mls/hr Q1H IV 01/06/19 10:00 01/06/19 11:59 DC 01/06/19 11:14 Potassium Chloride/Dextrose/ Sod Cl 1,000 ml @ 60 mls/hr [id number] IV 01/05/19 14:00 01/11/19 23:44 Vancomycin HCl 750 mg/IV Miscellaneous Supplies 1 each/ Dextrose 275 ml @ 275 mls/hr Q24H IV 01/09/19 06:00 01/12/19 05:48 Allergies Coded Allergies: Tetracyclines (Verified Allergy, Unknown, rash, 12/09/18) codeine (Verified Allergy, Unknown, rash, 12/09/18) Objective Physical Examination Examination Patient looks very comfortable Heart rate and rhythm are regular with no murmurs Lungs sounds are clear to auscultation bilaterally with no wheezing. Good respiratory effort. Abdomen is flat and nondistended. No noticeable tenderness, discomfort on palpation. The drain is putting out more purulent fluid in the tube and in the bag. Vital Signs Vital Signs Date Time Temp Pulse Resp B/P (MAP) Pulse Ox O2 Delivery O2 Flow Rate FiO2 01/12/19 08:26 68 121/61 01/12/19 06:00 97.6 18 94 01/08/19 14:15 2 I&Os I&O- Last 24 Hours up to 6 AM 01/12/19 06:00 Intake Total 1750 ml Output Total 0 ml Balance 1750 ml Laboratory Data Labs 24H Laboratory Tests 2 01/12/19 05:09: Immature Granulocyte % (Auto) 0.9, White Blood Count 10.9H, Red Blood Count 3.84L, Hemoglobin 11.5L, Hematocrit 35.4L, Mean Corpuscular Volume 92.2, Mean Corpuscular Hemoglobin 29.9, Mean Corpuscular Hemoglobin Concent 32.5, Red Cell Distribution Width 13.7, Platelet Count 340, Neutrophils (%) (Auto) 74.3H, Lymphocytes (%) (Auto) 12.9L, Monocytes (%) (Auto) 8.0H, Eosinophils (%) (Auto) 3.5H, Basophils (%) (Auto) 0.4, Neutrophils # (Auto) 8.1, Lymphocytes # (Auto) 1.4L, Monocytes # (Auto) 0.9H, Eosinophils # (Auto) 0.4, Basophils # (Auto) 0.0, Nucleated Red Blood Cells % (auto) 0.0, Anion Gap 7L, Glomerular Filtration Rate > 60.0, Blood Urea Nitrogen 5#L, Creatinine 0.52L, Sodium Level 135L, Potassium Level 4.4, Chloride Level 101, Carbon Dioxide Level 27, Calcium Level 8.6L, Aspartate Amino Transf (AST/SGOT) 8, Alanine Aminotransferase (ALT/SGPT) 8L, Alkaline Phosphatase 78, Total Bilirubin 0.5#, Total Protein 6.3L, Albumin 1.7L, Magnesium Level 1.7L, C-Reactive Protein, Quantitative 4.91H, Albumin/Globulin Ratio 0.37L CBC/BMP Laboratory Tests 01/12/19 05:09 Red Blood Count 3.84 L, Mean Corpuscular Volume 92.2, Mean Corpuscular He moglobin 29.9, Mean Corpuscular Hemoglobin Concent 32.5, Red Cell Distribution Width 13.7, Neutrophils (%) (Auto) 74.3 H, Lymphocytes (%) (Auto) 12.9 L, Monocytes (%) (Auto) 8.0 H, Eosinophils (%) (Auto) 3.5 H, Basophils (%) (Auto) 0.4, Neutrophils # (Auto) 8.1, Lymphocytes # (Auto) 1.4 L, Monocytes # (Auto) 0.9 H, Eosinophils # (Auto) 0.4, Basophils # (Auto) 0.0, Calcium Level 8.6 L, Aspartate Amino Transf (AST/SGOT) 8, Alanine Aminotransferase (ALT/SGPT) 8 L, Alkaline Phosphatase 78, Total Bilirubin 0.5 #, Total Protein 6.3 L, Albumin 1.7 L Microbiology Microbiology 01/05/19 Gram Stain - Final, Complete 01/05/19 Abscess Culture - Final, Complete Staph.aureus Methicillin Resis Lactobacillus Species Corynebacterium Species 01/05/19 Anaerobic Culture - Final, Complete 01/05/19 Blood Culture - Final, Complete NO GROWTH AFTER 5 DAYS 01/05/19 Blood Culture - Final, Complete NO GROWTH AFTER 5 DAYS Impression history of perforated duodenal ulcer s/p lap repair abdominal abscess s/p perc drainage enlarged stomach ?gastric outlet obstruction diarrhea C.dff test is negative. debility She looks well and is not having any abdominal complaints. We will continue to try her on soft diet and see how she does with this over the weekend. I will check for nutrition parameters and next blood draw. Her albumin has gotten upper lobe bit to 1.7. Her leukocytosis is gradually improving. Her CRP still mildly elevated. Plan to do a CT scan of the abdomen and pelvis and Tuesday to reassess the abscess collection. Most likely will continue to need the drainage. Unfortunately she can't be moved back to [facility] has they do not except patients with drains back. I reviewed the ID notes and she has been placed back on Diflucan. I will come back to reassess on Tuesday after the CT. Plan / VTE VTE Prophylaxis Ordered?: Yes FREDDY CA MD Jan 12, 2019 09:53
[2019-01-12] MEDS: PANTOPRAZOLE 40MG INJ (PROTONIX) (C9113) IV SCH ×2 (11:33→21:45)
[2019-01-12 14:00] VITALS: BP 147/69
[2019-01-12] MEDS: KCL 40MEQ IN D5/0.45NS 1000ML 1,000 ML IV SCH (18:10)
--- NOTE | 2019-01-12 21:01 | IPN ---
DATE: 01/12/2019 Therese seems to be doing fairly well today. Her only complaint is decreased appetite and bloating whenever she eats. She only had half her soup and a small piece of peach. No nausea or vomiting. She has had some diarrhea, but that is improving. CT abdomen and pelvis done on January [address] Gallardo. The intra-abdominal collection that was drained has also some air. Some of the collection may not be drained with a catheter that is placed currently, and he recommended that we flush it with 4 mL forcefully of saline and not re-aspirate that saline. That was done at the bedside with the presence of her nurse. Also, we were able to aspirate about 2 mL of pus that will be sent for culture. LABORATORY DATA: White count is 10.9, hemoglobin 11.5, hematocrit 35.4, platelets 340, 74% neutrophils, 13% lymphocytes, 8% monocytes. Sodium 135, potassium 4.4, chloride 101, bicarbonate 27, BUN 5, creatinine 0.52, glucose 92, calcium 8.7. AST 8, ALT 8. CRP 4.91, increased from 3.84 yesterday. Culture from January 05 had methicillin-resistant Staphylococcus aureus (MRSA), Lactobacillus, Corynebacterium. Another culture will be sent today from the 2 mL that was aspirated. PHYSICAL EXAMINATION: Temperature 98 pulse 68, respirations 18, blood pressure 121/61, oxygen saturation 94% on room air. HEART: Normal S1, S2. No murmurs. LUNGS: Clear. No wheezes, rales, or rhonchi. ABDOMEN: Mild tenderness in the right upper quadrant. Laparoscopic surgical scars all healed. Steri-Strips were removed. Right upper quadrant has a drain. There was 2 mL of purulent fluid aspirated, and then 4 mL of saline was flushed forcefully into the tube to try and unclog the pores of the tube. Right upper quadrant has mild erythema under her breast that looks like a cutaneous candidiasis. EXTREMITIES: No clubbing, cyanosis, or edema. Right hip decubitus measuring 2 cm with erythema. No ulcerations. No skin breakdown. Right thumb is erythematous, slightly tender to touch. IMPRESSION: 1. Intra-abdominal abscess, partially drained with the current drain, which was just flushed. The patient is on IV vancomycin, and based on results of January 05 culture and on oral fluconazole based on cultures from previous admission. 2. Pseudogout of the right thumb, on colchicine. Pain has decreased. Could be a reason for her increased CRP as well. 3. History of perforated duodenal ulcer, on pantoprazole 40 IV every 12. Hematocrit has remained stable. PLAN: Continue with IV vancomycin and oral fluconazole. Will send some more purulent drainage from today for culture. MTDD
[2019-01-12] MEDS: ACETAMINOPHEN TAB 650MG DOSE (2X325MG) PO SCH (21:35)
[2019-01-12 22:00] VITALS: BP 144/69
[2019-01-13] MEDS: VANCOMYCIN HCL 750 MG, VIAL MATE ADAPTER 1 EACH in D5W 250 ML IV SCH (05:52)
[2019-01-13] MEDS: LEVOTHYROXINE 75MCG TABLET (0.075MG) PO SCH (05:52)
[2019-01-13] MEDS: METOCLOPRAMIDE INJ 10MG/2ML VIAL (J2765) IV SCH ×3 (05:52→22:06)
[2019-01-13 06:00] VITALS: BP 138/71
[2019-01-13 06:50] LABS: HEMATOCRIT 35.9 % (36.0-47.0); HEMOGLOBIN 11.4 g/dl (12.0-15.5); MEAN CORPUSCULAR HEMOGLOBIN 29.8 pg (27.0-33.0); MEAN CORPUSCULAR HGB CONC 31.8 g/dl (32.0-36.5); PLATELET COUNT, AUTOMATED 357 10^3/uL (150-450); RED BLOOD COUNT 3.82 10^6/uL (4.00-5.40); WHITE BLOOD COUNT 10.1 10^3/uL (4.0-10.0)
[2019-01-13 07:19] LABS: BLOOD UREA NITROGEN 6 MG/DL (7-18); C REACTIVE PROTEIN QUANTITATIV 2.63 MG/DL (0.00-0.30); CALCIUM LEVEL 8.9 MG/DL (8.8-10.2); CARBON DIOXIDE LEVEL 28 MEQ/L (21-32); CHLORIDE LEVEL 102 MEQ/L (98-107); GLOMERULAR FILTRATION RATE > 60.0 (>32); GLUCOSE, FASTING 89 MG/DL (70-100); POTASSIUM SERUM 4.4 MEQ/L (3.5-5.1); PREALBUMIN 10.2 MG/DL (20.0-40.0); SODIUM LEVEL 136 MEQ/L (136-145)
[2019-01-13] MEDS: LACTOBACILLUS ACIDOPHILUS CAP (BACID) PO SCH ×2 (08:43→22:03)
[2019-01-13] MEDS: OCUVITE 1 TAB PO SCH (08:43)
[2019-01-13] MEDS: LOMOTIL 2.5MG/0.025MG TABLET PO SCH ×2 (08:44→22:03)
[2019-01-13] MEDS: COLCHICINE 0.6 MG TAB PO SCH ×2 (08:45→22:04)
[2019-01-13] MEDS: FLUCONAZOLE 100 MG TAB PO SCH ×2 (08:45→22:04)
[2019-01-13] MEDS: PANTOPRAZOLE 40MG INJ (PROTONIX) (C9113) IV SCH ×2 (08:46→22:06)
[2019-01-13] MEDS: HEPARIN SOD (PORCINE) 5000 UNITS/ML VIAL SQ SCH ×2 (08:47→22:03)
[2019-01-13] MEDS: amLODIPine 5 MG TAB PO SCH (09:00)
[2019-01-13] MEDS: METOPROLOL TART 25 MG TABLET PO SCH ×2 (09:00→22:05)
--- NOTE | 2019-01-13 09:00 | IPNPDOC ---
Text Note Date of Service The patient was seen on 01/13/19. NOTE Subjective: -No complaints this morning. -Continues to have some diarrhea, but that is improving and some bloating. Interim events: -Seen by ID, sent cultures of the drained pus -Seen by surgery, ordered for CT A/P on tuesday Objective: Vitals (See below) General: Lying in bed, no acute distress, AOx3 HEENT: NC, AT CVS: RRR, no mrg Lungs: CTAB, no rales or wheezing Abdomen: Normoactive bowel sounds, soft, drainage catheter at right lower quadrant Extremities: WWP, no LE edema, nontender Imaging: - CT abdomen / pelvis 01/04: Multiloculated fluid collections consistent with multiple abscesses in the right upper quadrant. There are small air / gas bubbles within and adjacent to these suspected abscesses. There is a new fluid collection in the right lateral abdominal wall adjacent to the anterior margin of the right iliac wing with a tract extending intraperitoneal toward the intraperitoneal abscess. I suspect this is an abdominal wall abscess. This was not present previously. The stomach is massively dilated with a large air-fluid level, similar to prior study, compatible with gastroparesis. These results are discussed by telephone upon completion of the study with the nurse practitioner, Dakn Hurley NP. - CT ab/pel 01/09: Pigtail drainage catheter in place in the right upper quadrant. Mild residual fluid surrounding the distal end of the catheter, with improvement of the drained fluid collection. Small adjacent loculated areas of fluid are unchanged. There is mild increase in free air in the right upper quadrant compared to the prior CT of 01/04/2019, status post endoscopy 1 day ago. This was discussed with Dr. Osman at the time of the exam. Assessment and plan: 88-year-old woman with A. fib (not on anticoagulation), HTN, Arthritis of bilate ral knees / hips, Chronic constipation, and recent hospitalization in which she was found to have a perforated duodenal ulcer (s/p Laparoscopic bowel resection and repair of two perforated duodenal ulcers) c/b multiple abscesses and possible gastric outlet obstruction, now being drained and on vanco mycin/fluconazole. Multiple abdominal abscesses - Blood cultures 01/05: Negative, Abdominal abscess culture 01/05: MRSA / Lactobacillus species / Corynebacterium species - Repeat imaging via CT scan 10/1 was noted to show free air; radiology has discussed directly with surgery for now to continue with antibiotics and drain - c/w Vancomycin/fluconazole (Day #5); s/p Zosyn - General surgery, Dr. Osman on consultation, appreciate recs - ID consulted, appreciate recs. - f/u drainage culture sent 01/12 Possible gastric outlet obstruction on imaging - possibly 2/2 gastroparesis - Continues to tolerate diet, with loose stools - c/w Protonix IV BID - s/p EGD with Dr. Osman - Gastroparesis; small amount of food residue, gastric mucosal atrophy, one non-bleeding duodenal ulcer with no stigmata of bleeding - c/w Metoclopramide s/p Diarrhea - possibly 2/2 post-obstructive diarrhea, improving - Has been experiencing loose watery stools - C. difficile PCR 01/08: Negative - c/w Gentle IV fluid hydration - c/w Lomotil A. fib - c/w rate control with metoprolol - Patient is currently not on anticoagulation HTN - Blood pressures to be within normal range - c/w amlodipine and metoprolol with holding parameters Hypothyroidism - c/w Levothyroxine IV Arthritis of bilateral knees / hips - c/w Tylenol PRN Gastrointestinal prophylaxis - c/w Protonix DVT prophylaxis - c/w Heparin Disposition: - Pending clinical improvement - Unable to return to [facility] with drain in place VS,Duy, I+O VS, Ana Rosae, I+O Laboratory Tests 01/13/19 05:19 Red Blood Count 3.82 L, Mean Corpuscular Volume 94.0, Mean Corpuscular Hemoglobin 29.8, Mean Corpuscular Hemoglobin Concent 31.8 L, Red Cell Distribution Width 13.6, Calcium Level 8.9 Vital Signs Date Time Temp Pulse Resp B/P (MAP) Pulse Ox O2 Delivery O2 Flow Rate FiO2 01/13/19 06:00 97.6 78 16 138/71 (93) 98 01/08/19 14:15 2 I&O- Last 24 Hours up to 6 AM 01/13/19 05:59 Intake Total 1925 ml Output Total 0 ml Balance 1925 ml MAYUR VELA MD Jan 13, 2019 09:00
[2019-01-13] MEDS: KCL 40MEQ IN D5/0.45NS 1000ML 1,000 ML IV SCH (13:45)
[2019-01-13 14:00] VITALS: BP 121/68
--- NOTE | 2019-01-13 17:26 | IPN ---
DATE: 01/13/2019 HISTORY: Patient is an 88-year-old woman who had undergone surgery for a perforated duodenal ulcer. This was repaired laparoscopically back in early December. She was subsequently transferred to the [facility] for subacute rehabilitation but was admitted back to [facility] on January [address] scan revealed some gastric distension and a suggestion of possible recurrent abscesses in the right upper quadrant. She had a drain placed percutaneously on January 05 and underwent an endoscopy by Dr. Osman on January 08. This showed no evidence of gastric outlet obstruction. She did have a small ulcer noted in the duodenum with no evidence of bleeding. She had some retained food in the stomach, suggesting some degree of gastroparesis. Vital signs show that she has been afebrile over the past 24 hours. Her pulse is in the 60s to 80. Blood pressure is good. Intake and output show that yesterday she had 1925 in. She had some output which was not quantitated. She had three incontinent voids noted and several bowel movements recorded. PHYSICAL EXAMINATION: The patient appears quite weak. She is alert and responsive to questions and appropriate. Her daughter is in visiting her right now. Heart exam shows a regular rate and rhythm. The lungs are clear. The abdomen is flat to mildly full. She has bowel sounds present. She has a drain exiting the right lateral abdomen, and the tubing has a small amount of turbid-yellowish fluid. The abdomen is without significant tenderness to palpation. Laboratory studies today show a white count of 10, hemoglobin of 11, hematocrit of 36, and platelet count of 357,000. Her chemistry profile today shows normal electrolytes with BUN of 6, creatinine 0.5, and a glucose of 89. Her C-reactive protein today was 2.63 and a prealbumin was 10.2, which is significantly below the normal range. IMPRESSION: The patient is stable. Her oral intake seems to be quite limited. Her daughter indicates that she had perhaps 8 ounces combined of several fluids at her most recent meal. The patient's white count is stable and her C-reactive protein (CRP) is down slightly. PLAN: I will continue the patient on her current medications. She is already scheduled for a repeat CT scan on Tuesday, January 15. I will order a calorie count just to try to quantitate her intake. If she is not taking adequate calories, then initiation of some sort of intravenous nutrition may be appropriate. [facility]
[2019-01-13 18:42] LABS: AMYLASE 50 U/L (25-115); LIPASE 192 U/L (73-393)
[2019-01-13 22:00] VITALS: BP 124/82
[2019-01-13] MEDS: ACETAMINOPHEN TAB 650MG DOSE (2X325MG) PO SCH (22:03)
[2019-01-14 05:11] LABS: HEMATOCRIT 37.1 % (36.0-47.0); MEAN CORPUSCULAR HEMOGLOBIN 30.3 pg (27.0-33.0); MEAN CORPUSCULAR HGB CONC 32.3 g/dl (32.0-36.5); MEAN CORPUSCULAR VOLUME 93.7 fl (80.0-96.0); PLATELET COUNT, AUTOMATED 372 10^3/uL (150-450); RED BLOOD COUNT 3.96 10^6/uL (4.00-5.40); WHITE BLOOD COUNT 10.2 10^3/uL (4.0-10.0)
[2019-01-14 05:41] LABS: BLOOD UREA NITROGEN 6 MG/DL (7-18); C REACTIVE PROTEIN QUANTITATIV 1.92 MG/DL (0.00-0.30); CALCIUM LEVEL 8.8 MG/DL (8.8-10.2); CARBON DIOXIDE LEVEL 28 MEQ/L (21-32); CHLORIDE LEVEL 101 MEQ/L (98-107); CREATININE FOR GFR 0.52 MG/DL (0.55-1.30); GLOMERULAR FILTRATION RATE > 60.0 (>32); GLUCOSE, FASTING 92 MG/DL (70-100); POTASSIUM SERUM 4.8 MEQ/L (3.5-5.1); SODIUM LEVEL 136 MEQ/L (136-145); VANCOMYCIN LEVEL TROUGH 6.7 UG/ML (10.0-20.0)
[2019-01-14 06:00] VITALS: BP 115/57
[2019-01-14] MEDS: LEVOTHYROXINE 75MCG TABLET (0.075MG) PO SCH (06:03)
[2019-01-14] MEDS: METOCLOPRAMIDE INJ 10MG/2ML VIAL (J2765) IV SCH (06:03)
[2019-01-14] MEDS: KCL 40MEQ IN D5/0.45NS 1000ML 1,000 ML IV SCH (06:03)
[2019-01-14] MEDS: VANCOMYCIN HCL 750 MG, VIAL MATE ADAPTER 1 EACH in D5W 250 ML IV SCH ×2 (06:08→17:41)
--- NOTE | 2019-01-14 06:09 | PHACANCOPD ---
PHARMACY VANCOMYCIN DOSING Pt Demographics Demographics Patient Age:88 , Weight:49.000 , Gender: female Adjusted Body Weight Date: 01/08/19, Adjusted Body Weight: Kg Vancomycin Vancomycin Target Ranges: 10-20 mcg/ml Vancomycin Load Y/N: Yes Load Dose Date Time Vancomycin Load Dose: 1000mg Date: 01-08 Time: 0600 Vancomycin Dose Date: 01/08/19. Current Vancomycin Dose: [750mg q12H Intermittent Dosing?: No Labs Micro Microbiology 01/12/19 Gram Stain - Final, Resulted 01/12/19 Wound Culture - Final, Resulted Staph.aureus Methicillin Resis 01/12/19 Anaerobic Culture, Resulted Pending 01/05/19 Gram Stain - Final, Complete 01/05/19 Abscess Culture - Final, Complete Staph.aureus Methicillin Resis Lactobacillus Species Corynebacterium Species 01/05/19 Anaerobic Culture - Final, Complete 01/05/19 Blood Culture - Final, Complete NO GROWTH AFTER 5 DAYS 01/05/19 Blood Culture - Final, Complete NO GROWTH AFTER 5 DAYS Creatinine Clearance Date:01/08/19. Creatinine Clearance: [~40]. Assessment and Plan Maintaining Current Dose?: Yes Reason for dose change: Trough too low Pharmacist Note Pharmacist Note Date: 01/14/19. Pharmacist note:Vancomycin trough drawn this morning@ 4:59 reported as 6.7-Will change regimen to Vancomycin 750mg iv [id number] monitor closely for accumulation Date: 01/11/19. Pharmacist note:Vancomycin trough drawn this morning@5:17 reported as 12.0(goal=10-20) Patient SCR=0.48. Will continue current regimen of Vancomycin 750mg IV [id number].-will continue to follow Date: 01/10/19. Pharmacist note:Vancomycin trough drawn this morning@5:16 reported as 5.9 (goal=10-20)Do not wish to increase her dose at this time D/T age/weight so will give an additional 750mg @ 1800 today ,then will maintain the previous Q24 regimen- will continue to follow. Date: 01/08/19. Pharmacist note:Will continue to monitor and make adjustments as needed. FABIANA SMITH [facility]ARMAC[facility] Jan 14, 2019 06:09
[2019-01-14] MEDS: LACTOBACILLUS ACIDOPHILUS CAP (BACID) PO SCH ×2 (08:54→20:57)
[2019-01-14] MEDS: FLUCONAZOLE 100 MG TAB PO SCH ×2 (08:55→20:58)
[2019-01-14] MEDS: PANTOPRAZOLE 40MG INJ (PROTONIX) (C9113) IV SCH ×2 (08:55→20:57)
[2019-01-14] MEDS: LOMOTIL 2.5MG/0.025MG TABLET PO SCH ×3 (08:55→21:02)
[2019-01-14] MEDS: OCUVITE 1 TAB PO SCH (08:55)
[2019-01-14] MEDS: HEPARIN SOD (PORCINE) 5000 UNITS/ML VIAL SQ SCH ×2 (08:55→20:57)
[2019-01-14] MEDS: COLCHICINE 0.6 MG TAB PO SCH ×2 (08:56→20:59)
[2019-01-14] MEDS: amLODIPine 5 MG TAB PO SCH (09:00)
[2019-01-14] MEDS: METOPROLOL TART 25 MG TABLET PO SCH ×2 (09:00→20:59)
--- NOTE | 2019-01-14 13:01 | IPNPDOC ---
Text Note Date of Service The patient was seen on 01/14/19. NOTE Subjective: No any acute events overnight. Patient complains of poor appetite. Patient denies fever, chills, nausea, vomiting, palpitations, shortness of breath. Objective: Vitals (See below) General: no acute distress HEENT: NC, AT, PERRLA CVS: RRR, no mrg Lungs: CTAB, no rales or wheezing Abdomen: Normoactive bowel sounds, soft, drainage catheter at right lower quadrant Extremities: no LE edema, nontender Assessment and plan: 88-year-old woman with A. fib (not on anticoagulation), HTN, Arthritis of bilateral knees / hips, Chronic constipation, and recent hospitalization in which she was found to have a perforated duodenal ulcer (s/p Laparoscopic bowel resection and repair of two perforated duodenal ulcers) c/b multiple abscesses now being drained and on vancomycin/fluconazole. Culture from abscesses showed MRSA, Lactobacillus species, Corynebacterium species Multiple abdominal abscesses Abdominal abscess culture 01/05: MRSA / Lactobacillus species / Corynebacterium species Abdominal abscess culture from 07/19/18 showed MRSA - Repeat imaging via CT scan 01/09 was noted to show free air; radiology has discussed directly with surgery for now to continue with antibiotics and drain - c/w Vancomycin/fluconazole (Day #7); s/p Zosyn - General surgery, Dr. Osman on consultation, appreciate recs - ID consulted, Dr. Rowley follows patient Possible gastric outlet obstruction on imaging - possibly 2/2 gastroparesis - Continues to tolerate diet, with loose stools - c/w Protonix IV BID - s/p EGD with Dr. Osman - Gastroparesis; small amount of food residue, gastric mucosal atrophy, one non-bleeding duodenal ulcer with no stigmata of bleeding - c/w Metoclopramide s/p Diarrhea - possibly 2/2 post-obstructive diarrhea - Has been experiencing loose watery stools - C. difficile PCR 01/08: Negative - c/w Gentle IV fluid hydration - c/w Lomotil A. fib - c/w rate control with metoprolol - Patient is currently not on anticoagulation -We will discuss anticoagulation with surgical team HTN - Blood pressures to be within normal range - c/w amlodipine and metoprolol with holding parameters Hypothyroidism - c/w Levothyroxine IV Arthritis of bilateral knees / hips - c/w Tylenol PRN Gastrointestinal prophylaxis - c/w Protonix - Pseudogout of the right thumb pain resolved History of perforated duodenal ulcer, on pantoprazole 40 IV every 12. Hematocrit has remained stable. DVT prophylaxis - c/w Heparin Disposition: - Pending clinical improvement - Unable to return to [facility] with drain in place VS,Fishbone, I+O VS, Fishbone, I+O Laboratory Tests 01/14/19 04:59 Red Blood Count 3.96 L, Mean Corpuscular Volume 93.7, Mean Corpuscular Hemoglobin 30.3, Mean Corpuscular Hemoglobin Concent 32.3, Red Cell Distribution Width 13.8, Calcium Level 8.8 Vital Signs Date Time Temp Pulse Resp B/P (MAP) Pulse Ox O2 Delivery O2 Flow Rate FiO2 01/14/19 09:00 74 112/60 01/14/19 06:00 98.2 16 94 01/08/19 14:15 2 I&O- Last 24 Hours up to 6 AM 01/14/19 06:00 Intake Total 1740 ml Output Total 75 ml Balance 1665 ml TREY RUTLEDGE DO Jan 14, 2019 13:01
[2019-01-14 14:00] VITALS: BP 118/62
--- NOTE | 2019-01-14 16:33 | IPN ---
DATE: 01/14/2019 HISTORY: Patient had undergone repair of a perforated ulcer 3-4 weeks ago. She subsequently developed a fluid collection in the right upper quadrant that was drained. She initially did well, but then returned to the hospital with evidence for some gastric distension and a possible recurrent abscess in the right upper quadrant. A new drain was placed on 01/05/2019. She has been slow to progress her diet. She continues to feel full with little intake. I do note that she had improved her fluid intake yesterday. Her daughter reports that she has been sticking with a liquid diet because taking the soft diet gave her more discomfort. Vital signs show that she has been afebrile. Her pulse is in the 65-90 range generally. Her blood pressure is normal. Room air oxygen saturation is normal. Intake and output show that yesterday she had 1140 of oral intake with another 720 of intravenous (IV) recorded. She had several bowel movements and some incontinent voids recorded. Her drain put out 25 mL yesterday. PHYSICAL EXAMINATION: Patient is sitting up in a chair at the bedside with family in attendance. She appears fairly comfortable, but tired. Abdomen is nondistended. The drain is in place. Laboratory studies today show a white count of 10, hemoglobin is 12, with a hematocrit of 37 and a platelet count is 372,000. Chemistry profile showed normal electrolytes, with a BUN of 6, creatinine 0.5 and a glucose of 92. Her C-reactive protein, which I had cancelled, but the hospitalist reordered was 1.9. Her vancomycin trough level early this morning was slightly low at 6.7. A repeat abdominal culture from 01/12/2019 revealed Staphylococcus aureus methicillin-resistant. This was sensitive to vancomycin, which has been continued. IMPRESSION: Patient is making, I think, some slow progress. Her dietary intake appears to be slightly improved. Her white count remains stable. She is on appropriate antibiotic coverage for her methicillin-resistant Staphylococcus aureus (MRSA). PLAN: I had discussed with the patient and her family her caloric needs. I advised her that she should endeavor to take at least four cartons of regular Ensure, which would get her 1000 calories and then anything she can take beyond that certainly is fair game. I encouraged the Ensure for its better nutritional properties then water or Jello or broth, for instance. She appears to understand the need for these changes. We will continue to follow her drain output. She is scheduled for a follow-up CT scan ordered by Dr. Osman for tomorrow. REGINE
[2019-01-14] MEDS: ACETAMINOPHEN TAB 650MG DOSE (2X325MG) PO SCH (20:57)
[2019-01-14 22:00] VITALS: BP 132/75
[2019-01-15] MEDS: LEVOTHYROXINE 75MCG TABLET (0.075MG) PO SCH (04:47)
[2019-01-15] MEDS: VANCOMYCIN HCL 750 MG, VIAL MATE ADAPTER 1 EACH in D5W 250 ML IV SCH ×2 (05:59→17:38)
[2019-01-15 06:00] VITALS: BP 124/62
[2019-01-15 06:08] LABS: HEMATOCRIT 37.3 % (36.0-47.0); HEMOGLOBIN 11.8 g/dl (12.0-15.5); MEAN CORPUSCULAR HEMOGLOBIN 29.6 pg (27.0-33.0); MEAN CORPUSCULAR HGB CONC 31.6 g/dl (32.0-36.5); MEAN CORPUSCULAR VOLUME 93.5 fl (80.0-96.0); PLATELET COUNT, AUTOMATED 387 10^3/uL (150-450); RED BLOOD COUNT 3.99 10^6/uL (4.00-5.40); WHITE BLOOD COUNT 12.1 10^3/uL (4.0-10.0)
[2019-01-15] MEDS: GASTROGRAFIN SOLUTION 30ML PO SCH ×2 (06:27→06:56)
[2019-01-15 06:38] LABS: BLOOD UREA NITROGEN 9 MG/DL (7-18); C REACTIVE PROTEIN QUANTITATIV 1.38 MG/DL (0.00-0.30); CALCIUM LEVEL 9.1 MG/DL (8.8-10.2); CARBON DIOXIDE LEVEL 29 MEQ/L (21-32); CHLORIDE LEVEL 98 MEQ/L (98-107); CREATININE FOR GFR 0.57 MG/DL (0.55-1.30); GLOMERULAR FILTRATION RATE > 60.0 (>32); GLUCOSE, FASTING 82 MG/DL (70-100); POTASSIUM SERUM 4.3 MEQ/L (3.5-5.1); SODIUM LEVEL 134 MEQ/L (136-145)
[2019-01-15] MEDS ORDERED: ISOVUE-370 76% 100ML VIAL (Q9967) As Ordered ONE (08:59)
[2019-01-15] MEDS: HEPARIN SOD (PORCINE) 5000 UNITS/ML VIAL SQ SCH ×2 (09:37→21:52)
[2019-01-15] MEDS: LACTOBACILLUS ACIDOPHILUS CAP (BACID) PO SCH (09:37)
[2019-01-15] MEDS: PANTOPRAZOLE 40MG INJ (PROTONIX) (C9113) IV SCH ×2 (09:37→21:52)
[2019-01-15] MEDS: OCUVITE 1 TAB PO SCH (09:37)
[2019-01-15] MEDS: COLCHICINE 0.6 MG TAB PO SCH (09:38)
[2019-01-15] MEDS: LOMOTIL 2.5MG/0.025MG TABLET PO SCH ×3 (09:38→21:51)
[2019-01-15] MEDS: FLUCONAZOLE 100 MG TAB PO SCH ×2 (09:38→21:51)
[2019-01-15] MEDS: amLODIPine 5 MG TAB PO SCH (09:39)
[2019-01-15] MEDS: METOPROLOL TART 25 MG TABLET PO SCH ×2 (09:40→21:51)
--- NOTE | 2019-01-15 12:41 | REP ---
CT of the abdomen and pelvis with IV and oral contrast: Comparison is 01/09/2019. There is a pigtail drainage catheter on the right with the tip in the sub hepatic area, unchanged. The focal fluid collection at the tip of the pigtail catheter has decreased in size. Immediately adjacent to the pigtail catheter in the subhepatic space are multiple other small loculated fluid collections, not significantly changed. There is phlegmon within this entire area containing the loculated fluid collections and pigtail catheter. This is unchanged. The small pneumoperitoneum is unchanged. The lymph nodes identified previously inferior to the stomach are unchanged. The hepatic parenchyma is homogeneous. There is mild gallbladder wall thickening in the body and fundus. This is unchanged. The pancreas, spleen, adrenals, kidneys and abdominal aorta are unremarkable. The bowel loops and mesentery are otherwise unremarkable. In the pelvis. There is no free fluid. The uterus, adnexa and bladder are unchanged. 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 Impression: The small focal fluid collection at the tip of the pigtail pleural drainage catheter in the subhepatic space has decreased in size and has almost resolved. The small loculated fluid collections and phlegmon in the sub hepatic space are unchanged. The small pneumoperitoneum is unchanged. The lymph nodes inferior to the stomach are unchanged. Electronically Signed by Destin Mckeon MD 01/15/2019 12:32 P
--- NOTE | 2019-01-15 13:23 | IPNPDOC ---
Subjective General Date/Time Seen The patient was seen on 01/15/19 at 13:17. Subject Chief Complaint/History Weekend course discussed with the patient and her daughter who was at the bedside. She has not really progressed well in terms of her oral intake and she complains that she feels full with small oral intake. She is not having any future febrile episodes. The drain that we placed has only minimal output. Repeat cultures shows the same organisms with yeast growth. She has made some improvement in terms of her physical performance with physical therapy. Current Medications Current Medications Current Medications Medications (Trade) Dose Ordered Sig/Ronaldo Route PRN Reason Start Time Stop Time Status Last Admin Dose Admin Acetaminophen (Tylenol Tab) 650 mg Q6HP PRN PO PAIN / FEVER 01/06/19 18:45 01/10/19 10:11 DC 01/08/19 20:46 Acetaminophen (Tylenol Tab) 650 mg QHS PO 01/10/19 21:00 01/14/19 20:57 Amlodipine Besylate (Norvasc) 5 mg DAILY PO 01/05/19 09:00 01/15/19 09:39 Bisacodyl (Dulcolax Suppository) 10 mg DAILY PRN [place] CONSTIPATION 01/08/19 13:45 Colchicine (Colcrys) 0.6 mg BID PO 01/11/19 09:00 01/15/19 09:38 Dextrose/Sodium Chloride 1,000 ml @ 60 mls/hr [id number] IV 01/05/19 09:10 01/05/19 13:47 DC 01/05/19 12:05 Diatrizoate Meglum/ Diatrizoate Sod (Gastrografin) 10 ml Q30M PO 01/09/19 08:30 01/09/19 09:01 DC 01/09/19 09:56 Diatrizoate Meglum/ Diatrizoate Sod (Gastrografin) 10 ml Q30M PO 01/15/19 06:30 01/15/19 07:01 DC 01/15/19 06:56 Diphenoxylate HCl/ Atropine (Lomotil 2.5mg/ 0.025mg) 1 ea BID PO 01/08/19 09:00 01/14/19 13:15 DC 01/14/19 08:55 Diphenoxylate HCl/ Atropine (Lomotil 2.5mg/ 0.025mg) 1 ea TID PO 01/14/19 14:00 01/15/19 09:38 Fentanyl Citrate (Sublimaze) 25 mcg Q5MP PRN IV MODERATE PAIN (PS 4-7) 01/08/19 13:45 01/08/19 14:45 DC Fluconazole (Diflucan) 200 mg BID PO 01/11/19 21:00 01/15/19 09:38 Fluconazole 200 mg/IV Miscellaneous Supplies 100 ml @ 100 mls/hr Q24H IV 01/05/19 14:00 01/08/19 07:59 DC 01/07/19 14:54 Fluconazole 400 mg/IV Miscellaneous Supplies 200 ml @ 100 mls/hr Q24H IV 01/05/19 10:45 01/05/19 12:19 DC Heparin Sodium (Porcine) (Heparin) 5,000 units Q12H SQ 01/05/19 21:00 01/15/19 09:37 Home Med (Med Rec Complete!) ASDIRECTED XX 01/05/19 10:30 01/05/19 10:27 DC Lactated Ringer's 1,000 ml @ 100 mls/hr Q10H IV 01/08/19 13:45 01/08/19 13:45 DC Lactobacillus Acidophilus (Bacid) 2 ea BID PO 01/11/19 09:00 01/15/19 09:37 Levothyroxine Sodium (Synthroid) 37.5 mcg DAILY IV 01/06/19 09:00 01/10/19 11:30 DC 01/09/19 08:47 Levothyroxine Sodium (Synthroid) 75 mcg DAILY@06 PO 01/10/19 06:00 01/14/19 06:03 Magnesium Hydroxide (Milk Of Magnesia) 10 ml DAILY PRN PO CONSTIPATION 01/08/19 13:45 01/08/19 14:29 DC Metoclopramide HCl (REGLAN INJection) 5 mg Q8H IV 01/08/19 14:00 Hold 01/14/19 06:03 Metoprolol Tartrate (Lopressor) 25 mg BID PO 01/05/19 21:00 01/15/19 09:40 Miscellaneous (Unresolved Clarification Entry) SEE LABEL COMMENTS DAILY XX 01/14/19 09:00 01/14/19 10:53 DC Miscellaneous (Unresolved Clarification Entry) SEE LABEL COMMENTS STAT STAT XX 01/05/19 11:57 01/05/19 11:58 Cancel Multivitamins (Ocuvite(I-Raheel)) 1 tab DAILY PO 01/08/19 14:00 01/15/19 09:37 Ondansetron HCl (ZOFRAN INJection) 4 mg Q4HP PRN IV NAUSEA OR VOMITING 01/08/19 13:45 01/08/19 14:29 DC Pantoprazole Sodium (Protonix) 40 mg Q12H IV 01/05/19 10:45 01/13/19 08:13 DC 01/12/19 21:45 Pantoprazole Sodium (Protonix) 40 mg Q12H IV 01/13/19 09:00 01/15/19 09:37 Piperacillin Sod/ Tazobactam Sod 2.25 gm/Dextrose 50 ml @ 100 mls/hr Q6H IV 01/05/19 13:00 01/08/19 07:59 DC 01/08/19 00:45 Piperacillin Sod/ Tazobactam Sod 3.375 gm/Dextrose 50 ml @ 50 mls/hr Q6H IV 01/05/19 13:00 01/05/19 12:15 DC Potassium Chloride 10 meq/ IV Miscellaneous Supplies 100 ml @ 100 mls/hr Q1H IV 01/06/19 10:00 01/06/19 11:59 DC 01/06/19 11:14 Potassium Chloride/Dextrose/ Sod Cl 1,000 ml @ 60 mls/hr [id number] IV 01/05/19 14:00 01/14/19 07:44 DC 01/14/19 06:03 Vancomycin HCl 750 mg/IV Miscellaneous Supplies 1 each/ Dextrose 275 ml @ 275 mls/hr Q12H IV 01/14/19 18:00 01/15/19 05:59 Vancomycin HCl 750 mg/IV Miscellaneous Supplies 1 each/ Dextrose 275 ml @ 275 mls/hr Q24H IV 01/09/19 06:00 01/14/19 09:00 DC 01/14/19 06:08 Allergies Coded Allergies: Tetracyclines (Verified Allergy, Unknown, rash, 12/09/18) codeine (Verified Allergy, Unknown, rash, 12/09/18) Objective Physical Examination Examination Patient seen sitting up on the chair and was working with her daughter with her lunch. She has finished a small amount of the prostate in the [place] and small amount of Jell-O and not much else. She looks comfortable. She looks mildly pale in appearance. Her lungs sounds are clear to auscultation bilaterally. She has regular heart rate and rhythm Her abdomen is slightly more protuberant on the upper abdomen, mildly distended and slightly tympanitic to percussion with no tenderness on palpation. Her right side drain has some purulent fluid draining into the drain and the bag. No lower extremity edema. Vital Signs Vital Signs Date Time Temp Pulse Resp B/P (MAP) Pulse Ox O2 Delivery O2 Flow Rate FiO2 01/15/19 09:40 81 120/61 01/15/19 06:00 97.8 15 93 I&Os I&O- Last 24 Hours up to 6 AM 01/15/19 06:00 Intake Total 815 ml Balance 815 ml Laboratory Data Labs 24H Laboratory Tests 2 01/15/19 05:25: Nucleated Red Blood Cells % (auto) 0.0, Anion Gap 7L, Glomerular Filtration Rate > 60.0, Blood Urea Nitrogen 9, Creatinine 0.57, Sodium Level 134L, Potassium Level 4.3, Chloride Level 98, Carbon Dioxide Level 29, Calcium Level 9.1, C- Reactive Protein, Quantitative 1.38H CBC/BMP Laboratory Tests 01/15/19 05:25 Red Blood Count 3.99 L, Mean Corpuscular Volume 93.5, Mean Corpuscular Hemoglobin 29.6, Mean Corpuscular Hemoglobin Concent 31.6 L, Red Cell Distribution Width 14.0, Calcium Level 9.1 Microbiology Microbiology 01/12/19 Gram Stain - Final, Resulted 01/12/19 Wound Culture - Preliminary, Resulted Staph.aureus Methicillin Resis Yeast Like Organism 01/12/19 Anaerobic Culture - Final, Resulted 01/05/19 Gram Stain - Final, Complete 01/05/19 Abscess Culture - Final, Complete Staph.aureus Methicillin Resis Lactobacillus Species Corynebacterium Species 01/05/19 Anaerobic Culture - Final, Complete 01/05/19 Blood Culture - Final, Complete NO GROWTH AFTER 5 DAYS 01/05/19 Blood Culture - Final, Complete NO GROWTH AFTER 5 DAYS Impression history of perforated duodenal ulcer s/p lap repair (12/09/2018) abdominal abscess s/p perc drainage enlarged stomach ?gastric outlet obstruction vs gastroparesis diarrhea C.dff test is negative. debility I reviewed the CT findings with her. This is not officially read yet. Likewise we discussed about her state of depression and how she is progressing and not progressing through this admission. There continues to be an area over the right upper quadrant area with signs of inflammation which has not improved 6 weeks after the original surgery. I think there is also a possibility of a low-grade leak at the site of the duodenal ulcer perforation as there is still some extraluminal air at this area. Also after the endoscopy last week there is some slight increase of air around the area on the repeat CT last week. I don't know if this has progressed to a low-grade fistula that may be feeding into the abscess pocket. She certainly still has some small amounts of multiloculated abscess on the right upper quadrant area that has not fully resolved with percutaneous drainage. Thus I propose: Back to the operating room, to try diagnostic laparoscopy, laparoscopic drainage of the abscess and possibly redoing the duodenal ulcer repair. Also at that time I suggest placing a gastrojejunostomy tube that will allow for gastric drainage and post pyloric feeding be in the area of the ulcer to deal with her malnutrition. Tentatively she will be scheduled for Tuesday. Plan / VTE VTE Prophylaxis Ordered?: Yes FREDDY CA MD Jan 15, 2019 13:23
--- NOTE | 2019-01-15 13:41 | IPNPDOC ---
Text Note Date of Service The patient was seen on 01/15/19. NOTE Subjective: No any acute events overnight. Patient continues to complain of poor appetite. Patient denies fever, chills, nausea, vomiting, palpitations, shortness of breath. Objective: Vitals (See below) General: no acute distress HEENT: NC, AT, PERRLA CVS: RRR, no mrg Lungs: CTAB, no rales or wheezing Abdomen: Normoactive bowel sounds, soft, drainage catheter at right lower quadrant Extremities: no LE edema, nontender CT of the abdomen and pelvis with IV and oral contrast: Comparison is 01/09/2019. There is a pigtail drainage catheter on the right with the tip in the sub hepatic area, unchanged. The focal fluid collection at the tip of the pigtail catheter has decreased in size. Immediately adjacent to the pigtail catheter in the subhepatic space are multiple other small loculated fluid collections, not significantly changed. There is phlegmon within this entire area containing the loculated fluid collections and pigtail catheter. This is unchanged. The small pneumoperitoneum is unchanged. The lymph nodes identified previously inferior to the stomach are unchanged. The hepatic parenchyma is homogeneous. There is mild gallbladder wall thickening in the body and fundus. This is unchanged. The pancreas, spleen, adrenals, kidneys and abdominal aorta are unremarkable. The bowel loops and mesentery are otherwise unremarkable. In the pelvis. There is no free fluid. The uterus, adnexa and bladder are unchanged. 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 Impression: The small focal fluid collection at the tip of the pigtail pleural drainage catheter in the subhepatic space has decreased in size and has almost resolved. The small loculated fluid collections and phlegmon in the sub hepatic space are unchanged. The small pneumoperitoneum is unchanged. The lymph nodes inferior to the stomach are unchanged. Assessment and plan: 88-year-old woman with A. fib (not on anticoagulation), HTN, Arthritis of bilateral knees / hips, Chronic constipation, and recent hospitalization in which she was found to have a perforated duodenal ulcer (s/p Laparoscopic bowel resection and repair of two perforated duodenal ulcers) c/b multiple abscesses now being drained and on vancomycin/fluconazole. Culture from abscesses showed MRSA, Lactobacillus species, Corynebacterium species Multiple abdominal abscesses Abdominal abscess culture 01/05: MRSA / Lactobacillus species / Corynebacterium species Abdominal abscess culture from 07/19/18 showed MRSA - Repeat imaging via CT scan 01/09 was noted to show free air; radiology has discussed directly with surgery for now to continue with antibiotics and drain - c/w Vancomycin/fluconazole (Day #7); s/p Zosyn - General surgery, Dr. Osman recommended diagnostic laparoscopy, laparoscopic drainage of the abscess and possibly redoing the duodenal ulcer repair. There is concern for some small amounts of multiloculated abscess on the right upper quadrant area that has not fully resolved with percutaneous drainage - ID consulted, Dr. Rowley follows patient Possible gastric outlet obstruction on imaging - possibly 2/2 gastroparesis - Continues to tolerate diet, with loose stools - c/w Protonix IV BID - s/p EGD with Dr. Osman - Gastroparesis; small amount of food residue, gastric mucosal atrophy, one non-bleeding duodenal ulcer with no stigmata of bleeding s/p Diarrhea - possibly 2/2 post-obstructive diarrhea - Has been experiencing loose watery stools - C. difficile PCR 01/08: Negative - c/w Gentle IV fluid hydration - c/w Lomotil -Metoclopramide on hold due to diarrhea A. fib - c/w rate control with metoprolol - Patient is currently not on anticoagulation -We will discuss anticoagulation with surgical team HTN - Blood pressures to be within normal range - c/w amlodipine and metoprolol with holding parameters Hypothyroidism - c/w Levothyroxine IV Arthritis of bilateral knees / hips - c/w Tylenol PRN Gastrointestinal prophylaxis - c/w Protonix - Pseudogout of the right thumb pain resolved History of perforated duodenal ulcer, on pantoprazole 40 IV every 12. Hematocrit has remained stable. DVT prophylaxis - c/w Heparin Disposition: - Pending clinical improvement - Unable to return to [facility] with drain in place VS,Fanbone, I+O VS, Fishbone, I+O Laboratory Tests 01/15/19 05:25 Red Blood Count 3.99 L, Mean Corpuscular Volume 93.5, Mean Corpuscular Hemoglobin 29.6, Mean Corpuscular Hemoglobin Concent 31.6 L, Red Cell Distribution Width 14.0, Calcium Level 9.1 Vital Signs Date Time Temp Pulse Resp B/P (MAP) Pulse Ox O2 Delivery O2 Flow Rate FiO2 01/15/19 09:40 81 120/61 01/15/19 06:00 97.8 15 93 I&O- Last 24 Hours up to 6 AM 01/15/19 05:59 Intake Total 1175 ml Balance 1175 ml TREY RUTLEDGE DO Jan 15, 2019 13:41
[2019-01-15 14:00] VITALS: BP 135/60
[2019-01-15] MEDS: METOCLOPRAMIDE INJ 10MG/2ML VIAL (J2765) IV SCH ×3 (14:34→21:52)
--- NOTE | 2019-01-15 18:27 | IPN ---
DATE: 01/15/2019 Ms. Summers complains of decreased appetite. She has not been eating very well but she was able to get out of bed and walk 100 feet today which is better than she has walked in the past three days. She has diarrhea for the past four days but also she was started on colchicine for pseudogout. Her finger does not hurt her anymore but she is still on colchicine. She has had no vomiting. She only ate a couple of bites of soup and a quarter of a cup of Ensure for lunch. She is afebrile. LABORATORY DATA: White count is 12.1, hemoglobin 11.8, hematocrit 37.3, platelets 387. Sodium 134, potassium 4.3, chloride 98, bicarbonate 29, BUN 9, creatinine 0.57, glucose 82, calcium 9.1, CRP 1.38 down from 4.91. Wound culture had MRSA and yeast-like organism on 01/12/2019. IMAGING STUDIES: CT abdomen and pelvis shows a small fluid collection at the tip of the pigtail pleural drainage catheter has decreased in size and almost completely resolved. The small loculated collection in the sup-hepatic area is unchanged and the small pneumoperitoneum is unchanged as well. PHYSICAL EXAMINATION: Temperature is 97.2, pulse 90, respirations 16, blood pressure 135/60, oxygen saturation 99% on room air. HEART: Normal S1, S2. No murmurs. LUNGS: Clear. No wheezes, rales, or rhonchi. ABDOMEN: Soft, nontender. Right upper quadrant drain has purulent drainage in the bag, about 5 mL. I flushed the catheter tube with 4 mL of fluid. MEDICATIONS: - vancomycin 750 mg every 12 hours - fluconazole 200 mg by mouth twice a day - pantoprazole 40 mg IV every 12 hours - Lomotil one tablet by mouth three times a day - metoclopramide 5 mg IV every eight hours IMPRESSION: 1. Intra-abdominal abscess with methicillin-resistant Staphylococcus aureus (MRSA) and yeast-like organism, on IV vancomycin and fluconazole. Her C-reactive protein (CRP) has decreased. Her white count remains between 10 and 12. 2. Anorexia and diarrhea. I suspect it is more medication related. Colchicine was discontinued as this could be definitely the cause of her diarrhea. Discontinue probiotic and encourage her to eat yogurt as that could also cause nausea and bloating. 3. Peptic ulcer disease, status post omental patch and repair by Dr. Osman and endoscopy showed gastroparesis. I do not see any clinical indication for surgery at this point. PLAN: We will discuss with Dr. Gallardo placement of her pigtail catheter whether it could be moved to the second collection to drain it better. Discontinue probiotics as they can cause bloating and anorexia. Discontinue colchicine. Continue to monitor.
[2019-01-15] MEDS: ACETAMINOPHEN TAB 650MG DOSE (2X325MG) PO SCH (21:52)
[2019-01-15 22:00] VITALS: BP 118/60
[2019-01-16] MEDS: VANCOMYCIN HCL 750 MG, VIAL MATE ADAPTER 1 EACH in D5W 250 ML IV SCH ×2 (05:35→18:51)
[2019-01-16] MEDS: METOCLOPRAMIDE INJ 10MG/2ML VIAL (J2765) IV SCH ×3 (05:35→20:52)
[2019-01-16] MEDS: LEVOTHYROXINE 75MCG TABLET (0.075MG) PO SCH (05:35)
[2019-01-16 06:00] VITALS: BP 110/53
[2019-01-16 06:08] LABS: HEMATOCRIT 35.1 % (36.0-47.0); HEMOGLOBIN 11.3 g/dl (12.0-15.5); MEAN CORPUSCULAR HEMOGLOBIN 29.7 pg (27.0-33.0); MEAN CORPUSCULAR HGB CONC 32.2 g/dl (32.0-36.5); MEAN CORPUSCULAR VOLUME 92.4 fl (80.0-96.0); PLATELET COUNT, AUTOMATED 393 10^3/uL (150-450); WHITE BLOOD COUNT 10.4 10^3/uL (4.0-10.0)
[2019-01-16 06:26] LABS: BLOOD UREA NITROGEN 9 MG/DL (7-18); CALCIUM LEVEL 9.1 MG/DL (8.8-10.2); CARBON DIOXIDE LEVEL 29 MEQ/L (21-32); CHLORIDE LEVEL 98 MEQ/L (98-107); CREATININE FOR GFR 0.54 MG/DL (0.55-1.30); GLOMERULAR FILTRATION RATE > 60.0 (>32); GLUCOSE, FASTING 84 MG/DL (70-100); POTASSIUM SERUM 3.7 MEQ/L (3.5-5.1); SODIUM LEVEL 133 MEQ/L (136-145)
[2019-01-16 08:00] VITALS: BP 110/58
[2019-01-16] MEDS: FLUCONAZOLE 100 MG TAB PO SCH (09:08)
[2019-01-16] MEDS: OCUVITE 1 TAB PO SCH (09:08)
[2019-01-16] MEDS: HEPARIN SOD (PORCINE) 5000 UNITS/ML VIAL SQ SCH ×2 (09:09→20:52)
[2019-01-16] MEDS: amLODIPine 5 MG TAB PO SCH (09:09)
[2019-01-16] MEDS: PANTOPRAZOLE 40MG INJ (PROTONIX) (C9113) IV SCH ×2 (09:10→20:52)
[2019-01-16] MEDS: METOPROLOL TART 25 MG TABLET PO SCH ×2 (09:11→20:52)
[2019-01-16] MEDS: LOMOTIL 2.5MG/0.025MG TABLET PO SCH ×3 (09:33→20:50)
[2019-01-16 12:50] LABS: ALBUMIN 1.9 GM/DL (3.2-5.2); ALT/SGPT 11 U/L (12-78); BILIRUBIN,DIRECT < 0.1 MG/DL (0.0-0.2); BILIRUBIN,TOTAL 0.3 MG/DL (0.2-1.0); C REACTIVE PROTEIN QUANTITATIV 2.13 MG/DL (0.00-0.30); TOTAL PROTEIN 6.5 GM/DL (6.4-8.2)
--- NOTE | 2019-01-16 13:00 | IPNPDOC ---
Text Note Date of Service The patient was seen on 01/16/19. NOTE Subjective: Patient continues to have of poor appetite. She complains of neck pain. Patient denies fever, chills, nausea, vomiting, palpitations, shortness of breath. Family was at bedside, and they were confused about 2 different opinions from and Dr Osman. I answered family questions about further management. Objective: Vitals (See below) General: no acute distress HEENT: NC, AT, PERRLA CVS: RRR, no mrg Lungs: CTAB, no rales or wheezing Abdomen: Normoactive bowel sounds, soft, drainage catheter at right lower quadrant Extremities: no LE edema, nontender Assessment and plan: 88-year-old woman with A. fib (not on anticoagulation), HTN, Arthritis of bilateral knees / hips, Chronic constipation, and recent hospitalization in which she was found to have a perforated duodenal ulcer (s/p Laparoscopic bowel resection and repair of two perforated duodenal ulcers) c/b multiple abscesses now being drained and on vancomycin/fluconazole. Culture from abscesses showed MRSA, Lactobacillus species, Corynebacterium species Multiple abdominal abscesses Abdominal abscess culture 01/05: MRSA / Lactobacillus species / Corynebacterium species Abdominal abscess culture from 07/19/18 showed MRSA - Repeat imaging via CT scan 01/09 was noted to show free air; radiology has discussed directly with surgery for now to continue with antibiotics and drain - c/w Vancomycin/fluconazole (Day #7); s/p Zosyn - General surgery, Dr. Osman recommended diagnostic laparoscopy, laparoscopic drainage of the abscess and possibly redoing the duodenal ulcer repair. There is concern for some small amounts of multiloculated abscess on the right upper quadrant area that has not fully resolved with percutaneous drainage -Yesterday Dr. Rowley recommended IR drainage of abscesses. In the morning I talked to Dr. Osman, he told me that he is going to talk to Dr. Rowley and discuss the appropriate solution. Possible gastric outlet obstruction on imaging - possibly 2/2 gastroparesis - Continues to tolerate diet, with loose stools - c/w Protonix IV BID - s/p EGD with Dr. Osman - Gastroparesis; small amount of food residue, gastric mucosal atrophy, one non-bleeding duodenal ulcer with no stigmata of bleeding s/p Diarrhea - possibly 2/2 post-obstructive diarrhea - Has been experiencing loose watery stools - C. difficile PCR 01/08: Negative - c/w Gentle IV fluid hydration - c/w Lomotil -Metoclopramide on hold due to diarrhea A. fib - c/w rate control with metoprolol - Patient is currently not on anticoagulation -We will discuss anticoagulation with surgical team HTN - Blood pressures to be within normal range - c/w amlodipine and metoprolol with holding parameters Hypothyroidism - c/w Levothyroxine IV Arthritis of bilateral knees / hips - c/w Tylenol PRN Gastrointestinal prophylaxis - c/w Protonix - Pseudogout of the right thumb pain resolved History of perforated duodenal ulcer, on pantoprazole 40 IV every 12. Hematocrit has remained stable. Protein calorie malnutrition Patient has a poor appetite, low albumin 1.7 BMI 19.8 continue ensure DVT prophylaxis - c/w Heparin Disposition: - Pending clinical improvement - Unable to return to [facility] with drain in place VS,Fishbone, I+O VS, Fishbone, I+O Laboratory Tests 01/16/19 05:12 Red Blood Count 3.80 L, Mean Corpuscular Volume 92.4, Mean Corpuscular Hemoglobin 29.7, Mean Corpuscular Hemoglobin Concent 32.2, Red Cell Distribution Width 14.1, Calcium Level 9.1 Vital Signs Date Time Temp Pulse Resp B/P (MAP) Pulse Ox O2 Delivery O2 Flow Rate FiO2 01/16/19 09:11 86 110/58 01/16/19 08:00 97.9 16 97 I&O- Last 24 Hours up to 6 AM 01/16/19 05:59 Intake Total 120 ml Output Total 6 ml Balance 114 ml TREY RUTLEDGE DO Jan 16, 2019 12:59
[2019-01-16] MEDS: ANALGESIC BALM CRM 120 GM TOP SCH ×2 (13:18→20:53)
[2019-01-16 14:00] VITALS: BP_SYST 101; BP_SYST 138; BP_DIAS 58; BP_DIAS 60
[2019-01-16] MEDS: MICAFUNGIN SODIUM 100 MG in D5W MINI-BAG PLUS 100 ML IV SCH (17:35)
[2019-01-16] MEDS: PREPARATION H OINTMENT (HEMORRHOID) PR PRN (17:36)
--- NOTE | 2019-01-16 20:16 | IPNPDOC ---
Text Note Date of Service The patient was seen on 01/16/19. NOTE I have had multiple discussions with the patient and her family today as well as with Dr. Rowley and Dr. Gallardo. I have summarised my clinical views and recommendations in my previous note. The main problems in my point of view remains: the persistent inflammation at the right upper quadrant area, less so the multiple small loculated infected collections, more concerning is the persistence of a focus of extraluminal air above the duodenal bulb and ongoing malnutrition of the patient. I think we need to do something further. The differences in opinion seems to be how to get her better. I still think the most optimal way albeit the more invasive and risky way would be to bring her back to the or for attempt at diagnostic laparoscopy and try to drain the multiloculated abscess, determine extent of healing at the duodenal ulcer and need to redo the repair, place better drains at the area and also place a gastrojejunostomy tube to feed her postpyloric and also drain the stomach to allow for both healing/decompressing the stomach/duodenal repair. Patient expresses under standing of this and has verbally agreed to proceed. VS,Fishbone, I+O VS, Fishbone, I+O Laboratory Tests 01/16/19 05:12 Red Blood Count 3.80 L, Mean Corpuscular Volume 92.4, Mean Corpuscular Hemoglobin 29.7, Mean Corpuscular Hemoglobin Concent 32.2, Red Cell Distribution Width 14.1, Calcium Level 9.1 Vital Signs Date Time Temp Pulse Resp B/P (MAP) Pulse Ox O2 Delivery O2 Flow Rate FiO2 01/16/19 14:00 97.4 86 16 138/60 (86) 100 I&O- Last 24 Hours up to 6 AM 01/16/19 06:00 Intake Total 120 ml Output Total 6 ml Balance 114 ml FREDDY CA MD Jan 16, 2019 20:16
[2019-01-16] MEDS: ACETAMINOPHEN TAB 650MG DOSE (2X325MG) PO SCH (20:51)
[2019-01-16 22:00] VITALS: BP 111/58
[2019-01-17] VITALS (10 sets, daily range): BP systolic 99–128; BP diastolic 52–77; O2SAT 97
[2019-01-17 05:25] LABS: HEMATOCRIT 36.2 % (36.0-47.0); HEMOGLOBIN 11.6 g/dl (12.0-15.5); MEAN CORPUSCULAR HEMOGLOBIN 29.8 pg (27.0-33.0); MEAN CORPUSCULAR VOLUME 93.1 fl (80.0-96.0); PLATELET COUNT, AUTOMATED 325 10^3/uL (150-450); RED BLOOD COUNT 3.89 10^6/uL (4.00-5.40); WHITE BLOOD COUNT 9.9 10^3/uL (4.0-10.0)
[2019-01-17 06:08] LABS: BLOOD UREA NITROGEN 8 MG/DL (7-18); CALCIUM LEVEL 8.8 MG/DL (8.8-10.2); CARBON DIOXIDE LEVEL 30 MEQ/L (21-32); CHLORIDE LEVEL 100 MEQ/L (98-107); CREATININE FOR GFR 0.58 MG/DL (0.55-1.30); GLOMERULAR FILTRATION RATE > 60.0 (>32); GLUCOSE, FASTING 88 MG/DL (70-100); SODIUM LEVEL 136 MEQ/L (136-145); VANCOMYCIN LEVEL TROUGH 21.8 UG/ML (10.0-20.0)
--- NOTE | 2019-01-17 06:20 | PHACANCOPD ---
PHARMACY VANCOMYCIN DOSING Pt Demographics Demographics Patient Age:88 , Weight:49.000 , Gender: female Adjusted Body Weight Date: 01/08/19, Adjusted Body Weight: Kg Events Past 24 Hours Events Past 24 Hours: NO: Dialysis, Diuretic Therapy, Change in CrCl, Fever, Elevation in WBC, Pending Diagnostics, Pending Procedures, Other Vancomycin Vancomycin Target Ranges: 10-20 mcg/ml Vancomycin Load Y/N: Yes Load Dose Date Time Vancomycin Load Dose: 1000mg Date: 01-08 Time: 0600 Vancomycin Dose Date: 01/17/19. Current Vancomycin Dose: [750mg q18H Intermittent Dosing?: No Labs Labs Item Value Date Time White Blood Count 9.9 10^3/uL 01/17/19 0516 Glomerular Filtration Rate > 60.0 01/17/19 0516 Creatinine 0.58 MG/DL 01/17/19 0516 Blood Urea Nitrogen 8 MG/DL 01/17/19 0516 Vancomycin Level Trough 21.8 UG/ML H 01/17/19 0516 Vital Signs Label Value Date Time Patient Temperature 97.9 degrees F 01/16/19 2200 Temperature Source Oral 01/16/19 2200 Micro Microbiology 01/12/19 Gram Stain - Final, Complete 01/12/19 Wound Culture - Final, Complete Staph.aureus Methicillin Resis Leuconostoc Species Yeast Like Organism 01/12/19 Anaerobic Culture - Final, Complete Creatinine Clearance Date:01/08/19. Creatinine Clearance: [~60]. Pending Labs Trough 01-17-19 @1100 Assessment and Plan Maintaining Current Dose?: No Reason for dose change: Trough too high Pharmacist Note Pharmacist Note Date: 01/17/19. Pharmacist note:Trough of 21.8 is above target range. Dosing reduced to 750mg q18h. Will continue to monitor and make adjustments as needed. MARY ASENCIO PHARMACY Jan 17, 2019 06:20
[2019-01-17] MEDS: METOCLOPRAMIDE INJ 10MG/2ML VIAL (J2765) IV SCH ×3 (06:52→22:00)
[2019-01-17] MEDS: LEVOTHYROXINE 75MCG TABLET (0.075MG) PO SCH (06:52)
--- NOTE | 2019-01-17 07:33 | IPN ---
DATE: 01/16/2019 Therese was seen sitting in the chair eating her dinner. She ate more dinner than she usually eats and was able to ambulate even longer, today over 100 feet. She has no nausea or vomiting, but continues complaining of bloating and early satiety. That happens after very little food. She has had no fever or chills. Temperature is 97.4, pulse 86, respirations 18, blood pressure 138/60, O2 sat 100% on room air. Heart: Normal S1 and S3. No murmurs. Lungs are clear. No wheezes, rales or rhonchi. Abdomen: Soft, mildly tender in the epigastric area. Back: No costovertebral (CVA) tenderness. Right upper quadrant has a drain with purulent discharge. Extremities: No edema. Labs: White count is 10.4, hemoglobin 11.3, hematocrit 35.1, platelets 393. Sodium 133, potassium 3.7, chloride 98, bicarb 29, BUN 9, creatinine 0.54, glucose 84, calcium 9.9, AST 13, ALT 11, alkaline phosphatase 93, CRP 2.13, and albumin 1.9. Wound culture has methicillin-resistant Staphylococcus aureus (MRSA), yeastlike organism which will be sent to [place] to be identified to see if this is a Sophie glabrata or albicans. Previously, she had both pathogens in the intra-abdominal abscess and there is also a Strep species that is still being worked on. Anaerobic culture was negative. Imaging Studies: CT of abdomen and pelvis was reviewed with Dr. Osman and Dr. Gallardo. Dr. Gallardo stated that the fluid collection at the pigtail pleural drain has markedly improved, but there is air which is not connected to that collection and could be from the anastomosis where the omental patch was done to repair the perforated duodenal ulcer. IMPRESSION: 1. Intra-abdominal abscess with culture positive for MRSA and Sophie identification to follow, on IV vancomycin. Fluconazole was discontinued and the patient was switched to IV micafungin to cover for Sophie species other than albicans until we have the final identification, especially that the patient is still not markedly better when it comes to as far as the purulent drainage is concerned. 2. Intra-abdominal air concerning for persistent leakage from the anastomotic site. May need exploratory laparotomy to see if there is a bowel perforation. 3. Anorexia and protein calorie malnutrition. The patient was encouraged to drink Ensure and eat more frequently smaller meals. There was discussion about a gastrojejunostomy tube as the patient seems to have gastroparesis. PLAN: The case has been discussed at length with Dr. Osman and Dr. Bonifacio Gallardo from radiology and family, her daughter is always at the bedside, whether they want to pursue surgery exploratory laparotomy or wait a couple more days and see if she clinically improves. Discontinue by mouth fluconazole and switch to IV micafungin. Discontinue Lomotil. The patient has not had a bowel movement today and that will worsen her bloating and the diarrhea was most likely caused by colchicine and that has been discontinued. MTDD
[2019-01-17] MEDS: METOPROLOL TART 25 MG TABLET PO SCH ×2 (09:00→21:00)
[2019-01-17] MEDS: amLODIPine 5 MG TAB PO SCH (09:00)
[2019-01-17] MEDS: OCUVITE 1 TAB PO SCH (09:00)
[2019-01-17] MEDS: PANTOPRAZOLE 40MG INJ (PROTONIX) (C9113) IV SCH ×2 (09:02→19:38)
[2019-01-17] MEDS: ANALGESIC BALM CRM 120 GM TOP SCH ×2 (09:04→21:00)
[2019-01-17] MEDS: HEPARIN SOD (PORCINE) 5000 UNITS/ML VIAL SQ SCH ×2 (09:04→21:29)
--- NOTE | 2019-01-17 11:43 | IPNPDOC ---
Text Note Date of Service The patient was seen on 01/17/19. NOTE Subjective: Patient continues to have of poor appetite, but overall she impro ves. Diarrhea resolved. She continues to complain of neck pain. Patient denies fever, chills, nausea, vomiting, palpitations, shortness of breath. Patient decided to proceed with surgery and family supported her decision Objective: Vitals (See below) General: no acute distress HEENT: NC, AT, PERRLA CVS: RRR, no mrg Lungs: CTAB, no rales or wheezing Abdomen: Normoactive bowel sounds, soft, drainage catheter at right lower quadrant Extremities: no LE edema, nontender Assessment and plan: 88-year-old woman with A. fib (not on anticoagulation), HTN, Arthritis of bilateral knees / hips, Chronic constipation, and recent hospitalization in which she was found to have a perforated duodenal ulcer (s/p Laparoscopic bowel resection and repair of two perforated duodenal ulcers) c/b multiple abscesses now being drained and on vancomycin/fluconazole. Culture from abscesses showed MRSA, Lactobacillus species, Corynebacterium species Multiple abdominal abscesses Abdominal abscess culture 01/05: MRSA / Lactobacillus species / Corynebacterium species Abdominal abscess culture from 07/19/18 showed MRSA - Repeat imaging via CT scan 01/09 was noted to show free air; radiology has discussed directly with surgery for now to continue with antibiotics and drain - c/w Vancomycin; s/p Zosyn -Fluconazole was discontinued and the patient was switched to IV micafungin to cover for Sophie species other than albicans until we have the final identification - General surgery, Dr. Osman recommended diagnostic laparoscopy, laparoscopic drainage of the abscess and possibly redoing the duodenal ulcer repair. There is concern for some small amounts of multiloculated abscess on the right upper quadrant area that has not fully resolved with percutaneous drainage -Dr. Osman, will proceed with laparoscopic surgery today Possible gastric outlet obstruction on imaging - possibly 2/2 gastroparesis - Continues to tolerate diet, with loose stools - c/w Protonix IV BID - s/p EGD with Dr. Osman - Gastroparesis; small amount of food residue, gastric mucosal atrophy, one non-bleeding duodenal ulcer with no stigmata of bleeding s/p Diarrhea - possibly 2/2 post-obstructive diarrhea - Has been experiencing loose watery stools - C. difficile PCR 01/08: Negative - c/w Gentle IV fluid hydration -Diarrhea resolved - colchicine was stopped , Lomotil was stopped A. fib - c/w rate control with metoprolol - Patient is currently not on anticoagulation -We will discuss anticoagulation with surgical team HTN - c/w amlodipine and metoprolol with holding parameters Hypothyroidism - c/w Levothyroxine IV Arthritis of bilateral knees / hips - c/w Tylenol PRN Gastrointestinal prophylaxis - c/w Protonix - Pseudogout of the right thumb pain resolved History of perforated duodenal ulcer, on pantoprazole 40 IV every 12. Hematocrit has remained stable. Protein calorie malnutrition Patient has a poor appetite, low albumin 1.7 BMI 19.8 continue ensure Neck pain continue topical anti-inflammatory cream DVT prophylaxis - c/w Heparin Disposition: - Pending clinical improvement - Unable to return to [facility] with drain in place VS,Fishbone, I+O VS, Fishbone, I+O Laboratory Tests 01/17/19 05:16 Red Blood Count 3.89 L, Mean Corpuscular Volume 93.1, Mean Corpuscular Hemoglobin 29.8, Mean Corpuscular Hemoglobin Concent 32.0, Red Cell Distribution Width 14.1, Calcium Level 8.8 Vital Signs Date Time Temp Pulse Resp B/P (MAP) Pulse Ox O2 Delivery O2 Flow Rate FiO2 01/17/19 10:00 97.6 70 15 99/52 (20) 93 I&O- Last 24 Hours up to 6 AM 01/17/19 06:00 Intake Total 1290 ml Output Total 3 ml Balance 1287 ml TREY RUTLEDGE DO Jan 17, 2019 11:43
[2019-01-17] MEDS: VANCOMYCIN HCL 750 MG, VIAL MATE ADAPTER 1 EACH in D5W 250 ML IV SCH (12:11)
[2019-01-17] MEDS ORDERED: ONDANSETRON 4MG/2ML VIAL (J2405) As Ordered ONE ×2 (13:12→13:14)
[2019-01-17] MEDS ORDERED: PROPOFOL 200 MG/20 ML VIAL As Ordered ONE (13:12)
[2019-01-17] MEDS ORDERED: LIDOCAINE 2% INJ 100 MG/5 ML SDV (FOR ANES.) As Ordered ONE ×2 (13:12→13:14)
[2019-01-17] MEDS ORDERED: fentaNYL 250 MCG/5 ML INJECTION (J3010) As Ordered ONE (13:13)
[2019-01-17] MEDS ORDERED: dexameTHASONE 4 MG/ML 1ML VIAL (J1100) As Ordered ONE (13:13)
[2019-01-17] MEDS ORDERED: MIDAZOLAM INJ 2 MG/2 ML VIAL (J2250) As Ordered ONE ×2 (13:13→19:03)
[2019-01-17] MEDS ORDERED: ROCURONIUM BROMIDE 50 MG/5 ML VIAL As Ordered ONE ×2 (13:14→15:23)
[2019-01-17] MEDS ORDERED: KETOROLAC 60 MG/2 ML VIAL (J1885) As Ordered ONE (13:14)
--- NOTE | 2019-01-17 13:14 | IPNPDOC ---
Text Note Date of Service The patient was seen on 01/17/19. NOTE Patient feels just about the same today. No specific complaints. We were plan rosemarie to do diagnostic laparoscopy, possible expiratory laparotomy to drain the multiloculated abscess, located at the site of duodenal perforation possibly redo the repair and place a gastrojejunostomy to allow for gastric drainage as well as try to get adequate nutrition postpyloric with a jejunostomy limb. She he voices she is willing to proceed with the surgery and has consented to the procedure. Her most form has been adjusted to reflect the fact that we are placing a gastrojejunostomy feeding tube. Her wish to not have any feeding tube but indicates and the fact that that is end of life prolongation. Anticipate she may need to go to the progressive care unit for close monitoring postope ratively. She did develop an episode of atrial fibrillation during her past surgery when she had duodenal perforation at the end of November. VS,Fishbone, I+O VS, Fishbone, I+O Laboratory Tests 01/17/19 05:16 Red Blood Count 3.89 L, Mean Corpuscular Volume 93.1, Mean Corpuscular Hemoglobin 29.8, Mean Corpuscular Hemoglobin Concent 32.0, Red Cell Distribution Width 14.1, Calcium Level 8.8 Vital Signs Date Time Temp Pulse Resp B/P (MAP) Pulse Ox O2 Delivery O2 Flow Rate FiO2 01/17/19 10:00 97.6 70 15 99/52 (62) 93 I&O- Last 24 Hours up to 6 AM 01/17/19 06:00 Intake Total 1290 ml Output Total 3 ml Balance 1287 ml FREDDY CA MD Jan 17, 2019 13:13
[2019-01-17] MEDS ORDERED: BUPIVACAINE HCL 0.25% 30 ML VIAL As Ordered ONE (13:49)
[2019-01-17] MEDS ORDERED: LIDOCAINE 1% SDV INJ 30 ML VIAL As Ordered ONE (13:49)
--- NOTE | 2019-01-17 17:18 | REP ---
Portable chest x-ray: Supine film. History: Rule out pneumothorax. Comparison study: January 05, 2019. Findings: There is fairly extensive extrathoracic soft tissue emphysema bilaterally about the thorax extending into the soft tissues of the neck bilaterally and the axillary soft tissues bilaterally. There is no evidence of pneumothorax. Plate-like atelectasis is seen in the right perihilar region. Endotracheal tube is noted in good position approximately 2.2 cm above the echo. Nasal esophageal catheters are noted in place in the lower esophagus. Discoid atelectasis is also noted in the left base. Impression: Extensive extrathoracic soft tissue emphysema. Discoid atelectasis right base and left base. No pneumothorax seen. Endotracheal tube 2 cm above the echo. Nasal esophageal tubes noted. Electronically Signed by Pelon Gallardo MD 01/18/2019 07:55 A
[2019-01-17] MEDS ORDERED: BUPIVACAINE HCL 0.25% 10 ML VIAL As Ordered ONE ×2 (17:20→17:21)
[2019-01-17] MEDS ORDERED: BUPIVACAINE LIPOSOME/PF 1.3% 20ML VIAL (13.3MG/ML)(EXPAREL)(C9290 PER1MG) As Ordered ONE (17:20)
[2019-01-17] MEDS ORDERED: SUGAMMADEX SODIUM 500 MG/5 ML VIAL (BRIDION) As Ordered ONE (17:34)
[2019-01-17] MEDS: LR 1,000 ML IV SCH (18:15)
[2019-01-17] MEDS ORDERED: MORPHINE 4 MG/ML 1ML VIAL/SYRINGE (J2270) IV PRN ×2 (18:15)
[2019-01-17] MEDS ORDERED: HYDROMORPHONE HCL 0.5 MG/ 0.5 ML SYRINGE (J1170 PER 1) IV PRN (18:30)
[2019-01-17] MEDS ORDERED: PERCOCET 5MG/325MG TAB PO PRN (18:30)
[2019-01-17] MEDS ORDERED: ONDANSETRON 4MG/2ML VIAL (J2405) IV PRN (18:30)
[2019-01-17] MEDS ORDERED: LR 1,000 ML IV SCH (18:30)
[2019-01-17] MEDS: fentaNYL 100 MCG/2 ML INJECTION (J3010) IV PRN ×2 (18:50→19:00)
[2019-01-17] MEDS ORDERED: fentaNYL 100 MCG/2 ML INJECTION (J3010) As Ordered ONE (18:56)
[2019-01-17] MEDS ORDERED: MIDAZOLAM INJ 2 MG/2 ML VIAL (J2250) IV PRN (19:00)
[2019-01-17] MEDS ORDERED: PROPOFOL 1,000 MG/100 ML VIAL As Ordered ONE (19:31)
[2019-01-17] MEDS: PROPOFOL 1,000 MG in IV 1 EA IV SCH ×2 (19:37→21:34)
[2019-01-17 20:57] LABS: ABG BASE EXCESS 0.2 (-2.0-2.0); ABG HCO3 24.6 MEQ/L (22.0-26.0); ABG O2 SATURATION 98.8 % (95.0-99.0); ABG PARTIAL PRESSURE CO2 38.9 mmHg (35.0-45.0); ABG PARTIAL PRESSURE O2 137.6 mmHg (75.0-100.0); ABG STANDARD HCO3 24.7 MEQ/L (22.0-26.0); ABG TOTAL CO2 25.8 MEQ/L (23.0-31.0); ABG pH (ARTERIAL) 7.419 UNITS (7.350-7.450)
[2019-01-17] MEDS: ACETAMINOPHEN TAB 650MG DOSE (2X325MG) PO SCH (21:00)
[2019-01-17] MEDS ORDERED: CHLORHEXIDINE GLUCONATE 0.12 % 15ML UDC (PERIDEX ORAL RINSE) MT SCH (21:00)
[2019-01-17] MEDS: MICAFUNGIN SODIUM 100 MG in D5W MINI-BAG PLUS 100 ML IV SCH (21:29)
[2019-01-17] MEDS: MORPHINE 4 MG/ML 1ML VIAL/SYRINGE (J2270) IV PRN (21:31)
[2019-01-18] VITALS (18 sets, daily range): BP systolic 104–142; BP diastolic 53–78; O2SAT 99
[2019-01-18] MEDS: MORPHINE 4 MG/ML 1ML VIAL/SYRINGE (J2270) IV PRN ×4 (00:05→20:29)
[2019-01-18] MEDS: LR 1,000 ML IV SCH ×2 (04:34→18:33)
[2019-01-18 05:05] LABS: BASO % 0.1 % (0.0-1.0); HEMATOCRIT 35.1 % (36.0-47.0); HEMOGLOBIN 11.2 g/dl (12.0-15.5); LYMPH # 0.5 10^3/uL (1.5-5.0); LYMPH % 3.7 % (24.0-44.0); MEAN CORPUSCULAR HEMOGLOBIN 29.3 pg (27.0-33.0); MEAN CORPUSCULAR HGB CONC 31.9 g/dl (32.0-36.5); MEAN CORPUSCULAR VOLUME 91.9 fl (80.0-96.0); MONO # 0.5 10^3/uL (0.0-0.8); MONO % 3.7 % (0.0-5.0); NEUTROPHILS # 12.1 10^3/uL (1.5-8.5); NEUTROPHILS % 92.2 % (36.0-66.0); PLATELET COUNT, AUTOMATED 348 10^3/uL (150-450); RED BLOOD COUNT 3.82 10^6/uL (4.00-5.40); WHITE BLOOD COUNT 13.1 10^3/uL (4.0-10.0)
[2019-01-18 05:33] LABS: ALBUMIN 1.8 GM/DL (3.2-5.2); ALT/SGPT 16 U/L (12-78); BILIRUBIN,TOTAL 0.5 MG/DL (0.2-1.0); BLOOD UREA NITROGEN 7 MG/DL (7-18); CALCIUM LEVEL 8.2 MG/DL (8.8-10.2); CARBON DIOXIDE LEVEL 27 MEQ/L (21-32); CHLORIDE LEVEL 98 MEQ/L (98-107); CREATININE FOR GFR 0.45 MG/DL (0.55-1.30); GLOMERULAR FILTRATION RATE > 60.0 (>32); GLUCOSE, FASTING 127 MG/DL (70-100); POTASSIUM SERUM 3.9 MEQ/L (3.5-5.1); SODIUM LEVEL 133 MEQ/L (136-145); TOTAL PROTEIN 6.2 GM/DL (6.4-8.2)
--- NOTE | 2019-01-18 05:40 | ROOPDOC ---
[facility] Report Of Operation Report of Operation DATE OF PROCEDURE: 01/17/19 PREPROCEDURE DIAGNOSES: Multiloculated intraabdominal abscess, history of recent perforated duodenal ulcer, malnutrition POSTPROCEDURE DIAGNOSES: multilocalated intraabdominal abscess, history of recent duodenal ulcer perforation, malnutrition. PROCEDURE: Diagnostic Laparoscopy converted to exploratory laparotomy, evacuation of abscess, debridement of necrotic tissue/abscess capsule, placement of gastro-duodenostomy feeding tube. SURGEON: Sohan Osman MD OFFICE EMPLOYEE: Deshaun Claire ([facility] ANESTHESIA: General Anesthesia. ESTIMATED BLOOD LOSS: Approximately 50 mL. COMPLICATIONS: patient remains intubated, subcutaneous emphysema. REMARKS: 88 F with nonresolving inflammation around area of duodenum, multiloculated abscess 7 weeks after hsitory of duodenal ulcer perforation. PROCEDURE NOTE: abscess pocket located in between the transverse colon and the dome of the gallbladder with hardened and liquefied tissue within the pocket with multiloculated pocket, necrotic and hardened capsule. Intact omental patch repair. No leakage at the duodenul ulcer perforation site, queen gastroduodenostomy tube placed for drainage of stomach contents and post duodenal ulcer feeding. DESCRIPTION OF PROCEDURE: Patient was brought to the operating room, placed supine on the table. Comp ression was replaced most extremities as well as REGINALD stockings for DVT prophylaxis. She is on regular doses of vancomycin and micafungin IV for her intra-abdominal abscess. Gen. endotracheal anesthesia started. A Atkins catheter was placed creating output monitoring. Her left arm was tucked. Her abdomen was widely prepped and draped in usual sterile fashion including that of the right lower quadrant drain.We paused for a surgical timeout using both pre-incision safety checklist to verify correct patient, procedure site and additional clinical information prior to beginning the procedure A Veress needle was inserted with the patient's left upper quadrant area in a controlled fashion. CO2 insufflation started to pressure 15 mmHg using the same incision a 5 mm optical port was placed under direct vision of laparoscope. Insertion site was inspected for injury and none was found. A 5 mm 30 laparoscope was used for the procedure. On entry into the abdomen there were some small amounts of omental adhesions underneath the umbilicus some flimsy adhesions involving the mid and distal portion of the stomach tethering it to the upper abdominal wall the falciform ligament wasn't visible. There were some bulky omental tissue over the patient's right side also towards the liver edge. The gallbladder was easily apparent on entry. A 5 lower port was placed at the patient's left lower quadrant area. Using a Harmonic Scalpel the omental adhesions as well as dilatation of the stomach was taken down. A 5 mm port was placed just below the patient's umbilicus and a camera was transferred on the site. Using the 2 lateral ports as a working port in the subumbilical port under camera port try to visualize around where the previous duodenal perforation was. I worked through taking down the rest of the omental adhesions were the patient's right side. I located the entry point of the percutaneous drain that was previously placed this was threading through what looked like they scarred in, moderately distended gallbladder above it and portion of probably a transverse colon covered with omentum underneath it. I worked on freeing up these adhesions around it to enter the abscess cavity. There were some hardened omental fat tissue within that area as well as some chalky thick purulent material. Laterally there was some liquefied omental tissue in between the abdominal wall and the lateral omentum on the right. The cecum and appendix was easily visible free from this area I traced the ascending colon and the hepatic flexure visually as well as the course of the transverse colon to safely get in between the gallbladder and the transverse colon laterally. I was able to then identify the course of the enlarged stomach and traced the omental tissue that I used for patch. The previously placed 20V LOC was noted and was loose and this was trimmed. Using bimanual palpation with instruments to try to see if I could get beyond the area of the patch to see if there is any leakage or any problem with the patch itself. The patch was well adhered to the duodenal bulb and appears healthy. I located the location of the falciform ligament and this seems to have been taken down so I used the Harmonic scalpel to get between top of the duodenum and underneath the liver and used this and divided the gastro-hepatic attachments to try to get into the lesser sac beyond the omental patch and likewise trimmed the source of the omental patch to get underneath the duodenum. After doing so I was able to get into the multiloculated pockets and further trimmed and debrided the calcified thickened omental tissue that was performing the multiloculated abscess pockets. At this point was inform anesthesia the patient has a lot of subcutaneous emphysema in the chest and the neck and they were having increased end-tidal CO2 pressures. I initially just came down on my pressure to 12 for 15 mmHg but anesthesia continues to do so densely discontinued the laparoscopy at this point. We evaluated the patient today are able to hear bilateral breath sounds equally. They chose to get a chest x-ray and this did not identify any pneumothorax. I then proceeded with a minilaparotomy within vertical incision over the epigastric area tracing from a few centimeters below the xiphisternum to a few centimeters above the umbilicus this was deepened through to the abdominal wall layers and the abdomen was entered freely. With this opening and was able to further evaluate the duodenal patch likewise used my finger to dissect around the abscess pockets of free this further. The cutaneous drain was discontinued at this point. Patient remains stable and the subcutaneous emphysema seems to be improving. I then located the distal stomach place it into view a pursestring suture of 3-0 silk was made and a small gastrotomy was introduced using the previous left upper quadrant incision the queen gastroduodenostomy tube was introduced into the abdomen and threaded through the gastrotomy and I guided this beyond the pylorus to the duodenal sweep. The balloon was then inflated to 10 mm of water. And the gastrostomy was tethered to the intensive the abdominal wall with 3-0 silk. I tested both the gastrostomy portion and the duodenostomy portion both are flushing well irrigated the gastrostomy portion was able to aspirate as well. The abdomen was then irrigated thoroughly with saline. I placed a new 18 Frisian Tony drain in the Location in the abdominal wall and threaded this to the old pocket of the ab scess after further debriding all visible necrotic and hardened omental tissue. The abdomen was then closed using 0 PDS in a continuous fashion. The subcutaneous tissue was irrigated and skin closed with malvin. The drain and gastroduodenostomy was secured to the skin with 2-0 silk. Patient despite the subcutaneous emphysema remains hemodynamically stable. We chose to not extubate her and have her be evaluated by critical care person in the postoperative care unit for the subcutaneous emphysema and high end-tidal CO2's. Postoperative dressings were placed and she was brought to the recovery room remaining intubated but in stable condition. SOHAN OSMAN MD Jan 18, 2019 05:40
[2019-01-18] MEDS: METOCLOPRAMIDE INJ 10MG/2ML VIAL (J2765) IV SCH ×3 (05:52→23:16)
[2019-01-18] MEDS: VANCOMYCIN HCL 750 MG, VIAL MATE ADAPTER 1 EACH in D5W 250 ML IV SCH (05:59)
--- NOTE | 2019-01-18 08:05 | IPNPDOC ---
Subjective General Date/Time Seen The patient was seen on 01/18/19 at 08:03. Subject Chief Complaint/History The patient is a 88-year-old female admitted with a reason for visit of Gastric Outlet Obstruction, Duodenal Ulcer.... Patient seen in the ICU. She remains intubated but otherwise hemodynamically stable and requiring minimal vent settings. Primary problem perioperatively is the development of hypercapnea and subcutaneous emphhysema Current Medications Current Medications Current Medications Medications (Trade) Dose Ordered Sig/Ronaldo Route PRN Reason Start Time Stop Time Status Last Admin Dose Admin Acetaminophen (Tylenol Tab) 650 mg Q6HP PRN PO PAIN / FEVER 01/06/19 18:45 01/10/19 10:11 DC 01/08/19 20:46 Acetaminophen (Tylenol Tab) 650 mg QHS PO 01/10/19 21:00 01/16/19 20:51 Amlodipine Besylate (Norvasc) 5 mg DAILY PO 01/05/19 09:00 01/16/19 09:09 Bisacodyl (Dulcolax Suppository) 10 mg DAILY PRN SD CONSTIPATION 01/08/19 13:45 01/16/19 07:00 NH Chlorhexidine Gluconate (Peridex Oral Rinse) SWAB/BRUSH ORAL CAVITY BID MT 01/17/19 21:00 01/17/19 19:37 Colchicine (Colcrys) 0.6 mg BID PO 01/11/19 09:00 01/15/19 16:16 DC 01/15/19 09:38 Dextrose/Sodium Chloride 1,000 ml @ 60 mls/hr [id number] IV 01/05/19 09:10 01/05/19 13:47 DC 01/05/19 12:05 Diatrizoate Meglum/ Diatrizoate Sod (Gastrografin) 10 ml Q30M PO 01/09/19 08:30 01/09/19 09:01 DC 01/09/19 09:56 Diatrizoate Meglum/ Diatrizoate Sod (Gastrografin) 10 ml Q30M PO 01/15/19 06:30 01/15/19 07:01 DC 01/15/19 06:56 Diphenoxylate HCl/ Atropine (Lomotil 2.5mg/ 0.025mg) 1 ea BID PO 01/08/19 09:00 01/14/19 13:15 DC 01/14/19 08:55 Diphenoxylate HCl/ Atropine (Lomotil 2.5mg/ 0.025mg) 1 ea TID PO 01/14/19 14:00 01/16/19 22:54 DC 01/16/19 20:50 Fentanyl Citrate (Sublimaze) 25 mcg Q5MP PRN IV MODERATE PAIN (PS 4-7) 01/08/19 13:45 01/08/19 14:45 DC Fentanyl Citrate (Sublimaze) 25 mcg Q5MP PRN IV MODERATE PAIN (PS 4-7) 01/17/19 18:30 01/17/19 19:30 DC 01/17/19 19:00 Fluconazole (Diflucan) 200 mg BID PO 01/11/19 21:00 01/16/19 15:28 DC 01/16/19 09:08 Fluconazole 200 mg/IV Miscellaneous Supplies 100 ml @ 100 mls/hr Q24H IV 01/05/19 14:00 01/08/19 07:59 DC 01/07/19 14:54 Fluconazole 400 mg/IV Miscellaneous Supplies 200 ml @ 100 mls/hr Q24H IV 01/05/19 10:45 01/05/19 12:19 DC Heparin Sodium (Porcine) (Heparin) 5,000 units Q12H SQ 01/05/19 21:00 01/17/19 21:29 Home Med (Med Rec Complete!) ASDIRECTED XX 01/05/19 10:30 01/05/19 10:27 DC Hydromorphone HCl (Dilaudid) 0.2 mg Q5MP PRN IV MODERATE/SEVERE PAIN (PS 5-10) 01/17/19 18:30 01/17/19 19:30 DC Lactated Ringer's 1,000 ml @ 80 mls/hr [id number] IV 01/17/19 18:15 01/18/19 04:34 Lactated Ringer's 1,000 ml @ 100 mls/hr Q10H IV 01/08/19 13:45 01/08/19 13:45 DC Lactated Ringer's 1,000 ml @ 100 mls/hr Q10H IV 01/17/19 18:30 01/17/19 19:30 DC Lactobacillus Acidophilus (Bacid) 2 ea BID PO 01/11/19 09:00 01/15/19 17:15 DC 01/15/19 09:37 Levothyroxine Sodium (Synthroid) 37.5 mcg DAILY IV 01/06/19 09:00 01/10/19 11:30 DC 01/09/19 08:47 Levothyroxine Sodium (Synthroid) 75 mcg DAILY@06 PO 01/10/19 06:00 01/17/19 06:52 Magnesium Hydroxide (Milk Of Magnesia) 10 ml DAILY PRN PO CONSTIPATION 01/08/19 13:45 01/08/19 14:29 DC Menthol/Methyl Salicylate (Bengay Cream) apply over neck BID TOP 01/16/19 12:00 01/17/19 09:04 Metoclopramide HCl (REGLAN INJection) 5 mg Q8H IV 01/08/19 14:00 01/17/19 06:52 Metoprolol Tartrate (Lopressor) 25 mg BID PO 01/05/19 21:00 01/16/19 20:52 Micafungin Sodium 100 mg/Dextrose 100 ml @ 100 mls/hr Q24H IV 01/16/19 17:00 01/17/19 21:29 Midazolam HCl (Versed) 2 mg Q15MP PRN IV AGITATION 01/17/19 19:00 01/17/19 19:10 Miscellaneous (Unresolved Clarification Entry) SEE LABEL COMMENTS DAILY XX 01/14/19 09:00 01/14/19 10:53 DC Miscellaneous (Unresolved Clarification Entry) SEE LABEL COMMENTS STAT STAT XX 01/05/19 11:57 01/05/19 11:58 Cancel Morphine Sulfate (Morphine Sulfate Inj) 2 mg Q2HP PRN IV BREAKTHROUGH PAIN 01/17/19 18:15 01/17/19 19:18 DC Morphine Sulfate (Morphine Sulfate Inj) 2 mg Q2HP PRN IV PAIN 01/17/19 19:00 01/18/19 04:33 Morphine Sulfate (Morphine Sulfate Inj) 4 mg Q4HP PRN IV SEVERE PAIN (PS 8-10) 01/17/19 18:15 01/17/19 19:18 DC Multivitamins (Ocuvite(I-Raheel)) 1 tab DAILY PO 01/08/19 14:00 01/17/19 09:00 Ondansetron HCl (ZOFRAN INJection) 4 mg Q4HP PRN IV NAUSEA OR VOMITING 01/08/19 13:45 01/08/19 14:29 DC Ondansetron HCl (ZOFRAN INJection) 4 mg Q4HP PRN IV NAUSEA OR VOMITING 01/17/19 18:30 01/17/19 19:30 DC Oxycodone/ Acetaminophen (Percocet 5mg/ 325mg Tablet) 1 tab ASDIRECTED PRN PO MILD/MODERATE PAIN (PS 1-7) 01/17/19 18:30 01/17/19 19:30 DC Pantoprazole Sodium (Protonix) 40 mg DAILY IV 01/18/19 09:00 UNV Pantoprazole Sodium (Protonix) 40 mg Q12H IV 01/05/19 10:45 01/13/19 08:13 DC 01/12/19 21:45 Pantoprazole Sodium (Protonix) 40 mg Q12H IV 01/13/19 09:00 01/17/19 19:38 Phenyleph/Shark Oil/Min Oil/Petrol (Preparation H Ointment) 1 dose QIDP PRN SD hemorrhoids 01/16/19 06:15 01/16/19 17:36 Piperacillin Sod/ Tazobactam Sod 2.25 gm/Dextrose 50 ml @ 100 mls/hr Q6H IV 01/05/19 13:00 01/08/19 07:59 DC 01/08/19 00:45 Piperacillin Sod/ Tazobactam Sod 3.375 gm/Dextrose 50 ml @ 50 mls/hr Q6H IV 01/05/19 13:00 01/05/19 12:15 DC Potassium Chloride 10 meq/ IV Miscellaneous Supplies 100 ml @ 100 mls/hr Q1H IV 01/06/19 10:00 01/06/19 11:59 DC 01/06/19 11:14 Potassium Chloride/Dextrose/ Sod Cl 1,000 ml @ 60 mls/hr [id number] IV 01/05/19 14:00 01/14/19 07:44 DC 01/14/19 06:03 Propofol 1000 mg/ IV Miscellaneous Supplies 100 ml @ 2.94 mls/hr Q24H IV 01/17/19 18:53 01/17/19 21:34 Vancomycin HCl 750 mg/IV Miscellaneous Supplies 1 each/ Dextrose 275 ml @ 275 mls/hr Q12H IV 01/14/19 18:00 01/17/19 06:12 DC 01/16/19 18:51 Vancomycin HCl 750 mg/IV Miscellaneous Supplies 1 each/ Dextrose 275 ml @ 275 mls/hr Q18H IV 01/17/19 12:00 01/18/19 05:59 Vancomycin HCl 750 mg/IV Miscellaneous Supplies 1 each/ Dextrose 275 ml @ 275 mls/hr Q24H IV 01/09/19 06:00 01/14/19 09:00 DC 01/14/19 06:08 Allergies Coded Allergies: Tetracyclines (Verified Allergy, Unknown, rash, 12/09/18) codeine (Verified Allergy, Unknown, rash, 12/09/18) Objective Physical Examination Examination GENERAL APPEARANCE:awake, remains intubated, comfortable appearing. SKIN: Warm and moist. HEENT: Normocephalic, atraumatic. [place] palpebral conjunctiva, anicteric sclerae. Lips and mucosa appear moist. NECK: Supple, no thyromegaly. No obvious jugular venous distention. LUNGS: Clear to auscultation bilaterally. No wheezing appreciated. HEART: No chest wall abnormalities. Regular rate and rhythm with no murmurs appreciated. ABDOMEN: Abdomen is minimally distended, soft, postoperative dressings are clean, dry, intact. SERGEY drain with serosanguenous fluid.. . EXTREMITIES: Extremities have no deformities. No edema identified. Vital Signs Vital Signs Date Time Temp Pulse Resp B/P (MAP) Pulse Ox O2 Delivery O2 Flow Rate FiO2 01/18/19 07:31 98.1 89 17 121/60 (80) 95 30 01/18/19 03:58 Ventilator I&Os I&O- Last 24 Hours up to 6 AM 01/18/19 06:00 Intake Total 2233.28 ml Output Total 1344 ml Balance 889.28 ml Laboratory Data Labs 24H Laboratory Tests 2 01/17/19 10:56: Vancomycin Level Trough 15.4 01/17/19 16:59: POC pH (Misc Panel) 7.369, POC Base Excess (Misc Panel) 2.0, POC Saturated Percent O2 (Misc) 100H, POC pO2 (Misc Panel) 381.0H, POC pCO2 (Misc Panel) 47.9H, POC HCO3 (Misc Panel) 27.6H, POC Glucose (Misc Panel) 150H, POC Sodium (Misc Panel) 130L, POC Potassium (Misc Panel) 3.9, POC Total CO2 (Misc Panel) 29.0H, POC Ionized Calcium (Misc Panel) 4.8, POC Hemoglobin (Calculated)(Misc) 11.2L, POC Hematocrit (Misc Panel) 33.0L 01/17/19 20:50: Blood Gas Bicarbonate Standard 24.7, Arterial Blood pH 7.419, Arterial Blood Partial Pressure CO2 38.9, Arterial Blood Partial Pressure O2 137.6H, Arterial Blood Total CO2 25.8, Arterial Blood HCO3 24.6, Arterial Blood Base Excess 0.2, Arterial Blood Oxygen Saturation 98.8 01/18/19 04:43: Immature Granulocyte % (Auto) 0.3, White Blood Count 13.1H, Red Blood Count 3.82L, Hemoglobin 11.2L, Hematocrit 35.1L, Mean Corpuscular Volume 91.9, Mean Corpuscular Hemoglobin 29.3, Mean Corpuscular Hemoglobin Concent 31.9L, Red Cell Distribution Width 14.1, Platelet Count 348, Neutrophils (%) (Auto) 92.2H, Lymphocytes (%) (Auto) 3.7L, Monocytes (%) (Auto) 3.7, Eosinophils (%) (Auto) 0.0, Basophils (%) (Auto) 0.1, Neutrophils # (Auto) 12.1H, Lymphocytes # (Auto) 0.5L, Monocytes # (Auto) 0.5, Eosinophils # (Auto) 0.0, Basophils # (Auto) 0.0, Nucleated Red Blood Cells % (auto) 0.0, Anion Gap 8, Glomerular Filtration Rate > 60.0, Blood Urea Nitrogen 7, Creatinine 0.45L, Sodium Level 133L, Potassium L evel 3.9, Chloride Level 98, Carbon Dioxide Level 27, Calcium Level 8.2L, Aspartate Amino Transf (AST/SGOT) 29, Alanine Aminotransferase (ALT/SGPT) 16, Alkaline Phosphatase 85, Total Bilirubin 0.5#, Total Protein 6.2L, Albumin 1.8L, Albumin/Globulin Ratio 0.41L CBC/BMP Laboratory Tests 01/18/19 04:43 Red Blood Count 3.82 L, Mean Corpuscular Volume 91.9, Mean Corpuscular Hemo globin 29.3, Mean Corpuscular Hemoglobin Concent 31.9 L, Red Cell Distribution Width 14.1, Neutrophils (%) (Auto) 92.2 H, Lymphocytes (%) (Auto) 3.7 L, Monocytes (%) (Auto) 3.7, Eosinophils (%) (Auto) 0.0, Basophils (%) (Auto) 0.1, Neutrophils # (Auto) 12.1 H, Lymphocytes # (Auto) 0.5 L, Monocytes # (Auto) 0.5, Eosinophils # (Auto) 0.0, Basophils # (Auto) 0.0, Calcium Level 8.2 L, Aspartate Amino Transf (AST/SGOT) 29, Alanine Aminotransferase (ALT/SGPT) 16, Alkaline Phosphatase 85, Total Bilirubin 0.5 #, Total Protein 6.2 L, Albumin 1.8 L Microbiology Microbiology 01/17/19 Gram Stain, Received Pending 01/17/19 Wound Culture, Received Pending 01/17/19 Anaerobic Culture, Received Pending 01/12/19 Gram Stain - Final, Resulted 01/12/19 Wound Culture - Preliminary, Resulted Staph.aureus Methicillin Resis Leuconostoc Species Yeast Like Organism 01/12/19 Anaerobic Culture - Final, Resulted Impression POD1 evacuation of multiloculated abscess, debridement of abscess wall/capsule, gastuduodenostomy tube placement remains intubated Hemodynamically stable overnight. wean from vent per Dr. Scales. will try postpyloric feeding with 10 ml/hr jevity 1.[address] meds through gastrostomy portion, orally when extubated keep in icu continue abx Plan / VTE VTE Prophylaxis Ordered?: Yes FREDDY CA MD Jan 18, 2019 08:05
--- NOTE | 2019-01-18 08:10 | REP ---
Portable chest, 06:52 a.m., single AP view with the patient semi upright: Comparisons are 01/17/2019 and 01/05/2019. There is bilateral subcutaneous emphysema along the right and left lateral chest zamarripa extending superiorly into the supraclavicular areas bilaterally. However, this has significantly decreased in volume bilaterally. No pneumothorax is identified. There is discoid atelectasis in the mid right lung, unchanged from 01/17/2019. There is discoid atelectasis in the left costophrenic angle, unchanged from 01/17/2019. There are three tube markers in the mediastinum when terminating approximate 1 cm above the aortic arch, and the other at the level of the aortic arch above the echo and the third with the tip at the level of the echo. Cardiac size is normal. The [place], mediastinum, skeletal structures are unremarkable. Impression: Bilateral chest wall subcutaneous emphysema extending into the supraclavicular areas, decreased from the comparison study. Discoid atelectasis in the right lung. Three to the markers in the superior mediastinum as described. Electronically Signed by Destin Mckeon MD 01/18/2019 08:02 A
[2019-01-18] MEDS ORDERED: PANTOPRAZOLE 40MG INJ (PROTONIX) (C9113) IV SCH (09:00)
[2019-01-18] MEDS: ANALGESIC BALM CRM 120 GM TOP SCH ×2 (09:00→20:13)
[2019-01-18 09:19] LABS: ABG pH (ARTERIAL) 7.528 UNITS (7.350-7.450)
[2019-01-18 09:20] LABS: ABG BASE EXCESS 4.6 (-2.0-2.0); ABG HCO3 27.2 MEQ/L (22.0-26.0); ABG O2 SATURATION 98.2 % (95.0-99.0); ABG PARTIAL PRESSURE CO2 33.4 mmHg (35.0-45.0); ABG PARTIAL PRESSURE O2 98.6 mmHg (75.0-100.0); ABG STANDARD HCO3 28.6 MEQ/L (22.0-26.0); ABG TOTAL CO2 28.2 MEQ/L (23.0-31.0)
[2019-01-18] MEDS: LEVOTHYROXINE 75MCG TABLET (0.075MG) PO SCH (11:23)
[2019-01-18] MEDS: PANTOPRAZOLE 40MG INJ (PROTONIX) (C9113) IV SCH ×2 (11:23→20:11)
[2019-01-18] MEDS: HEPARIN SOD (PORCINE) 5000 UNITS/ML VIAL SQ SCH ×2 (11:23→20:11)
[2019-01-18] MEDS: amLODIPine 5 MG TAB PO SCH (11:24)
[2019-01-18] MEDS: METOPROLOL TART 25 MG TABLET PO SCH ×2 (11:24→20:13)
--- NOTE | 2019-01-18 11:47 | IPNPDOC ---
Text Note Date of Service The patient was seen on 01/18/19. NOTE Subjective: s/p laparascopy 1 day, pt is intubated. Objective: Vitals (See below) General: no acute distress, intubated F HEENT: NC, AT, PERRLA CVS: RRR, no mrg Lungs: CTAB, no rales or wheezing Abdomen: Normoactive bowel sounds, soft, gastuduodenostomy tube in place Extremities: no LE edema, nontender Assessment and plan: 88-year-old woman with A. fib (not on anticoagulation), HTN, Arthritis of bilateral knees / hips, Chronic constipation, and recent hospitalization in which she was found to have a perforated duodenal ulcer (s/p Laparoscopic bowel resection and repair of two perforated duodenal ulcers) c/b multiple abscesses now being drained and on vancomycin/fluconazole. Culture from abscesses showed MRSA, Lactobacillus species, Corynebacterium species. On 01/17/19 pt had laparoscopic revision surgery. Multiple abdominal abscesses Abdominal abscess culture 01/05: MRSA / Lactobacillus species / Corynebacterium species Abdominal abscess culture from 07/19/18 showed MRSA - Repeat imaging via CT scan 01/09 was noted to show free air; radiology has disc ussed directly with surgery for now to continue with antibiotics and drain - c/w Vancomycin; s/p Zosyn -Fluconazole was discontinued and the patient was switched to IV micafungin to cover for Sophie species other than albicans until we have the final identification - General surgery, Dr. Osman did laparoscopy with evacuation of multiloculated abscess, debridement of abscess wall/capsule, gastroduodenostomy tube placement Possible gastric outlet obstruction on imaging - possibly 2/2 gastroparesis As per surgery: will try postpyloric feeding with 10 ml/hr jevity 1.[address] meds through gastrostomy portion, orally when extubated - c/w Protonix IV BID s/p Diarrhea - possibly 2/2 post-obstructive diarrhea - Has been experiencing loose watery stools - C. difficile PCR 01/08: Negative - Diarrhea resolved - colchicine was stopped , Lomotil was stopped A. fib - c/w rate control with metoprolol - Patient is currently not on anticoagulation -We will discuss anticoagulation with surgical team HTN - c/w amlodipine and metoprolol with holding parameters Hypothyroidism - c/w Levothyroxine IV Arthritis of bilateral knees / hips - c/w Tylenol PRN Gastrointestinal prophylaxis - c/w Protonix - Pseudogout of the right thumb pain resolved History of perforated duodenal ulcer, on pantoprazole 40 IV every 12. Protein calorie malnutrition gastuduodenostomy tube placement, will start feeding today Neck pain continue topical anti-inflammatory cream DVT prophylaxis - c/w Heparin Disposition: - Pending clinical improvement VS,Duy, I+O VS, Ana Rosae, I+O Laboratory Tests 01/18/19 04:43 Red Blood Count 3.82 L, Mean Corpuscular Volume 91.9, Mean Corpuscular Hemoglobin 29.3, Mean Corpuscular Hemoglobin Concent 31.9 L, Red Cell Distribution Width 14.1, Neutrophils (%) (Auto) 92.2 H, Lymphocytes (%) (Auto) 3.7 L, Monocytes (%) (Auto) 3.7, Eosinophils (%) (Auto) 0.0, Basophils (%) (Auto) 0.1, Neutrophils # (Auto) 12.1 H, Lymphocytes # (Auto) 0.5 L, Monocytes # (Auto) 0.5, Eosinophils # (Auto) 0.0, Basophils # (Auto) 0.0, Calcium Level 8.2 L, Aspartate Amino Transf (AST/SGOT) 29, Alanine Aminotransferase (ALT/SGPT) 16, Alkaline Phosphatase 85, Total Bilirubin 0.5 #, Total Protein 6.2 L, Albumin 1.8 L Vital Signs Date Time Temp Pulse Resp B/P (MAP) Pulse Ox O2 Delivery O2 Flow Rate FiO2 01/18/19 11:24 90 142/67 01/18/19 09:00 26 95 30 01/18/19 08:00 Ventilator 01/18/19 07:31 98.1 I&O- Last 24 Hours up to 6 AM 01/18/19 05:59 Intake Total 2150.34 ml Output Total 1284 ml Balance 866.34 ml TREY RUTLEDGE DO Jan 18, 2019 11:46
--- NOTE | 2019-01-18 12:52 | CCN ---
DATE: 01/18/2019 NOTE: Ms. Summers remains on mechanical ventilation secondary to acute respiratory failure postoperatively. She remained hemodynamically stable overnight. This morning, on sedation at [place] 2, she is indicating disappointment that she still has the endotracheal tube in. On her sedation holiday she was following commands, though at times it was difficult for her because of her being hard of hearing and not having her hearing aids in. She seemed to indicate no acute distress. PHYSICAL EXAMINATION: GENERAL: Ms. Summers is lying in bed in no acute distress. She is synchronous with the ventilator. HEENT: Anicteric. Nares: Patent bilaterally with NG tube in place. Oropharynx ET tube in place. NECK: Without JVD, thyromegaly or masses, trachea is midline. LYMPH: Without cervical or supraclavicular lymphadenopathy. LUNGS: Symmetric excursion, good air entry. No wheeze, rhonchi or crackle on tidaled excursion. Normal I:E. No accessory muscle use retractions. CARDIOVASCULAR: Regular rate and rhythm with a normal S1-S2, no murmur, rub or gallop appreciated. ABDOMEN: I did not appreciate any bowel sounds, soft, dressing clean and dry, SERGEY drain in place. EXTREMITIES: Warm and well-perfused, without clubbing, cyanosis or edema. Palpable pedal pulses bilaterally. LABORATORY DATA: CBC from this morning showed a hemoglobin 11.2, hematocrit 35.1, platelet count 348,000, white blood cell count 13,100 with a differential of 92% neutrophils, 4% lymphocytes, 4% monocytes. Chemistry shows sodium 133, potassium 3.9, chloride 98, bicarbonate 27, anion gap 8, BUN 7, creatinine 0.5, glucose 127, calcium 8.2, total bilirubin 0.5, AST 29, ALT 16, alkaline phosphatase 85, total protein 6.2, albumin 1.8. I reviewed her chest x-ray as well as report from earlier today. That x-ray showed normal-appearing cardiac silhouette and pulmonary vascular shadows. Normal appearing mediastinal and hilar regions. There was decreased subcutaneous air. There was discoid atelectasis on the right. No consolidated regions. IMPRESSION: 1. Acute respiratory failure postoperatively leading to mechanical ventilation. 2. Subcutaneous emphysema related to laparoscopy. No pneumothorax or pneumomediastinum. 3. Postoperative day 1 status post laparoscopy, mini laparotomy with evacuation of abscesses and placement of JG tube. 4. Multiple abdominal abscesses, followed by infectious disease (ID). RECOMMENDATIONS: Will go on to a weaning trial. ADDENDUM: Ms. Summers went onto a weaning trial on a pressure support of 5 and PEEP of 5. On this trial, her rapid shallow breathing index was in the 60s. She was able to increase her tidal volume to the 500 range. Arterial blood gas on these settings was 7.53/33/97 with a measured saturation of 98% and a base excess of 4.5. She then went on to extubation. I reevaluated her several hours later and she was resting comfortably on 2 liters. The critical care service will sign off at this time as this consultation was following her until extubation postoperatively. Please reconsult the service of there are further problems or questions. Critical care time: Thirty-five minutes, not including procedure time. REGINE
[2019-01-18] MEDS: MICAFUNGIN SODIUM 100 MG in D5W MINI-BAG PLUS 100 ML IV SCH (16:05)
[2019-01-18] MEDS: OCUVITE 1 TAB PO SCH (16:06)
[2019-01-18] MEDS: ACETAMINOPHEN TAB 650MG DOSE (2X325MG) PO SCH (20:12)
--- NOTE | 2019-01-18 21:08 | CR ---
DATE OF CONSULTATION: 01/17/2019 REQUESTED BY: Dr. Osman. REASON FOR CONSULTATION: Acute respiratory failure postoperatively and subcutaneous air. HISTORY OF PRESENT ILLNESS: Ms. Summers is an 88-year-old white female who was admitted to [facility] January 05 after being transferred from [facility] shortly after having an abdominal CT scan done as an outpatient which revealed possible gastric outlet obstruction and multiple abscesses. She had last been admitted on December 09 with a duodenal ulcer perforation and was status post laparoscopic bowel resection and omental patch. She had begun feeling unwell and had the abdominal CT scan done on 01/04, which showed a fluid collection in the abdominal wall measuring 3.2 cm and multiple other multiloculated collections in the abdomen. She had a CT-guided drainage procedure done on 01/05/2019 that was culture positive for multiple organisms. She has been followed by the infectious disease service and has been placed on multiple antibiotics/antifungal medications. She continued to have difficulty with early satiety. It was decided today to do diagnostic laparoscopy with possible exploratory laparotomy to drain the abscesses and placement of GJ tube to allow for gastric drainage, as well as for nutrition. She went to the operating room this afternoon. She underwent a diagnostic laparoscopy that was converted to a minilaparotomy with drainage of the abscesses and GJ tube placement. During the procedure she developed significant subcutaneous emphysema that extended into her chest and base of her neck. Her end tidal CO2 was in the 50s although she was easy to ventilate. A chest x-ray was obtained which showed subcutaneous air but did not show any pneumomediastinum or pneumothorax. By the end of the surgery, her end tidal CO2 was in the 30s and her arterial blood gas was acceptable. I had previously spoken to anesthesia regarding the above findings, and I saw her in the recovery room. At that time, she was easy to ventilate and oxygenate. Her peak pressures were 16 and her plateau pressure was 14. The plan had been to try to awaken her and extubate her. She had been changed to pressure support of 5 and was taking good title volumes typically in the 350s-400 but she did have some lower values. It was eventually felt that she was not awake enough for extubation and the decision was to keep her intubated overnight. ALLERGIES: TETRACYCLINE and CODEINE. MEDICATIONS WHILE AN INPATIENT INCLUDED: - acetaminophen 650 mg by mouth nightly - amlodipine 5 mg by mouth daily - heparin subcutaneous every 12 hours - Synthroid 75 mcg by mouth daily - Ocuvite one tablet by mouth daily - Protonix 40 mg IV every 12 hours - Phenyl/shark oil/mo/petrol pr four times a day as needed for hemorrhage - vancomycin 750 mg IV every 18 hours PAST MEDICAL HISTORY: 1. Hypertension. 2. Hypothyroidism. 3. History of deep venous thrombosis (DVT). 4. Vitamin D deficiency. 5. History of paroxysmal atrial fibrillation postoperatively. 6. History of bowel perforation with laparoscopic omental patch repair of duodenal ulcer on 12/09/2018. 7. Status post total hip replacement. FAMILY HISTORY: She has a family history of chronic pulmonary obstructive disease (COPD). SOCIAL HISTORY: There is no known history of alcohol, tobacco or illicit drug use. Prior to her previous admission she had lived alone at home. However, she had been in [facility] for rehabilitation over the two weeks prior to this admission. 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 REVIEW OF SYSTEMS: What is known is contained within the history of present illness (HPI). No further review of systems can be obtained secondary to intubation. PHYSICAL EXAMINATION: GENERAL: Ms. Summers is lying on the stretcher in no acute distress. She is synchronous with the ventilator and is able to breathe on her own. She will periodically respond to her name by opening her eyes to her name being called but not Vital signs: Temperature 97, pulse 81, respiratory rate 18, blood pressure 119/60, SPO2 100% on an FIO2 of 0.5. HEENT: Anicteric, nares: NG tube in place. Oropharynx endotracheal (ET) tube in place. Edentulous. NECK: Supple without jugular venous distention (JVD), thyromegaly or masses. CHEST: Subcutaneous air over the entire chest, per report has been decreasing. It extends to the base of the neck. LUNGS: Symmetric excursion, good air entry, no wheeze, rhonchi or crackle on tidal excursion. Normal I to E. No accessory muscle usage or retractions. CARDIOVASCULAR: Regular rate and rhythm with a normal S1-S2, no murmur, rub or gallop appreciated. ABDOMEN: Absent bowel sounds, drain in place, dressing is clean and dry. EXTREMITIES: Warm and well-perfused, palpable pedal pulses bilaterally, without clubbing, cyanosis, or edema. LABORATORY DATA: CBC from this morning showed a hemoglobin 11.6, hematocrit 36.2, platelet count 325,000, white blood cell count 9900. Chemistries from this morning shows sodium 136, potassium 4.0, chloride 100, bicarbonate 30, anion gap 6, BUN 8, creatinine 0.6, glucose 88, calcium 8.9. The remaining electrolytes from yesterday include a total bilirubin 0.3, AST 13, ALT 11, alkaline phosphatase 93, CRP 2.18, total protein 6.5, albumin 1.3. IMAGING: I reviewed her chest x-ray as well as report that was taken intraoperatively. X-ray showed normal-appearing cardiac silhouette and pulmonary vascular shadows. Minimal bibasilar discoid atelectasis. The ET tube is in appropriate position. There was extensive soft tissue emphysema. There was no pneumothorax, no pneumomediastinum. I reviewed her initial chest x-ray from 01/05/2019 as well as the report. That x-ray showed normal-appearing cardiac silhouette and pulmonary vascular shadows. Normal-appearing mediastinal and hilar regions. No acute infiltrates. There is mild kyphosis. Lungs were well inflated. ASSESSMENT: 1. Acute respiratory failure postoperatively. 2. Postop day zero, status post laparoscopy, mini laparotomy with drainage of abscess/GJ tube placement. 3. Subcutaneous air. This is from the laparoscopy. There is no evidence of pneumothorax nor pneumomediastinum. Her lungs are very compliant. 4. Multiple abdominal abscesses, followed by infectious disease (ID). 5. History of atrial fibrillation postoperatively on a previous surgery. RECOMMENDATIONS: 1. Will continue to keep her intubated overnight and assess her in the morning for extubation. 2. Will use propofol for sedation with as needed morphine. 3. The service is aware of her previous history of atrial fibrillation postoperatively. Critical care time is 40 minutes not including procedure time. cc: MD REGINE Vasquez
--- NOTE | 2019-01-18 22:34 | IPN ---
DATE: 01/18/2019 Therese was seen in the intensive [facility] She was doing well. She had been extubated this afternoon. Denied any shortness of breath. She had 2 liters of oxygen. She was tolerating clear liquids and had a gastrojejunostomy tube placed. She had an incision and drainage (I and D), exploratory laparotomy and the abscess was drained from the abdomen, and there was no perforation of the bowel. She remains afebrile. Temperature is 99, pulse 72, respirations 17, blood pressure 134/60, oxygen saturation (O2 sat) 98% on 2 liters nasal cannula. Heart: Normal S1, S2. No murmurs. Lungs are clear. No wheezes, rales or rhonchi. Abdomen: Soft, tender in the right upper quadrant. There is a new drain, a Chencho-Betancourt (J-Betancourt) drain in the right upper quadrant. There is a gastrojejunostomy tube left lower quadrant. Extremities: No edema. Skin: Subcu emphysema and some periorbital erythema and edema. LABORATORY DATA: White count 13.1, hemoglobin 11.2, hematocrit 35.1, platelets 348. Sodium 133, potassium 3.9, chloride 98, bicarbonate 27, BUN 7, creatinine 0.45, glucose 127, calcium 8.2, AST 29, ALT 16, alkaline phosphatase 85, albumin 1.8. Vancomycin trough was 15.4; it dropped. Cultures from 01/12/2019 had methicillin-resistant Staphylococcus aureus (MRSA), yeastlike organism and Leuconostoc species, which is resistant to vancomycin. Surgical report was reviewed from Dr. Osman who stated that there was no perforation, there was a lot of necrotic debris and an abscess that was debrided. IMPRESSION: 1. Intra-abdominal polymicrobial abscess with MRSA, fungus and culture also grew Leuconostoc which is inherently resistant to vancomycin. The patient will be switched from IV vancomycin to linezolid. 2. Duodenal ulcer perforation, healing well. 3. Anorexia and hypoalbuminemia. The patient is being fed through gastrojejunostomy tube and tolerating well. PLAN: Discontinue IV vancomycin and switch to IV linezolid 600 mg by mouth twice a day until the patient is tolerating by mouth, then she could be switched to oral linezolid; that should cover MRSA, all gram-positive and Leuconostoc. Continue with IV micafungin until results of yeastlike organism is identified to make sure it is still susceptible to fluconazole,
[2019-01-18] MEDS ORDERED: FLUBLOK(EGG FREE)(QUAD)INFLUENZA VACC 0.5ML SYRINGE (90682)18YRS&OLDER IM PRN (23:00)
[2019-01-18] MEDS ORDERED: PREVNAR 13 VACCINE SYRINGE (CPT CODE:90670) IM PRN (23:00)
[2019-01-18] MEDS: LINEZOLID 600 MG in IV 1 EA IV SCH (23:16)
[2019-01-19] VITALS: BP 108/54
[2019-01-19 04:00] VITALS: BP 111/56
[2019-01-19 04:50] LABS: BASO % 0.2 % (0.0-1.0); EOS % 0.1 % (0.0-3.0); HEMATOCRIT 31.3 % (36.0-47.0); HEMOGLOBIN 9.9 g/dl (12.0-15.5); LYMPH # 0.8 10^3/uL (1.5-5.0); LYMPH % 6.7 % (24.0-44.0); MEAN CORPUSCULAR HEMOGLOBIN 29.6 pg (27.0-33.0); MEAN CORPUSCULAR HGB CONC 31.6 g/dl (32.0-36.5); MEAN CORPUSCULAR VOLUME 93.7 fl (80.0-96.0); MONO # 0.5 10^3/uL (0.0-0.8); MONO % 4.6 % (0.0-5.0); NEUTROPHILS # 10.1 10^3/uL (1.5-8.5); PLATELET COUNT, AUTOMATED 273 10^3/uL (150-450); RED BLOOD COUNT 3.34 10^6/uL (4.00-5.40); WHITE BLOOD COUNT 11.5 10^3/uL (4.0-10.0)
[2019-01-19 05:08] LABS: BLOOD UREA NITROGEN 8 MG/DL (7-18); CALCIUM LEVEL 8.5 MG/DL (8.8-10.2); CARBON DIOXIDE LEVEL 32 MEQ/L (21-32); CHLORIDE LEVEL 99 MEQ/L (98-107); CREATININE FOR GFR 0.48 MG/DL (0.55-1.30); GLOMERULAR FILTRATION RATE > 60.0 (>32); GLUCOSE, FASTING 105 MG/DL (70-100); POTASSIUM SERUM 3.6 MEQ/L (3.5-5.1); SODIUM LEVEL 136 MEQ/L (136-145)
[2019-01-19] MEDS: LEVOTHYROXINE 75MCG TABLET (0.075MG) PO SCH (06:03)
[2019-01-19] MEDS: METOCLOPRAMIDE INJ 10MG/2ML VIAL (J2765) IV SCH ×3 (06:03→22:00)
[2019-01-19] MEDS ORDERED: KCL 40MEQ in NS 1000ML 1,000 ML IV SCH (07:15)
[2019-01-19 07:56] VITALS: BP 117/58
--- NOTE | 2019-01-19 08:57 | IPNPDOC ---
Subjective General Date/Time Seen The patient was seen on 01/19/19 at 08:54. Subject Chief Complaint/History Patient appears to be doing accordingly. She was extubated yesterday. She feels a little off today, tired easily. She denies any nausea, bloating. She reports soreness around the upper midline incision site. She has been moved on the chair by physical therapy and needs a lot of support still. She is hemodynamically stable. She has been afebrile. She is tolerating trickle feedings through the with ileostomy portion of the feeding tube. Current Medications Current Medications Current Medications Medications (Trade) Dose Ordered Sig/Ronaldo Route PRN Reason Start Time Stop Time Status Last Admin Dose Admin Acetaminophen (Tylenol Tab) 650 mg Q6HP PRN PO PAIN / FEVER 01/06/19 18:45 01/10/19 10:11 DC 01/08/19 20:46 Acetaminophen (Tylenol Tab) 650 mg QHS PO 01/10/19 21:00 01/18/19 20:12 Amlodipine Besylate (Norvasc) 5 mg DAILY PO 01/05/19 09:00 01/18/19 11:24 Bisacodyl (Dulcolax Suppository) 10 mg DAILY PRN MI CONSTIPATION 01/08/19 13:45 01/16/19 07:00 VT Chlorhexidine Gluconate (Peridex Oral Rinse) SWAB/BRUSH ORAL CAVITY BID MT 01/17/19 21:00 01/18/19 10:05 DC 01/17/19 19:37 Colchicine (Colcrys) 0.6 mg BID PO 01/11/19 09:00 01/15/19 16:16 DC 01/15/19 09:38 Dextrose/Sodium Chloride 1,000 ml @ 60 mls/hr [id number] IV 01/05/19 09:10 01/05/19 13:47 DC 01/05/19 12:05 Diatrizoate Meglum/ Diatrizoate Sod (Gastrografin) 10 ml Q30M PO 01/09/19 08:30 01/09/19 09:01 DC 01/09/19 09:56 Diatrizoate Meglum/ Diatrizoate Sod (Gastrografin) 10 ml Q30M PO 01/15/19 06:30 01/15/19 07:01 DC 01/15/19 06:56 Diphenoxylate HCl/ Atropine (Lomotil 2.5mg/ 0.025mg) 1 ea BID PO 01/08/19 09:00 01/14/19 13:15 DC 01/14/19 08:55 Diphenoxylate HCl/ Atropine (Lomotil 2.5mg/ 0.025mg) 1 ea TID PO 01/14/19 14:00 01/16/19 22:54 DC 01/16/19 20:50 Fentanyl Citrate (Sublimaze) 25 mcg Q5MP PRN IV MODERATE PAIN (PS 4-7) 01/08/19 13:45 01/08/19 14:45 DC Fentanyl Citrate (Sublimaze) 25 mcg Q5MP PRN IV MODERATE PAIN (PS 4-7) 01/17/19 18:30 01/17/19 19:30 DC 01/17/19 19:00 Fluconazole (Diflucan) 200 mg BID PO 01/11/19 21:00 01/16/19 15:28 DC 01/16/19 09:08 Fluconazole 200 mg/IV Miscellaneous Supplies 100 ml @ 100 mls/hr Q24H IV 01/05/19 14:00 01/08/19 07:59 DC 01/07/19 14:54 Fluconazole 400 mg/IV Miscellaneous Supplies 200 ml @ 100 mls/hr Q24H IV 01/05/19 10:45 01/05/19 12:19 DC Heparin Sodium (Porcine) (Heparin) 5,000 units Q12H SQ 01/05/19 21:00 01/18/19 20:11 Home Med (Med Rec Complete!) ASDIRECTED XX 01/05/19 10:30 01/05/19 10:27 DC Hydromorphone HCl (Dilaudid) 0.2 mg Q5MP PRN IV MODERATE/SEVERE PAIN (PS 5-10) 01/17/19 18:30 01/17/19 19:30 DC Influenza Virus Vaccine (Flublok Quad(Egg-Free)18y&Older Influenza) 0.5 ml ASDIRECTED PRN IM WHEN OUT OF ICU 01/18/19 23:00 Lactated Ringer's 1,000 ml @ 80 mls/hr [id number] IV 01/17/19 18:15 01/19/19 07:51 DC 01/18/19 18:33 Lactated Ringer's 1,000 ml @ 100 mls/hr Q10H IV 01/08/19 13:45 01/08/19 13:45 DC Lactated Ringer's 1,000 ml @ 100 mls/hr Q10H IV 01/17/19 18:30 01/17/19 19:30 DC Lactobacillus Acidophilus (Bacid) 2 ea BID PO 01/11/19 09:00 01/15/19 17:15 DC 01/15/19 09:37 Levothyroxine Sodium (Synthroid) 37.5 mcg DAILY IV 01/06/19 09:00 01/10/19 11:30 DC 01/09/19 08:47 Levothyroxine Sodium (Synthroid) 75 mcg DAILY@06 PO 01/10/19 06:00 01/19/19 06:03 Linezolid 600 mg/ IV Miscellaneous Supplies 300 ml @ 150 mls/hr Q12H IV 01/18/19 22:00 01/18/19 23:16 Magnesium Hydroxide (Milk Of Magnesia) 10 ml DAILY PRN PO CONSTIPATION 01/08/19 13:45 01/08/19 14:29 DC Menthol/Methyl Salicylate (Bengay Cream) apply over neck BID TOP 01/16/19 12:00 01/18/19 20:13 Metoclopramide HCl (REGLAN INJection) 5 mg Q8H IV 01/08/19 14:00 01/19/19 06:03 Metoprolol Tartrate (Lopressor) 25 mg BID PO 01/05/19 21:00 01/18/19 20:13 Micafungin Sodium 100 mg/Dextrose 100 ml @ 100 mls/hr Q24H IV 01/16/19 17:00 01/18/19 16:05 Midazolam HCl (Versed) 2 mg Q15MP PRN IV AGITATION 01/17/19 19:00 01/18/19 10:05 DC 01/17/19 19:10 Miscellaneous (Unresolved Clarification Entry) SEE LABEL COMMENTS DAILY XX 01/14/19 09:00 01/14/19 10:53 DC Miscellaneous (Unresolved Clarification Entry) SEE LABEL COMMENTS STAT STAT XX 01/05/19 11:57 01/05/19 11:58 Cancel Morphine Sulfate (Morphine Sulfate Inj) 2 mg Q2HP PRN IV BREAKTHROUGH PAIN 01/17/19 18:15 01/17/19 19:18 DC Morphine Sulfate (Morphine Sulfate Inj) 2 mg Q2HP PRN IV PAIN 01/17/19 19:00 01/18/19 20:29 Morphine Sulfate (Morphine Sulfate Inj) 4 mg Q4HP PRN IV SEVERE PAIN (PS 8-10) 01/17/19 18:15 01/17/19 19:18 DC Multivitamins (Ocuvite(I-Raheel)) 1 tab DAILY PO 01/08/19 14:00 01/18/19 16:06 Ondansetron HCl (ZOFRAN INJection) 4 mg Q4HP PRN IV NAUSEA OR VOMITING 01/08/19 13:45 01/08/19 14:29 DC Ondansetron HCl (ZOFRAN INJection) 4 mg Q4HP PRN IV NAUSEA OR VOMITING 01/17/19 18:30 01/17/19 19:30 DC Oxycodone/ Acetaminophen (Percocet 5mg/ 325mg Tablet) 1 tab ASDIRECTED PRN PO MILD/MODERATE PAIN (PS 1-7) 01/17/19 18:30 01/17/19 19:30 DC Pantoprazole Sodium (Protonix) 40 mg BID PO 01/19/19 09:00 Pantoprazole Sodium (Protonix) 40 mg DAILY IV 01/18/19 09:00 UNV Pantoprazole Sodium (Protonix) 40 mg Q12H IV 01/05/19 10:45 01/13/19 08:13 DC 01/12/19 21:45 Pantoprazole Sodium (Protonix) 40 mg Q12H IV 01/13/19 09:00 01/19/19 08:52 DC 01/18/19 20:11 Phenyleph/Shark Oil/Min Oil/Petrol (Preparation H Ointment) 1 dose QIDP PRN MI hemorrhoids 01/16/19 06:15 01/16/19 17:36 Piperacillin Sod/ Tazobactam Sod 2.25 gm/Dextrose 50 ml @ 100 mls/hr Q6H IV 01/05/19 13:00 01/08/19 07:59 DC 01/08/19 00:45 Piperacillin Sod/ Tazobactam Sod 3.375 gm/Dextrose 50 ml @ 50 mls/hr Q6H IV 01/05/19 13:00 01/05/19 12:15 DC Pneumococcal Polyvalent Vaccine (Prevnar 13) 0.5 ml ASDIRECTED PRN IM WHEN OUT OF ICU 01/18/19 23:00 Potassium Chloride 10 meq/ IV Miscellaneous Supplies 100 ml @ 100 mls/hr Q1H IV 01/06/19 10:00 01/06/19 11:59 DC 01/06/19 11:14 Potassium Chloride/Dextrose/ Sod Cl 1,000 ml @ 60 mls/hr [id number] IV 01/05/19 14:00 01/14/19 07:44 DC 01/14/19 06:03 Potassium Chloride/Sodium Chloride 1,000 ml @ 80 mls/hr [id number] IV 01/19/19 07:15 01/19/19 08:43 DC 01/19/19 07:51 Propofol 1000 mg/ IV Miscellaneous Supplies 100 ml @ 2.94 mls/hr Q24H IV 01/17/19 18:53 01/18/19 10:05 DC 01/17/19 21:34 Vancomycin HCl 750 mg/IV Miscellaneous Supplies 1 each/ Dextrose 275 ml @ 275 mls/hr Q12H IV 01/14/19 18:00 01/17/19 06:12 DC 01/16/19 18:51 Vancomycin HCl 750 mg/IV Miscellaneous Supplies 1 each/ Dextrose 275 ml @ 275 mls/hr Q18H IV 01/17/19 12:00 01/18/19 22:06 DC 01/18/19 05:59 Vancomycin HCl 750 mg/IV Miscellaneous Supplies 1 each/ Dextrose 275 ml @ 275 mls/hr Q24H IV 01/09/19 06:00 01/14/19 09:00 VT 01/14/19 06:08 Allergies Coded Allergies: Tetracyclines (Verified Allergy, Unknown, rash, 12/09/18) codeine (Verified Allergy, Unknown, rash, 12/09/18) Objective Physical Examination Examination GENERAL APPEARANCE: Relatively comfortable, tired looking. SKIN: Warm and dry, no jaundice.. NECK: Supple, no thyromegaly. No obvious jugular venous distention. LUNGS: Clear to auscultation bilaterally. No wheezing appreciated. Decreased inspiratory effort HEART: No chest wall abnormalities. Regular rate and rhythm with no murmurs appreciated. ABDOMEN: Abdomen is minimally distended, soft, mildly tender around the upper midline incision. Tony drain is draining serosanguineous fluid gastrostomy port is connected to a Atkins bag with some reflux of the feeding back to the stomach but minimal in amount the duodenostomy portion is used for feeding a 10 mL is in our. EXTREMITIES: No noticeable edema. Vital Signs Vital Signs Date Time Temp Pulse Resp B/P (MAP) Pulse Ox O2 Delivery O2 Flow Rate FiO2 01/19/19 07:56 97.7 71 18 117/58 (77) 98 01/19/19 07:45 1.0 01/18/19 09:37 35 01/18/19 08:00 Ventilator I&Os I&O- Last 24 Hours up to 6 AM 01/19/19 06:00 Intake Total 2954 ml Output Total 2125 ml Balance 829 ml Laboratory Data Labs 24H Laboratory Tests 2 01/18/19 09:05: Blood Gas Bicarbonate Standard 28.6H, Arterial Blood pH 7.528H, Arterial Blood Partial Pressure CO2 33.4L, Arterial Blood Partial Pressure O2 98.6, Arterial Blood Total CO2 28.2, Arterial Blood HCO3 27.2H, Arterial Blood Base Excess 4.6H, Arterial Blood Oxygen Saturation 98.2 01/19/19 04:31: Immature Granulocyte % (Auto) 0.4, White Blood Count 11.5H, Red Blood Count 3.34L, Hemoglobin 9.9L, Hematocrit 31.3L, Mean Corpuscular Volume 93.7, Mean Corpuscular Hemoglobin 29.6, Mean Corpuscular Hemoglobin Concent 31.6L, Red Cell Distribution Width 14.6H, Platelet Count 273, Neutrophils (%) (Auto) 88.0H, Lymphocytes (%) (Auto) 6.7L, Monocytes (%) (Auto) 4.6, Eosinophils (%) (Auto) 0.1, Basophils (%) (Auto) 0.2, Neutrophils # (Auto) 10.1H, Lymphocytes # (Auto) 0.8L, Monocytes # (Auto) 0.5, Eosinophils # (Auto) 0.0, Basophils # (Auto) 0.0, Nucleated Red Blood Cells % (auto) 0.0, Anion Gap 5L, Glomerular Filtration Rate > 60.0, Blood Urea Nitrogen 8, Creatinine 0.48L, Sodium Level 136, Potassium Level 3.6, Chloride Level 99, Carbon Dioxide Level 32, Calcium Level 8.5L CBC/BMP Laboratory Tests 01/19/19 04:31 Red Blood Count 3.34 L, Mean Corpuscular Volume 93.7, Mean Corpuscular Hemoglobin 29.6, Mean Corpuscular Hemoglobin Concent 31.6 L, Red Cell Distribution Width 14.6 H, Neutrophils (%) (Auto) 88.0 H, Lymphocytes (%) (Auto) 6.7 L, Monocytes (%) (Auto) 4.6, Eosinophils (%) (Auto) 0.1, Basophils (%) (Auto) 0.2, Neutrophils # (Auto) 10.1 H, Lymphocytes # (Auto) 0.8 L, Monocytes # (Auto) 0.5, Eosinophils # (Auto) 0.0, Basophils # (Auto) 0.0, Calcium Level 8.5 L Microbiology Microbiology 01/17/19 Gram Stain - Final, Complete 01/17/19 Wound Culture - Final, Complete Klebsiella Pneumoniae 01/17/19 Anaerobic Culture - Final, Complete 01/12/19 Gram Stain - Final, Complete 01/12/19 Wound Culture - Final, Complete Staph.aureus Methicillin Resis Leuconostoc Species Yeast Like Organism 01/12/19 Anaerobic Culture - Final, Complete Impression POD2 evacuation of multiloculated abscess, debridement of abscess wall/capsule, gastuduodenostomy tube placement extubated yesterday POD1 doing relatively well, no acute events, remains sinus HD stable advance tube feeding to 25 mLs/hr goal of 40/hr clear liquids clamp gastrostomy tube (open intermittently for nausea, gastric distention) PT/OT abx - micafungin, linezolid ok to transfer to regular floor with 48 hr tele dvt prophylaxis I switched the protonix to PO d/c IVF - dilutional anemia Plan / VTE VTE Prophylaxis Ordered?: Yes Plan / Urinary Catheter Urinary Catheter: D/C FREDDY Baig MD Jan 19, 2019 08:56
[2019-01-19] MEDS: LINEZOLID 600 MG in IV 1 EA IV SCH ×2 (09:49→22:00)
[2019-01-19] MEDS: OCUVITE 1 TAB PO SCH (09:49)
[2019-01-19] MEDS: ANALGESIC BALM CRM 120 GM TOP SCH ×3 (09:50→22:06)
[2019-01-19] MEDS: amLODIPine 5 MG TAB PO SCH (09:50)
[2019-01-19] MEDS: METOPROLOL TART 25 MG TABLET PO SCH ×2 (09:50→22:27)
[2019-01-19] MEDS: HEPARIN SOD (PORCINE) 5000 UNITS/ML VIAL SQ SCH ×2 (09:50→22:02)
[2019-01-19] MEDS: PANTOPRAZOLE 40MG TAB (PROTONIX) PO SCH ×2 (09:50→22:02)
[2019-01-19 10:00] VITALS: BP 142/65
[2019-01-19] MEDS: cefTRIAXone SOD 2 GM in D5W MINI-BAG PLUS 50 ML IV SCH (12:02)
[2019-01-19 13:29] VITALS: BP 109/51
--- NOTE | 2019-01-19 13:29 | IPNPDOC ---
Text Note Date of Service The patient was seen on 01/19/19. NOTE Subjective: No any acute event overnight. Patient complains of mild abdominal pain. She tolerates feeding via ileostomy. Patient denies fever, chills, nausea, vomiting, palpitations, shortness of breath. Patient was extubated yesterday Objective: Vitals (See below) General: no acute distress, intubated F HEENT: NC, AT, PERRLA CVS: RRR, no mrg Lungs: CTAB, no rales or wheezing Abdomen: Normoactive bowel sounds, soft, gastroduodenostomy tube in place, serosanguineous fluid gastrostomy port Extremities: no LE edema, nontender 88-year-old woman with A. fib (not on anticoagulation), HTN, Arthritis of bilateral knees / hips, Chronic constipation, and recent hospitalization in which she was found to have a perforated duodenal ulcer (s/p Laparoscopic bowel resection and repair of two perforated duodenal ulcers) c/b multiple abscesses now being drained and on vancomycin/fluconazole. Culture from abscesses showed MRSA, Lactobacillus species, Corynebacterium species. On 01/17/19 pt had laparoscopic revision surgery. Multiple abdominal abscesses Abdominal abscess culture 01/05: MRSA / Lactobacillus species / Corynebacterium species Abdominal abscess culture from 07/19/18 showed MRSA - Repeat imaging via CT scan 01/09 was noted to show free air; radiology has dis cussed directly with surgery for now to continue with antibiotics and drain - s/p Vancomycin; s/p Zosyn - started linezolid on01/18/19. Intra-abdominal polymicrobial abscess with MRSA, fungus and culture also grew Leuconostoc which is inherently resistant to vancomycin -Fluconazole was discontinued and the patient was switched to IV micafungin to cover for Sophie species other than albicans until we have the final identification - General surgery, Dr. Osman did laparoscopy with evacuation of multiloculated abscess, debridement of abscess wall/capsule, gastroduodenostomy tube placement. POD2 -advance tube feeding to 25 mLs/hr goal of 40/hr Possible gastric outlet obstruction on imaging - possibly 2/2 gastroparesis see above - c/w PPI PO s/p Diarrhea - possibly 2/2 post-obstructive diarrhea - Improved - C. difficile PCR 01/08: Negative - Diarrhea resolved - colchicine was stopped , Lomotil was stopped A. fib - c/w rate control with metoprolol - Patient is currently not on anticoagulation -We will discuss anticoagulation with surgical team HTN - c/w amlodipine and metoprolol with holding parameters Hypothyroidism - c/w Levothyroxine IV Arthritis of bilateral knees / hips - c/w Tylenol PRN Gastrointestinal prophylaxis - PPI - Pseudogout of the right thumb pain resolved History of perforated duodenal ulcer, PPI PO Protein calorie malnutrition gastuduodenostomy tube placement, will start feeding today Neck pain continue topical anti-inflammatory cream DVT prophylaxis - c/w Heparin Disposition: - Pending clinical improvement VS,Duy, I+O VS, Ana Rosae, I+O Laboratory Tests 01/19/19 04:31 Red Blood Count 3.34 L, Mean Corpuscular Volume 93.7, Mean Corpuscular Hemoglobin 29.6, Mean Corpuscular Hemoglobin Concent 31.6 L, Red Cell Distribution Width 14.6 H, Neutrophils (%) (Auto) 88.0 H, Lymphocytes (%) (Auto) 6.7 L, Monocytes (%) (Auto) 4.6, Eosinophils (%) (Auto) 0.1, Basophils (%) (Auto) 0.2, Neutrophils # (Auto) 10.1 H, Lymphocytes # (Auto) 0.8 L, Monocytes # (Auto) 0.5, Eosinophils # (Auto) 0.0, Basophils # (Auto) 0.0, Calcium Level 8.5 L Vital Signs Date Time Temp Pulse Resp B/P (MAP) Pulse Ox O2 Delivery O2 Flow Rate FiO2 01/19/19 10:00 88 19 142/65 (90) 99 01/19/19 07:56 97.7 01/19/19 07:45 1.0 01/18/19 09:37 35 01/18/19 08:00 Ventilator I&O- Last 24 Hours up to 6 AM 01/19/19 06:00 Intake Total 2954 ml Output Total 2125 ml Balance 829 ml TREY RUTLEDGE DO Jan 19, 2019 13:29
--- NOTE | 2019-01-19 13:34 | IPN ---
DATE: 01/19/2019 Therese seems to be doing fair enough. She only complains of not feeling well but she has no specific complaint. No abdominal pain, nausea, vomiting. She is tolerating clear liquids and her GJ-tube feedings that were increased to 25 mL an hour. She has no cough or shortness of breath. She is off oxygen. Vital signs: Temperature is 97.7, pulse 71, respirations 18, blood pressure 117/58, O2 sat 98% on room air. Heart: Normal S1, S2. No murmurs. Lungs are clear. No wheezes or rhonchi. Chest: Subcutaneous emphysema has decreased, very little crepitus. Abdomen: Soft, diffusely tender. Bowel sounds diminished. There is a right upper quadrant drain with serosanguineous fluid. There is a gastrojejunostomy tube in the left lower quadrant with tube feeds. LABORATORY DATA: White count 11.5, hemoglobin 9.9, hematocrit 31.3, platelets 273. Sodium 136, potassium 3.6, chloride 99, bicarbonate 32, BUN 8, creatinine 0.48, glucose 105, calcium 8.5. Intra-abdominal culture from the OR on 01/17/2019 had only Klebsiella pneumoniae resistant to ampicillin. IMPRESSION: 1. Intra-abdominal abscess with three separate cultures on 01/05 had methicillin resistant Staphylococcus aureus (MRSA), Lactobacillus and Corynebacterium. On 01/12/2019 MRSA, Leuconostoc and yeastlike organism and 01/17/2019 Klebsiella pneumoniae. 2. Perforated peptic ulcer disease. Seems to have healed well, status post omental patch. PLAN: Discontinue IV micafungin. She will be switched to oral fluconazole since intraoperative culture did not grow any yeast to finish a 14-day course. Continue IV linezolid, it could be switched to oral when she is tolerating liquid and that should cover for MRSA and Leuconostoc. I added IV Rocephin 2 grams daily to cover for Klebsiella.
[2019-01-19] MEDS: MORPHINE 4 MG/ML 1ML VIAL/SYRINGE (J2270) IV PRN (17:51)
[2019-01-19 22:00] VITALS: BP 119/71
[2019-01-19] MEDS: FLUCONAZOLE 100 MG TAB PO SCH (22:01)
[2019-01-19] MEDS: ACETAMINOPHEN TAB 650MG DOSE (2X325MG) PO SCH (22:01)
[2019-01-20] MEDS: LEVOTHYROXINE 75MCG TABLET (0.075MG) PO SCH (05:42)
[2019-01-20] MEDS: METOCLOPRAMIDE INJ 10MG/2ML VIAL (J2765) IV SCH (05:42)
[2019-01-20 06:00] VITALS: BP 108/59
[2019-01-20 06:07] LABS: BASO % 0.1 % (0.0-1.0); EOS # 0.1 10^3/uL (0.0-0.5); EOS % 0.5 % (0.0-3.0); HEMATOCRIT 30.8 % (36.0-47.0); LYMPH # 0.9 10^3/uL (1.5-5.0); LYMPH % 6.1 % (24.0-44.0); MEAN CORPUSCULAR HEMOGLOBIN 29.9 pg (27.0-33.0); MEAN CORPUSCULAR HGB CONC 32.5 g/dl (32.0-36.5); MEAN CORPUSCULAR VOLUME 92.2 fl (80.0-96.0); MONO # 0.5 10^3/uL (0.0-0.8); MONO % 3.5 % (0.0-5.0); NEUTROPHILS # 12.3 10^3/uL (1.5-8.5); NEUTROPHILS % 89.3 % (36.0-66.0); PLATELET COUNT, AUTOMATED 272 10^3/uL (150-450); RED BLOOD COUNT 3.34 10^6/uL (4.00-5.40); WHITE BLOOD COUNT 13.8 10^3/uL (4.0-10.0)
[2019-01-20] MEDS: amLODIPine 5 MG TAB PO SCH (09:00)
[2019-01-20] MEDS: METOPROLOL TART 25 MG TABLET PO SCH ×2 (09:00→21:00)
[2019-01-20] MEDS: OCUVITE 1 TAB PO SCH (09:00)
[2019-01-20] MEDS: MORPHINE 4 MG/ML 1ML VIAL/SYRINGE (J2270) IV PRN (09:21)
[2019-01-20] MEDS: ANALGESIC BALM CRM 120 GM TOP SCH ×2 (09:28→21:00)
[2019-01-20] MEDS: PANTOPRAZOLE 40MG TAB (PROTONIX) PO SCH ×2 (09:37→21:18)
[2019-01-20] MEDS: HEPARIN SOD (PORCINE) 5000 UNITS/ML VIAL SQ SCH ×2 (09:39→21:16)
[2019-01-20] MEDS ORDERED: PERCOCET 5MG/325MG TAB PO PRN (11:15)
[2019-01-20] MEDS ORDERED: KETOROLAC 30 MG/ML VIAL (J1885) IV PRN (11:15)
--- NOTE | 2019-01-20 11:23 | IPNPDOC ---
Text Note Date of Service The patient was seen on 01/20/19. NOTE No acute events. Complains of discomfort at the epigastric area. No BMS for a few days now. Denies nausea. Nurse reports feeling groggy with the morphine. On exam, patient seenhead upright while laying on bed, looks weak in appearance mildly pale Awake, alert, oriented Lungs clear Regular heart rate and rhythm abdomen minimally more distended today. I took the postop dressings. Midline incision C/DI. No drainage. SERGEY drain becoming more serous in appearance now. I natalie back on the gastrostomy tube and got some tube feedings mixed with bile. No extremity edema. POD3 evacuation of multiloculated abscess, debridement of abscess wall/capsule, gastuduodenostomy tube placement extubated yesterday POD1 malnutrition debility Present issues include 1. pain control - patient getting lethargic with the morphine. Ill place some prn toradol for a few days maybe switch that to a cox2 inhibitor to decrease effect on stomach/ulcer later on. Will add percocers for longer pain control, d/c morphine. 2. feeding/malnutrition/bloating - advance tube feeds to 40 ml/hr. I am allowing her clears more for comfort than anything else. Will keep gastrostomy tube open for the next couple of days to see how much is refluxing back into the stomach. increase the reglan to 10 po tid. Check the prealbumin tomorrow and weekly. 3. abx - linezolid, rochephin, diflucan 4. dvt prophylaxis 5. duodenal ulcer with perforation -I switched the protonix to PO VS,Fishbone, I+O VS, Fishbone, I+O Laboratory Tests 01/20/19 05:26 Red Blood Count 3.34 L, Mean Corpuscular Volume 92.2, Mean Corpuscular Hemoglobin 29.9, Mean Corpuscular Hemoglobin Concent 32.5, Red Cell Distribution Width 14.8 H, Neutrophils (%) (Auto) 89.3 H, Lymphocytes (%) (Auto) 6.1 L, Monocytes (%) (Auto) 3.5, Eosinophils (%) (Auto) 0.5, Basophils (%) (Auto) 0.1, Neutrophils # (Auto) 12.3 H, Lymphocytes # (Auto) 0.9 L, Monocytes # (Auto) 0.5, Eosinophils # (Auto) 0.1, Basophils # (Auto) 0.0 Vital Signs Date Time Temp Pulse Resp B/P (MAP) Pulse Ox O2 Delivery O2 Flow Rate FiO2 01/20/19 09:41 20 01/20/19 06:00 97.6 84 108/59 (75) 92 01/19/19 07:45 1.0 01/18/19 09:37 35 01/18/19 08:00 Ventilator I&O- Last 24 Hours up to 6 AM 01/20/19 06:00 Intake Total 900 ml Output Total 775 ml Balance 125 ml FREDDY CA MD Jan 20, 2019 11:23
[2019-01-20] MEDS: LINEZOLID 600 MG in IV 1 EA IV SCH ×2 (11:37→21:15)
[2019-01-20] MEDS ORDERED: MOM 30ML SUSPENSION UDC PO ONE (13:00)
[2019-01-20 14:00] VITALS: BP 94/55
[2019-01-20] MEDS: cefTRIAXone SOD 2 GM in D5W MINI-BAG PLUS 50 ML IV SCH (14:22)
--- NOTE | 2019-01-20 15:55 | IPNPDOC ---
Text Note Date of Service The patient was seen on 01/20/19. NOTE Subjective: No any acute event overnight. Patient complains of severe abdominal discomfort. She is more lethargic in the morning. POD3 She tolerates feeding via ileostomy. Patient denies fever, chills, nausea, vomiting, palpitations, shortness of breath. Patient was extubated yesterday Objective: Vitals (See below) General: no acute distress, intubated F HEENT: NC, AT, PERRLA CVS: RRR, no mrg Lungs: CTAB, no rales or wheezing Abdomen: Normoactive bowel sounds, soft, gastroduodenostomy tube in place, serosanguineous fluid gastrostomy port Extremities: no LE edema, nontender 88-year-old woman with A. fib (not on anticoagulation), HTN, Arthritis of bilateral knees / hips, Chronic constipation, and recent hospitalization in which she was found to have a perforated duodenal ulcer (s/p Laparoscopic bowel resection and repair of two perforated duodenal ulcers) c/b multiple abscesses now being drained and on vancomycin/fluconazole. Culture from abscesses showed MRSA, Lactobacillus species, Corynebacterium species. On 01/17/19 pt had laparoscopic revision surgery. Multiple abdominal abscesses Abdominal abscess culture 01/05: MRSA / Lactobacillus species / Corynebacterium species Abdominal abscess culture from 07/19/18 showed MRSA - Repeat imaging via CT scan 01/09 was noted to show free air; radiology has discussed directly with surgery for now to continue with antibiotics and drain - s/p Vancomycin; s/p Zosyn - started linezolid on 01/18/19. Intra-abdominal polymicrobial abscess with MRSA, fungus and culture also grew Leuconostoc which is inherently resistant to vancomycin Ceftriaxone added to cover Klebsiella -Discontinued IV micafungin on 01/19/19. She will be switched to oral fluconazole since intraoperative culture did not grow any yeast to finish a 14-day course - General surgery, Dr. Osman did laparoscopy with evacuation of multilocu lated abscess, debridement of abscess wall/capsule, gastroduodenostomy tube placement. POD2 -advance tube feeding 40/hr Possible gastric outlet obstruction on imaging - possibly 2/2 gastroparesis see above - c/w PPI PO - Continue metoclopramide 10 mg twice a day s/p Diarrhea - possibly 2/2 post-obstructive diarrhea - Improved - C. difficile PCR 01/08: Negative - Diarrhea resolved - colchicine was stopped , Lomotil was stopped A. fib - c/w rate control with metoprolol - Patient is currently not on anticoagulation -We will discuss anticoagulation with surgical team HTN - c/w amlodipine and metoprolol with holding parameters Hypothyroidism - c/w Levothyroxine IV Arthritis of bilateral knees / hips - c/w Tylenol PRN Gastrointestinal prophylaxis - PPI - Pseudogout of the right thumb pain resolved History of perforated duodenal ulcer, PPI PO Protein calorie malnutrition gastuduodenostomy tube placement, will start feeding today Neck pain continue topical anti-inflammatory cream DVT prophylaxis - c/w Heparin Disposition: - Pending clinical improvement VS,Duy, I+O VS, Duy I+O Laboratory Tests 01/20/19 05:26 Red Blood Count 3.34 L, Mean Corpuscular Volume 92.2, Mean Corpuscular Hemoglobin 29.9, Mean Corpuscular Hemoglobin Concent 32.5, Red Cell Distribution Width 14.8 H, Neutrophils (%) (Auto) 89.3 H, Lymphocytes (%) (Auto) 6.1 L, Monocytes (%) (Auto) 3.5, Eosinophils (%) (Auto) 0.5, Basophils (%) (Auto) 0.1, Neutrophils # (Auto) 12.3 H, Lymphocytes # (Auto) 0.9 L, Monocytes # (Auto) 0.5, Eosinophils # (Auto) 0.1, Basophils # (Auto) 0.0 Vital Signs Date Time Temp Pulse Resp B/P (MAP) Pulse Ox O2 Delivery O2 Flow Rate FiO2 01/20/19 14:00 97.3 109 18 94/55 (68) 90 01/19/19 07:45 1.0 01/18/19 09:37 35 01/18/19 08:00 Ventilator I&O- Last 24 Hours up to 6 AM 01/20/19 06:00 Intake Total 900 ml Output Total 775 ml Balance 125 ml TREY RUTLEDGE DO Jan 20, 2019 15:55
[2019-01-20] MEDS: METOCLOPRAMIDE 10 MG TAB PO SCH ×2 (16:20→21:18)
[2019-01-20 20:00] VITALS: BP 106/59
[2019-01-20] MEDS: ACETAMINOPHEN TAB 650MG DOSE (2X325MG) PO SCH (21:17)
[2019-01-20] MEDS: FLUCONAZOLE 100 MG TAB PO SCH (21:17)
[2019-01-21] MEDS: LEVOTHYROXINE 75MCG TABLET (0.075MG) PO SCH (05:41)
[2019-01-21 06:00] VITALS: BP 108/60
[2019-01-21 06:23] LABS: BASO % 0.4 % (0.0-1.0); EOS # 0.2 10^3/uL (0.0-0.5); EOS % 2.3 % (0.0-3.0); HEMATOCRIT 32.4 % (36.0-47.0); HEMOGLOBIN 10.3 g/dl (12.0-15.5); LYMPH % 10.2 % (24.0-44.0); MEAN CORPUSCULAR HEMOGLOBIN 29.2 pg (27.0-33.0); MEAN CORPUSCULAR HGB CONC 31.8 g/dl (32.0-36.5); MEAN CORPUSCULAR VOLUME 91.8 fl (80.0-96.0); MONO # 0.4 10^3/uL (0.0-0.8); MONO % 4.5 % (0.0-5.0); NEUTROPHILS # 7.9 10^3/uL (1.5-8.5); NEUTROPHILS % 82.2 % (36.0-66.0); PLATELET COUNT, AUTOMATED 309 10^3/uL (150-450); RED BLOOD COUNT 3.53 10^6/uL (4.00-5.40); WHITE BLOOD COUNT 9.6 10^3/uL (4.0-10.0)
[2019-01-21] MEDS: ANALGESIC BALM CRM 120 GM TOP SCH ×2 (09:00→21:41)
[2019-01-21] MEDS: METOCLOPRAMIDE 10 MG TAB PO SCH ×3 (10:02→21:40)
[2019-01-21] MEDS: OCUVITE 1 TAB PO SCH (10:02)
[2019-01-21] MEDS: amLODIPine 5 MG TAB PO SCH (10:03)
[2019-01-21] MEDS: PANTOPRAZOLE 40MG TAB (PROTONIX) PO SCH ×2 (10:04→21:40)
[2019-01-21] MEDS: METOPROLOL TART 25 MG TABLET PO SCH ×2 (10:04→21:40)
[2019-01-21] MEDS: PERCOCET 5MG/325MG TAB PO PRN ×2 (10:04→20:41)
[2019-01-21] MEDS: LINEZOLID 600 MG in IV 1 EA IV SCH ×2 (10:05→21:41)
[2019-01-21] MEDS: HEPARIN SOD (PORCINE) 5000 UNITS/ML VIAL SQ SCH ×2 (10:05→21:40)
[2019-01-21] MEDS: PREPARATION H OINTMENT (HEMORRHOID) PR PRN (10:05)
--- NOTE | 2019-01-21 10:12 | REP ---
REASON: Status post gastroduodenostomy. COMPARISON: Preprocedural exam 01/05/2019. There is a surgical staple line in the anterior mid abdomen representing a change from the prior exam. There is a double lumen tube seen entering from the right, the tip of which is superimposed over the left iliac wing. The nature of this tube is possibly a drainage tube. The etiology is uncertain. This needs to be correlated clinically. There is an additional curvilinear density consistent with a tube possibly a recently placed gastroduodenostomy tube. I cannot assess the exact location of the tip of the tube on this plain film exam without contrast administration. It appears to be directed superiorly possibly in the stomach fundal region. The exact position of the tube is a mystery until or unless contrast can be administered into the tube for exact position location. The intestinal gas pattern is nonspecific. There is no intestinal obstruction. There are chronic changes seen involving the imaged osseous structures. IMPRESSION: Findings and limitations as described above. Electronically Signed by Colt Hutchison DO 01/21/2019 10:56 A
[2019-01-21 10:55] LABS: BLOOD UREA NITROGEN 12 MG/DL (7-18); CALCIUM LEVEL 8.3 MG/DL (8.8-10.2); CARBON DIOXIDE LEVEL 34 MEQ/L (21-32); CHLORIDE LEVEL 96 MEQ/L (98-107); CREATININE FOR GFR 0.48 MG/DL (0.55-1.30); GLOMERULAR FILTRATION RATE > 60.0 (>32); GLUCOSE, FASTING 101 MG/DL (70-100); MAGNESIUM LEVEL 1.5 MG/DL (1.8-2.4); SODIUM LEVEL 136 MEQ/L (136-145)
[2019-01-21] MEDS: cefTRIAXone SOD 2 GM in D5W MINI-BAG PLUS 50 ML IV SCH (12:29)
[2019-01-21 14:00] VITALS: BP 105/63
--- NOTE | 2019-01-21 17:42 | IPNPDOC ---
Text Note Date of Service The patient was seen on 01/21/19. NOTE Subjective: No any acute event overnight. Abdominal pain controlled by pain medication. She is more awake morning. POD4 She tolerates feeding via ileostomy. Patient denies fever, chills, nausea, vomiting, palpitations, shortness of breath. Patient was extubated yesterday Objective: Vitals (See below) General: no acute distress, intubated F HEENT: NC, AT, PERRLA CVS: RRR, no mrg Lungs: CTAB, no rales or wheezing Abdomen: Normoactive bowel sounds, soft, gastroduodenostomy tube in place, serosanguineous fluid gastrostomy port Extremities: no LE edema, nontender 88-year-old woman with A. fib (not on anticoagulation), HTN, Arthritis of bilateral knees / hips, Chronic constipation, and recent hospitalization in which she was found to have a perforated duodenal ulcer (s/p Laparoscopic bowel resection and repair of two perforated duodenal ulcers) c/b multiple abscesses now being drained and on vancomycin/fluconazole. Culture from abscesses showed MRSA, Lactobacillus species, Corynebacterium species. On 01/17/19 pt had laparoscopic revision surgery. Multiple abdominal abscesses Abdominal abscess culture 01/05: MRSA / Lactobacillus species / Corynebacterium species Abdominal abscess culture from 07/19/18 showed MRSA - Repeat imaging via CT scan 01/09 was noted to show free air; radiology has discussed directly with surgery for now to continue with antibiotics and drain - s/p Vancomycin; s/p Zosyn - started linezolid on 01/18/19. Intra-abdominal polymicrobial abscess with MRSA, fungus and culture also grew Leuconostoc which is inherently resistant to vancomycin Ceftriaxone added to cover Klebsiella -Discontinued IV micafungin on 01/19/19. She will be switched to oral fluconazole since intraoperative culture did not grow any yeast to finish a 14-day course - General surgery, Dr. Osman did laparoscopy with evacuation of multiloculated abscess, debridement of abscess wall/capsule, gastroduodenostomy tube placement. POD4 -advance tube feeding 40/hr Possible gastric outlet obstruction on imaging - possibly 2/2 gastroparesis see above - c/w PPI PO - Continue metoclopramide 10 mg twice a day s/p Diarrhea - possibly 2/2 post-obstructive diarrhea - Improved - C. difficile PCR 01/08: Negative - Diarrhea resolved - colchicine was stopped , Lomotil was stopped A. fib - c/w rate control with metoprolol - Patient is currently not on anticoagulation -We will discuss anticoagulation with surgical team HTN - c/w amlodipine and metoprolol with holding parameters Hypothyroidism - c/w Levothyroxine IV Arthritis of bilateral knees / hips - c/w Tylenol PRN Gastrointestinal prophylaxis - PPI - Pseudogout of the right thumb pain resolved History of perforated duodenal ulcer, PPI PO Protein calorie malnutrition gastuduodenostomy tube placement, will start feeding today Neck pain continue topical anti-inflammatory cream DVT prophylaxis - c/w Heparin Disposition: - Pending clinical improvement VS,Duy, I+O VS, Duy I+O Laboratory Tests 01/21/19 05:35 Red Blood Count 3.53 L, Mean Corpuscular Volume 91.8, Mean Corpuscular Hemoglobin 29.2, Mean Corpuscular Hemoglobin Concent 31.8 L, Red Cell Distribution Width 14.4, Neutrophils (%) (Auto) 82.2 H, Lymphocytes (%) (Auto) 10.2 L, Monocytes (%) (Auto) 4.5, Eosinophils (%) (Auto) 2.3, Basophils (%) (Auto) 0.4, Neutrophils # (Auto) 7.9, Lymphocytes # (Auto) 1.0 L, Monocytes # (Auto) 0.4, Eosinophils # (Auto) 0.2, Basophils # (Auto) 0.0 01/21/19 10:09 Calcium Level 8.3 L Vital Signs Date Time Temp Pulse Resp B/P (MAP) Pulse Ox O2 Delivery O2 Flow Rate FiO2 01/21/19 14:00 98.2 91 16 105/63 (77) 96 01/19/19 07:45 1.0 01/18/19 09:37 35 01/18/19 08:00 Ventilator I&O- Last 24 Hours up to 6 AM 01/21/19 06:00 Intake Total 300 ml Output Total 1090 ml Balance -790 ml TREY RUTLEDGE DO Jan 21, 2019 17:42
[2019-01-21] MEDS ORDERED: KCL 40MEQ in NS 1000ML 1,000 ML IV SCH (17:45)
[2019-01-21] MEDS ORDERED: MAG SULF 1GM/100ML (MAG RUN) 1 GM in IV 1 EA IV ONE (18:00)
[2019-01-21] MEDS ORDERED: diphenhydrAMINE 25 MG CAP PO PRN (20:30)
[2019-01-21] MEDS: ACETAMINOPHEN TAB 650MG DOSE (2X325MG) PO SCH (21:39)
[2019-01-21] MEDS: FLUCONAZOLE 100 MG TAB PO SCH (21:39)
[2019-01-21 22:00] VITALS: BP 115/66
[2019-01-22] MEDS: D5W/0.9% SODIUM CHLORIDE 1,000 ML IV SCH ×2 (05:49→18:45)
[2019-01-22] MEDS: LEVOTHYROXINE 75MCG TABLET (0.075MG) PO SCH (05:49)
[2019-01-22 06:00] VITALS: BP 115/62
[2019-01-22 06:16] LABS: BASO % 0.5 % (0.0-1.0); EOS # 0.4 10^3/uL (0.0-0.5); EOS % 4.9 % (0.0-3.0); HEMATOCRIT 31.6 % (36.0-47.0); HEMOGLOBIN 10.2 g/dl (12.0-15.5); LYMPH # 1.4 10^3/uL (1.5-5.0); LYMPH % 17.4 % (24.0-44.0); MEAN CORPUSCULAR HEMOGLOBIN 30.3 pg (27.0-33.0); MEAN CORPUSCULAR HGB CONC 32.3 g/dl (32.0-36.5); MEAN CORPUSCULAR VOLUME 93.8 fl (80.0-96.0); MONO # 0.5 10^3/uL (0.0-0.8); MONO % 6.2 % (0.0-5.0); NEUTROPHILS # 5.5 10^3/uL (1.5-8.5); NEUTROPHILS % 70.5 % (36.0-66.0); PLATELET COUNT, AUTOMATED 313 10^3/uL (150-450); RED BLOOD COUNT 3.37 10^6/uL (4.00-5.40); WHITE BLOOD COUNT 7.8 10^3/uL (4.0-10.0)
[2019-01-22 06:36] LABS: BLOOD UREA NITROGEN 11 MG/DL (7-18); CALCIUM LEVEL 8.2 MG/DL (8.8-10.2); CARBON DIOXIDE LEVEL 32 MEQ/L (21-32); CHLORIDE LEVEL 100 MEQ/L (98-107); CREATININE FOR GFR 0.48 MG/DL (0.55-1.30); GLOMERULAR FILTRATION RATE > 60.0 (>32); GLUCOSE, FASTING 83 MG/DL (70-100); POTASSIUM SERUM 3.8 MEQ/L (3.5-5.1); SODIUM LEVEL 136 MEQ/L (136-145)
[2019-01-22] MEDS: OCUVITE 1 TAB PO SCH (09:45)
[2019-01-22] MEDS: METOPROLOL TART 25 MG TABLET PO SCH ×2 (09:46→21:48)
[2019-01-22] MEDS: METOCLOPRAMIDE 10 MG TAB PO SCH ×3 (09:46→21:48)
[2019-01-22] MEDS: HEPARIN SOD (PORCINE) 5000 UNITS/ML VIAL SQ SCH ×2 (09:46→21:47)
[2019-01-22] MEDS: PANTOPRAZOLE 40MG TAB (PROTONIX) PO SCH ×2 (09:47→21:48)
[2019-01-22] MEDS: amLODIPine 5 MG TAB PO SCH (09:47)
[2019-01-22] MEDS: ANALGESIC BALM CRM 120 GM TOP SCH ×2 (09:50→21:00)
[2019-01-22] MEDS: LINEZOLID 600 MG in IV 1 EA IV SCH ×2 (10:33→22:24)
[2019-01-22] MEDS ORDERED: ISOVUE-300 61% 50ML VIAL (Q9967) As Ordered ONE (13:43)
[2019-01-22] MEDS ORDERED: LIDOCAINE 1% MDV 20ML VIAL As Ordered ONE (13:43)
[2019-01-22 14:06] VITALS: BP 119/62
--- NOTE | 2019-01-22 15:03 | IPNPDOC ---
Text Note Date of Service The patient was seen on 01/22/19. NOTE Subjective: No any acute event overnight. Abdominal pain controlled by pain medication and subsided. She she was sitting on the chair in the morning. POD5 Patient denies fever, chills, nausea, vomiting, palpitations, shortness of breath. Objective: Vitals (See below) General: no acute distress, intubated F HEENT: NC, AT, PERRLA CVS: RRR, no mrg Lungs: CTAB, no rales or wheezing Abdomen: Normoactive bowel sounds, soft, gastroduodenostomy tube in place, serosanguineous fluid gastrostomy port Extremities: no LE edema, nontender 88-year-old woman with A. fib (not on anticoagulation), HTN, Arthritis of bilateral knees / hips, Chronic constipation, and recent hospitalization in which she was found to have a perforated duodenal ulcer (s/p Laparoscopic bowel resection and repair of two perforated duodenal ulcers) c/b multiple abscesses now being drained and on vancomycin/fluconazole. Culture from abscesses showed MRSA, Lactobacillus species, Corynebacterium species. On 01/17/19 pt had laparoscopic revision surgery. Started linezolid on 01/18/19. Intra-abdominal polymicrobial abscess with MRSA, fungus and culture also grew Leuconostoc which is inherently resistant to vancomycin Ceftriaxone added to cover Klebsiella. Multiple abdominal abscesses Abdominal abscess culture 01/05: MRSA / Lactobacillus species / Corynebacterium species Abdominal abscess culture from 07/19/18 showed MRSA - Repeat imaging via CT scan 01/09 was noted to show free air; radiology has discussed directly with surgery for now to continue with antibiotics and drain - s/p Vancomycin; s/p Zosyn - started linezolid on 01/18/19. Intra-abdominal polymicrobial abscess with MRSA, fungus and culture also grew Leuconostoc which is inherently resistant to vancomycin Ceftriaxone added to cover Klebsiella -Discontinued IV micafungin on 01/19/19. She will be switched to oral fluconazole since intraoperative culture did not grow any yeast to finish a 14-day course - General surgery, Dr. Osman did laparoscopy with evacuation of multiloculated abscess, debridement of abscess wall/capsule, gastroduodenostomy tube placement. POD5 -c/w tube feeding Possible gastric outlet obstruction on imaging - possibly 2/2 gastroparesis see above - c/w PPI PO - Continue metoclopramide 10 mg twice a day s/p Diarrhea - possibly 2/2 post-obstructive diarrhea - Improved - C. difficile PCR 01/08: Negative - Diarrhea resolved - colchicine was stopped , Lomotil was stopped A. fib - c/w rate control with metoprolol - Patient is currently not on anticoagulation -We will discuss anticoagulation with surgical team HTN - c/w amlodipine and metoprolol with holding parameters Hypothyroidism - c/w Levothyroxine IV Arthritis of bilateral knees / hips - c/w Tylenol PRN Gastrointestinal prophylaxis - PPI - Pseudogout of the right thumb pain resolved History of perforated duodenal ulcer, PPI PO Protein calorie malnutrition gastuduodenostomy tube placement, will start feeding today Neck pain continue topical anti-inflammatory cream DVT prophylaxis - c/w Heparin Disposition: - Pending clinical improvement VS,Dyu, I+O VS, Duy, I+O Laboratory Tests 01/22/19 06:00 Red Blood Count 3.37 L, Mean Corpuscular Volume 93.8, Mean Corpuscular Hemoglobin 30.3, Mean Corpuscular Hemoglobin Concent 32.3, Red Cell Distribution Width 14.5, Neutrophils (%) (Auto) 70.5 H, Lymphocytes (%) (Auto) 17.4 L, Monocytes (%) (Auto) 6.2 H, Eosinophils (%) (Auto) 4.9 H, Basophils (%) (Auto) 0.5, Neutrophils # (Auto) 5.5, Lymphocytes # (Auto) 1.4 L, Monocytes # (Auto) 0.5, Eosinophils # (Auto) 0.4, Basophils # (Auto) 0.0, Calcium Level 8.2 L Vital Signs Date Time Temp Pulse Resp B/P (MAP) Pulse Ox O2 Delivery O2 Flow Rate FiO2 01/22/19 14:05 98.0 71 16 93 01/22/19 09:47 117/61 01/19/19 07:45 1.0 01/18/19 09:37 35 01/18/19 08:00 Ventilator I&O- Last 24 Hours up to 6 AM 01/22/19 05:59 Intake Total 1330 ml Output Total 1395 ml Balance -65 ml TREY RUTLEDGE DO Jan 22, 2019 15:03
--- NOTE | 2019-01-22 15:12 | POST-OPPD ---
Postoperative Procedure Note Date Of Procedure: Jan 22, 2019 Time Of Procedure: 15:10 PREOPERATIVE DIAGNOSIS: gastroparesis. malnourished. GJ placed 10 days ago is clogged. POSTOPERATIVE DIAGNOSIS: gastroparesis. malnourished. GJ placed 10 days ago is clogged. FINDINGS: Jejunal part of GJ is back in the stomach. PROCEDURE: tube unclogged. Jejunal part is back in stomach. need mature tract to manipulate percutaneously ( 4 to 6 weeks ) . consider endoscopic or surgical revision or alternative nourishment until mature tract. SURGEON: Ashutosh ESTIMATED BLOOD LOSS: < 5 ml COMPLICATIONS: none POSTOPERATIVE CONDITION: stable YOLA NAJERA MD Jan 22, 2019 15:12
[2019-01-22] MEDS: cefTRIAXone SOD 2 GM in D5W MINI-BAG PLUS 50 ML IV SCH (15:31)
[2019-01-22] MEDS: FLUCONAZOLE 100 MG TAB PO SCH (21:47)
[2019-01-22] MEDS: ACETAMINOPHEN TAB 650MG DOSE (2X325MG) PO SCH (21:47)
[2019-01-22] MEDS: PERCOCET 5MG/325MG TAB PO PRN (21:49)
[2019-01-22 22:00] VITALS: BP 116/81
[2019-01-23 04:00] VITALS: BP 129/81
[2019-01-23] MEDS: LEVOTHYROXINE 75MCG TABLET (0.075MG) PO SCH (06:13)
[2019-01-23] MEDS: NYSTATIN 100,000 UNITS/GM TOPICAL PWD 15 GM TOP PRN ×2 (06:14→21:25)
[2019-01-23 06:30] LABS: HEMOGLOBIN 10.3 g/dl (12.0-15.5); MEAN CORPUSCULAR HGB CONC 32.2 g/dl (32.0-36.5); MEAN CORPUSCULAR VOLUME 93.3 fl (80.0-96.0); PLATELET COUNT, AUTOMATED 342 10^3/uL (150-450); RED BLOOD COUNT 3.43 10^6/uL (4.00-5.40); WHITE BLOOD COUNT 8.2 10^3/uL (4.0-10.0)
[2019-01-23] MEDS: PERCOCET 5MG/325MG TAB PO PRN (06:41)
[2019-01-23 07:00] LABS: BLOOD UREA NITROGEN 5 MG/DL (7-18); CARBON DIOXIDE LEVEL 28 MEQ/L (21-32); CHLORIDE LEVEL 100 MEQ/L (98-107); CREATININE FOR GFR 0.47 MG/DL (0.55-1.30); GLOMERULAR FILTRATION RATE > 60.0 (>32); GLUCOSE, FASTING 99 MG/DL (70-100); MAGNESIUM LEVEL 1.5 MG/DL (1.8-2.4); POTASSIUM SERUM 2.8 MEQ/L (3.5-5.1); SODIUM LEVEL 135 MEQ/L (136-145)
[2019-01-23] MEDS: D5W/0.9% SODIUM CHLORIDE 1,000 ML IV SCH ×2 (07:15→19:39)
[2019-01-23] MEDS ORDERED: KCL 20MEQ IN 100ML SWI (KRUN) 20 MEQ in IV 1 EA IV ONE ×2 (08:00)
--- NOTE | 2019-01-23 08:39 | REP ---
IR gastrojejunostomy manipulation. IR gastrojejunostomy unclogging under fluoroscopy guidance. Clinical information: Gastrojejunostomy placed surgically 11 days ago. Gastroparesis. Tube is clogged. Physician: Dr. Boykin. Procedure: The the patient's family was advised of the benefits, risks and alternatives of the procedure and informed consent was obtained. The time-out was performed with verification of the patient's name, MRN, site of procedure and type of procedure to be performed. The patient was positioned in the supine position on the angiographic table. The site was prepped and draped in the usual sterile fashion. Moderate sedation was not required. The physician spent 45 minutes of continuous face to face time with the patient. A camp assistant radiograph reveals the gastrojejunostomy catheter the tip of which appears to be flipped back into the fundus of the stomach. The jejunal port of the catheter was injected with contrast but confirmed that it is clogged. A glide wire and a 5-Wallisian catheter were advanced through the jejunal port of the catheter and used to recanalized the catheter, under fluoroscopy guidance. The jejunal port was then flushed with contrast and confirms patency. The J portion is indeed in the stomach. The stomach is decompressed and rugal folds are demonstrated. Given recent placement and lack of mature tract, percutaneous manipulation of this catheter is not going to be possible. A sterile dressing was applied. The patient tolerated the procedure well and was returned to the PRU in stable condition. EBL: Less than 5 ml. Complications: None. Conclusion: 1. Successful unclogging of a gastrojejunostomy catheter under fluoroscopy guidance. 2. Gastrojejunostomy catheter check under fluoroscopy guidance confirms that the jejunal port is flipped back into the fundus of the stomach. Stomach appears decompressed. 3. Given the recent, fresh surgical placement and lack of a mature tract, percutaneous manipulation of this catheter is not possible. May return to IR in 4-6 weeks for percutaneous revision. Thank you this referral. Electronically Signed by Mesha Boykin MD 01/23/2019 08:38 A
[2019-01-23] MEDS: KCL IV SCH ×12 (09:33→16:59)
[2019-01-23] MEDS: [UNRECOGNIZED DRUG - OTHER] IV SCH ×12 (09:33→16:59)
[2019-01-23] MEDS: OCUVITE 1 TAB PO SCH (09:36)
[2019-01-23] MEDS: PANTOPRAZOLE 40MG TAB (PROTONIX) PO SCH ×2 (09:36→21:24)
[2019-01-23] MEDS: METOCLOPRAMIDE 10 MG TAB PO SCH ×3 (09:37→21:24)
[2019-01-23] MEDS: amLODIPine 5 MG TAB PO SCH (09:38)
[2019-01-23] MEDS: METOPROLOL TART 25 MG TABLET PO SCH ×2 (09:39→21:24)
[2019-01-23] MEDS: ANALGESIC BALM CRM 120 GM TOP SCH ×2 (09:39→21:00)
[2019-01-23] MEDS: HEPARIN SOD (PORCINE) 5000 UNITS/ML VIAL SQ SCH ×2 (09:39→21:23)
--- NOTE | 2019-01-23 09:47 | IPNPDOC ---
Text Note Date of Service The patient was seen on 01/23/19. NOTE Patient certainly voice frustration. Otherwise she is just about the same. She is hemodynamically stable. No signs of sepsis or peritonitis. The tube got clogged and unclogged by interventional radiology yesterday. She was made nothing by mouth overnight as nurse reports they're not able to push the feeding through the duodenostomy part. This morning I am able to push water on the duodenostomy portion with expected mild resistance. On exam, patient seenhead upright while laying on bed, looks weak in appearance mildly pale Awake, alert, oriented Lungs clear Regular heart rate and rhythm abdomen minimally more distended today. I took the postop dressings. Midline incision C/DI. No drainage. SERGEY drain still a dark colored serosanguineous drainage. The gastrostomy portion is clamped but there is some bile drainage from the tubing No extremity edema. POD6 evacuation of multiloculated abscess, debridement of abscess wall/capsule, gastuduodenostomy tube placement extubated yesterday POD1 malnutrition debility Present issues include 1. pain control - patient is doing better with current regimen. 2. feeding/malnutrition/bloating - the duodenal ostomy portion dark clots in the evening. This was opened up by Dr. Boykin. I spoke to Dr. Boykin about possibility of changing the tube to a longer gastrojejunostomy to allow for better postpyloric feeding that she does not feel it safe right now given that she is fresh postop. For now, allowing her to eat some soft diet. I will have the nurse give the Jevity his bolus feeds in the gastrostomy portion is both a gastrostomy duodenostomy portion has ended up in the stomach anyway. I'll then have him clamp the gastrostomy and see how she tolerates that and recheck prior to the next meeting, she is able to move forward and how much is retaining in her stomach. This type of feeding, we'll plan to do an endoscopy to try to move the duodenostomy portion back postpyloric or totally just changed this to a jejunostomy tube and then we'll unfortunately reduce the gastrostomy drainage part. 3. abx - linezolid, rochephin, diflucan 4. dvt prophylaxis 5. duodenal ulcer with perforation -I switched the protonix to PO VS,Fishbone, I+O VS, Fishbone, I+O Laboratory Tests 01/23/19 05:59 Red Blood Count 3.43 L, Mean Corpuscular Volume 93.3, Mean Corpuscular Hemoglob in 30.0, Mean Corpuscular Hemoglobin Concent 32.2, Red Cell Distribution Width 14.4, Calcium Level 8.0 L Vital Signs Date Time Temp Pulse Resp B/P (MAP) Pulse Ox O2 Delivery O2 Flow Rate FiO2 01/23/19 09:39 72 118/48 01/23/19 07:11 16 01/23/19 04:00 98.1 97 01/19/19 07:45 1.0 01/18/19 09:37 35 01/18/19 08:00 Ventilator I&O- Last 24 Hours up to 6 AM 01/23/19 06:00 Intake Total 1150 ml Output Total 630 ml Balance 520 ml FREDDY CA MD Jan 23, 2019 09:47
[2019-01-23] MEDS: LINEZOLID 600 MG in IV 1 EA IV SCH (12:42)
[2019-01-23] MEDS: ACETAMINOPHEN 325 MG TAB PO PRN (12:42)
[2019-01-23 14:00] VITALS: BP 118/56
[2019-01-23] MEDS: cefTRIAXone SOD 2 GM in D5W MINI-BAG PLUS 50 ML IV SCH (18:49)
--- NOTE | 2019-01-23 18:51 | IPNPDOC ---
Date Seen The patient was seen on 01/23/19. Progress Note SUBJECTIVE: Patient reported some abdominal soreness but no significant discomfort other hutchinson. Feeding tube reportedly did not work overnight but water was able to be pushed through by surgery in AM with mild resistance. Afebrile overnight, WBC 8.2. K 2.8 this AM and is getting total 40 IV K+. OBJECTIVE PHYSICAL EXAMINATION: VITAL SIGNS: Please see below. General: No acute distress, Alert Eyes: Normal sclera, EOMI, CHRIS HENT: Atraumatic, neck supple, moist mucous membranes Cardiovascular: Normal rate, normal rhythm. No murmurs appreciated. Pulmonary: Clear to auscultation b/l, no wheezing GI: Soft, nontender, nondistended Skin: Warm and dry Neuro: CN grossly intact. No focal deficits. Strengths equal b/l. Psych: oriented x 3 LABORATORY DATA, IMAGING STUDIES, MICROBIOLOGY: Please see below. DVT prophylaxis ordered?: HSQ ASSESSMENT AND PLAN: 1. Abdominal abscess - Intraabdominal abscess s/p laparoscopy and debridement with surgery now with feeding tube placement. - Abscess culture showed showed MRSA, lactobacillus and corynebacterium. - was previously treated with vancomycin as well as micafungin. ID following. - Switched to oral fluconazole to complete 14 day course as well as continuing Zyvox and Rocephin to cover for Klebsiella. - Drain in place and being monitored by surgery. 2. Diarrhea - Resolved. C. diff negative. 3. Afib - c/w metorprolol. Not on anticoagulation. 4. HTN - c/w home meds. - Monitor BP. 5. Hypothyroidism - c/w synthroid. 6. knee arthritis - tylenol PRN for pain control. 7. hx perforated duodenal ulcer - c/w PPI VS, I&O, 24H, Fishbone Vital Signs/I&O Vital Signs Date Time Temp Pulse Resp B/P (MAP) Pulse Ox O2 Delivery O2 Flow Rate FiO2 01/23/19 14:00 98.5 72 18 118/56 (76) 95 01/19/19 07:45 1.0 01/18/19 09:37 35 01/18/19 08:00 Ventilator I&O- Last 24 Hours up to 6 AM 01/23/19 05:59 Intake Total 670 ml Output Total 870 ml Balance -200 ml Laboratory Data 24H LABS Laboratory Tests 2 01/23/19 05:59: Nucleated Red Blood Cells % (auto) 0.0, Anion Gap 7L, Glomerular Filtration Rate > 60.0, Blood Urea Nitrogen 5#L, Creatinine 0.47L, Sodium Level 135L, Potassium Level 2.8#*L, Chloride Level 100, Carbon Dioxide Level 28, Calcium Level 8.0L, Magnesium Level 1.5L CBC/BMP Laboratory Tests 01/23/19 05:59 Red Blood Count 3.43 L, Mean Corpuscular Volume 93.3, Mean Corpuscular Hemoglobin 30.0, Mean Corpuscular Hemoglobin Concent 32.2, Red Cell Distribution Width 14.4, Calcium Level 8.0 L Microbiology Microbiology 01/17/19 Gram Stain - Final, Complete 01/17/19 Wound Culture - Final, Complete Klebsiella Pneumoniae 01/17/19 Anaerobic Culture - Final, Complete SVETA TERAN MD Jan 23, 2019 18:51
[2019-01-23 19:28] LABS: BLOOD UREA NITROGEN 8 MG/DL (7-18); CALCIUM LEVEL 8.1 MG/DL (8.8-10.2); CARBON DIOXIDE LEVEL 28 MEQ/L (21-32); CHLORIDE LEVEL 100 MEQ/L (98-107); CREATININE FOR GFR 0.51 MG/DL (0.55-1.30); GLOMERULAR FILTRATION RATE > 60.0 (>32); GLUCOSE, FASTING 115 MG/DL (70-100); POTASSIUM SERUM 3.8 MEQ/L (3.5-5.1); SODIUM LEVEL 133 MEQ/L (136-145)
[2019-01-23] MEDS: ACETAMINOPHEN TAB 650MG DOSE (2X325MG) PO SCH (21:23)
[2019-01-23] MEDS: FLUCONAZOLE 100 MG TAB PO SCH (21:24)
[2019-01-23 22:00] VITALS: BP 125/60
[2019-01-24] MEDS: LEVOTHYROXINE 75MCG TABLET (0.075MG) PO SCH (05:45)
[2019-01-24 06:00] VITALS: BP 132/61
[2019-01-24 06:51] LABS: HEMATOCRIT 35.5 % (36.0-47.0); HEMOGLOBIN 11.4 g/dl (12.0-15.5); MEAN CORPUSCULAR HEMOGLOBIN 29.8 pg (27.0-33.0); MEAN CORPUSCULAR HGB CONC 32.1 g/dl (32.0-36.5); MEAN CORPUSCULAR VOLUME 92.9 fl (80.0-96.0); PLATELET COUNT, AUTOMATED 383 10^3/uL (150-450); RED BLOOD COUNT 3.82 10^6/uL (4.00-5.40)
[2019-01-24 07:19] LABS: BLOOD UREA NITROGEN 5 MG/DL (7-18); CALCIUM LEVEL 8.1 MG/DL (8.8-10.2); CARBON DIOXIDE LEVEL 27 MEQ/L (21-32); CHLORIDE LEVEL 103 MEQ/L (98-107); CREATININE FOR GFR 0.45 MG/DL (0.55-1.30); GLOMERULAR FILTRATION RATE > 60.0 (>32); GLUCOSE, FASTING 96 MG/DL (70-100); MAGNESIUM LEVEL 1.5 MG/DL (1.8-2.4); POTASSIUM SERUM 3.2 MEQ/L (3.5-5.1); SODIUM LEVEL 136 MEQ/L (136-145)
--- NOTE | 2019-01-24 07:49 | IPNPDOC ---
Text Note Date of Service The patient was seen on 01/24/19. NOTE Seems to be doing well with current feeding regimen. On exam, patient seenhead upright while laying on bed, looks weak in appearance mildly pale Awake, alert, oriented Lungs clear Regular heart rate and rhythm abdomen minimally more distended today. I took the postop dressings. Midline incision C/DI. No drainage. SERGEY drain still a dark colored serosanguineous drainage. The gastrostomy portion is clamped but there is some bile drainage from the tubing No extremity edema. POD7 evacuation of multiloculated abscess, debridement of abscess wall/capsule, gastuduodenostomy tube placement extubated yesterday POD1 malnutrition debility Present issues include 1. pain control - patient is doing better with current regimen. 2. feeding/malnutrition/bloating - I am allowing her soft solid foods supplemented with gastrostomy tube feedins. Unfortunately the tip of the duode nostomy tube seemed to have flipped back to the stomach. If she tolerates getting fed through the gastrostomy without significant residuals then we can just use the gastrostomy portion for supplemental feedings. Otherwise, will bring her to endoscopy to try to reposition duodenostomy tube or replace to a jejunostomy tube (tentatively tuesday) 3. abx - linezolid, rochephin, diflucan. Can switch to PO meds 4. dvt prophylaxis 5. duodenal ulcer with perforation -I switched the protonix to PO VS,Fishbone, I+O VS, Fishbone, I+O Laboratory Tests 01/23/19 18:51 01/24/19 06:32 Vital Signs Date Time Temp Pulse Resp B/P (MAP) Pulse Ox O2 Delivery O2 Flow Rate FiO2 01/24/19 06:00 98.7 78 18 132/61 (84) 94 01/19/19 07:45 1.0 01/18/19 09:37 35 01/18/19 08:00 Ventilator I&O- Last 24 Hours up to 6 AM 01/24/19 06:00 Intake Total 2510 ml Output Total 255 ml Balance 2255 ml FREDDY CA MD Jan 24, 2019 07:49
[2019-01-24] MEDS: HEPARIN SOD (PORCINE) 5000 UNITS/ML VIAL SQ SCH ×2 (08:29→20:46)
[2019-01-24] MEDS: D5W/0.9% SODIUM CHLORIDE 1,000 ML IV SCH (08:29)
[2019-01-24] MEDS: amLODIPine 5 MG TAB PO SCH (08:30)
[2019-01-24] MEDS: METOPROLOL TART 25 MG TABLET PO SCH ×2 (08:30→20:46)
[2019-01-24] MEDS: PANTOPRAZOLE 40MG TAB (PROTONIX) PO SCH ×2 (08:30→20:46)
[2019-01-24] MEDS: METOCLOPRAMIDE 10 MG TAB PO SCH ×3 (08:30→20:46)
[2019-01-24] MEDS: KCL 10MEQ/100ML SWI (KRUN) 10 MEQ in IV 1 EA IV SCH ×3 (08:31→13:16)
[2019-01-24] MEDS: OCUVITE 1 TAB PO SCH (08:31)
[2019-01-24] MEDS: ANALGESIC BALM CRM 120 GM TOP SCH ×2 (08:39→20:47)
[2019-01-24] MEDS: ACETAMINOPHEN 325 MG TAB PO PRN (08:59)
[2019-01-24] MEDS: cefTRIAXone SOD 2 GM in D5W MINI-BAG PLUS 50 ML IV SCH (12:22)
[2019-01-24 14:00] VITALS: BP 132/62
--- NOTE | 2019-01-24 14:44 | IPNPDOC ---
Date Seen The patient was seen on 01/24/19. Progress Note SUBJECTIVE: Patient reported feeling fine, no particular complaints reported. Afebrile overnight. OBJECTIVE PHYSICAL EXAMINATION: VITAL SIGNS: Please see below. General: No acute distress, Alert Eyes: Normal sclera, EOMI, CHRIS HENT: Atraumatic, neck supple, moist mucous membranes Cardiovascular: Normal rate, normal rhythm. No murmurs appreciated. Pulmonary: Clear to auscultation b/l, no wheezing GI: Soft, mild generalized soreness. Dressings in place clean and dry. Midline incision clean. SERGEY drainage in place. Skin: Warm and dry Neuro: CN grossly intact. No focal deficits. LABORATORY DATA, IMAGING STUDIES, MICROBIOLOGY: Please see below. DVT prophylaxis ordered?: HSQ ASSESSMENT AND PLAN: 1. Abdominal abscess - Intraabdominal abscess s/p laparoscopy and debridement with surgery now with feeding tube. - Abscess culture showed MRSA, lactobacillus and corynebacterium. - was previously treated with vancomycin as well as micafungin. ID following. - Switched to oral fluconazole to complete 14 day course. s/p 5 days/10 doses of Zyvox. On Rocephin to cover for Klebsiella. - Drain in place and being monitored by surgery. 2. Diarrhea - Resolved. C. diff negative. 3. Afib - c/w metorprolol. Not on anticoagulation. 4. HTN - c/w home meds. - Monitor BP. 5. Hypothyroidism - c/w synthroid. 6. knee arthritis - tylenol PRN for pain control. 7. hx perforated duodenal ulcer - c/w PPI VS, I&O, 24H, Fishbone Vital Signs/I&O Vital Signs Date Time Temp Pulse Resp B/P (MAP) Pulse Ox O2 Delivery O2 Flow Rate FiO2 01/24/19 14:00 98.6 84 16 132/62 (85) 96 01/19/19 07:45 1.0 01/18/19 09:37 35 01/18/19 08:00 Ventilator I&O- Last 24 Hours up to 6 AM 01/24/19 06:00 Intake Total 2510 ml Output Total 255 ml Balance 2255 ml Laboratory Data 24H LABS Laboratory Tests 2 01/23/19 18:51: Anion Gap 5L, Glomerular Filtration Rate > 60.0, Calcium Level 8.1L 01/24/19 06:32: Anion Gap 6L, Glomerular Filtration Rate > 60.0, Calcium Level 8.1L, Nucleated Red Blood Cells % (auto) 0.0, Magnesium Level 1.5L CBC/BMP Laboratory Tests 01/23/19 18:51 01/24/19 06:32 Microbiology Microbiology 01/17/19 Gram Stain - Final, Complete 01/17/19 Wound Culture - Final, Complete Klebsiella Pneumoniae 01/17/19 Anaerobic Culture - Final, Complete SVETA TERAN MD Jan 24, 2019 14:44
[2019-01-24] MEDS: ACETAMINOPHEN TAB 650MG DOSE (2X325MG) PO SCH (20:45)
[2019-01-24] MEDS: FLUCONAZOLE 100 MG TAB PO SCH (20:45)
[2019-01-24 22:00] VITALS: BP 121/60
[2019-01-25] MEDS: D5W/0.9% SODIUM CHLORIDE 1,000 ML IV SCH ×2 (01:06→15:14)
[2019-01-25 06:00] VITALS: BP 114/68
[2019-01-25] MEDS: LEVOTHYROXINE 75MCG TABLET (0.075MG) PO SCH (06:10)
[2019-01-25 06:18] LABS: HEMATOCRIT 31.5 % (36.0-47.0); HEMOGLOBIN 10.3 g/dl (12.0-15.5); MEAN CORPUSCULAR HEMOGLOBIN 30.3 pg (27.0-33.0); MEAN CORPUSCULAR HGB CONC 32.7 g/dl (32.0-36.5); MEAN CORPUSCULAR VOLUME 92.6 fl (80.0-96.0); PLATELET COUNT, AUTOMATED 325 10^3/uL (150-450)
[2019-01-25 06:42] LABS: BLOOD UREA NITROGEN 6 MG/DL (7-18); CALCIUM LEVEL 8.2 MG/DL (8.8-10.2); CARBON DIOXIDE LEVEL 28 MEQ/L (21-32); CHLORIDE LEVEL 106 MEQ/L (98-107); CREATININE FOR GFR 0.47 MG/DL (0.55-1.30); GLOMERULAR FILTRATION RATE > 60.0 (>32); GLUCOSE, FASTING 90 MG/DL (70-100); MAGNESIUM LEVEL 1.4 MG/DL (1.8-2.4); POTASSIUM SERUM 3.5 MEQ/L (3.5-5.1); SODIUM LEVEL 139 MEQ/L (136-145)
[2019-01-25] MEDS: OCUVITE 1 TAB PO SCH (09:55)
[2019-01-25] MEDS: METOCLOPRAMIDE 10 MG TAB PO SCH ×3 (09:55→22:26)
[2019-01-25] MEDS: HEPARIN SOD (PORCINE) 5000 UNITS/ML VIAL SQ SCH ×2 (09:55→22:27)
[2019-01-25] MEDS: METOPROLOL TART 25 MG TABLET PO SCH ×2 (09:57→22:27)
[2019-01-25] MEDS: amLODIPine 5 MG TAB PO SCH (09:57)
[2019-01-25] MEDS: PANTOPRAZOLE 40MG TAB (PROTONIX) PO SCH ×2 (09:57→22:27)
[2019-01-25] MEDS: ANALGESIC BALM CRM 120 GM TOP SCH ×2 (09:58→22:28)
[2019-01-25 11:22] LABS: AMORPHOUS SEDIMENT SMALL (NEGATIVE); APPEARANCE, URINE CLEAR (CLEAR); BACTERIA, URINE AUTO 1+ (NEGATIVE); BILIRUBIN, URINE AUTO NEGATIVE (NEGATIVE); BLOOD, URINE BLOOD NEGATIVE (NEGATIVE); COLOR, URINE STRAW (YELLOW); GLUCOSE, URINE (UA) AUTO NEGATIVE (NEGATIVE); KETONE, URINE AUTO NEGATIVE (NEGATIVE); LEUKOCYTE ESTERASE, URINE AUTO TRACE (NEGATIVE); MUCUS, URINE SMALL (NEGATIVE); NITRITE, URINE AUTO NEGATIVE (NEGATIVE); PROTEIN, URINE AUTO NEGATIVE (NEGATIVE); RBC, URINE AUTO 2 /HPF (0-3); SPECIFIC GRAVITY URINE AUTO 1.006 (1.002-1.035); SQUAMOUS EPITHELIAL CELL UR AU 0 /HPF (0-6); UROBILINOGEN, URINE AUTO 0.2 mg/dL (0.0-2.0); WBC, URINE AUTO 2 /HPF (0-3)
[2019-01-25] MEDS: cefTRIAXone SOD 2 GM in D5W MINI-BAG PLUS 50 ML IV SCH (12:36)
[2019-01-25 14:00] VITALS: BP 130/61
[2019-01-25 16:15] LABS: C REACTIVE PROTEIN QUANTITATIV 1.96 MG/DL (0.00-0.30)
--- NOTE | 2019-01-25 18:03 | IPN ---
DATE: 01/25/2019 Therese seems to be doing slightly better everyday. She has no nausea, vomiting, or diarrhea but still has no appetite. She has a gastrostomy tube and a right upper quadrant drain. The drain in the right upper quadrant has bloody drainage, total output yesterday was 90 mL. Her major complaint is not having an appetite and she has some purulent drainage from the lower part of the incision midline. LABORATORY DATA: White count 8, hemoglobin 10.3, hematocrit 31.5, platelets 325. Sodium 139, potassium 3.5, chloride 106, bicarbonate 28, BUN 6, creatinine 0.47, glucose 90, calcium 8.2, magnesium 1.4, CRP 1.96 which has continued to decrease. IMPRESSION: 1. Intra-abdominal abscess with polymicrobial alivia, most recently has Klebsiella pneumoniae and Sophie glabrata. The patient is day number seven of IV Rocephin and oral fluconazole. Clinically improving. 2. Anorexia. The patient is having gastrostomy (G) tube feedings and tolerating some oral intake. 3. Candidiasis in the groin area, on Nystatin powder. PLAN: Continue current antibiotics for a total of 14 days. We will continue to monitor.
--- NOTE | 2019-01-25 19:59 | IPNPDOC ---
Date Seen The patient was seen on 01/25/19. Progress Note SUBJECTIVE: Patient continues to have no complaints today. Afebrile with stable BP. WBC 8. OBJECTIVE PHYSICAL EXAMINATION: VITAL SIGNS: Please see below. General: No acute distress, Alert Eyes: Normal sclera, EOMI, CHRIS HENT: Atraumatic, neck supple, moist mucous membranes Cardiovascular: Normal rate, normal rhythm. No murmurs appreciated. Pulmonary: Clear to auscultation b/l, no wheezing GI: Soft, mild generalized soreness. Dressings in place clean and dry. Midline incision clean. SERGEY drainage in place. Skin: Warm and dry Neuro: CN grossly intact. No focal deficits. LABORATORY DATA, IMAGING STUDIES, MICROBIOLOGY: Please see below. DVT prophylaxis ordered?: HSQ ASSESSMENT AND PLAN: 1. Abdominal abscess - Intraabdominal abscess s/p laparoscopy and debridement with surgery now with feeding tube. - Abscess culture showed MRSA, lactobacillus and corynebacterium. - was previously treated with vancomycin as well as micafungin. ID following. - Switched to oral fluconazole to complete 14 day course. s/p 5 days/10 doses of Zyvox. On Rocephin to cover for Klebsiella. - Drain in place and being monitored by surgery. 2. Diarrhea - Resolved. C. diff negative. 3. Afib - c/w metorprolol. Not on anticoagulation. 4. HTN - c/w home meds. - Monitor BP. 5. Hypothyroidism - c/w synthroid. 6. knee arthritis - tylenol PRN for pain control. 7. hx perforated duodenal ulcer - c/w PPI VS, I&O, 24H, Fishbone Vital Signs/I&O Vital Signs Date Time Temp Pulse Resp B/P (MAP) Pulse Ox O2 Delivery O2 Flow Rate FiO2 01/25/19 14:00 97.4 100 18 130/61 (84) 96 01/19/19 07:45 1.0 I&O- Last 24 Hours up to 6 AM 01/25/19 06:00 Intake Total 1200 ml Output Total 60 ml Balance 1140 ml Laboratory Data 24H LABS Laboratory Tests 2 01/25/19 06:05: Nucleated Red Blood Cells % (auto) 0.0, Anion Gap 5L, Glomerular Filtration Rate > 60.0, Calcium Level 8.2L, Magnesium Level 1.4L, C-Reactive Protein, Quantitative 1.96H 10/17/19 11:05: Urine Color STRAW, Urine Appearance CLEAR, Urine pH 8.0, Urine Specific [place] 1.006, Urine Protein NEGATIVE, Urine Glucose (Auto)(UA) NEGATIVE, Urine Ketones (Auto) NEGATIVE, Urine Blood NEGATIVE, Urine Nitrite NEGATIVE, Urine Bilirubin NEGATIVE, Urine Urobilinogen 0.2, Urine Leukocyte Esterase (Auto) TRACEH, Urine WBC (Auto) 2, Urine RBC (Auto) 2, Urine Hyaline Casts (Auto) 0, Urine Bacteria (Auto) 1+H, Urine Squamous Epithelial Cells 0, Urine Amorphous Sediment (Auto) SMALLH, Urine Mucus (Auto) SMALL, Urine Sperm (Auto) CBC/BMP Laboratory Tests 01/25/19 06:05 Microbiology Microbiology 01/17/19 Gram Stain - Final, Complete 01/17/19 Wound Culture - Final, Complete Klebsiella Pneumoniae 01/17/19 Anaerobic Culture - Final, Complete SVETA TERAN MD Jan 25, 2019 19:59
[2019-01-25 22:00] VITALS: BP 128/65
[2019-01-25] MEDS: ACETAMINOPHEN TAB 650MG DOSE (2X325MG) PO SCH (22:26)
[2019-01-25] MEDS: FLUCONAZOLE 100 MG TAB PO SCH (22:27)
[2019-01-25] MEDS: RAMELTEON 8 MG TAB (ROZEREM) PO PRN (22:33)
[2019-01-25] MEDS: NYSTATIN 100,000 UNITS/GM TOPICAL PWD 15 GM TOP PRN (22:52)
[2019-01-26] MEDS: D5W/0.9% SODIUM CHLORIDE 1,000 ML IV SCH ×3 (02:43→22:45)
[2019-01-26 06:00] VITALS: BP 127/67
[2019-01-26] MEDS: LEVOTHYROXINE 75MCG TABLET (0.075MG) PO SCH (06:11)
[2019-01-26 07:03] LABS: HEMOGLOBIN 10.7 g/dl (12.0-15.5); MEAN CORPUSCULAR HEMOGLOBIN 30.2 pg (27.0-33.0); MEAN CORPUSCULAR HGB CONC 32.4 g/dl (32.0-36.5); MEAN CORPUSCULAR VOLUME 93.2 fl (80.0-96.0); PLATELET COUNT, AUTOMATED 349 10^3/uL (150-450); RED BLOOD COUNT 3.54 10^6/uL (4.00-5.40); WHITE BLOOD COUNT 9.8 10^3/uL (4.0-10.0)
[2019-01-26 07:36] LABS: BLOOD UREA NITROGEN 6 MG/DL (7-18); CALCIUM LEVEL 8.1 MG/DL (8.8-10.2); CARBON DIOXIDE LEVEL 25 MEQ/L (21-32); CHLORIDE LEVEL 104 MEQ/L (98-107); CREATININE FOR GFR 0.45 MG/DL (0.55-1.30); GLOMERULAR FILTRATION RATE > 60.0 (>32); GLUCOSE, FASTING 101 MG/DL (70-100); MAGNESIUM LEVEL 1.2 MG/DL (1.8-2.4); POTASSIUM SERUM 3.4 MEQ/L (3.5-5.1); SODIUM LEVEL 137 MEQ/L (136-145)
[2019-01-26] MEDS: KCL 10MEQ/100ML SWI (KRUN) 10 MEQ in IV 1 EA IV SCH ×2 (09:15→09:27)
[2019-01-26] MEDS: OCUVITE 1 TAB PO SCH (09:25)
[2019-01-26] MEDS: METOCLOPRAMIDE 10 MG TAB PO SCH ×3 (09:26→21:50)
[2019-01-26] MEDS: amLODIPine 5 MG TAB PO SCH (09:26)
[2019-01-26] MEDS: PANTOPRAZOLE 40MG TAB (PROTONIX) PO SCH ×2 (09:26→21:51)
[2019-01-26] MEDS: METOPROLOL TART 25 MG TABLET PO SCH ×2 (09:26→21:51)
[2019-01-26] MEDS: HEPARIN SOD (PORCINE) 5000 UNITS/ML VIAL SQ SCH ×2 (09:27→21:50)
[2019-01-26] MEDS: ANALGESIC BALM CRM 120 GM TOP SCH ×2 (09:42→21:00)
[2019-01-26] MEDS: PERCOCET 5MG/325MG TAB PO PRN (09:47)
[2019-01-26] MEDS ORDERED: POTASSIUM CHLORIDE 10 MEQ SR TABLET PO ONE (11:45)
[2019-01-26] MEDS: cefTRIAXone SOD 2 GM in D5W MINI-BAG PLUS 50 ML IV SCH (12:05)
[2019-01-26] MEDS: MAG SULF 1GM/100ML (MAG RUN) 1 GM in IV 1 EA IV SCH ×2 (12:05→13:55)
--- NOTE | 2019-01-26 14:08 | IPNPDOC ---
Date Seen The patient was seen on 01/26/19. Progress Note SUBJECTIVE: Patient had no complaints today. Was not able to hear well this morning because she does not have her hearing aid. Afebrile overnight. OBJECTIVE PHYSICAL EXAMINATION: VITAL SIGNS: Please see below. General: No acute distress, Alert Eyes: Normal sclera, EOMI, CHRIS HENT: Atraumatic, neck supple, moist mucous membranes Cardiovascular: Normal rate, normal rhythm. No murmurs appreciated. Pulmonary: Clear to auscultation b/l, no wheezing GI: Soft, mild generalized soreness. Dressings in place clean and dry. Midline incision clean. SERGEY drainage in place. Skin: Warm and dry Neuro: CN grossly intact. No focal deficits. LABORATORY DATA, IMAGING STUDIES, MICROBIOLOGY: Please see below. DVT prophylaxis ordered?: HSQ ASSESSMENT AND PLAN: 1. Abdominal abscess - Intraabdominal abscess s/p laparoscopy and debridement with surgery now with feeding tube. - Abscess culture showed MRSA, lactobacillus and corynebacterium. - was previously treated with vancomycin as well as micafungin. ID following. - Switched to oral fluconazole to complete 14 day course. s/p 5 days/10 doses of Zyvox. - Also on Rocephin to cover for Klebsiella. - Drain in place and being monitored by surgery. - Pain control. 2. Diarrhea - Resolved. C. diff negative. 3. Afib - c/w metorprolol. Not on anticoagulation. 4. HTN - c/w home meds. - Monitor BP. 5. Hypothyroidism - c/w synthroid. 6. knee arthritis - tylenol PRN for pain control. 7. hx perforated duodenal ulcer - c/w PPI VS, I&O, 24H, [facility] Vital Signs/I&O Vital Signs Date Time Temp Pulse Resp B/P (MAP) Pulse Ox O2 Delivery O2 Flow Rate FiO2 01/26/19 10:31 18 01/26/19 09:26 78 127/67 01/26/19 06:00 98.0 95 Room Air I&O- Last 24 Hours up to 6 AM 01/26/19 06:00 Intake Total 1100 ml Output Total 155 ml Balance 945 ml Laboratory Data 24H LABS Laboratory Tests 2 01/26/19 06:34: Nucleated Red Blood Cells % (auto) 0.0, Anion Gap 8, Glomerular Filtration Rate > 60.0, Calcium Level 8.1L, Magnesium Level 1.2L CBC/BMP Laboratory Tests 01/26/19 06:34 Microbiology Microbiology 01/17/19 Gram Stain - Final, Complete 01/17/19 Wound Culture - Final, Complete Klebsiella Pneumoniae 01/17/19 Anaerobic Culture - Final, Complete SVETA TERAN MD Jan 26, 2019 14:08
[2019-01-26 14:13] VITALS: BP 98/53
--- NOTE | 2019-01-26 15:30 | IPN ---
DATE: 01/26/2019 Therese is doing fairly well except for concerns about diarrhea. The diarrhea is non foul smelling. It is soft and watery according to nurses. There has only been documented two yesterday but five the day before. She has no abdominal pain. No fever or chills. She has leakage around her G-tube with a lot of tube feeds around the dressing. She has minimal drainage also from the inferior aspect of the incision, which is mostly serous sanguineous. Appetite is slightly better but not great. LABORATORY DATA: White count is 9.8, hemoglobin 10.7, hematocrit 33, platelets 349. Sodium 137, potassium 3.4, chloride 104, bicarb 25, BUN 6, creatinine 0.45, glucose 101, calcium 8.1, magnesium 1.2, CRP 1.96. Wound culture 01/12 had Sophie glabrata. Wound culture 01/17 has Klebsiella pneumoniae. PHYSICAL EXAMINATION: Temperature is 98, pulse 78, respirations 16, blood pressure 127/67, O2 sat 95% on room air. Heart: Normal S1, S2. No murmurs. Lungs: Few crackles at the right base. Abdomen is soft, nontender. No hepatosplenomegaly. [place] midline with the inferior aspect of the wound has serosanguineous drainage. G-tube left lower quadrant with erythema underneath it from leakage of the tube feeds around it. Right upper quadrant drain with serosanguineous drainage. Extremities: No edema. IMPRESSION: 1. Intra-abdominal abscess with Klebsiella and Sophie on IV Rocephin and oral fluconazole. The patient will be on antibiotics for total of 2 weeks post surgery. End of treatment would be January 31. 2. Anorexia. On jejunostomy tube feedings, tolerating well except for leakage around the tube. The patient is encouraged to take more oral intake. 3. Candidiasis glabrata. On Nystatin. The patient is also taking fluconazole. 4. Diarrhea. Most likely related to tube feeds. Unlikely for it to be Clostridium (C.) difficile without a fever, abdominal pain, or increase in her white count or inflammation markers. If diarrhea persists and has more than three watery stools a day, please obtain a stool for C difficile. PLAN: Continue current antibiotic with end of treatment date planned for January 31.
[2019-01-26] MEDS: MAGNESIUM CHLORIDE 64 MG TABCR (SLO MAG) PO SCH (16:10)
[2019-01-26] MEDS: FLUCONAZOLE 100 MG TAB PO SCH (21:50)
[2019-01-26] MEDS: ACETAMINOPHEN TAB 650MG DOSE (2X325MG) PO SCH (21:51)
[2019-01-26] MEDS: NYSTATIN 100,000 UNITS/GM TOPICAL PWD 15 GM TOP PRN (21:52)
[2019-01-26 22:00] VITALS: BP 112/57
[2019-01-27] MEDS: RAMELTEON 8 MG TAB (ROZEREM) PO PRN (00:21)
[2019-01-27] MEDS: LEVOTHYROXINE 75MCG TABLET (0.075MG) PO SCH (05:29)
[2019-01-27 06:00] VITALS: BP 147/78
[2019-01-27 08:18] LABS: HEMATOCRIT 31.8 % (36.0-47.0); HEMOGLOBIN 10.1 g/dl (12.0-15.5); MEAN CORPUSCULAR HEMOGLOBIN 29.4 pg (27.0-33.0); MEAN CORPUSCULAR HGB CONC 31.8 g/dl (32.0-36.5); MEAN CORPUSCULAR VOLUME 92.7 fl (80.0-96.0); PLATELET COUNT, AUTOMATED 351 10^3/uL (150-450); RED BLOOD COUNT 3.43 10^6/uL (4.00-5.40); WHITE BLOOD COUNT 10.6 10^3/uL (4.0-10.0)
[2019-01-27] MEDS: METOCLOPRAMIDE 10 MG TAB PO SCH ×3 (08:32→20:56)
[2019-01-27] MEDS: MAGNESIUM CHLORIDE 64 MG TABCR (SLO MAG) PO SCH (08:32)
[2019-01-27] MEDS: HEPARIN SOD (PORCINE) 5000 UNITS/ML VIAL SQ SCH ×2 (08:32→20:56)
[2019-01-27] MEDS: OCUVITE 1 TAB PO SCH (08:32)
[2019-01-27] MEDS: PANTOPRAZOLE 40MG TAB (PROTONIX) PO SCH ×2 (08:32→20:56)
[2019-01-27] MEDS: amLODIPine 5 MG TAB PO SCH (08:34)
[2019-01-27] MEDS: METOPROLOL TART 25 MG TABLET PO SCH ×3 (08:34→21:00)
[2019-01-27] MEDS: ANALGESIC BALM CRM 120 GM TOP SCH ×2 (08:35→20:55)
[2019-01-27 08:36] LABS: BLOOD UREA NITROGEN 7 MG/DL (7-18); CALCIUM LEVEL 8.5 MG/DL (8.8-10.2); CARBON DIOXIDE LEVEL 26 MEQ/L (21-32); CHLORIDE LEVEL 105 MEQ/L (98-107); CREATININE FOR GFR 0.41 MG/DL (0.55-1.30); GLOMERULAR FILTRATION RATE > 60.0 (>32); GLUCOSE, FASTING 119 MG/DL (70-100); MAGNESIUM LEVEL 1.5 MG/DL (1.8-2.4); POTASSIUM SERUM 3.5 MEQ/L (3.5-5.1); SODIUM LEVEL 138 MEQ/L (136-145)
[2019-01-27] MEDS: cefTRIAXone SOD 2 GM in D5W MINI-BAG PLUS 50 ML IV SCH (12:26)
[2019-01-27 14:00] VITALS: BP 143/60
--- NOTE | 2019-01-27 15:18 | IPNPDOC ---
Date Seen The patient was seen on 01/27/19. Progress Note SUBJECTIVE: Patient reports feeling fine. afebrile. wbc 10.6. Mg 1.5 today, slightly better than yesterday. OBJECTIVE PHYSICAL EXAMINATION: VITAL SIGNS: Please see below. General: No acute distress, Alert Eyes: Normal sclera, EOMI, CHRIS HENT: Atraumatic, neck supple, moist mucous membranes Cardiovascular: Normal rate, normal rhythm. No murmurs appreciated. Pulmonary: Clear to auscultation b/l, no wheezing GI: Soft, mild generalized soreness. Dressings in place clean and dry. Midline incision clean. SERGEY drainage in place. Skin: Warm and dry Neuro: CN grossly intact. No focal deficits. LABORATORY DATA, IMAGING STUDIES, MICROBIOLOGY: Please see below. DVT prophylaxis ordered?: HSQ ASSESSMENT AND PLAN: 1. Abdominal abscess - Intraabdominal abscess s/p laparoscopy and debridement with surgery now with feeding tube. - Abscess culture showed MRSA, lactobacillus and corynebacterium. - was previously treated with vancomycin as well as micafungin. ID following. - Switched to oral fluconazole to complete 14 day course. s/p 5 days/10 doses of Zyvox. - Also on Rocephin to cover for Klebsiella. - Drain in place and being monitored by surgery. - Pain control. 2. Diarrhea - Resolved. C. diff negative. 3. Afib - c/w metorprolol. Not on anticoagulation. 4. HTN - c/w home meds. - Monitor BP. 5. Hypothyroidism - c/w synthroid. 6. knee arthritis - tylenol PRN for pain control. 7. hx perforated duodenal ulcer - c/w PPI Hypomagnesimia - likely 2/2 GI loss. Continues to be low despite repletion. - C/w monitor and replete daily. - Added PO magnesium daily doses as well. VS, I&O, 24H, Fishbone Vital Signs/I&O Vital Signs Date Time Temp Pulse Resp B/P (MAP) Pulse Ox O2 Delivery O2 Flow Rate FiO2 01/27/19 14:00 98.2 83 18 143/60 (87) 97 Room Air I&O- Last 24 Hours up to 6 AM 01/27/19 06:00 Intake Total 2450 ml Output Total 35 ml Balance 2415 ml Laboratory Data 24H LABS Laboratory Tests 2 01/27/19 08:01: Nucleated Red Blood Cells % (auto) 0.0, Anion Gap 7L, Glomerular Filtration Rate > 60.0, Calcium Level 8.5L, Magnesium Level 1.5L CBC/BMP Laboratory Tests 01/27/19 08:01 Microbiology Microbiology 01/27/19 Gastrointestinal Tract Panel (PCR), Received Pending 01/17/19 Gram Stain - Final, Complete 01/17/19 Wound Culture - Final, Complete Klebsiella Pneumoniae 01/17/19 Anaerobic Culture - Final, Complete SVETA TERAN MD Jan 27, 2019 15:18
[2019-01-27] MEDS: MAG SULF 1GM/100ML (MAG RUN) 1 GM in IV 1 EA IV SCH ×2 (16:22→17:28)
[2019-01-27] MEDS: D5W/0.9% SODIUM CHLORIDE 1,000 ML IV SCH ×2 (18:42→23:45)
[2019-01-27] MEDS: ACETAMINOPHEN TAB 650MG DOSE (2X325MG) PO SCH (20:56)
[2019-01-27] MEDS: FLUCONAZOLE 100 MG TAB PO SCH (20:56)
[2019-01-27] MEDS: NYSTATIN 100,000 UNITS/GM TOPICAL PWD 15 GM TOP PRN (20:59)
[2019-01-27 22:00] VITALS: BP 119/54
[2019-01-28] MEDS: LEVOTHYROXINE 75MCG TABLET (0.075MG) PO SCH (05:39)
[2019-01-28 06:00] VITALS: BP 125/61
[2019-01-28 06:19] LABS: HEMATOCRIT 31.4 % (36.0-47.0); MEAN CORPUSCULAR HEMOGLOBIN 30.3 pg (27.0-33.0); MEAN CORPUSCULAR HGB CONC 31.8 g/dl (32.0-36.5); MEAN CORPUSCULAR VOLUME 95.2 fl (80.0-96.0); PLATELET COUNT, AUTOMATED 351 10^3/uL (150-450); WHITE BLOOD COUNT 9.5 10^3/uL (4.0-10.0)
[2019-01-28 06:50] LABS: BLOOD UREA NITROGEN 7 MG/DL (7-18); CALCIUM LEVEL 8.6 MG/DL (8.8-10.2); CARBON DIOXIDE LEVEL 29 MEQ/L (21-32); CHLORIDE LEVEL 105 MEQ/L (98-107); CREATININE FOR GFR 0.42 MG/DL (0.55-1.30); GLOMERULAR FILTRATION RATE > 60.0 (>32); GLUCOSE, FASTING 84 MG/DL (70-100); MAGNESIUM LEVEL 2.1 MG/DL (1.8-2.4); SODIUM LEVEL 139 MEQ/L (136-145)
[2019-01-28] MEDS: MAGNESIUM CHLORIDE 64 MG TABCR (SLO MAG) PO SCH (08:33)
[2019-01-28] MEDS: OCUVITE 1 TAB PO SCH (08:33)
[2019-01-28] MEDS: METOCLOPRAMIDE 10 MG TAB PO SCH ×3 (08:34→21:48)
[2019-01-28] MEDS: PANTOPRAZOLE 40MG TAB (PROTONIX) PO SCH ×2 (08:34→21:48)
[2019-01-28] MEDS: amLODIPine 5 MG TAB PO SCH (08:34)
[2019-01-28] MEDS: METOPROLOL TART 25 MG TABLET PO SCH ×2 (08:34→21:00)
[2019-01-28] MEDS: NYSTATIN 100,000 UNITS/GM TOPICAL PWD 15 GM TOP PRN ×2 (08:35→22:38)
[2019-01-28] MEDS: HEPARIN SOD (PORCINE) 5000 UNITS/ML VIAL SQ SCH ×2 (08:35→21:49)
[2019-01-28] MEDS: ANALGESIC BALM CRM 120 GM TOP SCH ×2 (08:36→21:50)
[2019-01-28] MEDS: D5W/0.9% SODIUM CHLORIDE 1,000 ML IV SCH (13:32)
[2019-01-28] MEDS: cefTRIAXone SOD 2 GM in D5W MINI-BAG PLUS 50 ML IV SCH (13:32)
[2019-01-28 14:00] VITALS: BP 123/60
--- NOTE | 2019-01-28 15:40 | IPNPDOC ---
Date Seen The patient was seen on 01/28/19. Progress Note SUBJECTIVE: Patient has no complaints. She is unsure if her stool is still loose or not. Mg 2.1 today. Afebrile overnight. GI Panel negative OBJECTIVE PHYSICAL EXAMINATION: VITAL SIGNS: Please see below. General: No acute distress, Alert Eyes: Normal sclera, EOMI, CHRIS HENT: Atraumatic, neck supple, moist mucous membranes Cardiovascular: Normal rate, normal rhythm. No murmurs appreciated. Pulmonary: Clear to auscultation b/l, no wheezing GI: Soft, mild generalized soreness. Dressings in place clean and dry. Midline incision clean. SERGEY drainage in place. Skin: Warm and dry Neuro: CN grossly intact. No focal deficits. LABORATORY DATA, IMAGING STUDIES, MICROBIOLOGY: Please see below. DVT prophylaxis ordered?: HSQ ASSESSMENT AND PLAN: 1. Abdominal abscess - Intraabdominal abscess s/p laparoscopy and debridement with surgery now with feeding tube. - Abscess culture showed MRSA, lactobacillus and corynebacterium. - was previously treated with vancomycin as well as micafungin. ID following. - Switched to oral fluconazole to complete 14 day course. s/p 5 days/10 doses of Zyvox. - Also on Rocephin to cover for Klebsiella. - Drain in place and being monitored by surgery. - Pain control. 2. Diarrhea - Patient unsure if she still has it, intermittent complaints. C. diff negative, repeat GI panel negative. 3. Afib - c/w metoprolol. Not on anticoagulation. 4. HTN - c/w home meds. - Monitor BP. 5. Hypothyroidism - c/w synthroid. 6. knee arthritis - tylenol PRN for pain control. 7. hx perforated duodenal ulcer - c/w PPI Hypomagnesimia - likely 2/2 GI loss. - C/w monitor and replete daily. - Added PO magnesium daily doses. VS, I&O, 24H, [facility] Vital Signs/I&O Vital Signs Date Time Temp Pulse Resp B/P (MAP) Pulse Ox O2 Delivery O2 Flow Rate FiO2 01/28/19 14:00 96.8 70 17 123/60 (81) 95 Room Air I&O- Last 24 Hours up to 6 AM 01/28/19 06:00 Intake Total 3530 ml Output Total 90 ml Balance 3440 ml Laboratory Data 24H LABS Laboratory Tests 2 01/28/19 05:44: Nucleated Red Blood Cells % (auto) 0.0, Anion Gap 5L, Glomerular Filtration Rate > 60.0, Calcium Level 8.6L, Magnesium Level 2.1 CBC/BMP Laboratory Tests 01/28/19 05:44 Microbiology Microbiology 01/27/19 Gastrointestinal Tract Panel (PCR) - Final, Complete SVETA TERAN MD Jan 28, 2019 15:40
[2019-01-28] MEDS: PREPARATION H OINTMENT (HEMORRHOID) PR PRN (21:48)
[2019-01-28] MEDS: FLUCONAZOLE 100 MG TAB PO SCH (21:48)
[2019-01-28] MEDS: ACETAMINOPHEN TAB 650MG DOSE (2X325MG) PO SCH (21:49)
[2019-01-28 22:00] VITALS: BP 106/52
[2019-01-29] MEDS: D5W/0.9% SODIUM CHLORIDE 1,000 ML IV SCH ×2 (03:17→23:57)
[2019-01-29] MEDS: LEVOTHYROXINE 75MCG TABLET (0.075MG) PO SCH (05:59)
[2019-01-29 06:00] VITALS: BP 124/66
[2019-01-29 06:21] LABS: HEMATOCRIT 31.9 % (36.0-47.0); HEMOGLOBIN 10.2 g/dl (12.0-15.5); MEAN CORPUSCULAR HEMOGLOBIN 30.5 pg (27.0-33.0); MEAN CORPUSCULAR VOLUME 95.5 fl (80.0-96.0); PLATELET COUNT, AUTOMATED 350 10^3/uL (150-450); RED BLOOD COUNT 3.34 10^6/uL (4.00-5.40); WHITE BLOOD COUNT 9.5 10^3/uL (4.0-10.0)
[2019-01-29 06:50] LABS: BLOOD UREA NITROGEN 7 MG/DL (7-18); CALCIUM LEVEL 8.6 MG/DL (8.8-10.2); CARBON DIOXIDE LEVEL 29 MEQ/L (21-32); CHLORIDE LEVEL 104 MEQ/L (98-107); CREATININE FOR GFR 0.46 MG/DL (0.55-1.30); GLOMERULAR FILTRATION RATE > 60.0 (>32); GLUCOSE, FASTING 83 MG/DL (70-100); MAGNESIUM LEVEL 1.8 MG/DL (1.8-2.4); SODIUM LEVEL 137 MEQ/L (136-145)
--- NOTE | 2019-01-29 07:06 | IPN ---
DATE OF SERVICE: 01/28/2019 HISTORY: The patient is now 11 days status post laparoscopy with laparotomy and evacuation of abscess in the right upper quadrant with placement of a drain and a gastroduodenostomy tube. She had previously undergone a repair of a duodenal ulcer perforation approximately 2 months ago. She has been receiving tube feedings with Jevity 1.5 calories per mL as well as taking whatever she can orally. Today it was reported to me that she had some high residuals and her daughter also reports that she did not tolerate the feedings as well today. Vital signs show that she has been afebrile over the past 24 hours. Her pulse is in the 60s to low 80s and her blood pressure is good. Her room air oxygen saturation is fine. Intake and output yesterday recorded 1800 in orally, but I think some of this is mischaracterized IV fluid. She did have 90 mL of drainage from her drain and was recorded as having 10 incontinent voids and several bowel movements. PHYSICAL EXAMINATION: The patient is lying quietly in the hospital bed. She is sleeping soundly and I elected not to disturb her. LABORATORY STUDIES: Today showed a white count of 10, hemoglobin 10, hematocrit of 31 and a platelet count of 351,000. These numbers have been stable over the last of 5 days. Chemistry profile shows a sodium of 139, potassium 4.0, chloride 105, CO2 of 29, BUN of 7, creatinine 0.4, and glucose of 84. IMPRESSION: The patient has not been tolerating her tube feedings well and so her caloric intake is probably not optimal and maybe not even adequate. PLAN: I am going to change the timing of her tube feeds to 0600, 1100, 1500 and 2200 in hopes that her stomach will be relatively empty during these periods of time and she can tolerate the tube feedings. If this is not workable, then it may be reasonable to consider some night time continuous tube feedings and turn them off during the day so she can eat what she can tolerate. Dr. Osman will be back in tomorrow to resume her care. REGINE
--- NOTE | 2019-01-29 09:14 | IPN ---
DATE: 01/27/2019 HISTORY: The patient is an 88-year-old woman now 10 days postoperative from laparoscopy and laparotomy with evacuation of abscess and placement of a gastroduodenal feeding tube. She is approximately 7 weeks postoperative from laparoscopic treatment of a perforated duodenal ulcer. She has a drain in place in the right upper quadrant for a postprocedure abscess and a Mccall gastrojejunal tube or gastroduodenal tube in the stomach. Vital signs: Show that she has been afebrile over the past 24 hours. Her pulse is in the 70s and low 80s. Her blood pressure is good and her room air oxygen saturations are normal. Intake and output show that yesterday she had 920 mL recorded in with 55 out her drain, three voids and one incontinent bowel movement. Today her oral intake seems to be much enhanced. PHYSICAL EXAMINATION: The patient is a quite frail elderly thin woman. When I came to the room, she was ambulating slowly with a walker from her chair to the bed with the assistance of her daughters. She is alert and responsive. She does not appear to be in pain. Examination of the abdomen shows that she has some yellowish drainage around the G-tube which has one suture still in the skin. Her midline incision has a small amount of serous drainage at the bottom end where there appears to be a slight overlap of the skin edges. Otherwise the abdomen is soft and does not appear to have any significant tenderness. She has some clear watery fluid in her drain bulb. LABORATORY STUDIES: Today show white count of 11, hemoglobin 10, hematocrit 32 and platelet count of 351,000. Chemistry profile shows normal electrolytes with a BUN of 7, creatinine 0.4, glucose of 119. She remains on fluconazole and ceftriaxone for antibiotic coverage and apparently Dr. Andres Rowley is managing the antibiotic treatment. IMPRESSION: The patient remains quite frail, though it appears today that her oral intake is improved. She is supposed to be getting four cans of Jevity or Ensure daily. PLAN: I removed the stitch that was holding her external retention disk to the skin so they drain sponge could be gently inserted beneath the disk. I placed a stitch through that flange and tied it around the tube to try to keep that attached so that the tube will not slip in through the retention disk and allow leakage around the tube. The daughter reports that the plan is for her to go to a alf for continuing rehabilitation. REGINE
--- NOTE | 2019-01-29 10:17 | IPNPDOC ---
Text Note Date of Service The patient was seen on 01/29/19. NOTE Patient is seen today. She has 3 family members in her room. She looks tired but otherwise looks comfortable. Her daughter reports that she has some pasty stool but has decreased in amount over the weekend. She still is not eating much and they were having some problems with discomfort from her stomach filling up, residual tube feedings in her stomach making her full by the time her next male starts. She denies any nausea. On exam, patient seen sitting on a recliner, still looks mildly pale, tired appearing. She is able to converse with me appears to be well oriented mildly pale Awake, alert, oriented Lungs clear Regular heart rate and rhythm abdomen appears minimally distended. The right side Chencho-Betancourt drain only a serous fluid in it and it removed at this. The gastroduodenostomy, Mccall tube has slight drainage around the exit site and a readjusted the disc. She has some mild tenderness to the left of the midline on the epigastric area without rebound or guarding. Still looks somewhat distended No extremity edema. POD12 evacuation of multiloculated abscess, debridement of abscess wall/capsule, gastuduodenostomy tube placement extubated yesterday POD1 malnutrition debility Present issues include 1. feeding/malnutrition/bloating - Dr. Lopez adjusted the tube feedings and I'll observe if she does with this. We might need to exam and imperfect result at the moment and think about revising the gastrostomy tube to pure jejunostomy tube were gastrojejunostomy tube at some point in the future. 3. abx - per ID, we'll complete treatment on 31 of January VS,Fishbone, I+O VS, Fishbone, I+O Laboratory Tests 01/29/19 05:35 Vital Signs Date Time Temp Pulse Resp B/P (MAP) Pulse Ox O2 Delivery O2 Flow Rate FiO2 01/29/19 06:00 97.4 96 18 124/66 (85) 96 Room Air I&O- Last 24 Hours up to 6 AM 01/29/19 06:00 Intake Total 2520 ml Output Total 61 ml Balance 2459 ml FREDDY CA MD Jan 29, 2019 10:17
[2019-01-29] MEDS: METOCLOPRAMIDE 10 MG TAB PO SCH ×3 (11:07→22:41)
[2019-01-29] MEDS: OCUVITE 1 TAB PO SCH (11:07)
[2019-01-29] MEDS: METOPROLOL TART 25 MG TABLET PO SCH ×2 (11:07→22:42)
[2019-01-29] MEDS: PANTOPRAZOLE 40MG TAB (PROTONIX) PO SCH ×2 (11:07→22:42)
[2019-01-29] MEDS: HEPARIN SOD (PORCINE) 5000 UNITS/ML VIAL SQ SCH ×2 (11:08→22:43)
[2019-01-29] MEDS: MAGNESIUM CHLORIDE 64 MG TABCR (SLO MAG) PO SCH (11:08)
[2019-01-29] MEDS: amLODIPine 5 MG TAB PO SCH (11:08)
[2019-01-29] MEDS: cefTRIAXone SOD 2 GM in D5W MINI-BAG PLUS 50 ML IV SCH (11:09)
[2019-01-29] MEDS: ANALGESIC BALM CRM 120 GM TOP SCH ×2 (11:20→22:44)
[2019-01-29 14:00] VITALS: BP 112/56
--- NOTE | 2019-01-29 19:10 | IPNPDOC ---
Date Seen The patient was seen on 01/29/19. Progress Note SUBJECTIVE: Patient reported still has pasty stool but not watery.. Family at bedside stated that she has discomfort with feeds. Feeding regimen are adjusted today. OBJECTIVE PHYSICAL EXAMINATION: VITAL SIGNS: Please see below. General: No acute distress, Alert Eyes: Normal sclera, EOMI, CHRIS HENT: Atraumatic, neck supple, moist mucous membranes Cardiovascular: Normal rate, normal rhythm. No murmurs appreciated. Pulmonary: Clear to auscultation b/l, no wheezing GI: Soft, mild generalized soreness. Dressings in place clean and dry. Midline incision clean. SERGEY drainage in place. Skin: Warm and dry Neuro: CN grossly intact. No focal deficits. LABORATORY DATA, IMAGING STUDIES, MICROBIOLOGY: Please see below. DVT prophylaxis ordered?: HSQ ASSESSMENT AND PLAN: 1. Abdominal abscess - Intraabdominal abscess s/p laparoscopy and debridement with surgery now with feeding tube. - Abscess culture showed MRSA, lactobacillus and corynebacterium. - was previously treated with vancomycin as well as micafungin. ID following. - Switched to oral fluconazole to complete 14 day course. s/p 5 days/10 doses of Zyvox. - Also on Rocephin to cover for Klebsiella. Pain control. - Tube feeds regimen being adjusted by surgery. 2. Diarrhea - Improved, pasty stool now. C. diff negative, repeat GI panel negative. 3. Afib - c/w metoprolol. Not on anticoagulation. 4. HTN - c/w home meds. - Monitor BP. 5. Hypothyroidism - c/w synthroid. 6. knee arthritis - tylenol PRN for pain control. 7. hx perforated duodenal ulcer - c/w PPI Hypomagnesimia - likely 2/2 GI loss. - C/w monitor and replete daily. - Added PO magnesium daily doses. VS, I&O, 24H, Fishbone Vital Signs/I&O Vital Signs Date Time Temp Pulse Resp B/P (MAP) Pulse Ox O2 Delivery O2 Flow Rate FiO2 01/29/19 14:00 98.7 80 17 112/56 (74) 96 Room Air I&O- Last 24 Hours up to 6 AM 01/29/19 06:00 Intake Total 2520 ml Output Total 61 ml Balance 2459 ml Laboratory Data 24H LABS Laboratory Tests 2 01/29/19 05:35: Nucleated Red Blood Cells % (auto) 0.0, Anion Gap 4L, Glomerular Filtration Rate > 60.0, Calcium Level 8.6L, Magnesium Level 1.8 CBC/BMP Laboratory Tests 01/29/19 05:35 Microbiology Microbiology 01/27/19 Gastrointestinal Tract Panel (PCR) - Final, Complete SVETA TERAN MD Jan 29, 2019 19:10
[2019-01-29 22:00] VITALS: BP 111/52
[2019-01-29] MEDS: ACETAMINOPHEN TAB 650MG DOSE (2X325MG) PO SCH (22:41)
[2019-01-29] MEDS: FLUCONAZOLE 100 MG TAB PO SCH (22:42)
[2019-01-29] MEDS: PREPARATION H OINTMENT (HEMORRHOID) PR PRN (22:44)
[2019-01-29] MEDS: NYSTATIN 100,000 UNITS/GM TOPICAL PWD 15 GM TOP PRN (22:44)
[2019-01-29] MEDS: RAMELTEON 8 MG TAB (ROZEREM) PO PRN (23:34)
[2019-01-30 05:45] LABS: HEMATOCRIT 30.9 % (36.0-47.0); HEMOGLOBIN 9.8 g/dl (12.0-15.5); MEAN CORPUSCULAR HEMOGLOBIN 29.7 pg (27.0-33.0); MEAN CORPUSCULAR HGB CONC 31.7 g/dl (32.0-36.5); MEAN CORPUSCULAR VOLUME 93.6 fl (80.0-96.0); PLATELET COUNT, AUTOMATED 365 10^3/uL (150-450); WHITE BLOOD COUNT 9.8 10^3/uL (4.0-10.0)
[2019-01-30 06:00] VITALS: BP 106/51
[2019-01-30 06:16] LABS: ALBUMIN 1.9 GM/DL (3.2-5.2); ALT/SGPT 12 U/L (12-78); BILIRUBIN,TOTAL 0.3 MG/DL (0.2-1.0); BLOOD UREA NITROGEN 8 MG/DL (7-18); C REACTIVE PROTEIN QUANTITATIV 0.75 MG/DL (0.00-0.30); CALCIUM LEVEL 8.4 MG/DL (8.8-10.2); CARBON DIOXIDE LEVEL 29 MEQ/L (21-32); CHLORIDE LEVEL 101 MEQ/L (98-107); CREATININE FOR GFR 0.44 MG/DL (0.55-1.30); GLOMERULAR FILTRATION RATE > 60.0 (>32); GLUCOSE, FASTING 97 MG/DL (70-100); MAGNESIUM LEVEL 1.6 MG/DL (1.8-2.4); POTASSIUM SERUM 4.1 MEQ/L (3.5-5.1); PREALBUMIN 19.9 MG/DL (20.0-40.0); SODIUM LEVEL 136 MEQ/L (136-145)
[2019-01-30] MEDS: LEVOTHYROXINE 75MCG TABLET (0.075MG) PO SCH (06:22)
--- NOTE | 2019-01-30 08:59 | IPN ---
DATE: 01/29/2019 Therese is doing much better. She continues slowly improving. Her drain was removed from the right upper quadrant. There is minimal drainage around the gastrostomy (G) tube and from her inferior aspect of the incision. No fever or chills. No nausea, vomiting or diarrhea. Her appetite is still decreased. She gets three tube feeds a day. PHYSICAL EXAMINATION: HEART: Normal S1, S3. No murmurs. LUNGS: Clear. No wheezes, rales or rhonchi. ABDOMEN: Slightly distended. Right Chencho-Betancourt drain was removed. Gastrojejunostomy tube on the left upper quadrant had mild yellowish drainage, minimal tenderness. Minimal serous drainage in the anterior aspect of the staple incision. LABORATORY DATA: White count 9.5, hemoglobin 10.3, hematocrit 31.9, platelets 350. Sodium 137, potassium 4, chloride 104, bicarbonate 29, BUN 7, creatinine 0.46, glucose 83, calcium 8.6, magnesium 1.8. IMPRESSION: 1. Polymicrobial intra-abdominal infection. Currently on IV Rocephin and oral fluconazole. The patient is doing much better. We will discontinue antibiotics on Tuesday after a two-week course. 2. Perforated peptic ulcer doing well on Protonix 40 mg by mouth twice a day. PLAN: Discontinue IV Rocephin and fluconazole on Tuesday. MTDD
[2019-01-30] MEDS: PANTOPRAZOLE 40MG TAB (PROTONIX) PO SCH ×2 (09:46→20:34)
[2019-01-30] MEDS: OCUVITE 1 TAB PO SCH (09:46)
[2019-01-30] MEDS: METOPROLOL TART 25 MG TABLET PO SCH ×2 (09:47→20:11)
[2019-01-30] MEDS: METOCLOPRAMIDE 10 MG TAB PO SCH ×3 (09:47→20:34)
[2019-01-30] MEDS: HEPARIN SOD (PORCINE) 5000 UNITS/ML VIAL SQ SCH ×2 (09:48→20:35)
[2019-01-30] MEDS: amLODIPine 5 MG TAB PO SCH (09:48)
[2019-01-30] MEDS: MAGNESIUM CHLORIDE 64 MG TABCR (SLO MAG) PO SCH (09:48)
[2019-01-30] MEDS: PREPARATION H OINTMENT (HEMORRHOID) PR PRN ×2 (09:57→20:38)
[2019-01-30] MEDS: ANALGESIC BALM CRM 120 GM TOP SCH ×2 (09:57→20:35)
[2019-01-30] MEDS: cefTRIAXone SOD 2 GM in D5W MINI-BAG PLUS 50 ML IV SCH (12:57)
[2019-01-30 14:00] VITALS: BP 107/52
[2019-01-30] MEDS: LOMOTIL 2.5MG/0.025MG TABLET GT SCH ×2 (15:46→17:34)
[2019-01-30] MEDS: MAG SULF 1GM/100ML (MAG RUN) 1 GM in IV 1 EA IV SCH ×2 (17:30→18:53)
--- NOTE | 2019-01-30 19:37 | IPNPDOC ---
Date Seen The patient was seen on 01/30/19. Progress Note SUBJECTIVE: Patient reports that her abdominal discomfort with feeding is slightly better but persistent. Stool still loose and family requested anti-diarrheal. OBJECTIVE PHYSICAL EXAMINATION: VITAL SIGNS: Please see below. General: No acute distress, Alert Eyes: Normal sclera, EOMI, CHRIS HENT: Atraumatic, neck supple, moist mucous membranes Cardiovascular: Normal rate, normal rhythm. No murmurs appreciated. Pulmonary: Clear to auscultation b/l, no wheezing GI: Soft, mild generalized soreness. Dressings in place clean and dry. Midline incision clean. SERGEY drainage in place. Skin: Warm and dry Neuro: CN grossly intact. No focal deficits. LABORATORY DATA, IMAGING STUDIES, MICROBIOLOGY: Please see below. DVT prophylaxis ordered?: HSQ ASSESSMENT AND PLAN: 1. Abdominal abscess - Intraabdominal abscess s/p laparoscopy and debridement with surgery now with feeding tube. - Abscess culture showed MRSA, lactobacillus and corynebacterium. - was previously treated with vancomycin as well as micafungin. ID following. - Switched to oral fluconazole to complete 14 day course. s/p 5 days/10 doses of Zyvox. - Also on Rocephin to cover for Klebsiella. Pain control. - Tube feeds regimen being adjusted by surgery. Discussed about possibility of revising G tube to J tube, will defer decision to surgery and family. 2. Diarrhea - Improved, pasty stool now. C. diff negative, repeat GI panel negative. 3. Afib - c/w metoprolol. Not on anticoagulation. 4. HTN - c/w home meds. - Monitor BP. 5. Hypothyroidism - c/w synthroid. 6. knee arthritis - tylenol PRN for pain control. 7. hx perforated duodenal ulcer - c/w PPI Hypomagnesimia - likely 2/2 GI loss. - C/w monitor and replete daily. - Added PO magnesium daily doses. VS, I&O, 24H, Fishbone Vital Signs/I&O Vital Signs Date Time Temp Pulse Resp B/P (MAP) Pulse Ox O2 Delivery O2 Flow Rate FiO2 01/30/19 14:00 98.2 70 18 107/52 (70) 95 Room Air I&O- Last 24 Hours up to 6 AM 01/30/19 06:00 Intake Total 1570 ml Output Total 0 ml Balance 1570 ml Laboratory Data 24H LABS Laboratory Tests 2 01/30/19 05:23: Nucleated Red Blood Cells % (auto) 0.0, Anion Gap 6L, Glomerular Filtration Rate > 60.0, Calcium Level 8.4L, Magnesium Level 1.6L, Total Bilirubin 0.3, Aspartate Amino Transf (AST/SGOT) 12, Alanine Aminotransferase (ALT/SGPT) 12, Alkaline Phosphatase 93, C-Reactive Protein, Quantitative 0.75H, Total Protein 6.0L, Albumin 1.9L, Albumin/Globulin Ratio 0.46L, Prealbumin 19.9L CBC/BMP Laboratory Tests 01/30/19 05:23 Microbiology Microbiology 01/27/19 Gastrointestinal Tract Panel (PCR) - Final, Complete SVETA TERAN MD Jan 30, 2019 19:37
[2019-01-30] MEDS: ACETAMINOPHEN TAB 650MG DOSE (2X325MG) PO SCH (20:35)
[2019-01-30] MEDS: RAMELTEON 8 MG TAB (ROZEREM) PO PRN (20:38)
[2019-01-30 22:00] VITALS: BP 107/53
[2019-01-31] MEDS: LOMOTIL 2.5MG/0.025MG TABLET GT SCH ×5 (01:00→23:02)
[2019-01-31] MEDS: D5W/0.9% SODIUM CHLORIDE 1,000 ML IV SCH (03:48)
[2019-01-31] MEDS: LEVOTHYROXINE 75MCG TABLET (0.075MG) PO SCH (05:43)
[2019-01-31 06:00] VITALS: BP 130/59
[2019-01-31 06:19] LABS: HEMATOCRIT 32.5 % (36.0-47.0); HEMOGLOBIN 10.1 g/dl (12.0-15.5); MEAN CORPUSCULAR HEMOGLOBIN 29.3 pg (27.0-33.0); MEAN CORPUSCULAR HGB CONC 31.1 g/dl (32.0-36.5); MEAN CORPUSCULAR VOLUME 94.2 fl (80.0-96.0); PLATELET COUNT, AUTOMATED 417 10^3/uL (150-450); RED BLOOD COUNT 3.45 10^6/uL (4.00-5.40); WHITE BLOOD COUNT 8.2 10^3/uL (4.0-10.0)
[2019-01-31 06:40] LABS: BLOOD UREA NITROGEN 10 MG/DL (7-18); CALCIUM LEVEL 8.5 MG/DL (8.8-10.2); CARBON DIOXIDE LEVEL 29 MEQ/L (21-32); CHLORIDE LEVEL 102 MEQ/L (98-107); CREATININE FOR GFR 0.49 MG/DL (0.55-1.30); GLOMERULAR FILTRATION RATE > 60.0 (>32); GLUCOSE, FASTING 91 MG/DL (70-100); POTASSIUM SERUM 4.4 MEQ/L (3.5-5.1); SODIUM LEVEL 137 MEQ/L (136-145)
[2019-01-31] MEDS: ANALGESIC BALM CRM 120 GM TOP SCH ×2 (09:14→21:56)
[2019-01-31] MEDS: PERCOCET 5MG/325MG TAB PO PRN (09:17)
[2019-01-31] MEDS: HEPARIN SOD (PORCINE) 5000 UNITS/ML VIAL SQ SCH ×2 (09:17→21:55)
[2019-01-31] MEDS: amLODIPine 5 MG TAB PO SCH (09:18)
[2019-01-31] MEDS: OCUVITE 1 TAB PO SCH (09:18)
[2019-01-31] MEDS: METOCLOPRAMIDE 10 MG TAB PO SCH ×3 (09:18→21:54)
[2019-01-31] MEDS: PANTOPRAZOLE 40MG TAB (PROTONIX) PO SCH ×2 (09:18→21:54)
[2019-01-31] MEDS: MAGNESIUM CHLORIDE 64 MG TABCR (SLO MAG) PO SCH (09:19)
[2019-01-31] MEDS: METOPROLOL TART 25 MG TABLET PO SCH ×2 (09:19→21:54)
[2019-01-31] MEDS: PREPARATION H OINTMENT (HEMORRHOID) PR PRN (11:14)
[2019-01-31] MEDS: cefTRIAXone SOD 2 GM in D5W MINI-BAG PLUS 50 ML IV SCH (12:21)
[2019-01-31 14:00] VITALS: BP 97/55
--- NOTE | 2019-01-31 19:43 | IPNPDOC ---
Date Seen The patient was seen on 01/31/19. Progress Note SUBJECTIVE: Patient says that her abdomen tenderness had improved although family is unc ertain if patient has discomfort that she is not reporting. No acute events reported overnight. Afebrile. OBJECTIVE PHYSICAL EXAMINATION: VITAL SIGNS: Please see below. General: No acute distress, Alert Eyes: Normal sclera, EOMI, CHRIS HENT: Atraumatic, neck supple, moist mucous membranes Cardiovascular: Normal rate, normal rhythm. No murmurs appreciated. Pulmonary: Clear to auscultation b/l, no wheezing GI: Soft, mild generalized soreness. Dressings in place clean and dry. Midline incision clean. SERGEY drainage in place. Skin: Warm and dry Neuro: CN grossly intact. No focal deficits. LABORATORY DATA, IMAGING STUDIES, MICROBIOLOGY: Please see below. DVT prophylaxis ordered?: HSQ ASSESSMENT AND PLAN: 1. Abdominal abscess - Intraabdominal abscess s/p laparoscopy and debridement with surgery now with feeding tube. - Abscess culture showed MRSA, lactobacillus and corynebacterium. - Complete course of Abx. - Tube feeds regimen being adjusted by surgery. - Discussed about possibility of revising G tube to J tube, will defer decision to surgery and family. 2. Diarrhea - Improved, pasty stool now. C. diff negative, repeat GI panel negative. 3. Afib - c/w metoprolol. Not on anticoagulation. 4. HTN - c/w home meds. - Monitor BP. 5. Hypothyroidism - c/w synthroid. 6. knee arthritis - tylenol PRN for pain control. 7. hx perforated duodenal ulcer - c/w PPI Hypomagnesimia - likely 2/2 GI loss. - C/w monitor and replete daily. - Added PO magnesium daily doses. VS, I&O, 24H, Fishbone Vital Signs/I&O Vital Signs Date Time Temp Pulse Resp B/P (MAP) Pulse Ox O2 Delivery O2 Flow Rate FiO2 01/31/19 14:00 96.6 72 15 97/55 (69) 95 Room Air I&O- Last 24 Hours up to 6 AM 01/31/19 06:00 Intake Total 1627 ml Output Total 0 ml Balance 1627 ml Laboratory Data 24H LABS Laboratory Tests 2 01/31/19 05:22: Nucleated Red Blood Cells % (auto) 0.0, Anion Gap 6L, Glomerular Filtration Rate > 60.0, Calcium Level 8.5L, Magnesium Level 2.0 CBC/BMP Laboratory Tests 01/31/19 05:22 Microbiology Microbiology 01/27/19 Gastrointestinal Tract Panel (PCR) - Final, Complete SVETA TERAN MD Jan 31, 2019 19:43
[2019-01-31] MEDS: ACETAMINOPHEN TAB 650MG DOSE (2X325MG) PO SCH (21:55)
[2019-01-31] MEDS: RAMELTEON 8 MG TAB (ROZEREM) PO PRN (21:56)
[2019-01-31 22:00] VITALS: BP 122/57
[2019-02-01 06:00] VITALS: BP 123/68
[2019-02-01] MEDS: LEVOTHYROXINE 75MCG TABLET (0.075MG) PO SCH (06:29)
[2019-02-01] MEDS: LOMOTIL 2.5MG/0.025MG TABLET GT SCH (06:29)
[2019-02-01 06:34] LABS: HEMATOCRIT 34.4 % (36.0-47.0); HEMOGLOBIN 10.7 g/dl (12.0-15.5); MEAN CORPUSCULAR HGB CONC 31.1 g/dl (32.0-36.5); MEAN CORPUSCULAR VOLUME 96.4 fl (80.0-96.0); PLATELET COUNT, AUTOMATED 419 10^3/uL (150-450); RED BLOOD COUNT 3.57 10^6/uL (4.00-5.40); WHITE BLOOD COUNT 9.6 10^3/uL (4.0-10.0)
[2019-02-01 07:04] LABS: BLOOD UREA NITROGEN 12 MG/DL (7-18); CARBON DIOXIDE LEVEL 27 MEQ/L (21-32); CHLORIDE LEVEL 102 MEQ/L (98-107); GLOMERULAR FILTRATION RATE > 60.0 (>32); GLUCOSE, FASTING 89 MG/DL (70-100); MAGNESIUM LEVEL 1.8 MG/DL (1.8-2.4); POTASSIUM SERUM 4.2 MEQ/L (3.5-5.1); SODIUM LEVEL 136 MEQ/L (136-145)
[2019-02-01] MEDS: HEPARIN SOD (PORCINE) 5000 UNITS/ML VIAL SQ SCH ×2 (08:53→21:15)
[2019-02-01] MEDS: METOCLOPRAMIDE 10 MG TAB PO SCH ×3 (08:53→21:15)
[2019-02-01] MEDS: OCUVITE 1 TAB PO SCH (08:53)
[2019-02-01] MEDS: PANTOPRAZOLE 40MG TAB (PROTONIX) PO SCH ×2 (08:53→21:15)
[2019-02-01] MEDS: MAGNESIUM CHLORIDE 64 MG TABCR (SLO MAG) PO SCH (08:54)
[2019-02-01] MEDS: amLODIPine 5 MG TAB PO SCH (08:54)
[2019-02-01] MEDS: METOPROLOL TART 25 MG TABLET PO SCH ×2 (08:54→21:15)
[2019-02-01] MEDS: ANALGESIC BALM CRM 120 GM TOP SCH ×2 (08:56→21:16)
[2019-02-01] MEDS: ACETAMINOPHEN 325 MG TAB PO PRN (09:01)
[2019-02-01] MEDS: LOMOTIL 2.5MG/0.025MG TABLET PO SCH ×2 (12:00→16:38)
[2019-02-01] MEDS: PERCOCET 5MG/325MG TAB PO PRN ×2 (13:07→18:20)
[2019-02-01 14:00] VITALS: BP 138/78
[2019-02-01] MEDS: D5W/0.9% SODIUM CHLORIDE 1,000 ML IV SCH (15:35)
--- NOTE | 2019-02-01 18:05 | IPNPDOC ---
Date Seen The patient was seen on 02/01/19. Progress Note SUBJECTIVE: Patient reportedly has had more discomfort after feeding today. Was given pain medication and felt better. OBJECTIVE PHYSICAL EXAMINATION: VITAL SIGNS: Please see below. General: No acute distress, Alert Eyes: Normal sclera, EOMI, CHRIS HENT: Atraumatic, neck supple, moist mucous membranes Cardiovascular: Normal rate, normal rhythm. No murmurs appreciated. Pulmonary: Clear to auscultation b/l, no wheezing GI: Soft, mild generalized soreness. Incision line clean. Skin: Warm and dry Neuro: CN grossly intact. No focal deficits. LABORATORY DATA, IMAGING STUDIES, MICROBIOLOGY: Please see below. DVT prophylaxis ordered?: HSQ ASSESSMENT AND PLAN: 1. Abdominal abscess - Intraabdominal abscess s/p laparoscopy and debridement with surgery now with feeding tube. - Abscess culture showed MRSA, lactobacillus and corynebacterium. - Completed course of Abx. - Tube feeds regimen being adjusted by surgery. - Discussed about possibility of revising G tube to J tube, will defer decision to surgery and family. - Maybe patient can just feed orally as best as she can without need for a tube? 2. Diarrhea - Improved, pasty stool now. C. diff negative, repeat GI panel negative. 3. Afib - c/w metoprolol. Not on anticoagulation. 4. HTN - c/w home meds. - Monitor BP. 5. Hypothyroidism - c/w synthroid. 6. knee arthritis - tylenol PRN for pain control. 7. hx perforated duodenal ulcer - c/w PPI Hypomagnesimia - likely 2/2 GI loss. - C/w monitor and replete daily. - Added PO magnesium daily doses. VS, I&O, 24H, Fanbone Vital Signs/I&O Vital Signs Date Time Temp Pulse Resp B/P (MAP) Pulse Ox O2 Delivery O2 Flow Rate FiO2 02/01/19 14:00 97.9 78 18 138/78 (98) 99 Room Air I&O- Last 24 Hours up to 6 AM 02/01/19 06:00 Intake Total 1594 ml Balance 1594 ml Laboratory Data 24H LABS Laboratory Tests 2 02/01/19 05:48: Anion Gap 7L, Glomerular Filtration Rate > 60.0, Calcium Level 9.0, Magnesium Level 1.8 02/01/19 05:49: Nucleated Red Blood Cells % (auto) 0.0 CBC/BMP Laboratory Tests 02/01/19 05:48 02/01/19 05:49 Microbiology Microbiology 01/27/19 Gastrointestinal Tract Panel (PCR) - Final, Complete SVETA TERAN MD Feb 01, 2019 18:05
[2019-02-01] MEDS: ACETAMINOPHEN TAB 650MG DOSE (2X325MG) PO SCH (21:15)
[2019-02-01 22:00] VITALS: BP 124/56
[2019-02-02] MEDS: LOMOTIL 2.5MG/0.025MG TABLET PO SCH ×3 (00:07→12:09)
[2019-02-02] MEDS: LEVOTHYROXINE 75MCG TABLET (0.075MG) PO SCH (05:34)
[2019-02-02 06:00] VITALS: BP 122/59
[2019-02-02 06:33] LABS: HEMATOCRIT 33.5 % (36.0-47.0); HEMOGLOBIN 10.6 g/dl (12.0-15.5); MEAN CORPUSCULAR HEMOGLOBIN 30.8 pg (27.0-33.0); MEAN CORPUSCULAR HGB CONC 31.6 g/dl (32.0-36.5); MEAN CORPUSCULAR VOLUME 97.4 fl (80.0-96.0); PLATELET COUNT, AUTOMATED 386 10^3/uL (150-450); RED BLOOD COUNT 3.44 10^6/uL (4.00-5.40); WHITE BLOOD COUNT 7.9 10^3/uL (4.0-10.0)
[2019-02-02 06:56] LABS: BLOOD UREA NITROGEN 11 MG/DL (7-18); CALCIUM LEVEL 8.8 MG/DL (8.8-10.2); CARBON DIOXIDE LEVEL 29 MEQ/L (21-32); CHLORIDE LEVEL 102 MEQ/L (98-107); CREATININE FOR GFR 0.46 MG/DL (0.55-1.30); GLOMERULAR FILTRATION RATE > 60.0 (>32); GLUCOSE, FASTING 87 MG/DL (70-100); MAGNESIUM LEVEL 1.7 MG/DL (1.8-2.4); POTASSIUM SERUM 4.3 MEQ/L (3.5-5.1); SODIUM LEVEL 136 MEQ/L (136-145)
[2019-02-02] MEDS ORDERED: MAG SULF 1GM/100ML (MAG RUN) 1 GM in IV 1 EA IV ONE (09:00)
[2019-02-02] MEDS ORDERED: METAMUCIL (PSYLLIUM) PACKET PO SCH (09:00)
[2019-02-02] MEDS: OCUVITE 1 TAB PO SCH (09:34)
[2019-02-02] MEDS: PANTOPRAZOLE 40MG TAB (PROTONIX) PO SCH (09:34)
[2019-02-02 09:35] VITALS: BP 122/59
[2019-02-02] MEDS: METOPROLOL TART 25 MG TABLET PO SCH (09:35)
[2019-02-02] MEDS: METOCLOPRAMIDE 10 MG TAB PO SCH (09:35)
[2019-02-02] MEDS: amLODIPine 5 MG TAB PO SCH (09:35)
[2019-02-02] MEDS: HEPARIN SOD (PORCINE) 5000 UNITS/ML VIAL SQ SCH (09:36)
[2019-02-02] MEDS: MAGNESIUM CHLORIDE 64 MG TABCR (SLO MAG) PO SCH (09:36)
[2019-02-02] MEDS: ANALGESIC BALM CRM 120 GM TOP SCH (09:36)
[2019-02-02] MEDS ORDERED: MAALOX 30 ML SUSP *UDC PO PRN (11:15)
[2019-02-02] MEDS ORDERED: PANTOPRAZOLE 40MG TAB (PROTONIX) PO SCH (11:15)
--- NOTE | 2019-02-02 12:01 | IPNPDOC ---
Text Note Date of Service The patient was seen on 02/02/19. NOTE Haven't seen the patient almost daily for this weekend overall she seems to be doing well. There is just a few more issues that seems to be lingering but overall should not hold her discharge in my opinion. Persistent issue is the intermittent loose stools that she is passing and family's concern about this. This is not from any infectious process I don't believe and now that the antibiotics have been discontinued anticipate may get better but primarily this is from the tube feedings and overall I feel that our main concern is for her to get her into a positive nitrogen balance and she does need the additional tube feedings given her poor appetite and oral intake. We've talked about some ways to decrease this and I will add some Metamucil. She is already on intermittent Lomotil. I will decrease the proton ask to once daily. I have scoped her a few weeks back and this is showing healing of her ulcer so once a day Protonix may aid in both healing ulcer and decreasing her loose stools. I'll not categorized this as sal diarrhea. Her persistent issue is her malnutrition which we are gaining on I believe. Her last prealbumin is up to 19.9 and albumin is up to 1.9 from 1.6. I will recheck her nutrition parameters next week. She is encouraged to increase eating. We are adjusting the timing of the tube feedings for her to eat more. She seems to be tolerating this regimen better. Have also switched her to us to 2Cal formula which it had some calorie to her supplementation. She was not tolerating a 4 times a day feeding with some gastric retention. She has a small leakage at the bottom of her midline incision which I probed with a cotton tip applicator to allow for better drainage as there was only a punctate hole. There is a slight sinus tract leading up to the middle portion of the incision now was able to express some mildly purulent material from here though the skin does not show any signs of ongoing cellulitis. With drainage a think he should be adequate treatment. She is having some pain post-eating which is not evident when she gets the supplemental nutrition. I'm not sure if this is gas bloat but will add some Mylanta. This could also be irritation from that area which should improve with adequate drainage. I think she should be ready to transfer to a subacute rehabilitation setting with all the remaining issues. POD16 evacuation of multiloculated abscess, debridement of abscess wall/capsule, gastuduodenostomy tube placement extubated yesterday POD1 malnutrition debility VS,Fishbone, I+O VS, Fishbone, I+O Laboratory Tests 02/02/19 06:17 Vital Signs Date Time Temp Pulse Resp B/P (MAP) Pulse Ox O2 Delivery O2 Flow Rate FiO2 02/02/19 09:35 64 122/59 02/02/19 06:00 96.9 18 93 Room Air I&O- Last 24 Hours up to 6 AM 02/02/19 06:00 Intake Total 1764 ml Balance 1764 ml FREDDY CA MD Feb 02, 2019 12:01
[2019-02-02] MEDS ORDERED: PERCOCET PO (12:42)
[2019-02-02] MEDS ORDERED: MYLASSUD PO (12:42)
[2019-02-02] MEDS ORDERED: DIPH2.5T15 PO (12:42)
--- NOTE | 2019-02-02 12:59 | DS.PDOC ---
Discharge Summary General Date of Admission Jan 05, 2019 at 09:35 Date of Discharge 02/02/19 Discharge Summary PROCEDURES PERFORMED DURING STAY: Procedure: Upper GI endoscopy Indications: Diagnostic procedure, Abnormal CT of the GI tract, Follow-up of duodenal perforation DATE OF PROCEDURE: 01/17/19 PREPROCEDURE DIAGNOSES: Multiloculated intraabdominal abscess, history of recent perforated duodenal ulcer, malnutrition POSTPROCEDURE DIAGNOSES: multilocalated intraabdominal abscess, history of recent duodenal ulcer perforation, malnutrition. PROCEDURE: Diagnostic Laparoscopy converted to exploratory laparotomy, evacuation of abscess, debridement of necrotic tissue/abscess capsule, placement of gastro-duodenostomy feeding tube. PREOPERATIVE DIAGNOSIS: gastroparesis. malnourished. GJ placed 10 days ago is clogged. POSTOPERATIVE DIAGNOSIS: gastroparesis. malnourished. GJ placed 10 days ago is clogged. FINDINGS: Jejunal part of GJ is back in the stomach. PROCEDURE: tube unclogged. Jejunal part is back in stomach. need mature tract to manipulate percutaneously ( 4 to 6 weeks ) . consider endoscopic or surgical revision or alternative nourishment until mature tract. ADMITTING DIAGNOSES: 1. Abdominal abscesses 2. gastric outlet obstruction 3. Afib 4. HTN 5. Hypothyroidism 6. arthritis b/l knees 7. Chronic constipation DISCHARGE DIAGNOSES: 1. Abdominal abscesses 2. gastric outlet obstruction 3. Afib 4. HTN 5. Hypothyroidism 6. arthritis b/l knees 7. Chronic constipation COMPLICATIONS/CHIEF COMPLAINT: Gastric Outlet Obstruction, Duodenal Ulcer.... HISTORY OF PRESENT ILLNESS: "Patient is an 88-year-old female with a PMHx of A. fib (not on anticoagulation), HTN, Arthritis of bilateral knees / hips, Chronic constipation, and recent hospitalization in which she was found to have a perforated duodenal ulcer (s/p Laparoscopic bowel resection and repair of two perforated duodenal ulcers). Patient was admitted to [facility] on 12/09/2018 and was discharged on 12/25/2018. Throughout hospital course patient was found to have a perforated duodenal ulcer that was her pared laparoscopically by Dr. Osman. Since that point. Patient was discharged [facility] for continued rehabilitation. Patient subsequently had a follow-up CT scan on 01/04/2019 that had revealed multiple abscesses and possible gastric outlet obstruction. Provider at [facility] has contacted hospitalist service for direct admission based on the recommendations of general s recommendations of general surgery. Currently, patient reports that she does not have any abdominal pain. She denies any current nausea or vomiting. Reports that she has been having loose stools most recent of which was this morning. Patient denies any discomfort with urination. Patient denies any chest pain, shortness breath, palpitations. Patient has reported subjective chills but denies any fevers." HOSPITAL COURSE: Patient underwent multiple surgeries as listed above for duodenal ulcer and subsequent feeding tube placement. Course complicated by infections with multiple organisms in wound cultures and was treated with long course of antibiotics with ID consultation. Tube feeding has been ongoing with inte rmittent problems including development of diarrhea and abdominal discomfort. Patient has been followed by surgery through course of admission and decisions to aid in feeding tube problems that arose. Decision to discharge patient to [facility] at this time following discussion between family and CM/SW. Hoping that the feeding problems including discomfort and diarrhea will improve and resolve with time. If not, further discussion between family and surgery can be made as outpatient and undergo removal of feeding tube or any adjustment/changes. DISCHARGE MEDICATIONS: Please see below. ALLERGIES: Please see below. PHYSICAL EXAMINATION ON DISCHARGE: VITAL SIGNS: Please see below. General: No acute distress, Alert Eyes: Normal sclera, EOMI, CHRIS HENT: Atraumatic Cardiovascular: Normal rate, normal rhythm. Pulmonary: Clear to auscultation b/l, no wheezing GI: Soft, mild generalized soreness. Incision line clean. Skin: Warm and dry Neuro: CN grossly intact. No focal deficits. LABORATORY DATA: Please see below. ACTIVITY: [As tolerated]. DIET: Tube feeding and regular diet DISCHARGE PLAN: f/u PMD and surgery Continue tube feeding care and encourage oral intake DISPOSITION: [facility] home. DISCHARGE INSTRUCTIONS: f/u PMD and surgery Continue tube feeding care and encourage oral intake ITEMS TO FOLLOWUP ON ON OUTPATIENT: None DISCHARGE CONDITION: [Stable]. TIME SPENT ON DISCHARGE: 35 minutes. Vital Signs/I&Os Vital Signs Date Time Temp Pulse Resp B/P (MAP) Pulse Ox O2 Delivery O2 Flow Rate FiO2 02/02/19 09:35 64 122/59 02/02/19 06:00 96.9 18 93 Room Air I&O- Last 24 Hours up to 6 AM 02/02/19 06:00 Intake Total 1764 ml Balance 1764 ml Laboratory Data Labs 24H Laboratory Tests 2 02/02/19 06:17: Nucleated Red Blood Cells % (auto) 0.0, Anion Gap 5L, Glomerular Filtration Rate > 60.0, Calcium Level 8.8, Magnesium Level 1.7L CBC/BMP Laboratory Tests 02/02/19 06:17 Microbiology Microbiology 01/27/19 Gastrointestinal Tract Panel (PCR) - Final, Complete Discharge Medications Scheduled Acetaminophen (Acetaminophen) 325 Mg Tablet, 650 MG PO QID, (Reported) Amlodipine Besylate (Amlodipine Besylate) 5 Mg Tablet, 5 MG PO DAILY, (Reported) Cholecalciferol (Vitamin D3) (Vitamin D3) 1,000 Unit Capsule, 3,000 UNITS PO DAILY, (Reported) TAKES AT NOON Diphenoxylate HCl/Atropine (Diphenoxylate-Atrop 2.5-0.025) 1 Each Tablet, 1 EA PO Q6H Levothyroxine Sodium (Synthroid) 75 Mcg Tablet, 75 MCG PO DAILY, (Reported) Metoprolol Tartrate (Metoprolol Tartrate) 25 Mg Tablet, 25 MG PO BID, (Reported) Multivitamin (Multivitamins) 1 Each Capsule, 1 CAP PO DAILY, (Reported) Pantoprazole Sodium (Pantoprazole Sodium) 40 Mg Tablet.dr, 40 MG PO BID, (Reported) Vit A/Vit C/Vit E/Zinc/Copper (Preservision Areds Softgel) 1 Each Capsule, 1 CAP PO DAILY, (Reported) Scheduled PRN Acetaminophen (Acetaminophen) 325 Mg Tablet, 650 MG PO Q4H PRN for PAIN / FEVER, (Reported) Aluminum/Magnesium/Simeth (Mag-Al Plus Suspension) 30 Ml Oral.susp, 30 ML PO Q6HP PRN for abd pain Bisacodyl (Dulcolax) 10 Mg Supp.rect, 10 MG ID DAILY PRN for CONSTIPATION, (Reported) Milk Of Magnesia (Milk of Magnesia) 2,400 Mg/10 Ml Oral.susp, 10 ML PO DAILY PRN for CONSTIPATION, (Reported) Oxycodone/Acetaminophen (Oxycodone-Acetaminophen 5-325) 1 Each Tablet, 1 TAB PO Q4HP PRN for PAIN SCALE 6-10 Sodium Phosphate,Kern-Dibasic (Enema) 133 Ml Enema, 1 FAVIAN ID DAILY PRN for CONSTIPATION, (Reported) Allergies Coded Allergies: Tetracyclines (Verified Allergy, Unknown, rash, 12/09/18) codeine (Verified Allergy, Unknown, rash, 12/09/18) SVETA TERAN MD Feb 02, 2019 12:59
[2019-02-02] MEDS ORDERED: METOCLOPRAMIDE 10 MG TAB PO SCH (21:00)
[2019-02-03] MEDS ORDERED: PANTOPRAZOLE 40MG TAB (PROTONIX) PO SCH (09:00)
== END 2019-02-02 14:05 | DRG 856 ==
LOC: EEVIPCON 09:35 → M MSPAV 09:35 → M PCU 01-17 13:38 → M ICU 01-17 13:39 → M MSPAV 01-19 13:18
PROVIDERS: ADMIT Internal Medicine; ATTEND Student in an Organized Health Care Education/Training Program
PROC: 0DB78ZX Excision of Stomach, Pylorus, Via Natural or Artificial Opening Endoscopic, Diagnostic (ICD-10-PCS; 2019-01-08)
PROC: 0DBU4ZZ Excision of Omentum, Percutaneous Endoscopic Approach (ICD-10-PCS; 2019-01-17)
PROC: 0W9G30Z Drainage of Peritoneal Cavity with Drainage Device, Percutaneous Approach (ICD-10-PCS; 2019-01-17)
PROC: 5A1935Z Respiratory Ventilation, Less than 24 Consecutive Hours (ICD-10-PCS; 2019-01-17)
PROC: 0DH60UZ Insertion of Feeding Device into Stomach, Open Approach (ICD-10-PCS; principal; 2019-01-17 16:00)
PROC: 0DW63UZ Revision of Feeding Device in Stomach, Percutaneous Approach (ICD-10-PCS; 2019-01-22)
DX: K68.11 Postprocedural retroperitoneal abscess (principal); J95.821 Acute postprocedural respiratory failure; E46 Unspecified protein-calorie malnutrition; Z68.1 Body mass index [BMI] 19.9 or less, adult; I48.0 Paroxysmal atrial fibrillation; I10 Essential (primary) hypertension; K94.29 Other complications of gastrostomy; M17.0 Bilateral primary osteoarthritis of knee; M16.0 Bilateral primary osteoarthritis of hip; Z66 Do not resuscitate; B95.62 Methicillin resistant Staphylococcus aureus infection as the cause of diseases classified elsewhere; K59.09 Other constipation; T81.82XA Emphysema (subcutaneous) resulting from a procedure, initial encounter; M54.2 Cervicalgia; M10.041 Idiopathic gout, right hand; B37.2 Candidiasis of skin and nail; E03.9 Hypothyroidism, unspecified; E83.42 Hypomagnesemia; Y83.8 Other surgical procedures as the cause of abnormal reaction of the patient, or of later complication, without mention of misadventure at the time of the procedure; R19.7 Diarrhea, unspecified; E87.6 Hypokalemia; K31.84 Gastroparesis; K26.7 Chronic duodenal ulcer without hemorrhage or perforation; Z98.49 Cataract extraction status, unspecified eye; Z86.718 Personal history of other venous thrombosis and embolism; Z88.5 Allergy status to narcotic agent; Z96.641 Presence of right artificial hip joint; Z88.1 Allergy status to other antibiotic agents; Z79.899 Other long term (current) drug therapy; Z53.31 Laparoscopic surgical procedure converted to open procedure

== ENCOUNTER → 2019-02-05 | Outpatient (REF) ==
[~2019-02-05] MED LIST changes: +APAP325T4 PO; +DIPH2.5T15 PO; +DULC10SU2 PR; +ENEMENE PR; +METO25TA4 PO; +MOM30SS PO; +MULTCAP PO; +MYLASSUD PO; +NON-325T5 PO; +PANT-23 PO; +PERCOCET PO; +PRESCAP PO
[2019-02-05 07:58] LABS: HEMOGLOBIN 11.1 g/dl (12.0-15.5); MEAN CORPUSCULAR HEMOGLOBIN 29.8 pg (27.0-33.0); MEAN CORPUSCULAR HGB CONC 30.8 g/dl (32.0-36.5); MEAN CORPUSCULAR VOLUME 96.8 fl (80.0-96.0); PLATELET COUNT, AUTOMATED 416 10^3/uL (150-450); RED BLOOD COUNT 3.72 10^6/uL (4.00-5.40); WHITE BLOOD COUNT 8.7 10^3/uL (4.0-10.0)
[2019-02-05 08:32] LABS: BLOOD UREA NITROGEN 17 MG/DL (7-18); CARBON DIOXIDE LEVEL 31 MEQ/L (21-32); CHLORIDE LEVEL 101 MEQ/L (98-107); CREATININE FOR GFR 0.51 MG/DL (0.55-1.30); GLOMERULAR FILTRATION RATE > 60.0 (>32); GLUCOSE, FASTING 115 MG/DL (70-100); POTASSIUM SERUM 4.4 MEQ/L (3.5-5.1); SODIUM LEVEL 137 MEQ/L (136-145)
== END ==
LOC: SKLAB2 07:06
PROVIDERS: ATTEND Family Medicine
DX: E03.9 Hypothyroidism, unspecified (principal); D64.9 Anemia, unspecified; I10 Essential (primary) hypertension

== ENCOUNTER → 2019-02-06 | Outpatient (REF) | LOC: SKLAB2 08:34 | PROVIDERS: ATTEND Family Medicine | DX: Z86.14 Personal history of Methicillin resistant Staphylococcus aureus infection (principal) ==

== ENCOUNTER → 2019-02-12 | Outpatient (REF) ==
[2019-02-12 07:35] LABS: HEMATOCRIT 40.2 % (36.0-47.0); HEMOGLOBIN 12.4 g/dl (12.0-15.5); MEAN CORPUSCULAR HEMOGLOBIN 30.5 pg (27.0-33.0); MEAN CORPUSCULAR HGB CONC 30.8 g/dl (32.0-36.5); PLATELET COUNT, AUTOMATED 305 10^3/uL (150-450); RED BLOOD COUNT 4.06 10^6/uL (4.00-5.40); WHITE BLOOD COUNT 10.7 10^3/uL (4.0-10.0)
[2019-02-12 07:52] LABS: BLOOD UREA NITROGEN 16 MG/DL (7-18); CALCIUM LEVEL 8.8 MG/DL (8.8-10.2); CARBON DIOXIDE LEVEL 29 MEQ/L (21-32); CHLORIDE LEVEL 100 MEQ/L (98-107); CREATININE FOR GFR 0.56 MG/DL (0.55-1.30); GLOMERULAR FILTRATION RATE > 60.0 (>32); GLUCOSE, FASTING 105 MG/DL (70-100); POTASSIUM SERUM 3.9 MEQ/L (3.5-5.1); SODIUM LEVEL 136 MEQ/L (136-145)
== END ==
LOC: SKLAB2 07:00
PROVIDERS: ATTEND Family Medicine
DX: D64.9 Anemia, unspecified (principal)

== ENCOUNTER → 2019-02-13 | Outpatient (POV) | payer MEDICARE ==
[~2019-02-13] VITALS: Ht 157.5 cm; Wt 48.2 kg
[2019-02-13 10:00] VITALS: BP 115/55
--- NOTE | 2019-02-14 08:53 | IRPN ---
[facility] IR Progress Note IR Progress Note DATE: Feb 13, 2019 FOLLOW-UP: Patient presents for follow-up regarding surgically placed gastrojejunostomy catheter which had flipped back into the stomach. This could not be manipulated percutaneously before as the tract was not mature. Therefore the patient is here after tract maturation. Since that time, Dr. Osman has prescribed G feeds to be administered through the G port of the GJ. Patient's g randdaughter states that Patient is tolerating feeds well. No reflux. No pneumonia. No aspirations. No nausea or vomiting. IMPRESSION: I had a long discussion with the patient's granddaughter in person as well as the patient's daughter on the phone. I recommended exchanging out the gastrojejunostomy catheter for regular gastrostomy catheter which is shorter and terminates in the stomach. Patient and patient's family would not like any interventions at present. Therefore no procedure or follow-up is scheduled with our clinic. Should the surgical office require any further manipulation of this catheter, exchange or replacement of gastrojejunostomy catheter, surgical office to call us. Thank you for this referral. Allergies Coded Allergies: Tetracyclines (Verified Allergy, Unknown, rash, 12/09/18) codeine (Verified Allergy, Unknown, rash, 12/09/18) VS,Fishbone, I+O VS, Fishbone, I+O Vital Signs Date Time Temp Pulse Resp B/P (MAP) Pulse Ox O2 Delivery O2 Flow Rate FiO2 02/13/19 10:00 97.0 73 18 115/55 (75) 95 Room Air YOLA NAJERA MD Feb 14, 2019 08:53
== END ==
LOC: M IRPOV 09:57
PROVIDERS: ATTEND Radiology Diagnostic Radiology
DX: Z43.1 Encounter for attention to gastrostomy (principal); Z88.1 Allergy status to other antibiotic agents; Z88.5 Allergy status to narcotic agent

== ENCOUNTER → 2019-02-13 | Outpatient (REF) | LOC: SKLAB2 08:44 | PROVIDERS: ATTEND Family Medicine | DX: B95.62 Methicillin resistant Staphylococcus aureus infection as the cause of diseases classified elsewhere (principal) ==

== ENCOUNTER → 2019-02-19 | Outpatient (REF) ==
[2019-02-19 08:39] LABS: HEMATOCRIT 43.2 % (36.0-47.0); HEMOGLOBIN 13.3 g/dl (12.0-15.5); MEAN CORPUSCULAR HEMOGLOBIN 30.6 pg (27.0-33.0); MEAN CORPUSCULAR HGB CONC 30.8 g/dl (32.0-36.5); MEAN CORPUSCULAR VOLUME 99.3 fl (80.0-96.0); PLATELET COUNT, AUTOMATED 234 10^3/uL (150-450); RED BLOOD COUNT 4.35 10^6/uL (4.00-5.40); WHITE BLOOD COUNT 10.8 10^3/uL (4.0-10.0)
[2019-02-19 09:04] LABS: ALBUMIN 2.9 GM/DL (3.2-5.2); ALT/SGPT 13 U/L (12-78); BILIRUBIN,TOTAL 0.4 MG/DL (0.2-1.0); BLOOD UREA NITROGEN 15 MG/DL (7-18); CALCIUM LEVEL 9.6 MG/DL (8.8-10.2); CARBON DIOXIDE LEVEL 29 MEQ/L (21-32); CHLORIDE LEVEL 101 MEQ/L (98-107); CREATININE FOR GFR 0.57 MG/DL (0.55-1.30); GLOMERULAR FILTRATION RATE > 60.0 (>32); GLUCOSE, FASTING 76 MG/DL (70-100); MAGNESIUM LEVEL 1.9 MG/DL (1.8-2.4); POTASSIUM SERUM 4.7 MEQ/L (3.5-5.1); SODIUM LEVEL 137 MEQ/L (136-145); TOTAL PROTEIN 7.3 GM/DL (6.4-8.2)
== END ==
LOC: SKLAB2 07:00
PROVIDERS: ATTEND Family Medicine
DX: D64.9 Anemia, unspecified (principal)

== ENCOUNTER → 2019-02-20 | Outpatient (REF) | LOC: SKLAB2 10:46 | PROVIDERS: ATTEND Family Medicine | DX: Z11.2 Encounter for screening for other bacterial diseases (principal) ==

== ENCOUNTER → 2019-02-26 | Outpatient (REF) ==
[2019-02-26 09:39] LABS: HEMATOCRIT 41.6 % (36.0-47.0); HEMOGLOBIN 13.1 g/dl (12.0-15.5); MEAN CORPUSCULAR HEMOGLOBIN 30.5 pg (27.0-33.0); MEAN CORPUSCULAR HGB CONC 31.5 g/dl (32.0-36.5); PLATELET COUNT, AUTOMATED 367 10^3/uL (150-450); RED BLOOD COUNT 4.29 10^6/uL (4.00-5.40); WHITE BLOOD COUNT 8.5 10^3/uL (4.0-10.0)
[2019-02-26 09:59] LABS: BLOOD UREA NITROGEN 20 MG/DL (7-18); CALCIUM LEVEL 9.7 MG/DL (8.8-10.2); CARBON DIOXIDE LEVEL 27 MEQ/L (21-32); CHLORIDE LEVEL 100 MEQ/L (98-107); CREATININE FOR GFR 0.66 MG/DL (0.55-1.30); GLOMERULAR FILTRATION RATE > 60.0 (>32); GLUCOSE, FASTING 150 MG/DL (70-100); POTASSIUM SERUM 3.9 MEQ/L (3.5-5.1); SODIUM LEVEL 136 MEQ/L (136-145)
== END ==
LOC: SKLAB2 07:30
PROVIDERS: ATTEND Family Medicine
DX: D64.9 Anemia, unspecified (principal); I10 Essential (primary) hypertension

== ENCOUNTER → 2019-03-19 | Outpatient (REF) ==
[2019-03-19 08:04] LABS: HEMATOCRIT 44.3 % (36.0-47.0); HEMOGLOBIN 13.6 g/dl (12.0-15.5); MEAN CORPUSCULAR HEMOGLOBIN 29.6 pg (27.0-33.0); MEAN CORPUSCULAR HGB CONC 30.7 g/dl (32.0-36.5); MEAN CORPUSCULAR VOLUME 96.5 fl (80.0-96.0); PLATELET COUNT, AUTOMATED 313 10^3/uL (150-450); RED BLOOD COUNT 4.59 10^6/uL (4.00-5.40); WHITE BLOOD COUNT 9.7 10^3/uL (4.0-10.0)
[2019-03-19 08:24] LABS: BLOOD UREA NITROGEN 21 MG/DL (7-18); CALCIUM LEVEL 9.3 MG/DL (8.8-10.2); CARBON DIOXIDE LEVEL 29 MEQ/L (21-32); CHLORIDE LEVEL 102 MEQ/L (98-107); CREATININE FOR GFR 0.64 MG/DL (0.55-1.30); GLOMERULAR FILTRATION RATE > 60.0 (>32); GLUCOSE, FASTING 82 MG/DL (70-100); POTASSIUM SERUM 4.1 MEQ/L (3.5-5.1); SODIUM LEVEL 138 MEQ/L (136-145)
== END ==
LOC: SKLAB2 07:00
PROVIDERS: ATTEND Family Medicine
DX: D64.9 Anemia, unspecified (principal); I10 Essential (primary) hypertension

== ENCOUNTER → 2019-05-02 | Outpatient (REF) | payer MEDICARE ==
[2019-05-02 13:48] LABS: APPEARANCE, URINE TURBID (CLEAR); BACTERIA, URINE AUTO 3+ (NEGATIVE); BILIRUBIN, URINE AUTO NEGATIVE (NEGATIVE); BLOOD, URINE BLOOD 1+ (NEGATIVE); COLOR, URINE YELLOW (YELLOW); GLUCOSE, URINE (UA) AUTO NEGATIVE (NEGATIVE); KETONE, URINE AUTO NEGATIVE (NEGATIVE); LEUKOCYTE ESTERASE, URINE AUTO 3+ (NEGATIVE); NITRITE, URINE AUTO POSITIVE (NEGATIVE); PROTEIN, URINE AUTO 1+ mg/dL (NEGATIVE); RBC, URINE AUTO 30 /HPF (0-3); SPECIFIC GRAVITY URINE AUTO 1.014 (1.002-1.035); SQUAMOUS EPITHELIAL CELL UR AU 1 /HPF (0-6); UROBILINOGEN, URINE AUTO 0.2 mg/dL (0.0-2.0); WBC, URINE AUTO TNTC /HPF (0-3)
== END ==
LOC: M SFHCPLAZ 13:02
PROVIDERS: ATTEND Family Medicine
DX: N39.46 Mixed incontinence (principal); R30.0 Dysuria
CPT/HCPCS: 81001; 87088; 87186; G0463

== ENCOUNTER 2019-08-03 12:28 | Inpatient (IN) | payer MEDICARE ==
[~2019-08-03] VITALS: Ht 160 cm; Wt 49.0 kg
[~2019-08-03 12:28] MED LIST changes: -SUCR10SS PO; +SUCR1ORA2 PO
--- NOTE | 2019-08-03 14:07 | ECGEPIP ---
[facility] - ED Test Date: 2019-08-03 Pat Name: YONI YANES Department: Room: - Gender: Female Manager Study: : 1930 Requested By: Irma Kiser Order Number: [id number] Reading MD: Irma Kiser Measurements Intervals [place] Rate: 67 P: 65 IN: 177 QRS: 36 QRSD: 128 T: 38 QT: 428 QTc: 454 Interpretive Statements SINUS RHYTHM MODERATE INTRAVENTRICULAR CONDUCTION DELAY Electronically Signed on 08-03-2019 14:06:44 EDT by Irma Kiser
[2019-08-03 14:18] LABS: BASO # 0.1 10^3/uL (0.0-0.2); BASO % 0.9 % (0.0-1.0); EOS # 0.2 10^3/uL (0.0-0.5); EOS % 2.9 % (0.0-3.0); HEMATOCRIT 44.4 % (36.0-47.0); HEMOGLOBIN 14.4 g/dl (12.0-15.5); LYMPH # 1.4 10^3/uL (1.5-5.0); LYMPH % 25.7 % (24.0-44.0); MEAN CORPUSCULAR HEMOGLOBIN 30.4 pg (27.0-33.0); MEAN CORPUSCULAR HGB CONC 32.4 g/dl (32.0-36.5); MEAN CORPUSCULAR VOLUME 93.9 fl (80.0-96.0); MONO # 0.4 10^3/uL (0.0-0.8); MONO % 7.1 % (0.0-5.0); NEUTROPHILS # 3.5 10^3/uL (1.5-8.5); NEUTROPHILS % 63.2 % (36.0-66.0); PLATELET COUNT, AUTOMATED 248 10^3/uL (150-450); RED BLOOD COUNT 4.73 10^6/uL (4.00-5.40); WHITE BLOOD COUNT 5.6 10^3/uL (4.0-10.0)
[2019-08-03 14:29] LABS: INR 1.08; PROTHROMBIN TIME 13.7 SECONDS (11.8-14.0)
[2019-08-03 14:34] LABS: ALBUMIN 3.3 GM/DL (3.2-5.2); ALT/SGPT 22 U/L (12-78); BILIRUBIN,TOTAL 0.2 MG/DL (0.2-1.0); BLOOD UREA NITROGEN 26 MG/DL (7-18); CALCIUM LEVEL 9.5 MG/DL (8.8-10.2); CARBON DIOXIDE LEVEL 27 MEQ/L (21-32); CHLORIDE LEVEL 105 MEQ/L (98-107); CREATININE FOR GFR 0.62 MG/DL (0.55-1.30); GLOMERULAR FILTRATION RATE > 60.0 (>32); GLUCOSE, FASTING 84 MG/DL (70-100); SODIUM LEVEL 139 MEQ/L (136-145); TOTAL PROTEIN 7.5 GM/DL (6.4-8.2)
[2019-08-03] MEDS ORDERED: VITAD1000T PO (14:43)
[2019-08-03] MEDS ORDERED: AMLO25TA PO (14:43)
[2019-08-03] MEDS ORDERED: HYDR-643 PO (14:43)
[2019-08-03 14:55] LABS: ERYTHROCYTE SEDIMENTATION RATE 21 mm/hr (0-30)
[2019-08-03] MEDS ORDERED: ASPIRIN 81 MG CHEW TABLET PO ONE (15:30)
[2019-08-03] MEDS ORDERED: hydrOXYzine 10 MG TAB PO PRN (16:00)
--- NOTE | 2019-08-03 17:14 | HPEPDOC ---
[facility] Medical History & Physical Date of Admission Aug 03, 2019 Date of Service: Aug 03, 2019 Primary Care Physician: LAWANDA GALLEGOS MD Attending Physician: KADIE CONTEH MD History and Physical PRIMARY CARE PROVIDER: Dr. Lawanda Gallegos ATTENDING: Dr. Kadie Conteh CHIEF COMPLAINT: Difficulty speaking HISTORY OF PRESENT ILLNESS: Patient is an 89 year old female who presented to the emergency department at the urging of her primary care provider because of a history of unintelligible speech lasting approximately 5 minutes. She was with family on 08/02/2019 in the evening and had a 15 minute period where she was not able to speak despite understanding that was happening around her. Family reached out to primary care provider in triage nurse recommended urgent emergency department evaluation. Workup in the emergency department was negative however patient clearly has findings concerning for expressive aphasia and TIA so the hospitalist team was called for admission. PAST MEDICAL HISTORY: Paroxysmal A. 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 FAMILY HISTORY: ALLERGIES: Please see below. REVIEW OF SYSTEMS: GENERAL: Denies fevers, chills, recent unexpected weight change, night sweats, hemoptysis HEENT: Denies dizziness, vision changes, hearing loss, sore throat. Admits to intermittent unitemporal headaches often at night when she wakes up as well as posterior headaches during the day that she treats symptomatically. These are improved when she lies down and to her are quite debilitating. CARDIOVASCULAR: Denies chest pain, palpitations, orthopnea RESPIRATORY: Denies shortness of breath, wheezing, cough GASTROINTESTINAL: denies nausea, vomiting, abdominal pain, constipation, diarrhea, bloody stool GENITOURINARY: Denies dysuria,urinary urgency, hematuria. MUSCULOSKELETAL: Denies muscle/joint pain, weakness, stiffness NEUROLOGICAL: Denies any numbness/tingling, focal weakness, or syncope HOME MEDICATIONS: Please see below. PHYSICAL EXAMINATION: Vitals: (see below) General: No acute distress, laying comfortably in bed. HEENT: Normocephalic, atraumatic. EOMI. No scleral icterus. Moist mucous membranes. No pharyngeal erythema or uvular deviation. Neck: No JVD, lymphadenopathy, or thyromegaly. Cardiac: RRR, Normal S1 and S2, No murmurs, gallops, rubs. Pulm: Clear to auscultation b/l. Symmetric thorax. No wheezing, crackles, rhonchi Abd: Bowel Sounds present. Abdomen is soft, non-tender, non-distended. No guarding, rebound tenderness, or rigidity. No hepatosplenomegaly. No masses or eccymosis. Ext: No edema or cyanosis Neuro: Strength +5/5 BUE and BLE. CN 2-12 intact. F to N intact. Negative pronator drift. Negative Babinski. Sensation to fine touch intact in BLE and BUE. LABORATORY DATA: See below. IMAGIN08/03/[address]: Chronic atrophy and periventricular small vessel ischemic change. No acute hemorrhage or other acute intracranial finding. MICROBIOLOGY: Please see below. ASSESSMENT/PLAN: #. Expressive Aphasia---Possible TIA -Patient presenting with hx of 5-10 minute period of expressive aphasia, hx of AFib and TIAs in the past is concerning for possible TIA. Patient is asymptomatic at this time with NIH stroke scale of 0. -CT head negative, brain MRI, carotid US ordered -Started on Aspirin, Atorvastatin, Q4 hour neuro checks. - Also on our ddx is temporal arteritis given hx of this in the past, unknown whether biopsy pursued, currently does not have a headache, ESR, CRP ordered. -Complex migraine also remains on differential as these can manifest with stroke like symptoms and she states she also had a headache during the episode of aphasia. Will continue to monitor. #. Paroxysmal Afib -Patient went into Afib about a year ago during her stay for perforated duodenal ulcer but is in NSR on telemetry currently -Will continue metoprolol with holding parameters -Hold off on anticoagulation, although patient has CHADVASc score >2 she also has HASBLED score of 3-4. [facility] but she currently relays no history of palpitations, chest pain, or difficulty breathing as she did in the past when she went into afib a year ago. #. Hypertension -Continue amlodipine, metoprolol #. GERD -Continue pantoprazole -DVT prophy: Heparin, teds, seqs Vital Signs Vital Signs Date Time Temp Pulse Resp B/P (MAP) Pulse Ox O2 Delivery O2 Flow Rate FiO2 08/03/19 15:45 73 18 164/74 (104) 96 Room Air 08/03/19 12:30 97.7 Laboratory Data Labs 24H Laboratory Tests 2 08/03/19 14:02: Immature Granulocyte % (Auto) 0.2, Neutrophils (%) (Auto) 63.2, Lymphocytes (%) (Auto) 25.7, Monocytes (%) (Auto) 7.1H, Eosinophils (%) (Auto) 2.9, Basophils (%) (Auto) 0.9, Neutrophils # (Auto) 3.5, Lymphocytes # (Auto) 1.4L, Monocytes # (Auto) 0.4, Eosinophils # (Auto) 0.2, Basophils # (Auto) 0.1, Nucleated Red Blood Cells % (auto) 0.0, Erythrocyte Sedimentation Rate 21, Prothrombin Time 13.7, Prothromb Time International Ratio 1.08, Anion Gap 7L, Glomerular Filtration Rate > 60.0, Calcium Level 9.5, Total Bilirubin 0.2, Aspartate Amino Transf (AST/SGOT) 19, Alanine Aminotransferase (ALT/SGPT) 22, Alkaline Phosphatase 84, Total Protein 7.5, Albumin 3.3, Albumin/Globulin Ratio 0.79L CBC/BMP Laboratory Tests 08/03/19 14:02 Home Medications Scheduled Acetaminophen (Acetaminophen) 325 Mg Tablet, 650 MG PO QID Amlodipine Besylate (Amlodipine Besylate) 2.5 Mg Tablet, 2.5 MG PO DAILY Aspirin (Children's Aspirin) 81 Mg Tab.chew, 324 MG PO DAILY Please take 1 tablet by mouth daily. Atorvastatin Calcium (Atorvastatin Calcium) 20 Mg Tablet, 20 MG PO DAILY Cholecalciferol (Vitamin D3) (Vitamin D3) 1,000 Unit Tablet, 1,000 UNITS PO DAILY Levothyroxine Sodium (Synthroid) 75 Mcg Tablet, 75 MCG PO DAILY Metoprolol Tartrate (Metoprolol Tartrate) 25 Mg Tablet, 25 MG PO BID Pantoprazole Sodium (Pantoprazole Sodium) 40 Mg Tablet.dr, 40 MG PO DAILY Vit A/Vit C/Vit E/Zinc/Copper (Preservision Areds Softgel) 1 Each Capsule, 1 CAP PO DAILY Scheduled PRN Hydroxyzine HCl (Hydroxyzine HCl) 10 Mg Tablet, 5 MG PO Q8H PRN for ITCHING Allergies Coded Allergies: Tetracyclines (Verified Allergy, Unknown, rash, 12/09/18) codeine (Verified Allergy, Unknown, rash, 12/09/18) A-FIB/CHADSVASC A-FIB History Current/History of A-Fib/PAF?: Yes Current PO Anticoag Therapy: No Age/Risk Factor Scoring CHADSVASC: CHADSVASC Response (Comments) Value Age Risk Factor Age >/= 75 years old 2 Gender Risk Factor Female 1 Hx of CHF No 0 Hx of HTN No 0 Hx of Stroke/TIA/or VTE Yes 2 Hx of Diabetes No 0 Hx of Vascular Disease No 0 Total 5 Treatment Treatment ordered: NONE Reason Anticoagulant not given: Other (hx of perforated abdominal ulcer) Other reason anticoagulant not: HASBLED score suggests risks outweigh benefits GME ATTESTATION GME ATTESTATION My faculty preceptor for this patient encounter was physically present during the encounter and was fully available. All aspects of the patient interview, examination, medical decision making process, and medical care plan development were reviewed and approved by the faculty preceptor. The faculty preceptor is aware and concurs with the plan as stated in the body of this note and will attest to such by his/her cosignature. ATTENDING NOTE I have independently interviewed and examined the patient at the bedside, and agree with the aforementioned History, physical findings and management plans as documented by my Resident Physician. The patient's questions and concerns have been satisfactorily addressed. KRISSY ARVIZU DO Aug 03, 2019 17:14 KADIE CONTEH MD Aug 06, 2019 19:41
[2019-08-03 17:30] LABS: C REACTIVE PROTEIN QUANTITATIV 0.37 MG/DL (0.00-0.30)
--- NOTE | 2019-08-03 17:35 | REP ---
CT BRAIN WITHOUT CONTRAST: CT brain performed without IV contrast. Coronal reconstruction images are performed. There is moderate atrophy. There is no midline shift or mass effect. Chronic periventricular small vessel ischemic changes are noted. No acute intracranial hemorrhage or extra-axial fluid collection is seen. There is no skull fracture. There are mild vascular calcifications in the carotid siphons. The visualized mastoid air cells and paranasal sinuses are clear. IMPRESSION: Chronic atrophy and periventricular small vessel ischemic change. No acute hemorrhage or other acute intracranial finding. Electronically Signed by Destin Medina MD 08/03/2019 07:27 P
[2019-08-03 18:24] VITALS: BP 174/76
--- NOTE | 2019-08-03 18:37 | REPVR ---
PROCEDURE INFORMATION: Exam: US Duplex Bilateral Extracranial Arteries Exam date and time: 08/03/2019 6:14 PM Age: 89 years old Clinical indication: Other: TIA; Additional info: HX of expressive aphasia, suspected TIA, HX of TIA TECHNIQUE: Imaging protocol: Real-time Duplex ultrasound scan of the bilateral carotid and vertebral arteries combining belle scale, color Doppler and spectral waveform analysis. Bilateral exam. COMPARISON: CT Head without contrast 08/03/2019 1:11 PM FINDINGS: Right common carotid artery: Unremarkable. No occlusion or stenosis. Waveforms are normal. Right internal carotid artery: Unremarkable. No occlusion or stenosis. Waveforms are normal. Right ICA/CCA ratio: Within normal limits. Right external carotid artery: No stenosis in the origin. Right vertebral artery: Unremarkable. Antegrade flow. Left common carotid artery: High bifurcation of bilateral common carotids. The distal ICA velocities were not obtained. Left internal carotid artery: See "Left common carotid artery" finding. Left ICA/CCA ratio: Within normal limits. Left external carotid artery: No stenosis in the origin. Left vertebral artery: Unremarkable. Antegrade flow. IMPRESSION: High common carotid bifurcation. The distal ICA velocities were not obtained. No stenosis of the visualized internal carotid , vertebral and external carotid arteries. REFERENCES: SRU CRITERIA. The degree of internal carotid artery stenosis is based on criteria defined by the Society of Radiologists in Ultrasound (SRU). Normal is no stenosis. Mild is less than 50% stenosis. Moderate is 50-69% stenosis. Severe is greater than 69% stenosis to near occlusion. Near occlusion is a markedly narrowed lumen. Total occlusion is no detectable patent lumen. Electronically signed by: Marco Lam On 08/03/2019 18:36:54 PM
--- NOTE | 2019-08-03 19:01 | REPVR ---
PROCEDURE INFORMATION: Exam: MR Head Without Contrast Exam date and time: 08/03/2019 5:51 PM Age: 89 years old Clinical indication: Condition or disease; Other: Prior TIA; Alteration of consciousness and speech disturbance; Transient alteration of awareness; Patient HX: Aphasia and confusion that has since subsided, prior HX of TIA; Additional info: HX of expressive aphasia, HX of TIA TECHNIQUE: Imaging protocol: MR of the head without contrast. 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 Moderate chronic microvascular ischemic changes. Ventricles: Normal. No ventriculomegaly. Bones/joints: Unremarkable. Soft tissues: Unremarkable. Sinuses: Normal as visualized. No acute sinusitis. Mastoid air cells: Normal as visualized. No mastoid effusion. Orbits: Unremarkable. IMPRESSION: No acute intracranial abnormality. Moderate chronic microvascular ischemic changes. Electronically signed by: Marco Lam On 08/03/2019 19:00:54 PM
[2019-08-03] MEDS: METOPROLOL TART 25 MG TABLET PO SCH (20:13)
[2019-08-03] MEDS: ACETAMINOPHEN TAB 650MG DOSE (2X325MG) PO SCH (20:14)
[2019-08-03] MEDS ORDERED: PRAVASTATIN 20 MG TAB PO SCH (21:00)
[2019-08-03] MEDS: HEPARIN SOD (PORCINE) 5000UNITS/ML VIAL (J1644 PER 1000UNITS) SC SCH (21:02)
[2019-08-03 22:00] VITALS: BP 150/86
[2019-08-04 02:00] VITALS: BP 141/81
[2019-08-04] MEDS: HEPARIN SOD (PORCINE) 5000UNITS/ML VIAL (J1644 PER 1000UNITS) SC SCH (05:57)
[2019-08-04 06:00] VITALS: BP 150/74
[2019-08-04] MEDS ORDERED: LEVOTHYROXINE 75MCG TABLET (0.075MG) PO SCH (06:00)
[2019-08-04 08:27] VITALS: BP 131/66
[2019-08-04] MEDS: ACETAMINOPHEN TAB 650MG DOSE (2X325MG) PO SCH (08:27)
[2019-08-04] MEDS: METOPROLOL TART 25 MG TABLET PO SCH (08:27)
[2019-08-04 08:57] LABS: HEMATOCRIT 44.7 % (36.0-47.0); HEMOGLOBIN 14.3 g/dl (12.0-15.5); MEAN CORPUSCULAR VOLUME 93.7 fl (80.0-96.0); PLATELET COUNT, AUTOMATED 262 10^3/uL (150-450); RED BLOOD COUNT 4.77 10^6/uL (4.00-5.40); WHITE BLOOD COUNT 4.6 10^3/uL (4.0-10.0)
[2019-08-04] MEDS ORDERED: ASPIRIN 81 MG CHEW TABLET PO SCH (09:00)
[2019-08-04] MEDS ORDERED: PANTOPRAZOLE 40MG TAB (PROTONIX) PO SCH (09:00)
[2019-08-04 09:09] LABS: BLOOD UREA NITROGEN 19 MG/DL (7-18); CARBON DIOXIDE LEVEL 28 MEQ/L (21-32); CHLORIDE LEVEL 105 MEQ/L (98-107); CREATININE FOR GFR 0.51 MG/DL (0.55-1.30); GLOMERULAR FILTRATION RATE > 60.0 (>32); GLUCOSE, FASTING 81 MG/DL (70-100); SODIUM LEVEL 140 MEQ/L (136-145)
[2019-08-04 10:00] VITALS: BP 148/74
[2019-08-04] MEDS ORDERED: ATOR40TA75 PO (10:18)
[2019-08-04] MEDS ORDERED: ASPI81CH8 PO (10:18)
[2019-08-04] MEDS ORDERED: ATOR1TAB21 PO (11:02)
--- NOTE | 2019-08-04 14:42 | DS.PDOC ---
Discharge Summary General Date of Admission Aug 03, 2019 at 16:45 Date of Discharge 08/04/2019 Primary Care Physician: MADHAV PALOMO MD Attending Physician: TE DYKES MD Discharge Summary PROCEDURES PERFORMED DURING STAY: None. ADMITTING/DISCHARGE DIAGNOSES: Questionable TIA Paroxysmal afib Hypertension GERD History of perforated duodenal ulcer with postop RUQ abscess with h/o Feeding tube at that time. Hypothyroidism SCC right cheek/BCC tip of nose H/O Temporal arteritis Vitamin D deficiency Osteoporosis Dysphagia Lichen sclerosis COMPLICATIONS/CHIEF COMPLAINT: expressive aphasia HISTORY OF PRESENT ILLNESS/HOSPITAL COURSE:Patient is an 89 year old female who presented to the emergency department at the urging of her primary care provider because of a history of unintelligible speech lasting approximately 5 minutes. She was with family on 08/02/2019 in the evening and had a 15 minute period where she was not able to speak despite understanding that was happening around her. Family reached out to primary care provider in triage nurse recommended urgent emergency department evaluation. Workup in the emergency department was negative however patient clearly has findings concerning for expressive aphasia and TIA so the hospitalist team was called for admission. She was found to have an NIH stroke scale of 0, CT head, carotid ultrasound, brain MRI were negative for acute findings, ESR/CRP for possible temporal arteritis were within normal limits. Patient had no acute events overnight and was monitored on telemetry without conversion into A. fib. Patient was started on a statin and aspirin for secondary prevention of strokes and was cleared by physical therapy the following day as she had no residual neurologic deficits. Of note, we did not initiate anticoagulation therapy even though her CHADVASc score indicated it would be appropriate to do so based off her history of paroxysmal afib because her HASBLED score places her at higher risk for life threatening bleeds especially given her age. This can be discussed further outpatient and should be a shared decision between her and her PCP. Patient throughout her stay continued to be more concerned about her history of headaches, she had none while she was inpatient and was advised to continue follow-up for this problem outpatient with her primary care provider. DISCHARGE MEDICATIONS: Please see below. ALLERGIES: Please see below. Vitals: (see below) General: No acute distress, sitting in chair at bedside. HEENT: Normocephalic, atraumatic. EOMI. No scleral icterus. Moist mucous membranes. No pharyngeal erythema or uvular deviation. Neck: No JVD, lymphadenopathy, or thyromegaly. Cardiac: RRR, Normal S1 and S2, No murmurs, gallops, rubs. Pulm: Clear to auscultation b/l. Symmetric thorax. No wheezing, crackles, rhonchi Abd: Bowel Sounds present. Abdomen is soft, non-tender, non-distended. No guarding, rebound tenderness, or rigidity. Ext: No edema or cyanosis Neuro: Strength +5/5 BUE and BLE. CN 2-12 intact. Psych: Appropriate affect LABORATORY DATA: Please see below. IMAGIN08/03/[address]: Chronic atrophy and periventricular small vessel ischemic change. No acute hemorrhage or other acute intracranial finding. 08/03/2019 carotid duplex ultrasound: High common carotid bifurcation. The distal ICA velocities were not obtained. No stenosis of the visualized internal carotid, vertebral, and external carotid arteries. 08/03/2019 brain MRI: No acute intracranial abnormality. Moderate chronic microvascular ischemic changes. PROGNOSIS: stable ACTIVITY: As tolerated. DIET: As tolerated DISCHARGE PLAN: Home DISCHARGE INSTRUCTIONS: 1. Please return to hospital if symptoms worsen. 2. Please follow-up with PCP in the next 1-2 weeks. DISCHARGE CONDITION: Stable. TIME SPENT ON DISCHARGE: 35 minutes Vital Signs/I&Os Vital Signs Date Time Temp Pulse Resp B/P (MAP) Pulse Ox O2 Delivery O2 Flow Rate FiO2 08/04/19 10:00 98.6 64 16 148/74 (98) 97 Room Air I&O- Last 24 Hours up to 6 AM 08/04/19 06:00 Intake Total 320 ml Output Total 275 ml Balance 45 ml Laboratory Data Labs 24H Laboratory Tests 2 08/03/19 20:10: Methicillin-Resist S.aureus DNA PCR NOT DETECTED 08/04/19 08:19: Nucleated Red Blood Cells % (auto) 0.0, Anion Gap 7L, Glomerular Filtration Rate > 60.0, Calcium Level 9.0 CBC/BMP Laboratory Tests 08/04/19 08:19 Discharge Medications Scheduled Acetaminophen (Acetaminophen) 325 Mg Tablet, 650 MG PO QID, (Reported) Amlodipine Besylate (Amlodipine Besylate) 2.5 Mg Tablet, 2.5 MG PO DAILY, (Reported) Aspirin (Children's Aspirin) 81 Mg Tab.chew, 324 MG PO DAILY Please take 1 tablet by mouth daily. Atorvastatin Calcium (Atorvastatin Calcium) 20 Mg Tablet, 20 MG PO DAILY Cholecalciferol (Vitamin D3) (Vitamin D3) 1,000 Unit Tablet, 1,000 UNITS PO DAILY, (Reported) Levothyroxine Sodium (Synthroid) 75 Mcg Tablet, 75 MCG PO DAILY, (Reported) Metoprolol Tartrate (Metoprolol Tartrate) 25 Mg Tablet, 25 MG PO BID, (Reported) Pantoprazole Sodium (Pantoprazole Sodium) 40 Mg Tablet.dr, 40 MG PO DAILY, (Reported) Vit A/Vit C/Vit E/Zinc/Copper (Preservision Areds Softgel) 1 Each Capsule, 1 CAP PO DAILY, (Reported) Scheduled PRN Hydroxyzine HCl (Hydroxyzine HCl) 10 Mg Tablet, 5 MG PO Q8H PRN for ITCHING, (R eported) Allergies Coded Allergies: Tetracyclines (Verified Allergy, Unknown, rash, 12/09/18) codeine (Verified Allergy, Unknown, rash, 12/09/18) GME ATTESTATION GME ATTESTATION My faculty preceptor for this patient encounter was physically present during the encounter and was fully available. All aspects of the patient interview, examination, medical decision making process, and medical care plan development were reviewed and approved by the faculty preceptor. The faculty preceptor is aware and concurs with the plan as stated in the body of this note and will attest to such by his/her cosignature. ATTENDING NOTE I have independently interviewed and examined the patient at the bedside, and agree with the aforementioned management plans and physical findings as documented by my Resident Physician. I have personally spent 35 minutes in counselling the patient and coordinating her discharge. KRISSY ARVIZU DO Aug 04, 2019 14:42 TE DYKES MD Aug 05, 2019 13:19
== END 2019-08-04 13:40 | disposition home or self-care (01) | DRG 69 ==
LOC: M ED 12:28 → M ED INP 16:45 → CANRESERV 17:21 → ENRESERV 17:21 → ENRESERVDT 17:57 → ENRESERVTM 17:57 → M MSPAV 18:18
PROVIDERS: ADMIT Internal Medicine Nephrology; ATTEND Internal Medicine Nephrology
DX: G45.9 Transient cerebral ischemic attack, unspecified (principal); R47.01 Aphasia; I48.0 Paroxysmal atrial fibrillation; I10 Essential (primary) hypertension; E03.9 Hypothyroidism, unspecified; E55.9 Vitamin D deficiency, unspecified; M81.0 Age-related osteoporosis without current pathological fracture; R13.10 Dysphagia, unspecified; L90.0 Lichen sclerosus et atrophicus; M31.6 Other giant cell arteritis; Z85.828 Personal history of other malignant neoplasm of skin; Z87.81 Personal history of (healed) traumatic fracture; Z98.41 Cataract extraction status, right eye; Z98.42 Cataract extraction status, left eye; Z87.11 Personal history of peptic ulcer disease; K21.9 Gastro-esophageal reflux disease without esophagitis; Z79.899 Other long term (current) drug therapy; Z88.5 Allergy status to narcotic agent; Z88.1 Allergy status to other antibiotic agents

== ENCOUNTER → 2019-10-25 | Outpatient (REF) | payer MEDICARE ==
[~2019-10-25] MED LIST changes: +AMLO25TA PO; +ASPI81CH8 PO; +ATOR1TAB21 PO; +ATOR40TA75 PO; +HYDR-643 PO; +VITAD1000T PO
[2019-10-25 16:01] LABS: BLOOD UREA NITROGEN 18 MG/DL (7-18); CALCIUM LEVEL 9.4 MG/DL (8.8-10.2); CARBON DIOXIDE LEVEL 30 MEQ/L (21-32); CHLORIDE LEVEL 105 MEQ/L (98-107); CREATININE FOR GFR 0.68 MG/DL (0.55-1.30); GLOMERULAR FILTRATION RATE > 60.0 (>32); GLUCOSE, FASTING 65 MG/DL (70-100); POTASSIUM SERUM 4.8 MEQ/L (3.5-5.1); SODIUM LEVEL 141 MEQ/L (136-145); THYROID STIMULATING HORMONE 0.976 uIU/ML (0.358-3.740)
== END ==
LOC: M SFHCPLAZ 12:33
PROVIDERS: ATTEND Family Medicine
DX: I10 Essential (primary) hypertension (principal); E03.9 Hypothyroidism, unspecified